=== PATIENT | male | born 1945 | race Caucasian/White ===

== ENCOUNTER 2016-09-11 09:56 | Inpatient (IN) | payer OTHER ==
[2016-09-11] VITALS (7 sets, daily range): BP systolic 160–179; BP diastolic 76–110; PULSE 56–62; TEMP 36.4–37; O2SAT 92–99; Ht 190.5 cm; Wt 92.8 kg
[~2016-09-11] VITALS: Ht 190.5 cm; Wt 92.8 kg
[~2016-09-11 09:56] MED LIST: ADVIN25050 INH; ASPCH81X PO; CLC100 PO; CRG3125 PO; GABA1CAP5 PO; IMDSR/30 PO; LISI-461 PO; MELO7.5T5 PO; NTRGSL/4 UT; PRVC/10 PO; SPRIN INH; TRAM-10 PO; TRAZ50TA35 PO
[2016-09-11] MEDS ORDERED: ASPIRIN 81 MG CHEW PO STA (10:02)
[2016-09-11] MEDS ORDERED: NITROGLYCERIN OINT 2% 1GM PACKET EXT ONE (10:15)
--- NOTE | 2016-09-11 10:19 | EMERGENCY ROOM VISIT NOTE ---
History Report prepared by Christina: Yeison dAam Under the Supervision of: Dr. Alan Matos D.O. First contact with patient: 10:02 Stated Complaint: CHEST PAIN History of Present Illness The patient is a 70 year old male who presents to the Emergency Room via ambulance with complaints of constant central chest pain beginning one hour prior to arrival. He currently rates his discomfort as a 2/10 in severity. As per , the patient woke up with the chest pain and notes the patient was doing some heavy lifting yesterday. As per EMS, the patient's chest pain began 30 minutes prior to calling for EMS in the right upper chest that moved to the substernal area. They note the patient's pain was initially a 7/10 and was lowered to a 4/10 after 3 Nitro and aspirin was provided by EMS. The patient states he took two Nitro at home, as well. The notes the patient has a history of a heart attack, in which, he had bypass surgery performed eight years ago without a heart catheterization. EMS states the patient noted he had abdominal pain with his previous heart attack, but is not experiencing abdominal pain today. The states the patient recently had an Echo performed that was fine. The patient complains of increased ankle pain with today's symptoms. He notes he wears oxygen as needed at home. The patient denies radiation of his chest pain, nausea, and being on blood thinners. 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 Initially: 7/10. Timing: constant Modifying Factors (Relieving): other (Nitro) Associated Symptoms: No nausea Review of Systems See HPI for pertinent positives & negatives. A total of 10 systems reviewed and were otherwise negative. Past Medical & Surgical Medical Problems: (1) Chest pain (2) Heart attack Surgical Problems: (1) H/O heart bypass surgery Family History No pertinent family history Social History Smoking Status: Former Smoker Drug Use: none Marital Status: Housing Status: lives with family Occupation Status: retired Current/Historical Medications Scheduled Aspirin (Aspirin Chewable), 81 MG PO DAILY Cholecalciferol (Vitamin D), 1 TAB PO DAILY Docusate Sodium (Stool Softener), 1 CAP PO DAILY Fluticasone Prop/Salmeterol (Advair Diskus 250-50 Mcg/Dose), 1 PUFF INH BID Gabapentin (Neurontin), 800 MG PO TID Isosorbide Mononitrate (Isosorbide Mononitrate ER), 30 MG PO DAILY Lisinopril (Zestril), 1 TAB PO DAILY Meloxicam (Mobic), 7.5 MG PO BID Metoprolol Succ (Toprol Xl) (Toprol-Xl), 25 MG PO DAILY Nitroglycerin (Nitrostat), 0.4 MG UT PRN Pravastatin Sod (Pravastatin Sodium), 10 MG PO DAILY Tiotropium [place] (Spiriva Handihaler), 1 PUFF INH QAM Trazodone Hcl (Trazodone), 25 MG PO HS Scheduled PRN Tramadol (Ultram), 50 MG PO Q12 PRN for Pain Allergies Coded Allergies: Simvastatin (Verified Allergy, Severe, CHEST PAIN, 09/11/16) Naproxen (Unverified Allergy, Intermediate, RASH, 09/11/16) Sulfa Drugs (Verified Allergy, Intermediate, RASH, 09/11/16) Nifedipine (Unverified Allergy, Unknown, UNKNOWN, 09/11/16) Propoxyphene (Verified Allergy, Unknown, _, 09/11/16) Physical Exam Vital Signs Date Time Temp Pulse Resp B/P Pulse Ox O2 Delivery O2 Flow Rate FiO2 09/11/16 13:59 54 20 177/91 99 09/11/16 13:48 54 18 177/91 99 Room Air 09/11/16 12:42 57 20 157/116 100 Room Air 09/11/16 10:56 57 09/11/16 10:46 56 20 183/89 99 Room Air 09/11/16 10:00 99 Room Air 09/11/16 09:56 36.6 63 20 167/109 98 Room Air 09/11/16 09:56 99 Room Air Physical Exam GENERAL: Patient is awake, alert, and mildly anxious appearing but overall comfortable. EYES: The conjunctivae are clear. The pupils are round and reactive. EARS, NOSE, MOUTH AND THROAT: The nose is without any evidence of any deformity. Mucous membranes are moist. Mild perioral cyanosis noted. NECK: The neck is nontender and supple. RESPIRATORY: Normal respiratory effort is noted there is no evidence of wheezing rhonchi or rales CARDIOVASCULAR: Regular rate and rhythm noted there no murmurs rubs or gallops normal S1 normal S2 GASTROINTESTINAL: The abdomen is soft. Bowel sounds are present in all quadrants. Abdomen is nontender MUSCULOSKELETAL/EXTREMITIES: There is no evidence of gross deformity full range of motion is noted in the hips and shoulders SKIN: Trace pedal edema bilaterally. There is no obvious evidence of any rash. There are no petechiae, pallor or cyanosis noted. NEUROLOGIC: Patient is awake alert and oriented x3. Fine resting tremor was noted in both upper extremities. Medical Decision & Procedures ER Provider Diagnostic Interpretation: X-ray results as stated below per interpretation by me and the radiologist. CHEST ONE VIEW PORTABLE CLINICAL HISTORY: Chest pain. COMPARISON STUDY: Chest radiograph and chest CT November 13, 2015. FINDINGS: There is no pneumothorax or pleural effusion. There is no consolidation to suggest pneumonia. There are are median sternotomy wires. Moderate cardiomegaly is unchanged. Mild pulmonary edema is present. IMPRESSION: Mild pulmonary edema. Electronically signed by: Jez Wilson M.D. 09/11/2016 10:25 AM Laboratory Results 09/11/16 10:40 Red Blood Count 5.52, Mean Corpuscular Volume 83.9, Mean Corpuscular Hemoglobin 29.7, Mean Corpuscular Hemoglobin Concent 35.4, Mean Platelet Volume 9.3, Neutrophils (%) (Auto) 74.4, Lymphocytes (%) (Auto) 17.4, Monocytes (%) (Auto) 6.3, Eosinophils (%) (Auto) 1.4, Basophils (%) (Auto) 0.4, Neutrophils # (Auto) 5.82, Lymphocytes # (Auto) 1.36, Monocytes # (Auto) 0.49, Eosinophils # (Auto) 0.11, Basophils # (Auto) 0.03 09/11/16 10:40 Test 09/11/16 10:40 09/11/16 10:44 White Blood Count 7.82 K/uL (4.8-10.8) Red Blood Count 5.52 M/uL (4.7-6.1) Hemoglobin 16.4 g/dL (14.0-18.0) Hematocrit 46.3 % (42-52) Mean Corpuscular Volume 83.9 fL (80-100) Mean Corpuscular Hemoglobin 29.7 pg (25-34) Mean Corpuscular Hemoglobin Concent 35.4 g/dl (32-36) Platelet Count 176 K/uL (130-400) Mean Platelet Volume 9.3 fL (7.4-10.4) Neutrophils (%) (Auto) 74.4 % Lymphocytes (%) (Auto) 17.4 % Monocytes (%) (Auto) 6.3 % Eosinophils (%) (Auto) 1.4 % Basophils (%) (Auto) 0.4 % Neutrophils # (Auto) 5.82 K/uL (1.4-6.5) Lymphocytes # (Auto) 1.36 K/uL (1.2-3.4) Monocytes # (Auto) 0.49 K/uL (0.11-0.59) Eosinophils # (Auto) 0.11 K/uL (0-0.5) Basophils # (Auto) 0.03 K/uL (0-0.2) RDW Standard Deviation 43.6 fL (36.4-46.3) RDW Coefficient of Variation 14.3 % (11.5-14.5) Immature Granulocyte % (Auto) 0.1 % Immature Granulocyte # (Auto) 0.01 K/uL (0.00-0.02) Prothrombin Time 10.5 SECONDS (9.0-12.0) Prothromb Time International Ratio 1.0 (0.9-1.1) Activated Partial Thromboplast Time 25.9 SECONDS (21.0-31.0) Partial Thromboplastin Ratio 1.0 Anion Gap 4.0 mmol/L (3-11) Est Creatinine Clear Calc Drug Dose 104.2 ml/min Estimated GFR () 105.6 Estimated GFR (Non- 91.1 BUN/Creatinine Ratio 23.3 (10-20) Calcium Level 8.8 mg/dl (8.5-10.1) Magnesium Level 2.0 mg/dl (1.8-2.4) Total Bilirubin 1.2 mg/dl (0.2-1) Direct Bilirubin 0.2 mg/dl (0-0.2) Aspartate Amino Transf (AST/SGOT) 14 U/L (15-37) Alanine Aminotransferase (ALT/SGPT) 19 U/L (12-78) Alkaline Phosphatase 89 U/L (45-117) Total Creatine Kinase 119 U/L (39-308) Creatine Kinase MB 3.6 ng/ml (0.5-3.6) Creatine Kinase MB Ratio 3.0 (0-3.0) Troponin I < 0.015 ng/ml (0-0.045) Total Protein 7.0 gm/dl (6.4-8.2) Albumin 3.8 gm/dl (3.4-5.0) Bedside Troponin I 0.010 ng/ml (0-0.045) Laboratory results per my review. Medications Administered Medications (Trade) Dose Ordered Sig/Reid Route Start Time Stop Time Status Last Admin Dose Admin Nitroglycerin (Nitroglycerin 2% Oint) 1 inch NOW ONCE EXT 09/11/16 10:15 09/11/16 10:16 DC 09/11/16 10:15 1 INCH ECG Indication: chest pain Rate (beats per minute): 64 Rhythm: normal sinus (Bigeminy is noted.) Findings: Q waves (Inferior), other (No ST segment abnormality.) Comparison ECG Date: 11/11/2015 Change: Ectopy is new. ED Course 0955: The patient was evaluated in room B4B. A complete history and physical examination were performed. 1015: Ordered Nitroglycerin 1 inch EXT. 1058: Reevaluated the patient at this time, and he is essentially pain free. 1153: I spoke to CAROL Rutledge (Hospitalist) about the patient's case, and he will follow the patient for further evaluation. Medical Decision Etiologies such as cardiac ischemia, aortic dissection, pulmonary embolism, pneumonia, pneumothorax, musculoskeletal, infections, pericarditis, myocarditis , esophageal rupture, gastrointestinal, as well as others were entertained. Nursing notes reviewed. Additional history is obtained from the prehospital personnel. The patient is a 70-year-old male who presented to the emergency department for an evaluation of chest discomfort. The patient took his own nitroglycerin at home with minimal relief. He was given aspirin and nitroglycerin prior to arrival by the prehospital personnel. Upon arrival to the emergency Department his symptoms were significantly improved. He was further treated with Nitropaste in the emergency department. The patient doesn't a strong medical history of coronary artery disease. I discussed the patient's laboratory and radiographic studies with him. I also discussed the limitations of the emergency department workup for chest pain with him. Because of his past medical history I also discussed his case with the on-call [facility] hospitalist group. They have agreed to evaluate the patient in the emergency department for further management and disposition. Consults Time Called: 1151 Consulting Physician: CAROL Rutledge (Hospitalist) Returned Call: 1153 I spoke to CAROL Rutledge (Hospitalist) about the patient's case, and he will follow the patient for further evaluation. Impression Primary Impression: Substernal chest pain Additional Impression: Abnormal EKG Scribe Attestation The scribe's documentation has been prepared under my direction and personally reviewed by me in its entirety. I confirm that the note above accurately reflects all work, treatment, procedures, and medical decision making performed by me. Departure Information Dispostion Being Evaluated By Hospitalist (CAROL Rutledge (Hospitalist)) Problem Qualifiers
--- NOTE | 2016-09-11 10:26 | DIAGNOSTIC IMAGING REPORT ---
CHEST ONE VIEW PORTABLE CLINICAL HISTORY: Chest pain. COMPARISON STUDY: Chest radiograph and chest CT November 13, 2015. FINDINGS: There is no pneumothorax or pleural effusion. There is no consolidation to suggest pneumonia. There are are median sternotomy wires. Moderate cardiomegaly is unchanged. Mild pulmonary edema is present. IMPRESSION: Mild pulmonary edema. Electronically signed by: Jez Wilson M.D. 09/11/2016 10:25 AM Dictated Date/Time: 09/11/2016 10:24 AM
[2016-09-11 10:50] LABS: BASO % 0.4 %; BASO ABS # 0.03 K/uL (0-0.2); COMPLETE YES; EOS % 1.4 %; HEMATOCRIT 46.3 % (42-52); IG% 0.1 %; LYMPH % 17.4 %; LYMPH ABS # 1.36 K/uL (1.2-3.4); MEAN CELL VOLUME 83.9 fL (80-100); MEAN CORPUSCULAR HEMOGLOBIN 29.7 pg (25-34); MEAN CORPUSCULAR HGB CONC 35.4 g/dl (32-36); MEAN PLATELET VOLUME 9.3 fL (7.4-10.4); MONO % 6.3 %; NEUT % 74.4 %; PLATELET COUNT 176 K/uL (130-400); RED BLOOD COUNT 5.52 M/uL (4.7-6.1); WHITE BLOOD COUNT 7.82 K/uL (4.8-10.8)
[2016-09-11] MEDS ORDERED: LISI-789 PO (10:50)
[2016-09-11] MEDS ORDERED: CHOL100010 PO (10:50)
[2016-09-11] MEDS ORDERED: DOCU100C PO (10:50)
[2016-09-11] MEDS ORDERED: METO25TA3 PO (10:50)
[2016-09-11 11:08] LABS: PROTHROMBIN TIME (PATIENT) 10.5 SECONDS (9.0-12.0)
[2016-09-11 11:17] LABS: ALT/SGPT 19 U/L (12-78); BLOOD UREA NITROGEN 19 mg/dl (7-18); BUN/CREATININE RATIO 23.3 (10-20); CALCIUM 8.8 mg/dl (8.5-10.1); CARBON DIOXIDE 31 mmol/L (21-32); CHLORIDE 101 mmol/L (98-107); GLUCOSE 99 mg/dl (70-99); POTASSIUM 4.3 mmol/L (3.5-5.1); SODIUM 136 mmol/L (136-145)
[2016-09-11 11:22] LABS: ALKALINE PHOSPHATASE 89 U/L (45-117); AST/SGOT 14 U/L (15-37)
[2016-09-11] MEDS ORDERED: ONDANSETRON INJ 2 MG/ML 2 ML VIAL IV PRN (12:45)
[2016-09-11] MEDS ORDERED: POLYETHYLENE (MIRALAX) 17 GM PACK PO PRN (12:45)
[2016-09-11] MEDS ORDERED: NITROGLYCERIN 0.4 MG SL PER TAB CHARGE UT SCH (12:45)
--- NOTE | 2016-09-11 13:12 | History and Physical ---
History & Physical Date & Time of Service: Sep 11, 2016 at 12:50 Chief Complaint: Chest Pain Primary Care Physician: Fely Friedman MD History of Present Illness Source: patient, family This is a 70-year-old male with a past medical history of previous inferior NH, CAD, chronic systolic CHF with an EF = 35-40% in 2016, resting tremor, hypertension, hyperlipidemia and remote 20pack/yr smoking history who presents with the onset of substernal chest pain at approximately 8:30 this morning. His , son, and family friend are present at bedside. At the time the patient developed chest pain he took 2 nitroglycerin tablets and chewed 2 baby aspirin, and after this his pain slightly improved from a 7 to 4. Patient reports the pain comes and goes, it does radiate through to his back, but denies any radiation into the jaw neck or arms. He currently rates the pain a 4 out of 10, and has nitro paste on. He denies any associated shortness of breath, dyspnea on exertion, flutter, palpitation, weakness, lightheadedness, dizziness, confusion. He does wear 2L supplemental oxygen occasionally but the last time was about 2 weeks ago. Patient typically uses an walker to ambulate. He and his are residents of the [facility]. POC troponin is negative in the ER, BC is within normal limits, PRP is essentially unremarkable. EKG was reviewed showing new ST depression in the lateral leads with an old inferior infarct. CXR showing pulmonary hypertension Past Medical/Surgical History Medical Problems: (1) Heart attack Status: Resolved Surgical Problems: (1) H/O heart bypass surgery Status: Resolved Family History No pertinent family history Social History Smoking Status: Former Smoker Smokeless Tobacco Use: No Alcohol Use: none Drug Use: none Marital Status: Housing status: lives with family, lives with significant other Occupational Status: retired Immunizations History of Influenza Vaccine: Yes History of Tetanus Vaccine?: Yes History of Pneumococcal: Yes Pneumococcal Date: Apr 07, 2010 History of Hepatitis B Vaccine: No Multi-Drug Resistant Organisms History of MDRO: No Allergies Coded Allergies: Simvastatin (Verified Allergy, Severe, CHEST PAIN, 09/11/16) Naproxen (Verified Allergy, Intermediate, RASH, 09/11/16) Sulfa Antibiotics (Verified Allergy, Intermediate, Rash, 09/11/16) Nifedipine (Unverified Allergy, Unknown, UNKNOWN, 09/11/16) Propoxyphene (Verified Allergy, Unknown, _, 09/11/16) Home Medications Scheduled Aspirin (Aspirin Chewable), 81 MG PO DAILY Cholecalciferol (Vitamin D), 1 TAB PO DAILY Docusate Sodium (Stool Softener), 1 CAP PO DAILY Fluticasone Prop/Salmeterol (Advair Diskus 250-50 Mcg/Dose), 1 PUFF INH BID Gabapentin (Neurontin), 800 MG PO TID Isosorbide Mononitrate (Isosorbide Mononitrate ER), 30 MG PO DAILY Lisinopril (Zestril), 1 TAB PO DAILY Meloxicam (Mobic), 7.5 MG PO BID Metoprolol Succ (Toprol Xl) (Toprol-Xl), 25 MG PO DAILY Nitroglycerin (Nitrostat), 0.4 MG UT PRN Pravastatin Sod (Pravastatin Sodium), 10 MG PO DAILY Tiotropium [place] (Spiriva Handihaler), 1 PUFF INH QAM Trazodone Hcl (Trazodone), 25 MG PO HS Scheduled PRN Tramadol (Ultram), 50 MG PO Q12 PRN for Pain Review of Systems Constitutional: No fever, chills, sweats, fatigue or weakness Eyes: No diplopia, no changes in vision ENT: No sore throat, tinnitus, or trouble swallowing Respiratory: No shortness of breath, No dyspnea at rest or on exertion, no cough or sputum Cardiovascular: + Substernal chest pain, denies palpitations, or flutter Abdomen: No pain, No constipation, last BM was yesterday, No diarrhea, No nausea, No vomiting Musculoskeletal: No calf pain, No joint pain, No swelling Genitourinary : No dysuria or urinary frequency, No hematuria Neurologic: No numbness/tingling, no difficulty with ambulation, no sensory or motor deficits Psychiatric: No depression or anxiety symptoms Endocrine: No fatigue, No weight changes Integumentary: No itch, + rash with small red circles on his legs and arms Physical Exam Vital Signs Date Time Temp Pulse Resp B/P Pulse Ox O2 Delivery O2 Flow Rate FiO2 09/11/16 12:42 57 20 157/116 100 Room Air 09/11/16 10:56 57 09/11/16 10:46 56 20 183/89 99 Room Air 09/11/16 10:00 99 Room Air 09/11/16 09:56 36.6 63 20 167/109 98 Room Air 09/11/16 09:56 99 Room Air General: awake, alert, no apparent distress, appears older than stated age, disheveled Head: Normocephalic, atraumatic ENT: PERRL, EOMI, + strabismus, no pharyngeal exudate, mucous membranes moist Chest: Clear to auscultation, on room air, no adventitious breath sounds Cardiac: + Chest wall tenderness with palpation over sternum, regular rate and rhythm, +faint systolic murmur, no JVD, normal peripheral pulses Abdominal: NABS x 4 quadrants, soft, nontender to palpation, no rebound, guarding or tenderness Extremities: Normal inspection, no peripheral edema or erythema, calfs nontender to palpation Psych: Normal mood and affect Neuro: AAO x 3, strength intact bilaterally and related 5/5, no motor deficits, speech is clear, no peripheral sensory deficits Diagnostics Laboratory Results Results Past 24 Hours Test 09/11/16 10:40 09/11/16 10:44 Range/Units White Blood Count 7.82 4.8-10.8 K/uL Red Blood Count 5.52 4.7-6.1 M/uL Hemoglobin 16.4 14.0-18.0 g/dL Hematocrit 46.3 42-52 % Mean Corpuscular Volume 83.9 80-100 fL Mean Corpuscular Hemoglobin 29.7 25-34 pg Mean Corpuscular Hemoglobin Concent 35.4 32-36 g/dl Platelet Count 176 130-400 K/uL Mean Platelet Volume 9.3 7.4-10.4 fL Neutrophils (%) (Auto) 74.4 % Lymphocytes (%) (Auto) 17.4 % Monocytes (%) (Auto) 6.3 % Eosinophils (%) (Auto) 1.4 % Basophils (%) (Auto) 0.4 % Neutrophils # (Auto) 5.82 1.4-6.5 K/uL Lymphocytes # (Auto) 1.36 1.2-3.4 K/uL Monocytes # (Auto) 0.49 0.11-0.59 K/uL Eosinophils # (Auto) 0.11 0-0.5 K/uL Basophils # (Auto) 0.03 0-0.2 K/uL RDW Standard Deviation 43.6 36.4-46.3 fL RDW Coefficient of Variation 14.3 11.5-14.5 % Immature Granulocyte % (Auto) 0.1 % Immature Granulocyte # (Auto) 0.01 0.00-0.02 K/uL Prothrombin Time 10.5 9.0-12.0 SECONDS Prothromb Time International Ratio 1.0 0.9-1.1 Activated Partial Thromboplast Time 25.9 21.0-31.0 SECONDS Partial Thromboplastin Ratio 1.0 Sodium Level 136 136-145 mmol/L Potassium Level 4.3 3.5-5.1 mmol/L Chloride Level 101 98-107 mmol/L Carbon Dioxide Level 31 21-32 mmol/L Anion Gap 4.0 3-11 mmol/L Blood Urea Nitrogen 19 7-18 mg/dl Creatinine 0.80 0.60-1.40 mg/dl Est Creatinine Clear Calc Drug Dose 104.2 ml/min Estimated GFR () 105.6 Estimated GFR (Non- 91.1 BUN/Creatinine Ratio 23.3 10-20 Random Glucose 99 70-99 mg/dl Calcium Level 8.8 8.5-10.1 mg/dl Magnesium Level 2.0 1.8-2.4 mg/dl Total Bilirubin 1.2 0.2-1 mg/dl Direct Bilirubin 0.2 0-0.2 mg/dl Aspartate Amino Transf (AST/SGOT) 14 15-37 U/L Alanine Aminotransferase (ALT/SGPT) 19 12-78 U/L Alkaline Phosphatase 89 45-117 U/L Total Creatine Kinase 119 39-308 U/L Creatine Kinase MB 3.6 0.5-3.6 ng/ml Creatine Kinase MB Ratio 3.0 0-3.0 Total Protein 7.0 6.4-8.2 gm/dl Albumin 3.8 3.4-5.0 gm/dl Bedside Troponin I 0.010 0-0.045 ng/ml Diagnostic Radiology CHEST ONE VIEW PORTABLE CLINICAL HISTORY: Chest pain. COMPARISON STUDY: Chest radiograph and chest CT November 13, 2015. FINDINGS: There is no pneumothorax or pleural effusion. There is no consolidation to suggest pneumonia. There are are median sternotomy wires. Moderate cardiomegaly is unchanged. Mild pulmonary edema is present. IMPRESSION: Mild pulmonary edema. Electronically signed by: Jez Wilson M.D. 09/11/2016 10:25 AM Dictated Date/Time: 09/11/2016 10:24 AM The status of this report is Signed. EKG Vent. rate 64 BPM WA interval 158 ms QRS duration 100 ms QT/QTc 482/497 ms P-R-T axes 27 76 38 Sinus rhythm with frequent Premature ventricular complexes in a pattern of bigeminy Possible Inferior infarct (cited on or before 08-JUL-2010) Abnormal ECG When compared with ECG of 11-NOV-2015 13:43, Premature ventricular complexes are now Present ST now depressed in Lateral leads Impression Assessment and Plan This is a 70-year-old male with a past medical history of previous inferior NH, CAD, chronic systolic CHF with an EF = 35-40% in 2016, resting tremor, hypertension, hyperlipidemia and remote 20pack/yr smoking history who presents with the onset of substernal chest pain at approximately 8:30 this morning. Chest pain r/o Chronic Systolic CHF CAD Ischemic cardiomyopathy Pulmonary hypertension - Admit to telemetry - + pain with palpation of the chest wall, VSS, not hypoxic, BP stable and mildly elevated in 150s. - POC troponin is negative in the ER, recheck of trop is neg with CBC is neg, CBC is within normal limits, PRP is essentially unremarkable. - Trend cardiac biomarkers 2 more sets - EKG reviewed showing possible lateral wall involvement, patient has previously had an inferior NH in 2010 where he underwent bypass surgery without cath. - We will check a 2-D echo, last echo was completed in 2016 showing systolic CHF with diminished EF - Consult cardiology - Chest x-ray reviewed showing pulmonary hypertension - EKG when necessary chest pain - Continue Nitropaste, baby aspirin, O2 supplemental therapy - Continue home medications including lisinopril 2.5 mg daily, metoprolol succinate 25 mg daily, pravastatin 10 mg daily - Hold Imdur while on nitropaste - PT OT eval Hypertension - Continue PIANO PROFESSOR meds as above Hyperlipidemia - Continue statin therapy as above Resting tremor Chronic right wrist pain - Continue gabapentin 800 mg 3 times a day - Continue tramadol 50 mg every 12 as needed for pain DVT prophylaxis: teds, scds, heparin Disposition: From [facility], lives with , possible discharge within 1-2 days Agree with PA assessment and plan and have seen and examined pt myself Will cont home meds Chest: no TATI, RRR Accelerated HTN Chest pain likely atypical, worse on palpation Awaiting cards recs Level of Care Telemetry Advanced Directives Existing Advance Directive: No Existing Living Will: No Existing Power of Fruit Dumper: No Existing Health Care Proxy: No Resuscitation Status FULL RESUSCITATION VTE Prophylaxis VTE Risk Assessment Done? Y/N: Yes Risk Level: Low Given or contraindicated: Unfractionated heparin SQ, T.E.D. Stockings, SCD's
[2016-09-11] MEDS: HEPARIN SOD 5000 UNIT/0.5 ML CARP SQ SCH ×2 (14:00→21:59)
[2016-09-11] MEDS: GABAPENTIN 800 MG TAB PO SCH ×2 (14:00→20:15)
[2016-09-11] MEDS ORDERED: INFLUENZA ADMINISTRATION CHARGE ONE (14:45)
[2016-09-11] MEDS ORDERED: PNEUMOCOCCAL ADMINISTRATION CHARGE ONE (14:45)
[2016-09-11] MEDS ORDERED: PNEUMOCOCCAL POLYSACCHARIDES 25 MCG/0.5 ML VIAL/SYR IM. ONE (14:45)
[2016-09-11] MEDS ORDERED: INFLUENZA VIRUS QUAD VACCINE 0.5 ML SYR IM. ONE (14:45)
[2016-09-11] MEDS ORDERED: HydrALAZINE HCL 20 MG/ML VIAL IV. PRN (15:15)
[2016-09-11] MEDS ORDERED: METOPROLOL SUCC 25MG EXT REL TAB PO ONE (17:30)
[2016-09-11] MEDS: NITROGLYCERIN OINT 2% 1GM PACKET EXT SCH ×2 (18:26→22:06)
[2016-09-11] MEDS: TRAMADOL HCL 50 MG TAB PO PRN (18:28)
--- NOTE | 2016-09-11 19:02 | CARDIOLOGY CONSULTATION ---
DATE OF CONSULTATION: 09/11/2016 REFERRING PHYSICIAN: Billy Lugo DO REASON FOR CONSULTATION: Chest pain. HISTORY OF PRESENT ILLNESS: Mr. Domingo is a 70-year-old gentleman with prior cardiovascular history noted below. He presented to the Emergency Department with an episode of substernal chest discomfort this a.m. lasting nearly 60 minutes. He described a sharp and stabbing pain. The pain was described as moderate. It did not radiate. No associated shortness of breath. The discomfort spontaneously resolved without treatment. He came to the Emergency Department for further evaluation. Initial ECG is unremarkable. Cardiac enzymes are negative x2 sets. During his stay in the ER, he developed frequent PVCs with ventricular bigeminy. This was also noted during recent office visit with Adri Beck PA-C on 08/16/2016. At that time, the patient had a repeat resting 2D transthoracic echo performed demonstrating mild improvement in left ventricular systolic function with an ejection fraction now of 40-45%. His most recent dobutamine stress echo was performed in 2015 and was negative for inducible ischemia. Currently, the patient is pain free. He remains in ventricular bigeminy on telemetry. His is present at the bedside. He denies orthopnea, PND or lower extremity edema. He ambulates with the use of a walker. He denies any exertional chest discomfort or change in functional capacity. REVIEW OF SYSTEMS: The pertinent positives as noted above, comprehensive 10-system review is otherwise negative. PAST MEDICAL HISTORY: 1. Congenital hydrocephalus. 2. Chronic coronary artery disease status post drug-eluting stent placement to the left circumflex in 2008. 3. STEMI in 2010 with late stent thrombosis of the left circumflex treated with angioplasty, known occluded right coronary artery at that time with left to right collaterals. 4. Coronary artery bypass grafting in 2010 with MINA to LAD, saphenous vein graft to the first diagonal branch. 5. Diabetes type 2. 6. Colon cancer. 7. Dyslipidemia. 8. Peptic ulcer disease. 9. Hypertriglyceridemia. 10. Hypertension. 11. Meningioma. PAST SURGICAL HISTORY: Coronary artery bypass grafting. ALLERGIES: NAPROXEN, SIMVASTATIN AND SULFA. CURRENT OUTPATIENT MEDICATIONS: 1. Toprol-XL 25 mg daily (recently transitioned from carvedilol to Toprol for treatment of frequent PVCs). 2. Aspirin 81 mg daily. 3. Neurontin 800 mg t.i.d. 4. Imdur 30 mg daily. 5. Zestril 2.5 mg daily. 6. Advair Diskus 250/50 one puff twice daily. 7. Mobic 7.5 mg twice daily. 8. Sublingual nitrate as needed. 9. Pravastatin 10 mg daily. 10. Trazodone 25 mg at bedtime. FAMILY HISTORY: Negative for premature CAD or sudden cardiac . SOCIAL HISTORY: Former tobacco use. He is and lives with his . LABORATORY DATA: White blood cell count 7.82, hemoglobin is 16.4 and platelet count is 176. Sodium 136, potassium 4.3, chloride 101, CO2 is 31, BUN is 19 and creatinine 0.80. Troponin is negative x2 sets. INR is 1.0. Telemetry demonstrates sinus rhythm with ventricular bigeminy. PHYSICAL EXAMINATION: VITAL SIGNS: Temperature is 37 degrees centigrade, pulse 56 beats per minute and regular, respiratory rate 17 breaths per minute, blood pressure 177/81 and SaO2 is 99% on room air. GENERAL: NAD, awake, alert and oriented x3. HEENT: His mucous membranes are moist. NECK: Supple without JVD or HJR. No carotid bruits. HEART: Regular with a normal S1 and S2, no murmur, rub or gallop. LUNGS: Clear without rales, rhonchi or wheeze. ABDOMEN: Soft and nontender. No rebound or guarding. EXTREMITIES: Warm and dry without clubbing, cyanosis or edema. NEUROLOGIC: Demonstrates no focal motor deficits. Gait abnormality noted. FINAL IMPRESSION: 1. A 70-year-old male, admitted with atypical chest discomfort. 2. Chronic coronary artery disease with history of coronary artery bypass grafting in 2010 with left internal mammary artery to left anterior descending artery and saphenous vein graft to diagonal branch vessel. Negative dobutamine stress echo noted in November 2015. 3. Ischemic cardiomyopathy with ejection fraction previously noted of 35%, however, most recent resting 2D transthoracic echo demonstrated improvement in left ventricular systolic function with an ejection fraction of 40-45%. 4. Hypertension -- controlled. 5. Congenital hydrocephalus. 6. Dyslipidemia. PLAN AND RECOMMENDATIONS: Cardiac enzymes will be trended x3 sets. Imdur will be placed on hold as patient is now receiving nitro paste which should aid with blood pressure reduction. I would titrate Toprol-XL to 50 mg daily. He would receive an additional 25 mg of Toprol-XL this evening. He may require titration of lisinopril during hospitalization pending review of blood pressure readings overnight. If cardiac enzymes are negative x3 sets, we will likely proceed with pharmacologic stress testing. I discussed inpatient versus outpatient testing with the patient and his . Currently, they are undecided. We will readdress in the a.m. Thank you for allowing me to take part in the care of your patient.
[2016-09-11] MEDS: FLUTICASONE/SALMETEROL 250/50 (ADVAIR) 14 PUFF/1 INHALER INH SCH (20:15)
[2016-09-11] MEDS: MELOXICAM 7.5 MG TAB PO SCH (20:15)
[2016-09-11] MEDS: TRAZODONE HCL 50 MG TAB PO SCH (22:06)
[2016-09-11] MEDS: ACETAMINOPHEN 325 MG TAB PO PRN (22:07)
[2016-09-12] VITALS (11 sets, daily range): BP systolic 120–154; BP diastolic 68–96; PULSE 47–74; TEMP 36.6–36.9; O2SAT 91–96
[2016-09-12] MEDS: NITROGLYCERIN OINT 2% 1GM PACKET EXT SCH ×4 (04:14→21:54)
[2016-09-12] MEDS: HEPARIN SOD 5000 UNIT/0.5 ML CARP SQ SCH ×3 (05:39→21:55)
[2016-09-12 06:21] LABS: BASO % 0.5 %; BASO ABS # 0.04 K/uL (0-0.2); COMPLETE YES; EOS % 2.3 %; HEMATOCRIT 46.1 % (42-52); IG% 0.3 %; LYMPH % 23.4 %; MEAN CELL VOLUME 82.5 fL (80-100); MEAN CORPUSCULAR HEMOGLOBIN 28.6 pg (25-34); MEAN CORPUSCULAR HGB CONC 34.7 g/dl (32-36); MEAN PLATELET VOLUME 9.5 fL (7.4-10.4); MONO % 9.2 %; NEUT % 64.3 %; PLATELET COUNT 177 K/uL (130-400); RED BLOOD COUNT 5.59 M/uL (4.7-6.1)
[2016-09-12 06:41] LABS: BLOOD UREA NITROGEN 23 mg/dl (7-18); BUN/CREATININE RATIO 27.4 (10-20); CALCIUM 8.6 mg/dl (8.5-10.1); CARBON DIOXIDE 27 mmol/L (21-32); CHLORIDE 102 mmol/L (98-107); CREATININE 0.82 mg/dl (0.60-1.40); GLUCOSE 99 mg/dl (70-99); POTASSIUM 3.9 mmol/L (3.5-5.1); SODIUM 137 mmol/L (136-145)
[2016-09-12] MEDS: TIOTROPIUM BROMIDE 5 PUFF/90 MCG INH INH SCH (07:23)
[2016-09-12] MEDS: FLUTICASONE/SALMETEROL 250/50 (ADVAIR) 14 PUFF/1 INHALER INH SCH ×2 (07:23→21:54)
[2016-09-12] MEDS: TRAMADOL HCL 50 MG TAB PO PRN ×2 (07:24→21:53)
[2016-09-12] MEDS: DOCUSATE SODIUM 100 MG CAP PO SCH (07:25)
[2016-09-12] MEDS: ASPIRIN 81 MG ECTAB PO SCH (07:25)
[2016-09-12] MEDS: GABAPENTIN 800 MG TAB PO SCH ×3 (07:26→21:53)
[2016-09-12] MEDS: PRAVASTATIN SOD 10 MG TAB PO SCH (07:26)
[2016-09-12] MEDS: MELOXICAM 7.5 MG TAB PO SCH ×2 (07:26→21:53)
[2016-09-12] MEDS: METOPROLOL SUCC 50MG EXT REL TAB PO SCH (07:27)
[2016-09-12] MEDS: CHOLECALCIFEROL 1000 INTER.UNIT TAB PO SCH (07:28)
[2016-09-12] MEDS ORDERED: METOPROLOL SUCC 25MG EXT REL TAB PO SCH (09:00)
[2016-09-12] MEDS ORDERED: LISINOPRIL 2.5 MG TAB PO SCH (09:00)
[2016-09-12] MEDS ORDERED: ISOSORBIDE MONONITRATE 30 MG TABCR PO SCH (09:00)
--- NOTE | 2016-09-12 09:15 | Cardiology Follow-Up ---
Subjective General Date of Service: Sep 12, 2016. Pt evaluation today including: conversation w/ patient, conversation w/ family , physical exam, chart review, lab review, review of studies, review of inpatient medication list History of Present Illness The patient is a 70 year old male seen in follow up. No recurrent chest discomfort overnight. Telemetry reveals sinus rhythm with PVC's and periods and ventricular bigeminy. C/o chronic foot discomfort this AM. Denies palpitations. Allergies Coded Allergies: Simvastatin (Verified Allergy, Severe, CHEST PAIN, 09/11/16) Naproxen (Verified Allergy, Intermediate, RASH, 09/11/16) Sulfa Antibiotics (Verified Allergy, Intermediate, Rash, 09/11/16) Nifedipine (Unverified Allergy, Unknown, UNKNOWN, 09/11/16) Propoxyphene (Verified Allergy, Unknown, _, 09/11/16) Social History Smoking Status: Former Smoker Hx Tobacco Use In Past Year?: No Hx Alcohol Use - Type And Amou: No (quit 16 yrs ago) Hx Substance Use - Type And Am: No Problem List Medical Problems: (1) Abnormal EKG Status: Acute (2) Abnormal EKG Status: Acute (3) Substernal chest pain Status: Acute Review of Systems Respiratory: No cough, No dyspnea at rest, No dyspnea on exertion, No hemoptysis, No shortness of breath, No sputum, No wheezing Cardiac: No PND, No chest pain, No claudication, No edema, No orthopnea, No palpitations Physical Exam Vital Signs Last Vital Signs Documentation Date Time Temp Pulse Resp B/P Pulse Ox O2 Delivery O2 Flow Rate FiO2 09/12/16 08:35 36.8 74 18 147/96 96 2.0 09/12/16 04:00 Room Air Physical Exam Constitutional: General Apperance: well-nourished Level of Distress: NAD Head: macrocephaly Neck: supple, trachea midline Lungs: Auscultation: breath sounds normal, no wheezing, no rales/crackles, no rhonchi Cardiovascular: Heart Auscultation: RRR, normal S1, normal S2, no murmurs Peripheral Pulses: Radial Pulse: normal on the left, normal on the right Abdomen: Bowel Sounds: normal Inspection & Palpation: soft, non-distended, no tenderness, guarding & rebound Extremities: no cyanosis, no edema Neurologic: Gait & Station: pertinent finding (+tremor) Cranial Nerves: grossly intact Assessment and Plan Assessment and Plan FINAL IMPRESSION: 1. Atypical chest discomfort. - Troponin negative 2. Chronic coronary artery disease with history of coronary artery bypass grafting in 2010 with left internal mammary artery to left anterior descending artery and saphenous vein graft to diagonal branch vessel. Negative dobutamine stress echo noted in November 2015. 3. Ischemic cardiomyopathy with ejection fraction previously noted of 35%, however, most recent resting 2D transthoracic echo demonstrated improvement in left ventricular systolic function with an ejection fraction of 40-45%. 5. PVC's with periods of ventricular bigeminy 6. Hypertension -- improved control 7. Congenital hydrocephalus. 8. Dyslipidemia. PLAN AND RECOMMENDATIONS: Recommend pharmacologic stress testing. Offered to discharge and schedule test as outpatient, however, patient prefers to remain in hospital due to transportation issues. He will be made NPO after midnight. Lexiscan nuclear stress test in AM. Laboratory Results Last 24 Hours Test 09/11/16 10:40 09/11/16 10:44 09/11/16 15:00 09/11/16 22:00 White Blood Count 7.82 K/uL Red Blood Count 5.52 M/uL Hemoglobin 16.4 g/dL Hematocrit 46.3 % Mean Corpuscular Volume 83.9 fL Mean Corpuscular Hemoglobin 29.7 pg Mean Corpuscular Hemoglobin Concent 35.4 g/dl Platelet Count 176 K/uL Mean Platelet Volume 9.3 fL Neutrophils (%) (Auto) 74.4 % Lymphocytes (%) (Auto) 17.4 % Monocytes (%) (Auto) 6.3 % Eosinophils (%) (Auto) 1.4 % Basophils (%) (Auto) 0.4 % Neutrophils # (Auto) 5.82 K/uL Lymphocytes # (Auto) 1.36 K/uL Monocytes # (Auto) 0.49 K/uL Eosinophils # (Auto) 0.11 K/uL Basophils # (Auto) 0.03 K/uL RDW Standard Deviation 43.6 fL RDW Coefficient of Variation 14.3 % Immature Granulocyte % (Auto) 0.1 % Immature Granulocyte # (Auto) 0.01 K/uL Prothrombin Time 10.5 SECONDS Prothromb Time International Ratio 1.0 Activated Partial Thromboplast Time 25.9 SECONDS Partial Thromboplastin Ratio 1.0 Sodium Level 136 mmol/L Potassium Level 4.3 mmol/L Chloride Level 101 mmol/L Carbon Dioxide Level 31 mmol/L Anion Gap 4.0 mmol/L Blood Urea Nitrogen 19 mg/dl Creatinine 0.80 mg/dl Est Creatinine Clear Calc Drug Dose 104.2 ml/min Estimated GFR () 105.6 Estimated GFR (Non- 91.1 BUN/Creatinine Ratio 23.3 Random Glucose 99 mg/dl Calcium Level 8.8 mg/dl Magnesium Level 2.0 mg/dl Total Bilirubin 1.2 mg/dl Direct Bilirubin 0.2 mg/dl Aspartate Amino Transf (AST/SGOT) 14 U/L Alanine Aminotransferase (ALT/SGPT) 19 U/L Alkaline Phosphatase 89 U/L Total Creatine Kinase 119 U/L Creatine Kinase MB 3.6 ng/ml Creatine Kinase MB Ratio 3.0 Troponin I < 0.015 ng/ml < 0.015 ng/ml Total Protein 7.0 gm/dl Albumin 3.8 gm/dl Bedside Troponin I 0.010 ng/ml Test 09/11/16 22:23 09/12/16 06:00 09/12/16 06:05 Creatine Kinase MB 5.4 ng/ml 4.9 ng/ml Troponin I < 0.015 ng/ml < 0.015 ng/ml Creatine Kinase MB Ratio White Blood Count 7.70 K/uL Red Blood Count 5.59 M/uL Hemoglobin 16.0 g/dL Hematocrit 46.1 % Mean Corpuscular Volume 82.5 fL Mean Corpuscular Hemoglobin 28.6 pg Mean Corpuscular Hemoglobin Concent 34.7 g/dl Platelet Count 177 K/uL Mean Platelet Volume 9.5 fL Neutrophils (%) (Auto) 64.3 % Lymphocytes (%) (Auto) 23.4 % Monocytes (%) (Auto) 9.2 % Eosinophils (%) (Auto) 2.3 % Basophils (%) (Auto) 0.5 % Neutrophils # (Auto) 4.95 K/uL Lymphocytes # (Auto) 1.80 K/uL Monocytes # (Auto) 0.71 K/uL Eosinophils # (Auto) 0.18 K/uL Basophils # (Auto) 0.04 K/uL RDW Standard Deviation 42.3 fL RDW Coefficient of Variation 14.1 % Immature Granulocyte % (Auto) 0.3 % Immature Granulocyte # (Auto) 0.02 K/uL Sodium Level 137 mmol/L Potassium Level 3.9 mmol/L Chloride Level 102 mmol/L Carbon Dioxide Level 27 mmol/L Anion Gap 8.0 mmol/L Blood Urea Nitrogen 23 mg/dl Creatinine 0.82 mg/dl Est Creatinine Clear Calc Drug Dose 101.6 ml/min Estimated GFR () 104.6 Estimated GFR (Non- 90.2 BUN/Creatinine Ratio 27.4 Random Glucose 99 mg/dl Calcium Level 8.6 mg/dl
[2016-09-12] MEDS: LISINOPRIL 20 MG TAB PO SCH (10:40)
--- NOTE | 2016-09-12 11:12 | Progress Note ---
Subjective Date of Service: Sep 12, 2016. Subjective Pt evaluation today including: conversation w/ patient, conversation w/ family , physical exam, chart review, lab review, review of studies, conversation w/ organization development consultant, review of inpatient medication list No further chest pain Mild hand pain No sob Resting in bed comfortably Problem List Medical Problems: (1) Abnormal EKG Status: Acute (2) Abnormal EKG Status: Acute (3) Substernal chest pain Status: Acute Review of Systems Constitutional: No chills, No fever Respiratory: No cough, No dyspnea on exertion, No shortness of breath, No sputum, No wheezing Cardiac: No chest pain, No orthopnea Abdomen: No constipation, No diarrhea, No nausea, No pain, No vomiting Musculoskeletal: + joint pain, No muscle pain Male : No dysuria, No urinary frequency Objective Vital Signs Date Time Temp Pulse Resp B/P Pulse Ox O2 Delivery O2 Flow Rate FiO2 09/12/16 08:35 36.8 74 18 147/96 96 2.0 09/12/16 08:00 94 Room Air 09/12/16 04:00 94 Room Air 09/12/16 04:00 36.7 54 18 154/82 94 Room Air 09/12/16 00:00 95 Room Air 09/12/16 00:00 36.6 56 20 139/79 95 Room Air 09/11/16 22:04 62 166/99 09/11/16 20:00 96 Room Air 09/11/16 19:36 36.7 57 16 167/76 96 Room Air 09/11/16 18:26 160/80 09/11/16 16:00 93 Room Air 09/11/16 15:42 37.0 56 16 177/81 92 Room Air 09/11/16 14:12 36.4 56 17 179/110 99 Room Air 09/11/16 13:59 54 20 177/91 99 09/11/16 13:48 54 18 177/91 99 Room Air 09/11/16 12:42 57 20 157/116 100 Room Air Physical Exam General Appearance: WD/WN, no apparent distress Neck: supple, no adenopathy Respiratory/Chest: lungs clear, normal breath sounds Cardiovascular: no edema, no gallop Abdomen: non tender, soft Neurologic/Psychiatric: alert, oriented x 3 Laboratory Results Last 24 Hours Test 09/11/16 15:00 09/11/16 22:00 4/1/17 22:23 09/12/16 06:00 Troponin I < 0.015 ng/ml < 0.015 ng/ml Creatine Kinase MB Ratio Creatine Kinase MB 5.4 ng/ml Test 09/12/16 06:05 White Blood Count 7.70 K/uL Red Blood Count 5.59 M/uL Hemoglobin 16.0 g/dL Hematocrit 46.1 % Mean Corpuscular Volume 82.5 fL Mean Corpuscular Hemoglobin 28.6 pg Mean Corpuscular Hemoglobin Concent 34.7 g/dl Platelet Count 177 K/uL Mean Platelet Volume 9.5 fL Neutrophils (%) (Auto) 64.3 % Lymphocytes (%) (Auto) 23.4 % Monocytes (%) (Auto) 9.2 % Eosinophils (%) (Auto) 2.3 % Basophils (%) (Auto) 0.5 % Neutrophils # (Auto) 4.95 K/uL Lymphocytes # (Auto) 1.80 K/uL Monocytes # (Auto) 0.71 K/uL Eosinophils # (Auto) 0.18 K/uL Basophils # (Auto) 0.04 K/uL RDW Standard Deviation 42.3 fL RDW Coefficient of Variation 14.1 % Immature Granulocyte % (Auto) 0.3 % Immature Granulocyte # (Auto) 0.02 K/uL Sodium Level 137 mmol/L Potassium Level 3.9 mmol/L Chloride Level 102 mmol/L Carbon Dioxide Level 27 mmol/L Anion Gap 8.0 mmol/L Blood Urea Nitrogen 23 mg/dl Creatinine 0.82 mg/dl Est Creatinine Clear Calc Drug Dose 101.6 ml/min Estimated GFR () 104.6 Estimated GFR (Non- 90.2 BUN/Creatinine Ratio 27.4 Random Glucose 99 mg/dl Calcium Level 8.6 mg/dl Creatine Kinase MB 4.9 ng/ml Troponin I < 0.015 ng/ml Assessment and Plan This is a 70-year-old male with a past medical history of previous inferior AL, CAD, chronic systolic CHF with an EF = 35-40% in 2016, resting tremor, hypertension, hyperlipidemia and remote 20pack/yr smoking history who presents with the onset of substernal chest pain at approximately 8:30 this morning. Chest pain r/o Chronic Systolic CHF CAD Ischemic cardiomyopathy Pulmonary hypertension - Admitted to telemetry - Atypical chest pain - + pain with palpation of the chest wall, VSS, not hypoxic, BP stable and mildly elevated in 150s. - POC troponin is negative in the ER, recheck of trop is neg with CBC is neg, CBC is within normal limits, PRP is essentially unremarkable. - Trend cardiac biomarkers 2 more sets unremarkable - Chronic coronary artery disease with history of coronary artery bypass grafting in 2010 with left internal mammary artery to left anterior descending artery and saphenous vein graft to diagonal branch vessel. Negative dobutamine stress echo noted in November 2015. - Ischemic cardiomyopathy with ejection fraction previously noted of 35%, however, most recent resting 2D transthoracic echo demonstrated improvement in left ventricular systolic function with an ejection fraction of 40-45%. 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
[2016-09-12] MEDS: ACETAMINOPHEN 325 MG TAB PO PRN (15:11)
[2016-09-12] MEDS: TRAZODONE HCL 50 MG TAB PO SCH (21:54)
[2016-09-13 00:10] VITALS: O2SAT 93
[2016-09-13 04:20] VITALS: O2SAT 93
[2016-09-13 04:25] VITALS: BP 135/92; PULSE 66; TEMP 36.7; O2SAT 93
[2016-09-13] MEDS: NITROGLYCERIN OINT 2% 1GM PACKET EXT SCH ×2 (04:28→10:00)
[2016-09-13] MEDS: HEPARIN SOD 5000 UNIT/0.5 ML CARP SQ SCH (06:32)
[2016-09-13 06:40] LABS: BASO % 0.4 %; BASO ABS # 0.03 K/uL (0-0.2); COMPLETE YES; EOS % 2.4 %; HEMATOCRIT 44.5 % (42-52); IG% 0.3 %; LYMPH % 24.5 %; LYMPH ABS # 1.86 K/uL (1.2-3.4); MEAN CORPUSCULAR HEMOGLOBIN 29.3 pg (25-34); MEAN CORPUSCULAR HGB CONC 35.3 g/dl (32-36); MEAN PLATELET VOLUME 9.7 fL (7.4-10.4); MONO % 9.7 %; NEUT % 62.7 %; PLATELET COUNT 183 K/uL (130-400); RED BLOOD COUNT 5.36 M/uL (4.7-6.1)
[2016-09-13 07:26] LABS: BUN/CREATININE RATIO 29.1 (10-20); CALCIUM 8.7 mg/dl (8.5-10.1); CREATININE 0.98 mg/dl (0.60-1.40); POTASSIUM 4.2 mmol/L (3.5-5.1)
[2016-09-13] MEDS: ACETAMINOPHEN 325 MG TAB PO PRN (07:46)
[2016-09-13] MEDS: FLUTICASONE/SALMETEROL 250/50 (ADVAIR) 14 PUFF/1 INHALER INH SCH (07:46)
[2016-09-13] MEDS: LISINOPRIL 20 MG TAB PO SCH (07:47)
[2016-09-13] MEDS: METOPROLOL SUCC 50MG EXT REL TAB PO SCH (07:47)
[2016-09-13] MEDS: ASPIRIN 81 MG ECTAB PO SCH (07:47)
[2016-09-13] MEDS: PRAVASTATIN SOD 10 MG TAB PO SCH (07:47)
[2016-09-13] MEDS: DOCUSATE SODIUM 100 MG CAP PO SCH (07:48)
[2016-09-13] MEDS: GABAPENTIN 800 MG TAB PO SCH (07:48)
[2016-09-13] MEDS: MELOXICAM 7.5 MG TAB PO SCH (07:49)
[2016-09-13] MEDS: TIOTROPIUM BROMIDE 5 PUFF/90 MCG INH INH SCH (07:49)
[2016-09-13] MEDS: CHOLECALCIFEROL 1000 INTER.UNIT TAB PO SCH (07:50)
[2016-09-13 08:02] VITALS: BP 149/96; PULSE 95; TEMP 36.7; O2SAT 96
[2016-09-13] MEDS ORDERED: REGADENOSON 0.4 MG/5 ML SYR ONE (10:52)
[2016-09-13 12:15] VITALS: BP 144/78; PULSE 58; TEMP 36.9; O2SAT 97
[2016-09-13] MEDS ORDERED: LSN20 PO (12:40)
[2016-09-13] MEDS ORDERED: TPRSR50 PO (12:40)
--- NOTE | 2016-09-13 12:42 | Discharge Instructions ---
Discharge Instructions Date of Service Sep 13, 2016. Admission Reason for Admission: Substernal Chest Pain Discharge Discharge Diagnosis / Problem: Chest pain Discharge Goals Goal(s): Decrease discomfort, Improve function, Increase independence, Improve disease control, Learn about illness, Diagnostic testing, Therapeutic intervention, Prevent Disease Progression Activity Recommendations Activity Limitations: resume your previous activity Exercise/Sports Limitations: none Shower/Bathe: no limitations . Instructions / Follow-Up Instructions / Follow-Up Patient to be discharged home Please note changes in blood pressure medications Increase to metoprolol to 50 mg once daily and increase in lisinopril to 20 mg once daily Prescriptions sent to pharmacy If worsening chest pain, please report to ER Follow up with Dr Friedman in 1-2 weeks Current Hospital Diet Patient's current hospital diet: AHA Diet (Heart Healthy) Discharge Diet Recommended Diet: AHA Diet (Heart Healthy) Pending Studies Studies pending at discharge: no Medical Emergencies . Who to Call and When: Medical Emergencies: If at any time you feel your situation is an emergency, please call 911 immediately. . Non-Emergent Contact Non-Emergency issues call your: Primary Care Provider Call Non-Emergent contact if: your pain is worsening . . "Provider Documentation" section prepared by Billy Lugo. VTE Core Measure Inpt VTE Proph given/why not?: Unfractionated heparin DAYAMI, T.ENataliia Westings, SCD 's
--- NOTE | 2016-09-13 12:49 | Discharge Summary ---
Discharge Summary Date of Service Sep 13, 2016. Discharge Summary Admission Date: Sep 11, 2016 at 12:48 Discharge Date: Sep 13, 2016 Discharge Disposition: Home Principal Diagnosis: Chest pain Immunizations: Have You Had Influenza Vaccine: Yes History of Tetanus Vaccine?: Yes History of Pneumococcal: Yes Pneumococcal Date: Apr 07, 2010 History of Hepatitis B Vaccine: No Medication Reconciliation New Medications: Lisinopril (Lisinopril) 20 Mg Tab 20 MG PO DAILY for 30 Days, #30 TAB Metoprolol Succinate (Metoprolol Succinate ER) 50 Mg Tabcr 50 MG PO DAILY for 30 Days, #30 TABS Continued Medications: Aspirin (Aspirin Chewable) 81 Mg Chew 81 MG PO DAILY, TAB Cholecalciferol (Vitamin D) 1,000 Unit Tab 1 TAB PO DAILY Docusate Sodium (Stool Softener) 100 Mg Cap 1 CAP PO DAILY Fluticasone Prop/Salmeterol (Advair Diskus 250-50 Mcg/Dose) 14 Puff/1 Inhaler Aerp 1 PUFF INH BID, #1 INHALER Gabapentin (Neurontin) 400 Mg Cap 800 MG PO TID, CAP Isosorbide Mononitrate (Isosorbide Mononitrate ER) 30 Mg Tabcr 30 MG PO DAILY Meloxicam (Mobic) 7.5 Mg Tab 7.5 MG PO BID, TAB Nitroglycerin (Nitrostat) 0.4 Mg Tab 0.4 MG UT PRN, BTL Pravastatin Sod (Pravastatin Sodium) 10 Mg Tab 10 MG PO DAILY Tiotropium [place] (Spiriva Handihaler) 5 Puff/90 Mcg Aerp 1 PUFF INH QAM, #1 INHALER Tramadol (Ultram) 50 Mg Tab 50 MG PO Q12 PRN for Pain, TAB Trazodone Hcl (Trazodone) 50 Mg Tab 25 MG PO HS, TAB Discontinued Medications: Lisinopril (Zestril) 2.5 Mg Tab 1 TAB PO DAILY Metoprolol Succ (Toprol Xl) (Toprol-Xl) 25 Mg Tabcr 25 MG PO DAILY, #30 TAB Discharge Exam Review of Systems: Constitutional: No chills, No fever Respiratory: No cough, No dyspnea on exertion, No shortness of breath, No sputum, No wheezing Cardiovascular: No chest pain, No orthopnea Abdomen: No diarrhea, No nausea, No pain, No vomiting Musculoskeletal: No joint pain, No muscle pain Genitourinary - Male: No dysuria, No hematuria, No urinary frequency Neurologic: No paralysis, No weakness Physical Exam: General Appearance: WD/WN, no apparent distress Neck: supple, no adenopathy Respiratory/Chest: lungs clear, normal breath sounds Cardiovascular: no edema, no gallop Abdomen / GI: non tender, soft Neurologic/Psychiatric: alert, normal mood/affect Hospital Course This is a 70-year-old male with a past medical history of previous inferior NM, CAD, chronic systolic CHF with an EF = 35-40% in 2016, resting tremor, hypertension, hyperlipidemia and remote 20pack/yr smoking history who presents with the onset of substernal chest pain at approximately 8:30 this morning. Chest pain r/o Chronic Systolic CHF CAD Ischemic cardiomyopathy Pulmonary hypertension - Admitted to telemetry - Chest pain r/o ACS - + pain with palpation of the chest wall, VSS, not hypoxic, BP stable and mildly elevated in 150s. - POC troponin is negative in the ER, recheck of trop is neg with CBC is neg, CBC is within normal limits, PRP is essentially unremarkable. - Trend cardiac biomarkers 2 more sets unremarkable - Chronic coronary artery disease with history of coronary artery bypass grafting in 2010 with left internal mammary artery to left anterior descending artery and saphenous vein graft to diagonal branch vessel. Negative dobutamine stress echo noted in November 2015. - Ischemic cardiomyopathy with ejection fraction previously noted of 35%, however, most recent resting 2D transthoracic echo demonstrated improvement in left ventricular systolic function with an ejection fraction of 40-45%. - PVC's with periods of ventricular bigeminy -Appreciate cardiology recs - Continue Nitropaste, baby aspirin, O2 supplemental therapy - Continue home medications including lisinopril 20 mg daily, metoprolol succinate 25 mg daily, pravastatin 10 mg daily - Stress ECHO 09/13 -Lexiscan nuclear stress demonstrates large inferior, posterior, and lateral infarct with mild anteroapical and apical lateral galina- infarct ischemia. 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 Discharge Instructions Please refer to the electronic Patient Visit Report (Discharge Instructions) for additional information. Additional Copies To Fely Friedman MD
--- NOTE | 2016-09-13 12:56 | Clinical Documentation Query ---
KARON Phillip : CLINICAL DOCUMENTATION QUERY Patient is a 70 year old male admitted for evaluation and treatment of non-radiating, substernal chest pain, incompletely relieved with rest and nitrates in the setting of heavy lifting on the day prior. Serial cardiac troponin levels within normal limits. Progress note includes " + pain with palpation of the chest wall". Pharmacologic stress test negative. Please clarify as suggested below as clinically appropriate. Thank you. In your clinical opinion is this patient being managed for: ( ) Musculoskeletal chest pain ( X ) Other explanation of clinical findings infract on stress scho ( ) Unable to determine (Please Define) ( ) Need to Discuss ( ) Not Agree The medical record reflects the following clinical findings, treatment, and risk factors. Clinical Indicators: As above Treatment: As above Risk Factors: Heavy lifting on the day prior. Please clarify and document your clinical opinion in the progress notes and discharge summary. Terms such as "probable", "suspected", "likely", "questionable", "possible", or "still to be ruled out" are acceptable. IF IN AGREEMENT, YOU MUST DOCUMENT ABOVE DIAGNOSTIC STATEMENT IN DAILY PROGRESS NOTES AND DISCHARGE SUMMARY. This document is not part of the patient's record. Thank You, Germain Tesfaye, RN [phone]
[2016-09-13 13:00] VITALS: BP 144/78; PULSE 58; TEMP 36.9; O2SAT 97
[2016-09-13] MEDS ORDERED: AMINOPHYLLINE 25 MG/ML 20ML VIAL IV ONE (13:14)
--- NOTE | 2016-09-13 14:03 | Progress Note ---
Progress Note Date of Service Sep 13, 2016. Progress Note Lexiscan nuclear stress demonstrates large inferior, posterior, and lateral infarct with mild anteroapical and apical lateral galina-infarct ischemia. Patient discharged prior to discussing result. No recurrent chest discomfort since toprol XL and lisinopril titrated this admission. Already taking long acting nitrates. PVC's less frequent on telemetry. Patient has appointment with [facility] cardiology tomorrow 09/14/2016 in [facility]. I spoke with my office staff and PA regarding stress results. Continue anti-anginal treatment at this time, however, if patient experiences recurrent and/or progressive angina - Recommend cardiac catheterization.
--- NOTE | 2016-09-13 15:53 | MYOCARDIAL PERFUSION SCAN ---
LEXISCAN NUCLEAR STRESS TEST REPORT INTERPRETATION SUMMARY: The stress test was performed according to the Lexiscan protocol for 2 minutes 14 seconds. The patient achieved a work level of 1.00 mets. Resting heart rate was 56 beats per minute, which tiera to a maximum heart rate of 70 beats per minute. This diary represents 46% of the maximum age predicted heart rate. Resting blood pressure was 147/68 which tiera to a maximum blood pressure of 147/68. Test was stopped due to end of protocol. RESTING ECG: Sinus bradycardia, diffuse nonspecific T-wave abnormality. STRESS ECG: Diffuse nonspecific T-wave abnormality. No significant ST depression, periods of ventricular bigeminy recorded. SYMPTOMS REPORTED: Chest discomfort. 15 mg of intravenous aminophylline administered. All symptoms resolved prior to leaving the stress lab. TECHNIQUE: For the stress portion of the study, 33 mCi of Technetium 99 m Cardiolite IV was injected at 11:20 a.m. on 09/13/2016. Thirty minutes following the injection, imaging of the heart was performed in multiple projections. For the rest portion of the study, 10.8 mCi of Technetium 99 m Cardiolite was injected IV at 09:45 a.m. One hour following the injection, imaging of the heart was performed in the same projections. INTERPRETATION SUMMARY: RESTING IMAGES: There is a large defect of moderate to severe intensity involving the inferior, posterior, and lateral lyn. There is also a small focal defect involving the apical inferior septum of mild intensity. STRESS IMAGEs: There is a large defect of moderate to severe intensity involving the inferior, posterior, and lateral lyn. There is a small defect of mild to moderate intensity involving the mid to apical anterior wall and apical lateral wall. The apical anterior and lateral defect is not present on resting images and is consistent with periinfarct ischemia. GATED SPECT: The inferior and posterior lyn are akinetic. There is hypokinesis of the lateral wall. The calculated ejection fraction is 35%. The TID index was not calculated. RIGHT VENTRICLE: Not well visualized. CONCLUSION: Lexiscan nuclear stress test, positive for inferoposterior, and lateral infarct with apical anterior and apical lateral periinfarct ischemia. Gated SPECT imaging consistent with ischemic cardiomyopathy and ejection fraction of 35%.
== END 2016-09-13 13:15 | disposition home health service (06) | DRG 281 ==
LOC: ENRESERVDT → ENRESERVTM → EDBD 09:56 → C.EDB 09:58 → C.2E 12:48
PROVIDERS: ADMIT Hospitalist; ATTEND Hospitalist
DX: I21.11 ST elevation (STEMI) myocardial infarction involving right coronary artery (principal); I50.22 Chronic systolic (congestive) heart failure; I21.09 ST elevation (STEMI) myocardial infarction involving other coronary artery of anterior wall; I21.29 ST elevation (STEMI) myocardial infarction involving other sites; I27.2 Other secondary pulmonary hypertension; I25.10 Atherosclerotic heart disease of native coronary artery without angina pectoris; I25.5 Ischemic cardiomyopathy; I49.3 Ventricular premature depolarization; R00.8 Other abnormalities of heart beat; R94.31 Abnormal electrocardiogram [ECG] [EKG]; E78.5 Hyperlipidemia, unspecified; R25.1 Tremor, unspecified; I11.0 Hypertensive heart disease with heart failure; E11.9 Type 2 diabetes mellitus without complications; R07.89 Other chest pain; Z95.1 Presence of aortocoronary bypass graft; Z85.038 Personal history of other malignant neoplasm of large intestine; Z87.11 Personal history of peptic ulcer disease; Z95.5 Presence of coronary angioplasty implant and graft; I25.2 Old myocardial infarction; Q03.9 Congenital hydrocephalus, unspecified; Z79.82 Long term (current) use of aspirin; Z79.51 Long term (current) use of inhaled steroids; Z87.891 Personal history of nicotine dependence; Z79.1 Long term (current) use of non-steroidal anti-inflammatories (NSAID); Z79.899 Other long term (current) drug therapy; Z79.891 Long term (current) use of opiate analgesic; Z86.011 Personal history of benign neoplasm of the brain

== ENCOUNTER 2016-09-26 11:52 | Observation (INO) | payer OTHER ==
[~2016-09-26] VITALS: Ht 190.5 cm; Wt 92.5 kg
[~2016-09-26 11:52] MED LIST changes: +CHOL100010 PO; -CLC100 PO; -CRG3125 PO; +DOCU100C PO; -LISI-461 PO; +LSN20 PO; +TPRSR50 PO
[2016-09-26 12:00] VITALS: Ht 190.5 cm; Wt 92.5 kg
[2016-09-26] MEDS ORDERED: SODIUM CHLORIDE 0.9% 1000ML 1,000 ML IV STA (12:02)
[2016-09-26 12:09] LABS: BASO % 0.4 %; BASO ABS # 0.03 K/uL (0-0.2); COMPLETE YES; EOS % 1.6 %; HEMATOCRIT 41.5 % (42-52); IG% 0.1 %; LYMPH % 20.1 %; LYMPH ABS # 1.41 K/uL (1.2-3.4); MEAN CELL VOLUME 84.5 fL (80-100); MEAN CORPUSCULAR HEMOGLOBIN 29.5 pg (25-34); MEAN CORPUSCULAR HGB CONC 34.9 g/dl (32-36); MEAN PLATELET VOLUME 9.3 fL (7.4-10.4); MONO % 5.1 %; NEUT % 72.7 %; PLATELET COUNT 202 K/uL (130-400); RED BLOOD COUNT 4.91 M/uL (4.7-6.1)
[2016-09-26] MEDS ORDERED: NITROGLYCERIN OINT 2% 1GM PACKET ONE (12:12)
[2016-09-26] MEDS ORDERED: NITROGLYCERIN OINT 2% 1GM PACKET EXT ONE (12:15)
--- NOTE | 2016-09-26 12:20 | DIAGNOSTIC IMAGING REPORT ---
SINGLE VIEW CHEST CLINICAL HISTORY: Atypical chest pain. FINDINGS: An AP, portable, upright chest radiograph is compared to study dated 09/11/2016 and correlated with chest CT dated 11/13/2015. The examination is degraded by portable technique and patient rotation. The patient is status post midline sternotomy. The heart is enlarged and there is atherosclerotic calcification of the thoracic aorta. The pulmonary vasculature is noncongested. Emphysema and chronic interstitial thickening are similar to previous. There is mild bibasilar atelectasis. No airspace consolidation or large pleural effusion is identified. No pneumothorax is seen. The skeletal structures are osteopenic. The bony thorax is grossly intact. IMPRESSION: Cardiomegaly and emphysema with no acute cardiopulmonary abnormality. Electronically signed by: Nba Singh M.D. 09/26/2016 12:18 PM Dictated Date/Time: 09/26/2016 12:16 PM
[2016-09-26 12:27] LABS: BUN/CREATININE RATIO 23.4 (10-20); CREATININE 0.84 mg/dl (0.60-1.40); POTASSIUM 4.4 mmol/L (3.5-5.1)
[2016-09-26 12:32] LABS: CKMB/CK RATIO 2.8 (0-3.0)
[2016-09-26] MEDS ORDERED: MoRPHine SULFATE 4 MG/ML 1 ML CARP\\VIAL IV STA (13:24)
[2016-09-26] MEDS ORDERED: ONDANSETRON INJ 2 MG/ML 2 ML VIAL IV STA (13:24)
[2016-09-26] MEDS ORDERED: IV FLUIDS COMPLETED PRN (14:30)
[2016-09-26 14:35] VITALS: O2SAT 95
[2016-09-26] MEDS ORDERED: ACETAMINOPHEN 325 MG TAB PO PRN (15:00)
[2016-09-26] MEDS ORDERED: ONDANSETRON INJ 2 MG/ML 2 ML VIAL IV PRN (15:00)
[2016-09-26] MEDS ORDERED: NITROGLYCERIN 0.4 MG SL PER TAB CHARGE UT SCH (15:15)
[2016-09-26 15:40] VITALS: BP 161/77; PULSE 53; TEMP 36.8; O2SAT 97
--- NOTE | 2016-09-26 16:09 | History and Physical ---
History & Physical Date & Time of Service: Sep 26, 2016 at 15:14 Chief Complaint: Chest Pain Primary Care Physician: Fely Friedman MD History of Present Illness Source: patient, spouse ( at bedside), clinic records, hospital records This is a 70 year old male with PMH of CAD s/p stenting and CABG, ischemic cardiomyopathy, prior EF 35% which improved to 40-44% on 08/2016 echo, HTN, HL, DM 2 diet controlled, PUD, COPD, and other problems listed below who presents to the ED with chest pain. Patient was recently admitted by [facility] for chest pain had negative serial troponins, was seen by [facility] cardiology. Noted to have frequent PVCs with periods of ventricular bigeminy. Stress echo 09/13/16 which showed large inferior , posterior, and lateral infarct with mild anteroapical and apical lateral galina- infarct ischemia. At that time cardiology recommended cardiac catheterization if patient experiences recurrent and/or progressive angina. Pt seen in f/u by cardiology Adri Beck PA-C on 09/14/16. Patient states today he developed chest pain which awoke him from sleep around 8 :30 am. He describes pain as "hurting" in central chest without radiation. No associated dizziness, diaphoresis, SOB. The pain lasted 1 hour. He took 2 nitro at home and was given 1 nitro en route along with aspirin. He was treated with nitro paste and morphine in ER. He is currently CP free. States nitro helped. Pt states pain is similar to recent admission. Not related to exertion or deep inspiration. He reports cough productive of green sputum x 2 weeks. No increase in chronic rhinorrhea. No fever, chills, sore throat, ear ache, sinus pain, SOB , MCKOY, orthopnea, palpitations, acid reflux, N/V/D, urinary changes, increased edema, rash, diffuse myalgias. No recent heavy lifting. Has been anxious due to medical problems. Has PRN oxygen at home but not using it recently. No sick contact or recent abx. Past Medical/Surgical History Medical Problems: (1) CAD (coronary artery disease) Permanent Comment: 2008- BERNICE left circumflex artery ; 2010- STEMI late in stent thrombosis of the left circumflex artery treated with angioplasty. He had an occluded right coronary artery at that time with left-to- right collaterals. 2010- CABG shah to the LAD and a saphenous vein graft to the 1st diagonal branch Status: Chronic (2) Chronic pain Status: Chronic (3) Colorectal cancer Status: Chronic (4) Congenital hydrocephalus Status: Chronic (5) COPD (chronic obstructive pulmonary disease) Status: Chronic (6) DM type 2 (diabetes mellitus, type 2) Status: Chronic (7) Dyslipidemia Status: Chronic (8) Essential tremor Status: Chronic (9) Heart attack Status: Resolved (10) Hypertension Status: Chronic (11) Ischemic cardiomyopathy Status: Chronic (12) Meningioma Status: Chronic (13) PUD (peptic ulcer disease) Status: Chronic (14) S/p rectosigmoid resection Status: Chronic Surgical Problems: (1) H/O eye surgery Status: Chronic (2) H/O heart bypass surgery Status: Resolved (3) H/O hernia repair Status: Chronic (4) S/P CABG (coronary artery bypass graft) Status: Chronic (5) S/P coronary artery stent placement Status: Chronic Family History Diabetes mellitus MOTHER BROTHER FH: colon cancer BROTHER No family history of CAD Social History Smoking Status: Former Smoker (quit in 1990, smoked 26 years) Alcohol Use: none Drug Use: none Marital Status: Housing status: lives with significant other (with in [facility]) Occupational Status: retired Immunizations History of Influenza Vaccine: Yes History of Tetanus Vaccine?: Yes History of Pneumococcal: Yes Pneumococcal Date: Apr 07, 2010 History of Hepatitis B Vaccine: No Multi-Drug Resistant Organisms History of MDRO: No Allergies Coded Allergies: Simvastatin (Verified Allergy, Severe, CHEST PAIN, 09/26/16) Naproxen (Verified Allergy, Intermediate, RASH, 09/26/16) Sulfa Antibiotics (Verified Allergy, Intermediate, Rash, 09/26/16) Nifedipine (Unverified Allergy, Unknown, UNKNOWN, 09/26/16) Propoxyphene (Verified Allergy, Unknown, _, 09/26/16) Home Medications Scheduled Aspirin (Aspirin Chewable), 81 MG PO DAILY Cholecalciferol (Vitamin D), 1 TAB PO DAILY Docusate Sodium (Stool Softener), 1 CAP PO DAILY Fluticasone Prop/Salmeterol (Advair Diskus 250-50 Mcg/Dose), 1 PUFF INH BID Gabapentin (Neurontin), 800 MG PO TID Isosorbide Mononitrate (Isosorbide Mononitrate ER), 30 MG PO DAILY Lisinopril (Lisinopril), 20 MG PO DAILY Meloxicam (Mobic), 7.5 MG PO BID Metoprolol Succinate (Metoprolol Succinate ER), 50 MG PO DAILY Nitroglycerin (Nitrostat), 0.4 MG UT PRN Pravastatin Sod (Pravastatin Sodium), 10 MG PO DAILY Tiotropium Canova (Spiriva Handihaler), 1 PUFF INH QAM Trazodone Hcl (Trazodone), 25 MG PO HS Scheduled PRN Tramadol (Ultram), 50 MG PO Q12 PRN for Pain Review of Systems Constitutional: + fatigue (occasional), No chills, No fever, No sweats Eyes: + problem reported (chronic lazy eye on the left, no change), No worsening of vision ENT: + nasal symptoms (chronic rhinorrhea- no change), No sore throat Respiratory: + cough, + sputum, No dyspnea on exertion, No shortness of breath Cardiovascular: + chest pain, No edema, No palpitations Abdomen: No GI bleeding, No diarrhea, No nausea, No pain, No vomiting Musculoskeletal: + problem reported (chronic right hand pain) Genitourinary - Male: No dysuria, No urinary frequency, No urinary urgency Neurologic: + problem reported (chornic right hand tremor. no dizziness or syncope. ) Psychiatric: + anxiety (recent anxiety due to illness) Hematologic / Lymphatic: + problem reported (bruising on abdomen due to SQ injections last admission. denies epistaxis/ gum bleeding) Integumentary: No new/changing skin lesions, No rash Physical Exam Vital Signs Date Time Temp Pulse Resp B/P Pulse Ox O2 Delivery O2 Flow Rate FiO2 09/26/16 14:54 49 95 09/26/16 13:45 48 18 154/78 95 Room Air 09/26/16 12:29 47 09/26/16 12:25 45 18 122/70 94 Room Air 09/26/16 12:04 95 Room Air 09/26/16 12:00 37.2 49 18 135/80 95 Room Air General Appearance: WD/WN, no apparent distress, + pertinent finding (pleasant alert 70 year old male, at bedside) Head: normocephalic, atraumatic Eyes: PERRL, + pertinent finding (left esotropia) ENT: normal ENT inspection, hearing grossly normal, pharynx normal, + pertinent finding (bilateral canals with cerumen) Neck: supple, no JVD, no carotid bruits, trachea midline Respiratory/Chest: chest non-tender, lungs clear, normal breath sounds, no respiratory distress, no accessory muscle use, + pertinent finding (no wheezing) Cardiovascular: no murmur, + bradycardia (regular, rate 50s) Abdomen/GI: normal bowel sounds, non tender, soft Extremities/Musculoskelatal: no calf tenderness, no pedal edema Neurologic/Psych: alert, normal mood/affect, oriented x 3, + pertinent finding (right hand tremor) Skin: normal color, warm/dry, no rash (no rash on the chest) Diagnostics Laboratory Results Results Past 24 Hours Test 09/26/16 11:28 Range/Units White Blood Count 7.00 4.8-10.8 K/uL Red Blood Count 4.91 4.7-6.1 M/uL Hemoglobin 14.5 14.0-18.0 g/dL Hematocrit 41.5 42-52 % Mean Corpuscular Volume 84.5 80-100 fL Mean Corpuscular Hemoglobin 29.5 25-34 pg Mean Corpuscular Hemoglobin Concent 34.9 32-36 g/dl Platelet Count 202 130-400 K/uL Mean Platelet Volume 9.3 7.4-10.4 fL Neutrophils (%) (Auto) 72.7 % Lymphocytes (%) (Auto) 20.1 % Monocytes (%) (Auto) 5.1 % Eosinophils (%) (Auto) 1.6 % Basophils (%) (Auto) 0.4 % Neutrophils # (Auto) 5.08 1.4-6.5 K/uL Lymphocytes # (Auto) 1.41 1.2-3.4 K/uL Monocytes # (Auto) 0.36 0.11-0.59 K/uL Eosinophils # (Auto) 0.11 0-0.5 K/uL Basophils # (Auto) 0.03 0-0.2 K/uL RDW Standard Deviation 44.3 36.4-46.3 fL RDW Coefficient of Variation 14.2 11.5-14.5 % Immature Granulocyte % (Auto) 0.1 % Immature Granulocyte # (Auto) 0.01 0.00-0.02 K/uL Sodium Level 146 136-145 mmol/L Potassium Level 4.4 3.5-5.1 mmol/L Chloride Level 108 98-107 mmol/L Carbon Dioxide Level 32 21-32 mmol/L Anion Gap 6.0 3-11 mmol/L Blood Urea Nitrogen 20 7-18 mg/dl Creatinine 0.84 0.60-1.40 mg/dl Est Creatinine Clear Calc Drug Dose 99.2 ml/min Estimated GFR () 103.5 Estimated GFR (Non- 89.3 BUN/Creatinine Ratio 23.4 10-20 Random Glucose 114 70-99 mg/dl Calcium Level 8.0 8.5-10.1 mg/dl Total Bilirubin 0.5 0.2-1 mg/dl Direct Bilirubin 0.1 0-0.2 mg/dl Aspartate Amino Transf (AST/SGOT) 15 15-37 U/L Alanine Aminotransferase (ALT/SGPT) 23 12-78 U/L Alkaline Phosphatase 76 45-117 U/L Total Creatine Kinase 109 39-308 U/L Creatine Kinase MB 3.0 0.5-3.6 ng/ml Creatine Kinase MB Ratio 2.8 0-3.0 Total Protein 6.0 6.4-8.2 gm/dl Albumin 3.1 3.4-5.0 gm/dl Lipase 146 73-393 U/L Diagnostic Radiology SINGLE VIEW CHEST CLINICAL HISTORY: Atypical chest pain. FINDINGS: An AP, portable, upright chest radiograph is compared to study dated 09/11/2016 and correlated with chest CT dated 11/13/2015. The examination is degraded by portable technique and patient rotation. The patient is status post midline sternotomy. The heart is enlarged and there is atherosclerotic calcification of the thoracic aorta. The pulmonary vasculature is noncongested. Emphysema and chronic interstitial thickening are similar to previous. There is mild bibasilar atelectasis. No airspace consolidation or large pleural effusion is identified. No pneumothorax is seen. The skeletal structures are osteopenic. The bony thorax is grossly intact. IMPRESSION: Cardiomegaly and emphysema with no acute cardiopulmonary abnormality. EKG sinus bradycardia, rate 47 bpm, possible old inferior infarct, T wave abnormality in II, III, aVF and V4-V6, no ST abnormality. When compared to prior EKG September 13 2016, had similar T wave abnormalities except V4 is new Impression Assessment and Plan ATYPICAL CHEST PAIN Rule out ACS; patient with known CAD s/p stenting and CABG Stress echo 09/13/16- large inferior, posterior, and lateral infarct with mild anteroapical and apical lateral galina-infarct ischemia Improved with nitro; now chest pain free Initial POC troponin negative EKG- nonspecific T wave abnormalities, no ST change Trend serial cardiac enzymes Received aspirin en route Continue nitro paste; hold Imdur while on topical nitrate Continue aspirin, statin, beta loraine, VALENTIN-I Consult cardiology SINUS BRADYCARDIA Also present on prior admission May be due to beta loraine Continue metoprolol succinate 50 mg daily with holding parameters for HR <50 CHRONIC SYSTOLIC CHF ISCHEMIC CARDIOMYOPATHY Prior EF 35%, improved to 4-44% on 09/03/16 echo Appears euvolemic Continue current cardiac medications PRODUCTIVE COUGH Possible acute bronchitis ? viral Afebrile; no leukocytosis CXR- no infiltrate Check influenza PCR COPD Not in acute exacerbation Continue home inhalers HYPERTENSION BP is stable Continue lisinopril, metoprolol succinate CHRONIC RIGHT HAND PAIN Continue gabapentin and PRN tramadol HISTORY OF DM TYPE 2 Diet controlled per patient Check A1c Monitor BSG AC HS Insulin sliding scale coverage DVT PROPHYLAXIS Heparin SQ CODE STATUS full code per my discussion with the patient Patient seen in collaboration with Dr. Pollard. Please see his addendum. VTE Prophylaxis VTE Risk Assessment Done? Y/N: Yes Risk Level: Moderate Given or contraindicated: Unfractionated heparin SQ Note ATTENDING ADDENDUM Record reviewed. Patient interviewed and examined. Care coordinated with Alise Brooks PA-C. Please refer to her documentation for patient's history. Briefly, 70 YO male with history of ischemic heart disease, s/p PCI and CABG, systolic CHF, and other problems as noted. Awakened from sleep around 08:00 this morning with substernal chest pressure. Took 2 SL nitroglycerin tabs at home; also received additional SL NTG and aspirin en route. Received IV morphine and NTP upon arrival to ED. Pain-free at time of my assessment. EXAM: General- no distress VS- as noted Neck- no JVD Lungs- clear to A&P Heart- RRR, no murmur or gallop appreciated Abdomen- + BS, soft, nontender Extremities- no pretibial edema or calf tenderness Neuro- alert DATA: Troponin I < 0.015. Other lab studies as noted. CXR per Radiology- cardiomegaly and emphysema. EKG performed at 11:56 reviewed and demonstrated SB at 47 / minute, possible age -indeterminant inferior infarct, biphasic T-waves I, inverted T-waves III, III, aVF, biphasic T-waves V3-6. EKG compared to tracing performed 09/13/16- no significant change. ASSESSMENT AND PLAN: Known CAD, s/p PCI and CABG. Status post TN(s) with residual LVEF 35-40%. Chest pain @ rest this morning. Troponin in ED negative. EKG similar to recent baseline. Check serial cardiac markers and EKG's. Continue aspirin, nitrates, lisinopril, statin. Continue metoprolol succinate at current dose unless otherwise directed by Cardiology (bradycardic, but asymptomatic). Consult Cardiology. Please refer to JOSE RAFAEL Brooks's documentation for discussion of other issues. Vikas Pollard MD .
[2016-09-26] MEDS ORDERED: GLUCOSE 40% GEL 15 GM TUBE PO PRN (16:15)
[2016-09-26] MEDS ORDERED: GLUCOSE 10 TABS/TUBE PO PRN (16:15)
[2016-09-26] MEDS ORDERED: DEXTROSE 50% 50 ML SYR IV PRN (16:15)
[2016-09-26] MEDS ORDERED: GLUCAGON FOR INJ 1 MG VIAL SQ PRN (16:15)
[2016-09-26] MEDS: INSULIN ASPART 100 UNITS/ML 3 ML PEN SC SCH ×2 (17:13→21:00)
--- NOTE | 2016-09-26 17:22 | EMERGENCY ROOM VISIT NOTE ---
History Report prepared by Christina: Lance Dutton Under the Supervision of: Dr. Vikas Dewitt M.D. First contact with patient: 11:56 Chief Complaint: CARDIAC ASSESSMENT Stated Complaint: CHEST PAIN History of Present Illness The patient is a 70 year old male who presents to the Emergency Room with complaints of improving central chest pain that started around 0700 this morning. The pain was 8/10 at its worst but is currently rated 3/10. The patient had two doses of Nitroglycerin at home and one dose en route along with Aspirin, all of which did help the pain. The patient has a cardiac history and notes that the pain was similar. He is s/p CABG in 2013. He follows up with [facility] Cardiology. The pain does not radiate and is not worsened with breathing or exertion. Patient denies LOC, headache, fevers, chills, diaphoresis , visual changes, neck pain, tearing pain radiating to the back, personal history or family history of aneurysm or pulmonary embolism, uncontrolled hypertension, breathing difficulties, leg swelling, coagulation abnormalities, prolonged travel, recent surgery or immobilization, nausea, vomiting, abdominal pain, melena, hematochezia, urinary symptoms, numbness, weakness, lymphadenopathy, rash, or other complaints. Source of History: patient Onset: 0700 this morning Position: chest Symptom Intensity: 8/10 Timing: other (improving) Modifying Factors (Relieving): other (NTG) Review of Systems See HPI for pertinent positives and negatives. A total of ten systems were reviewed and were otherwise negative. Past Medical & Surgical Medical Problems: (1) CAD (coronary artery disease) (2) Chest pain (3) Chronic pain (4) Colorectal cancer (5) Congenital hydrocephalus (6) COPD (chronic obstructive pulmonary disease) (7) DM type 2 (diabetes mellitus, type 2) (8) Dyslipidemia (9) Essential tremor (10) Heart attack (11) Hypertension (12) Ischemic cardiomyopathy (13) Meningioma (14) PUD (peptic ulcer disease) (15) S/p rectosigmoid resection Surgical Problems: (1) H/O eye surgery (2) H/O heart bypass surgery (3) H/O hernia repair (4) S/P CABG (coronary artery bypass graft) (5) S/P coronary artery stent placement Family History No pertinent family history Social History Smoking Status: Former Smoker Drug Use: none Marital Status: Housing Status: lives with family Occupation Status: retired Current/Historical Medications Scheduled Aspirin (Aspirin Chewable), 81 MG PO DAILY Cholecalciferol (Vitamin D), 1 TAB PO DAILY Docusate Sodium (Stool Softener), 1 CAP PO DAILY Fluticasone Prop/Salmeterol (Advair Diskus 250-50 Mcg/Dose), 1 PUFF INH BID Gabapentin (Neurontin), 800 MG PO TID Isosorbide Mononitrate (Isosorbide Mononitrate ER), 30 MG PO DAILY Lisinopril (Lisinopril), 20 MG PO DAILY Meloxicam (Mobic), 7.5 MG PO BID Metoprolol Succinate (Metoprolol Succinate ER), 50 MG PO DAILY Nitroglycerin (Nitrostat), 0.4 MG UT PRN Pravastatin Sod (Pravastatin Sodium), 10 MG PO DAILY Tiotropium Moodus (Spiriva Handihaler), 1 PUFF INH QAM Trazodone Hcl (Trazodone), 25 MG PO HS Scheduled PRN Tramadol (Ultram), 50 MG PO Q12 PRN for Pain Allergies Coded Allergies: Simvastatin (Verified Allergy, Severe, CHEST PAIN, 09/26/16) Naproxen (Verified Allergy, Intermediate, RASH, 09/26/16) Sulfa Antibiotics (Verified Allergy, Intermediate, Rash, 09/26/16) Nifedipine (Unverified Allergy, Unknown, UNKNOWN, 09/26/16) Propoxyphene (Verified Allergy, Unknown, _, 09/26/16) Physical Exam Vital Signs Date Time Temp Pulse Resp B/P Pulse Ox O2 Delivery O2 Flow Rate FiO2 09/26/16 13:45 48 18 154/78 95 Room Air 09/26/16 12:29 47 09/26/16 12:25 45 18 122/70 94 Room Air 09/26/16 12:04 95 Room Air 09/26/16 12:00 37.2 49 18 135/80 95 Room Air Physical Exam GENERAL: Awake, alert, well-appearing, in no distress HENT: Normocephalic, atraumatic. Oropharynx unremarkable. EYES: Normal conjunctiva. Sclera non-icteric. NECK: Supple. No nuchal rigidity. FROM. No JVD. RESPIRATORY: Clear to auscultation. CARDIAC: Bradycardic, normal rhythm. Extremities warm and well perfused. Pulses equal. CHEST: Sternal tenderness on exam, which does not reproduce his chest pain. ABDOMEN: Soft, non-distended. No tenderness to palpation. No rebound or guarding. No masses. RECTAL: Deferred. MUSCULOSKELETAL: Chest examination reveals no tenderness. The back is symmetrical on inspection without obvious abnormality. There is no CVA tenderness to palpation. No joint edema. LOWER EXTREMITIES: Calves are equal size bilaterally and non-tender. No edema. No discoloration. NEURO: Normal sensorium. No sensory or motor deficits noted. Resting tremor noted in upper extremities. SKIN: No rash or jaundice noted. Medical Decision & Procedures ER Provider Diagnostic Interpretation: X-ray: Per my interpretation, radiologist review. SINGLE VIEW CHEST CLINICAL HISTORY: Atypical chest pain. FINDINGS: An AP, portable, upright chest radiograph is compared to study dated 09/11/2016 and correlated with chest CT dated 11/13/2015. The examination is degraded by portable technique and patient rotation. The patient is status post midline sternotomy. The heart is enlarged and there is atherosclerotic calcification of the thoracic aorta. The pulmonary vasculature is noncongested. Emphysema and chronic interstitial thickening are similar to previous. There is mild bibasilar atelectasis. No airspace consolidation or large pleural effusion is identified. No pneumothorax is seen. The skeletal structures are osteopenic. The bony thorax is grossly intact. IMPRESSION: Cardiomegaly and emphysema with no acute cardiopulmonary abnormality. Electronically signed by: Nba Singh M.D. 09/26/2016 12:18 PM Dictated Date/Time: 09/26/2016 12:16 PM Laboratory Results 09/26/16 11:28 Red Blood Count 4.91, Mean Corpuscular Volume 84.5, Mean Corpuscular Hemoglobin 29.5, Mean Corpuscular Hemoglobin Concent 34.9, Mean Platelet Volume 9.3, Neutrophils (%) (Auto) 72.7, Lymphocytes (%) (Auto) 20.1, Monocytes (%) (Auto) 5.1, Eosinophils (%) (Auto) 1.6, Basophils (%) (Auto) 0.4, Neutrophils # (Auto) 5.08, Lymphocytes # (Auto) 1.41, Monocytes # (Auto) 0.36, Eosinophils # (Auto) 0.11, Basophils # (Auto) 0.03 09/26/16 11:28 Test 09/26/16 11:28 White Blood Count 7.00 K/uL (4.8-10.8) Red Blood Count 4.91 M/uL (4.7-6.1) Hemoglobin 14.5 g/dL (14.0-18.0) Hematocrit 41.5 % (42-52) Mean Corpuscular Volume 84.5 fL (80-100) Mean Corpuscular Hemoglobin 29.5 pg (25-34) Mean Corpuscular Hemoglobin Concent 34.9 g/dl (32-36) Platelet Count 202 K/uL (130-400) Mean Platelet Volume 9.3 fL (7.4-10.4) Neutrophils (%) (Auto) 72.7 % Lymphocytes (%) (Auto) 20.1 % Monocytes (%) (Auto) 5.1 % Eosinophils (%) (Auto) 1.6 % Basophils (%) (Auto) 0.4 % Neutrophils # (Auto) 5.08 K/uL (1.4-6.5) Lymphocytes # (Auto) 1.41 K/uL (1.2-3.4) Monocytes # (Auto) 0.36 K/uL (0.11-0.59) Eosinophils # (Auto) 0.11 K/uL (0-0.5) Basophils # (Auto) 0.03 K/uL (0-0.2) RDW Standard Deviation 44.3 fL (36.4-46.3) RDW Coefficient of Variation 14.2 % (11.5-14.5) Immature Granulocyte % (Auto) 0.1 % Immature Granulocyte # (Auto) 0.01 K/uL (0.00-0.02) Anion Gap 6.0 mmol/L (3-11) Est Creatinine Clear Calc Drug Dose 99.2 ml/min Estimated GFR () 103.5 Estimated GFR (Non- 89.3 BUN/Creatinine Ratio 23.4 (10-20) Calcium Level 8.0 mg/dl (8.5-10.1) Total Bilirubin 0.5 mg/dl (0.2-1) Direct Bilirubin 0.1 mg/dl (0-0.2) Aspartate Amino Transf (AST/SGOT) 15 U/L (15-37) Alanine Aminotransferase (ALT/SGPT) 23 U/L (12-78) Alkaline Phosphatase 76 U/L (45-117) Total Protein 6.0 gm/dl (6.4-8.2) Albumin 3.1 gm/dl (3.4-5.0) Lipase 146 U/L (73-393) Laboratory results reviewed by me Medications Administered Medications (Trade) Dose Ordered Sig/Reid Route Start Time Stop Time Status Last Admin Dose Admin Nitroglycerin 0.5 inch 0.5 inch NOW ONCE EXT 09/26/16 12:15 09/26/16 12:16 DC 09/26/16 12:13 0.5 INCH Sodium Chloride (Nss 1000ml) 1,000 ml @ 125 mls/hr Q8H STAT IV 09/26/16 12:02 09/26/16 15:51 DC 09/26/16 12:02 125 MLS/HR Morphine Sulfate (MoRPHine SULFATE INJ) 4 mg NOW STAT IV 09/26/16 13:24 09/26/16 13:25 DC 09/26/16 13:36 4 MG Ondansetron HCl (Zofran Inj) 4 mg NOW STAT IV 09/26/16 13:24 09/26/16 13:25 DC 09/26/16 13:36 4 MG ECG Indication: chest pain Rate (beats per minute): 47 Rhythm: sinus bradycardia Findings: Q waves (Inferior), T-wave inversion (inferolateral) Comparison ECG Date: 13 September 2016. Change: no significant change Change: When compared to EKG dated 17 August 2016, bigeminy has resolved, T wave changes a more prominent in leads V4-V6. ED Course 1159: The patient was evaluated in room A1. A complete history and physical exam was performed. 1202: NSS 1000 ml @ 125 mls/hr. 1215: Nitroglycerin 0.5 inch EXT. 1320: Updated the patient. 1321: Discussed the case with Dr. Pollard, [facility] Hospitalist. The patient will be evaluated,. 1324: Zofran 4 mg IV, Morphine Sulfate 4 mg IV. Medical Decision Triage Nursing notes reviewed. The patient's presentation and history were concerning for chest pain. Etiologies such as cardiac ischemia, aortic dissection, pulmonary embolism, pneumonia, pneumothorax, musculoskeletal, infections, gastrointestinal, as well as others were entertained. The patient was evaluated. He had chest symptoms that were quite severe but much improved after nitroglycerin. He had minimal residual pain. He was given additional nitroglycerin. Saline hydration was done.. His ECG was unchanged from prior. His CBC, chemistry panel, troponin, LFTs and lipase were unremarkable. The patient had a unremarkable chest x-ray. He did have some residual pain he received morphine and Zofran. The patient was informed of the findings. He will need further evaluation and management in the hospital. Consultation was made with internal medicine. The patient was evaluated in the Emergency Room for further treatment. The chart was completed utilizing [employer] Speech voice recognition software. Grammatical errors, random word insertions, pronoun errors, and incomplete sentences are an occasional consequence of this system due to software limitations, ambient noise, and hardware issues. Any formal questions or concerns about the content, text, or information contained within the body of this dictation should be directly addressed to the physician for clarification. Consults Time Called: 1310 Consulting Physician: Niels Valdez. Returned Call: 1321 1321: Discussed the case with Niels Valdez. The patient will be evaluated,. Impression Primary Impression: Substernal chest pain Scribe Attestation The scribe's documentation has been prepared under my direction and personally reviewed by me in its entirety. I confirm that the note above accurately reflects all work, treatment, procedures, and medical decision making performed by me. Departure Information Dispostion Being Evaluated By Hospitalist Referrals Fely Friedman MD (PCP) Patient Instructions My [facility]
[2016-09-26 17:40] LABS: CKMB/CK RATIO 2.9 (0-3.0)
[2016-09-26] MEDS: NITROGLYCERIN OINT 2% 1GM PACKET EXT SCH ×2 (18:25→23:41)
[2016-09-26 20:16] VITALS: BP 158/82; PULSE 81; TEMP 36.7; O2SAT 93
[2016-09-26 21:06] LABS: INFLUENZA A PCR Neg for Influ A (NEG); INFLUENZA B PCR Neg for Influ B (NEG)
[2016-09-26] MEDS: FLUTICASONE/SALMETEROL 250/50 (ADVAIR) 14 PUFF/1 INHALER INH SCH (22:04)
[2016-09-26] MEDS: GABAPENTIN 800 MG TAB PO SCH (22:05)
[2016-09-26] MEDS: TRAMADOL HCL 50 MG TAB PO PRN (22:05)
[2016-09-26] MEDS: TRAZODONE HCL 50 MG TAB PO SCH (22:05)
[2016-09-26] MEDS: HEPARIN SOD 5000 UNIT/0.5 ML CARP SQ SCH (22:07)
[2016-09-26 23:48] LABS: CKMB/CK RATIO 2.8 (0-3.0)
[2016-09-26 23:49] VITALS: BP 142/68; PULSE 56; TEMP 36.6; O2SAT 92
[2016-09-27 03:37] VITALS: BP 163/86; PULSE 48; TEMP 36.9; O2SAT 93
[2016-09-27] MEDS: NITROGLYCERIN OINT 2% 1GM PACKET EXT SCH ×4 (06:17→23:42)
[2016-09-27] MEDS: HEPARIN SOD 5000 UNIT/0.5 ML CARP SQ SCH ×3 (06:18→21:25)
[2016-09-27 07:49] VITALS: BP 146/83; PULSE 92; TEMP 36.9; O2SAT 91
[2016-09-27] MEDS: PRAVASTATIN SOD 10 MG TAB PO SCH (08:00)
[2016-09-27] MEDS: GABAPENTIN 800 MG TAB PO SCH ×3 (08:01→21:23)
[2016-09-27] MEDS: LISINOPRIL 20 MG TAB PO SCH (08:01)
[2016-09-27] MEDS: METOPROLOL SUCC 50MG EXT REL TAB PO SCH (08:01)
[2016-09-27] MEDS: CHOLECALCIFEROL 1000 INTER.UNIT TAB PO SCH (08:01)
[2016-09-27] MEDS: ASPIRIN 81 MG CHEW PO SCH (08:03)
[2016-09-27] MEDS: DOCUSATE SODIUM 100 MG CAP PO SCH (08:03)
[2016-09-27] MEDS: TIOTROPIUM BROMIDE 5 PUFF/90 MCG INH INH SCH (08:03)
[2016-09-27] MEDS: FLUTICASONE/SALMETEROL 250/50 (ADVAIR) 14 PUFF/1 INHALER INH SCH ×2 (08:04→21:23)
[2016-09-27] MEDS: INSULIN ASPART 100 UNITS/ML 3 ML PEN SC SCH ×4 (08:16→20:53)
[2016-09-27] MEDS ORDERED: DC ALL PREVIOUSLY ORDERED DIABETES MEDS ONE (10:00)
[2016-09-27] MEDS ORDERED: DC ALL ANTICOAGULANTS ONE (10:00)
[2016-09-27 10:13] LABS: ESTIMATED AVERAGE GLUCOSE 123 mg/dl; HA1C FLAG Normal (Normal)
[2016-09-27 11:13] LABS: PROTHROMBIN TIME (PATIENT) 10.4 SECONDS (9.0-12.0)
[2016-09-27 11:57] VITALS: BP 156/73; PULSE 54; TEMP 36.8; O2SAT 91
--- NOTE | 2016-09-27 12:04 | CARDIOLOGY CONSULTATION ---
DATE OF CONSULTATION: 09/27/2016 [facility] REASON FOR CONSULTATION: Chest pain. HISTORY OF PRESENT ILLNESS: Christos Domingo is a 70-year-old male patient with a history of congenital hydrocephalus, meningioma and tremors, who is followed by neurology. He also has an extensive cardiac history dating back to 2008 when he received a drug-eluting stent in the left circumflex artery. He represented in 2010 with a STEMI with late in-stent thrombosis of the left circumflex artery that was treated with angioplasty. He has a chronically occluded right coronary artery with left to right collaterals. In 2010, he also underwent coronary artery bypass surgery receiving a MINA to the LAD and a saphenous vein graft to the first diagonal branch. His most recent echocardiogram through our office reveals an extensive septal, inferior and posterior wall akinesis from a previous infarct with the estimated left ventricular ejection fraction being 40%-44%. He was admitted to the hospital in February with chest pain and had a negative dobutamine stress echocardiogram. More recently, he had a pharmacologic nuclear stress test that suggests mild ischemia of the anterior myocardium and a previous infarct of the inferior, posterior, and septal myocardium. At that time, it was decided that he would be treated medically for his angina and it was recommended that he take sublingual nitroglycerin for chest pain. In general, his angina has been infrequent and has always been relieved with 1 sublingual nitroglycerin. Yesterday, he developed chest pain and after 2 sublingual nitroglycerins and no relief, he called the paramedics and was transferred to the hospital. His cardiac markers have been negative. His EKG revealed an old inferior wall myocardial infarction and new T-wave inversions in the lateral precordial leads suggesting ischemia. The patient has been pain free since admission. He denies shortness of breath. He has had no dizziness or lightheadedness. On a most recent Holter monitor, he is noted to have very frequent PVCs. Thus far, he has not had significant ventricular arrhythmia since admission. ALLERGIES: TO NAPROXEN, NIFEDIPINE, PROPOXYPHENE, SIMVASTATIN AND SULFA ANTIBIOTICS. PAST MEDICAL HISTORY: As outlined above, the patient has a history of congenital hydrocephalus and has an anterior cerebral meningioma, which is being watched by neurology. He also has a resting tremor, which is also followed by neurology. He has an extensive cardiac history as outlined above with previous coronary artery bypass surgery, coronary stents, and a mild ischemic cardiomyopathy with a previous inferior wall myocardial infarction. He had a recent nuclear stress test that also suggests some distal anterior wall ischemia. The patient also is a type 2 diabetic with dyslipidemia. He also is status post rectosigmoid resection for cancer. SOCIAL HISTORY: He lives with his . He stopped smoking in 1990. FAMILY MEDICAL HISTORY: Significant for diabetes with his mother and brother having diabetes and his brother also had colon cancer. REVIEW OF SYSTEMS: A 10-point review of systems is negative except for the history of chief complaint. PHYSICAL EXAMINATION: GENERAL: He is alert and oriented, in no acute distress. VITAL SIGNS: Blood pressure is 150/80. Pulse is regular at 55 beats per minute. He is afebrile. HEENT: The patient has hydrocephalus and enlarged cranium. Pupils are equal and reactive to light. Mucous membranes are moist. NECK: The neck veins are flat. Carotids have good upstrokes bilaterally without bruits. Thyroid is nonpalpable. RESPIRATORY: Breath sounds equal bilaterally and clear to auscultation. CARDIOVASCULAR: Heart has a regular rhythm. Normal S1 and S2. No cardiac rubs or murmurs. GASTROINTESTINAL: Abdomen is soft and nontender without organomegaly. EXTREMITIES: Free of edema, digit clubbing, or cyanosis. NEUROLOGIC: The patient has a resting essential tremor. SKIN: Warm to touch. LYMPH NODES: Negative to palpation. LABORATORY DATA: Troponin I's are negative. There was one that went to 0.16, but I believe that should be negative as well. EKG shows a sinus rhythm with an old inferior wall myocardial infarction and new T-wave inversions in the lateral precordial leads. IMPRESSION: 1. Angina. 2. Extensive cardiac history with previous stent and then in-stent thrombosis of the left circumflex, previous inferior posterior wall myocardial infarction, coronary artery bypass with left internal mammary artery to the left anterior descending. 3. Diabetes mellitus. 4. Dyslipidemia. 5. Congenital hydrocephalus. 6. Essential tremor. 7. Meningioma. RECOMMENDATIONS: I think at this point given the patient's extensive history and recent abnormal nuclear stress test with ischemia in the anterior myocardium, it is best that we proceed with a cardiac catheterization to evaluate his coronary anatomy. I explained the risk, benefit and intent of the procedure to the patient. He is willing to proceed. I will have further recommendations following the above.
[2016-09-27 15:16] VITALS: BP 162/84; PULSE 46; TEMP 36.7; O2SAT 93
--- NOTE | 2016-09-27 15:50 | Progress Note ---
Internal Med Progress Note Date of Service: Sep 27, 2016. Provider Documentation: SUBJECTIVE: sitting on the bed comfortably currently no chest pain or sob or dizziness or nausea afebrile OBJECTIVE: Vital Signs-as noted below Exam: General-alert and awake and oriented. Shaky ENT-normal hearing Neck-no neck masses Lungs-cta b/l no wheezing or crackles Heart-s1 and s2 heard irregular rate and rhythm no murmurs Abdomen-soft bowel sounds present non tender no distension Extremities- no erythema no edema Neuro-alert and awake moves extremities Lab data as noted below. ASSESSMENT & PLAN: 70M presents with chest pain hx of cad. Recent abnormal stress test. Plan for cardiac cath in am CHEST PAIN Admitted for Rule out ACS; patient with known CAD s/p stenting and CABG Stress echo 09/13/16- large inferior, posterior, and lateral infarct with mild anteroapical and apical lateral galina-infarct ischemia Improved with nitro; EKG- nonspecific T wave abnormalities, no ST change Continue nitro paste; hold Imdur while on topical nitrate Continue aspirin, statin, beta loraine, VALENTIN-I currently asymptomatic Consult cardiology and plan for cardiac cath in am as recent stress test was abnormal and given extensive cardiac history Monitor in tele SINUS BRADYCARDIA Also present on prior admission continuing metoprolol succinate 50 mg daily with holding parameters for HR <50 CHRONIC SYSTOLIC CHF ISCHEMIC CARDIOMYOPATHY Prior EF 35%, improved to 4-44% on 09/03/16 echo stable on lisinopril, toprol xl and nitrates Will continue current cardiac medications PRODUCTIVE COUGH Possible acute bronchitis ? viral CXR- no infiltrate influenza PCR negative no complaints will monitor COPD Not in acute exacerbation on home inhalers HYPERTENSION BP is stable on, nitrates, lisinopril, metoprolol succinate will monitor CHRONIC RIGHT HAND PAIN Continue gabapentin and PRN tramadol HISTORY OF DM TYPE 2 Diet controlled per patient hba1c 5.9 On Insulin sliding scale coverage DVT PROPHYLAXIS Heparin SQ DISPOSITION monitor in tele await cardiac cath pt/ot prior to discharge Vital Signs: Date Time Temp Pulse Resp B/P Pulse Ox O2 Delivery O2 Flow Rate FiO2 09/27/16 16:00 Room Air 09/27/16 15:16 36.7 46 18 162/84 93 Nasal Cannula 2.0 09/27/16 12:00 Room Air 09/27/16 11:57 36.8 54 18 156/73 91 2.0 09/27/16 08:00 Room Air 09/27/16 07:49 36.9 92 18 146/83 91 Room Air 09/27/16 04:08 Room Air 09/27/16 03:37 36.9 48 18 163/86 93 Room Air 09/27/16 00:08 Room Air 09/26/16 23:49 36.6 56 22 142/68 92 Room Air 09/26/16 20:16 36.7 81 18 158/82 93 Room Air 09/26/16 20:00 Room Air Lab Results: Results Past 24 Hours Test 09/26/16 20:06 09/26/16 23:15 09/27/16 06:15 09/27/16 06:25 Range/Units Bedside Glucose 86 105 70-99 mg/dl Total Creatine Kinase 100 39-308 U/L Creatine Kinase MB 2.8 0.5-3.6 ng/ml Creatine Kinase MB Ratio 2.8 0-3.0 Troponin I 0.016 0-0.045 ng/ml Estimated Average Glucose 123 mg/dl Hemoglobin A1c 5.9 4.5-5.6 % Test 09/27/16 10:39 09/27/16 11:16 09/27/16 16:50 Range/Units Prothrombin Time 10.4 9.0-12.0 SECONDS Prothromb Time International Ratio 1.0 0.9-1.1 Activated Partial Thromboplast Time 25.2 21.0-31.0 SECONDS Partial Thromboplastin Ratio 1.0 Bedside Glucose 99 150 70-99 mg/dl
[2016-09-27 20:05] VITALS: BP 129/74; PULSE 46; TEMP 36.7; O2SAT 97
[2016-09-27] MEDS: TRAZODONE HCL 50 MG TAB PO SCH (21:23)
[2016-09-27] MEDS: SODIUM CHLORIDE 0.9% 1000ML 1,000 ML IV SCH (23:43)
[2016-09-28] VITALS (17 sets, daily range): BP systolic 120–170; BP diastolic 68–93; PULSE 47–103; TEMP 36.5–36.9; O2SAT 92–100
[2016-09-28] MEDS: NITROGLYCERIN OINT 2% 1GM PACKET EXT SCH ×4 (06:21→23:36)
[2016-09-28] MEDS: INSULIN ASPART 100 UNITS/ML 3 ML PEN SC SCH ×4 (07:37→21:00)
[2016-09-28] MEDS: FLUTICASONE/SALMETEROL 250/50 (ADVAIR) 14 PUFF/1 INHALER INH SCH ×2 (08:00→21:03)
[2016-09-28] MEDS: METOPROLOL SUCC 50MG EXT REL TAB PO SCH (08:01)
[2016-09-28] MEDS: LISINOPRIL 20 MG TAB PO SCH (08:01)
[2016-09-28] MEDS: ASPIRIN 81 MG CHEW PO SCH (08:01)
[2016-09-28] MEDS: TIOTROPIUM BROMIDE 5 PUFF/90 MCG INH INH SCH (08:01)
[2016-09-28] MEDS: GABAPENTIN 800 MG TAB PO SCH ×3 (09:00→21:03)
[2016-09-28] MEDS ORDERED: MIDAZOLAM HCL 1 MG/ML 2ML VIAL ONE (10:52)
[2016-09-28] MEDS ORDERED: FENTANYL CITRATE INJ 50 MCG/1 ML 2 ML VIAL ONE (10:52)
[2016-09-28] MEDS ORDERED: SODIUM CHLORIDE 0.9% 1000ML 250 ML IV PRN (11:22)
[2016-09-28] MEDS ORDERED: ATROPINE SULFATE 0.1 MG/ML 5ML SYR IV PRN (11:30)
[2016-09-28] MEDS ORDERED: ONDANSETRON INJ 2 MG/ML 2 ML VIAL IV PRN (11:30)
--- NOTE | 2016-09-28 11:34 | Cardiac Catheterization ---
Procedure Note Procedure Date Sep 28, 2016. Pre-Procedure Diagnosis Angina, Positive Stress Test AUC Score 7 Post-Procedure Diagnosis Severe CAD, Decreased LV Systolic Function, Normal Intracardiac Pressures Procedure(s) Performed Coronary Angiography, Left Heart Cath, LV Angiography, Bypass Graft Angiography , Femoral Artery Angiography Microsoft Bi Developer Dr. Partida Patient Experience Coordinator(s) None Estimated Blood Loss None Medication(s) Lidocaine 1% Summary of Findings MINA to LAD patent, Occluded SVG to RCA, Occlude Prox RAC, Previous stent in CIRC occluded. Report dictated Hemodynamics Rest Ao: 159/77 Final Ao: 161/73 LV: 152/9 Recommendations Medical therapy and/or Counseling Specimens None Radiation Exposure (mGy) 1732 Contrast (mls) 146 Fluids (cc crystalloids) 48 Procedural Complication(s) None Disposition PCU ACC Data Cardiac Status Clinical evaluation leading to the procedure CAD Presntation: Unstable angina, Positive Stress Test Anginal Classification: CCS II Heart Failure: No Cardiogenic Shock w/in 24Hrs: No Cardiac Arrest w/in 24Hrs: No Imaging studies past 6 months: Yes Stress Testing w/SPECT MPI: Yes - Positive Coronary Anatomy Dominant: Right Left Main (% Stenosis): Mid (50) LAD (% Stenosis): Mid (70) OM1 (% Stenosis): Mid (stent occluded) RCA (% Stenosis): Proximal (100) Grafts - LAD (%): Normal Grafts - RCA (%): Ostial (100) Left Ventricular Angiography EF (%): 35-40 Wall Motion: Inferior (Hypokinetic), Anterior (Hypokinetic) Diagnostic Physician's Name: Darion Partida, Closure Device Percutaneous Entry Location: Femoral Closure Device: Mynx Recommendations: Medical therapy and/or Counseling
[2016-09-28] MEDS: PRAVASTATIN SOD 10 MG TAB PO SCH (11:43)
[2016-09-28] MEDS: CHOLECALCIFEROL 1000 INTER.UNIT TAB PO SCH (11:44)
[2016-09-28] MEDS: DOCUSATE SODIUM 100 MG CAP PO SCH (11:44)
[2016-09-28] MEDS: SODIUM CHLORIDE 0.9% 1000ML 1,000 ML IV SCH ×3 (12:01→23:36)
--- NOTE | 2016-09-28 12:03 | CARDIAC CATH REPORT ---
PROCEDURES: 1. Left heart catheterization. 2. Coronary angiography. 3. Left ventriculography. HISTORY: This is a 70-year-old male patient who has had previous coronary artery bypass surgery and coronary stents. He has been having exertional angina and actually recently had an abnormal nuclear stress test. The patient was admitted with chest pain. Decision was decided to proceed with a cardiac catheterization. PROCEDURE SUMMARY: The patient was brought to the cardiac catheterization lab. After informed consent was obtained, the patient was prepped and draped in the usual manner for a right transfemoral approach. Preformed 5-[place]or[place] diagnostic catheters were utilized for the coronary angiograms. A 5-[place] pigtail catheter was utilized for the left ventriculogram. Following the procedure, the patient was returned to his room in stable condition after the arterial site was closed with a Mynx device. CORONARY ANGIOGRAPHY: Selective injections of the left coronary artery revealed the left main trunk to have a 50% mid stenosis. The LAD is patent with moderate diffuse disease proximally and evidence of competitive flow with a MINA graft. The left circumflex artery consists of the AV groove and a first large marginal which has a stent in its mid segment that is 100% occluded. There are rich collaterals left to right to the distal right coronary artery. Selective injections of the right coronary artery reveal it to be occluded proximally. There is a marker for saphenous vein graft, I believe to the right coronary artery; however, the vein graft is 100% occluded. Selective injections of the MINA to the LAD revealed the patent supplying both antegrade and retrograde flow to the LAD. LEFT VENTRICULOGRAM: The left ventricle has akinesis of the inferior basilar and hypokinesis of the inferior myocardium as well as mild hypokinesis of the distal anterior and apical myocardium. The estimated left ventricular ejection fraction is around 35%. SUMMARY: The patient has moderate to severe coronary artery disease. His right coronary artery is 100% occluded with left to right collaterals and the vein graft of right coronary artery is closed. There is a previous stent in the marginal branch and left circumflex artery that is 100%. The MINA to the LAD is patent supplying competitive flow from the [place] artery. RECOMMENDATIONS: The recommendation is for continued medical management of the patient's coronary artery disease.
[2016-09-28] MEDS: TRAMADOL HCL 50 MG TAB PO PRN ×2 (12:12→23:36)
--- NOTE | 2016-09-28 12:42 | Progress Note ---
Internal Med Progress Note Date of Service: Sep 28, 2016. Provider Documentation: SUBJECTIVE: Patient is status post cardiac catheterization. Denies any chest pain, palpitations, diaphoresis, nausea, vomiting Chronic tremors right > left hand On oxygen OBJECTIVE: Vital Signs-as noted below Exam: General-Alert and awake and oriented. Tremors right > left + Lungs-cta b/l no wheezing or crackles Heart-s1 and s2 heard irregular rate and rhythm no murmurs Abdomen-soft bowel sounds present non tender no distension Extremities- no erythema no edema Lab data as noted below. ASSESSMENT & PLAN: ASSESSMENT & PLAN: 70M presents with chest pain hx of cad, complex cardiac history. Recent abnormal stress test. ANGINA: Extensive cardiac history with previous stent and then in-stent thrombosis of the left circumflex, previous inferior posterior wall myocardial infarction, coronary artery bypass with left internal mammary artery to the left anterior descending. Stress echo 09/13/16- large inferior, posterior, and lateral infarct with mild anteroapical and apical lateral galina-infarct ischemia Has always had on and off chest pain, relieved by 1 nitro. -S/P Cardiac catheterization today - Moderate to severe CAD - Dominant: Right Left Main (% Stenosis): Mid (50) LAD (% Stenosis): Mid (70) OM1 (% Stenosis): Mid (stent occluded) RCA (% Stenosis): Proximal (100) Grafts - LAD (%): Normal Grafts - RCA (%): Ostial (100) -Continue aspirin, statin, beta loraine, VALENTIN-I, Nitro -Cardiology recommends medical management SINUS BRADYCARDIA Also present on prior admission -Continuing metoprolol succinate 50 mg daily with holding parameters for HR <50 CHRONIC SYSTOLIC CHF ISCHEMIC CARDIOMYOPATHY Prior EF 35%,now 35-40% per cath -stable on lisinopril, toprol xl and nitrates PRODUCTIVE COUGH Possible acute bronchitis ? viral CXR- no infiltrate influenza PCR negative no complaints COPD Not in acute exacerbation -on home inhalers prn HYPERTENSION BP is stable on, nitrates, lisinopril, metoprolol succinate -Monitor CHRONIC RIGHT HAND PAIN/TREMORS -Continue gabapentin and PRN tramadol HISTORY OF DM TYPE 2 Diet controlled per patient hba1c 5.9 -On Insulin sliding scale coverage HX OF CONGENITAL HYDROCEPHALUS/CHRONIC TREMORS/MENINGIOMA -Follows up with neurology outpatient DVT PROPHYLAXIS Heparin SQ DISPOSITION Continue with tele monitoring Possible discharge in AM Vital Signs: Date Time Temp Pulse Resp B/P Pulse Ox O2 Delivery O2 Flow Rate FiO2 09/28/16 12:15 59 20 165/91 98 Nasal Cannula 2.0 09/28/16 12:00 56 20 153/85 96 Nasal Cannula 2.0 09/28/16 12:00 Room Air 09/28/16 11:45 98 18 165/81 96 Nasal Cannula 2.0 09/28/16 11:30 36.5 98 20 170/88 92 Nasal Cannula 2.0 09/28/16 11:25 60 18 150/90 95 Room Air 09/28/16 11:15 58 18 148/92 95 Room Air 09/28/16 08:12 36.9 73 22 144/72 97 Nasal Cannula 2.0 09/28/16 08:03 36.9 73 22 144/72 97 Nasal Cannula 2.0 09/28/16 08:00 Room Air 09/28/16 04:00 Nasal Cannula 09/28/16 03:52 36.6 52 18 152/77 95 Nasal Cannula 2.0 09/28/16 00:01 Nasal Cannula 09/28/16 00:00 36.5 47 18 164/80 96 Nasal Cannula 2.0 09/27/16 20:05 36.7 46 16 129/74 97 Nasal Cannula 2.0 09/27/16 20:00 Nasal Cannula 09/27/16 16:00 Room Air 09/27/16 15:16 36.7 46 18 162/84 93 Nasal Cannula 2.0 Lab Results: Results Past 24 Hours Test 09/27/16 16:50 09/27/16 20:39 09/28/16 06:33 09/28/16 11:45 Range/Units Bedside Glucose 150 79 94 81 70-99 mg/dl
[2016-09-28] MEDS: TRAZODONE HCL 50 MG TAB PO SCH (21:03)
[2016-09-28] MEDS: ACETAMINOPHEN 325 MG TAB PO PRN (21:04)
[2016-09-29] MEDS: ACETAMINOPHEN 325 MG TAB PO PRN (02:14)
[2016-09-29 03:39] VITALS: BP 132/71; PULSE 77; TEMP 36.5; O2SAT 96
[2016-09-29 06:14] LABS: BUN/CREATININE RATIO 22.6 (10-20); CALCIUM 8.3 mg/dl (8.5-10.1); CREATININE 0.88 mg/dl (0.60-1.40); POTASSIUM 4.7 mmol/L (3.5-5.1)
[2016-09-29] MEDS: NITROGLYCERIN OINT 2% 1GM PACKET EXT SCH ×2 (06:15→11:39)
[2016-09-29 07:50] VITALS: BP 126/70; PULSE 53; TEMP 36.4; O2SAT 91
[2016-09-29] MEDS: PRAVASTATIN SOD 10 MG TAB PO SCH (08:40)
[2016-09-29] MEDS: METOPROLOL SUCC 50MG EXT REL TAB PO SCH (08:40)
[2016-09-29] MEDS: TIOTROPIUM BROMIDE 5 PUFF/90 MCG INH INH SCH (08:40)
[2016-09-29] MEDS: DOCUSATE SODIUM 100 MG CAP PO SCH (08:40)
[2016-09-29] MEDS: LISINOPRIL 20 MG TAB PO SCH (08:40)
[2016-09-29] MEDS: GABAPENTIN 800 MG TAB PO SCH (08:40)
[2016-09-29] MEDS: CHOLECALCIFEROL 1000 INTER.UNIT TAB PO SCH (08:40)
[2016-09-29] MEDS: ASPIRIN 81 MG CHEW PO SCH (08:40)
[2016-09-29] MEDS: FLUTICASONE/SALMETEROL 250/50 (ADVAIR) 14 PUFF/1 INHALER INH SCH (08:41)
[2016-09-29] MEDS: INSULIN ASPART 100 UNITS/ML 3 ML PEN SC SCH (08:42)
--- NOTE | 2016-09-29 09:45 | Progress Note ---
Internal Med Progress Note Date of Service: Sep 29, 2016. Provider Documentation: SUBJECTIVE: Patient is status post cardiac catheterization. Denies any chest pain, palpitations, diaphoresis, nausea, vomiting Chronic tremors right > left hand. On oxygen prn as at home OBJECTIVE: Vital Signs-as noted below Exam: General-Alert and awake and oriented. Tremors right > left + Lungs-cta b/l no wheezing or crackles Heart-s1 and s2 heard irregular rate and rhythm no murmurs Abdomen-soft bowel sounds present non tender no distension Extremities- no erythema no edema Lab data as noted below. ASSESSMENT & PLAN: ASSESSMENT & PLAN: 70M presents with chest pain hx of CAD, complex cardiac history. Recent abnormal stress test. ANGINA : Extensive cardiac history with previous stent and then in-stent thrombosis of the left circumflex, previous inferior posterior wall myocardial infarction, coronary artery bypass with left internal mammary artery to the left anterior descending. Stress echo 09/13/16- large inferior, posterior, and lateral infarct with mild anteroapical and apical lateral galina-infarct ischemia Has always had on and off chest pain, relieved by 1 nitro. -S/P Cardiac catheterization today - Moderate to severe CAD - Dominant: Right Left Main (% Stenosis): Mid (50) LAD (% Stenosis): Mid (70) OM1 (% Stenosis): Mid (stent occluded) RCA (% Stenosis): Proximal (100) Grafts - LAD (%): Normal Grafts - RCA (%): Ostial (100) -Continue aspirin, statin, beta loraine, VALENTIN-I, Nitro -Cardiology recommends medical management SINUS BRADYCARDIA- Resolved Also present on prior admission -Continuing metoprolol succinate 50 mg daily with holding parameters for HR <50 CHRONIC SYSTOLIC CHF ISCHEMIC CARDIOMYOPATHY Prior EF 35%,now 35-40% per cath -stable on lisinopril, toprol xl and nitrates PRODUCTIVE COUGH Possible acute bronchitis ? viral CXR- no infiltrate influenza PCR negative no complaints COPD Not in acute exacerbation -on home inhalers prn HYPERTENSION BP is stable on, nitrates, lisinopril, metoprolol succinate -Monitor CHRONIC RIGHT HAND PAIN/TREMORS -Continue gabapentin and PRN tramadol HISTORY OF DM TYPE 2 Diet controlled per patient hba1c 5.9 -On Insulin sliding scale coverage HX OF CONGENITAL HYDROCEPHALUS/CHRONIC TREMORS/MENINGIOMA -Follows up with neurology outpatient DVT PROPHYLAXIS Heparin SQ DISPOSITION Discussed with cardiology. Okay to discharge patient home today Vital Signs: Date Time Temp Pulse Resp B/P Pulse Ox O2 Delivery O2 Flow Rate FiO2 09/29/16 08:00 Room Air 09/29/16 07:50 36.4 53 20 126/70 91 3.0 09/29/16 04:00 Nasal Cannula 2.0 09/29/16 03:39 36.5 77 16 132/71 96 Nasal Cannula 2.0 09/29/16 00:05 Nasal Cannula 2.0 09/28/16 23:31 36.5 60 18 120/68 95 Nasal Cannula 2.0 09/28/16 20:10 96 Nasal Cannula 2.0 09/28/16 19:50 36.8 103 22 141/72 95 Nasal Cannula 2.0 09/28/16 17:15 36.6 63 19 144/72 100 Nasal Cannula 2.0 09/28/16 16:15 36.6 60 19 150/78 98 Nasal Cannula 2.0 09/28/16 16:00 Room Air 09/28/16 15:15 36.5 52 19 148/85 100 Nasal Cannula 2.0 09/28/16 14:07 48 16 157/76 100 Nasal Cannula 2.0 09/28/16 13:15 49 18 158/83 100 Nasal Cannula 2.0 09/28/16 12:45 57 16 163/93 96 Nasal Cannula 2.0 09/28/16 12:15 59 20 165/91 98 Nasal Cannula 2.0 09/28/16 12:00 56 20 153/85 96 Nasal Cannula 2.0 09/28/16 12:00 Room Air 09/28/16 11:45 98 18 165/81 96 Nasal Cannula 2.0 09/28/16 11:30 36.5 98 20 170/88 92 Nasal Cannula 2.0 09/28/16 11:25 60 18 150/90 95 Room Air 09/28/16 11:15 58 18 148/92 95 Room Air Lab Results: Results Past 24 Hours Test 09/28/16 11:45 09/28/16 16:14 09/28/16 20:10 09/29/16 05:24 Range/Units Bedside Glucose 81 80 98 70-99 mg/dl Sodium Level 140 136-145 mmol/L Potassium Level 4.7 3.5-5.1 mmol/L Chloride Level 103 98-107 mmol/L Carbon Dioxide Level 33 21-32 mmol/L Anion Gap 4.0 3-11 mmol/L Blood Urea Nitrogen 20 7-18 mg/dl Creatinine 0.88 0.60-1.40 mg/dl Est Creatinine Clear Calc Drug Dose 94.7 ml/min Estimated GFR () 101.6 Estimated GFR (Non- 87.6 BUN/Creatinine Ratio 22.6 10-20 Random Glucose 89 70-99 mg/dl Calcium Level 8.3 8.5-10.1 mg/dl Test 09/29/16 06:36 Range/Units Bedside Glucose 85 70-99 mg/dl
--- NOTE | 2016-09-29 09:53 | Discharge Instructions ---
Discharge Instructions Date of Service Sep 29, 2016. Admission Reason for Admission: Chest Pain Discharge Discharge Diagnosis / Problem: 1. Angina Discharge Goals Goal(s): Diagnostic testing, Therapeutic intervention Activity Recommendations Activity Limitations: resume your previous activity . Instructions / Follow-Up Instructions / Follow-Up No changes in medications FOLLOW UP 1. Follow up with your PCP Dr Friedman in 7 days. Please call him for appt date/time 2. Follow up with cardiology as scheduled. Will give a call for appt date/time Current Hospital Diet Patient's current hospital diet: AHA Diet (Heart Healthy) Discharge Diet Recommended Diet: AHA Diet (Heart Healthy), Low Sodium Diet (2gm Na), Diabetes Type 2 Diet Pending Studies Studies pending at discharge: no Laboratory Results Hemoglobin A1c Test 09/27/16 06:25 Range/Units Estimated Average Glucose 123 mg/dl Hemoglobin A1c 5.9 H 4.5-5.6 % Medical Emergencies . Who to Call and When: Medical Emergencies: If at any time you feel your situation is an emergency, please call 911 immediately. . Non-Emergent Contact Non-Emergency issues call your: Primary Care Provider . . "Provider Documentation" section prepared by Willa Car. . VTE Core Measure Inpt VTE Proph given/why not?: Unfractionated heparin SQ
--- NOTE | 2016-09-29 09:56 | Discharge Summary ---
Discharge Summary Date of Service Sep 29, 2016. Discharge Summary Admission Date: Sep 26, 2016 at 14:15 Discharge Date: Sep 29, 2016 Discharge Disposition: Home Principal Diagnosis: 1. Angina 2. S/P Cardiac cath- Moderate to severe CAD Secondary Diagnoses/Problems: 1. DM-2 2. Hx of congenital hydrocephalus 3. HTN 4. COPD 5. Hx of meningioma 6. Hx of chronic tremors Procedures: Cardiac cath on 09/28/[address] Partida-Moderate to severe CAD - Dominant: Right Left Main (% Stenosis): Mid (50) LAD (% Stenosis): Mid (70) OM1 (% Stenosis): Mid (stent occluded) RCA (% Stenosis): Proximal (100) Grafts - LAD (%): Normal Grafts - RCA (%): Ostial (100) -Tele monitoring -Serial EKG -Serial Troponin -CXR Consultations: Cardiology, Dr Partida Pending Studies/Follow-Up: Instructions / Follow-Up Instructions / Follow-Up No changes in medications FOLLOW UP 1. Follow up with your PCP Dr Friedman in 7 days. Please call him for appt date/time 2. Follow up with cardiology as scheduled. Will give a call for appt date/time Medication Reconciliation Continued Medications: Aspirin (Aspirin Chewable) 81 Mg Chew 81 MG PO DAILY, TAB Cholecalciferol (Vitamin D) 1,000 Unit Tab 1 TAB PO DAILY Docusate Sodium (Stool Softener) 100 Mg Cap 1 CAP PO DAILY Fluticasone Prop/Salmeterol (Advair Diskus 250-50 Mcg/Dose) 14 Puff/1 Inhaler Aerp 1 PUFF INH BID, #1 INHALER Gabapentin (Neurontin) 400 Mg Cap 800 MG PO TID, CAP Isosorbide Mononitrate (Isosorbide Mononitrate ER) 30 Mg Tabcr 30 MG PO DAILY Lisinopril (Lisinopril) 20 Mg Tab 20 MG PO DAILY for 30 Days, #30 TAB Meloxicam (Mobic) 7.5 Mg Tab 7.5 MG PO BID, TAB Metoprolol Succinate (Metoprolol Succinate ER) 50 Mg Tabcr 50 MG PO DAILY for 30 Days, #30 TABS Nitroglycerin (Nitrostat) 0.4 Mg Tab 0.4 MG UT PRN, BTL Pravastatin Sod (Pravastatin Sodium) 10 Mg Tab 10 MG PO DAILY Tiotropium [place] (Spiriva Handihaler) 5 Puff/90 Mcg Aerp 1 PUFF INH QAM, #1 INHALER Tramadol (Ultram) 50 Mg Tab 50 MG PO Q12 PRN for Pain, TAB Trazodone Hcl (Trazodone) 50 Mg Tab 25 MG PO HS, TAB Admission Information HPI (per Admitting provider): This is a 70 year old male with PMH of CAD s/p stenting and CABG, ischemic cardiomyopathy, prior EF 35% which improved to 40-44% on 08/2016 echo, HTN, HL, DM 2 diet controlled, PUD, COPD, and other problems listed below who presents to the ED with chest pain. Patient was recently admitted by [facility] for chest pain had negative serial troponins, was seen by [facility] cardiology. Noted to have frequent PVCs with periods of ventricular bigeminy. Stress echo 09/13/16 which showed large inferior , posterior, and lateral infarct with mild anteroapical and apical lateral galina- infarct ischemia. At that time cardiology recommended cardiac catheterization if patient experiences recurrent and/or progressive angina. Pt seen in f/u by cardiology Adri Beck PA-C on 09/14/16. Patient states today he developed chest pain which awoke him from sleep around 8 :30 am. He describes pain as "hurting" in central chest without radiation. No associated dizziness, diaphoresis, SOB. The pain lasted 1 hour. He took 2 nitro at home and was given 1 nitro en route along with aspirin. He was treated with nitro paste and morphine in ER. He is currently CP free. States nitro helped. Pt states pain is similar to recent admission. Not related to exertion or deep inspiration. He reports cough productive of green sputum x 2 weeks. No increase in chronic rhinorrhea. No fever, chills, sore throat, ear ache, sinus pain, SOB , MCKOY, orthopnea, palpitations, acid reflux, N/V/D, urinary changes, increased edema, rash, diffuse myalgias. No recent heavy lifting. Has been anxious due to medical problems. Has PRN oxygen at home but not using it recently. No sick contact or recent abx. Physical Exam (per Admitting): General Appearance: WD/WN, no apparent distress, + pertinent finding ( pleasant alert 70 year old male, at bedside) Head: normocephalic, atraumatic Eyes: PERRL, + pertinent finding (left esotropia) ENT: normal ENT inspection, hearing grossly normal, pharynx normal, + pertinent finding (bilateral canals with cerumen) Neck: supple, no JVD, no carotid bruits, trachea midline Respiratory/Chest: chest non-tender, lungs clear, normal breath sounds, no respiratory distress, no accessory muscle use, + pertinent finding (no wheezing) Cardiovascular: no murmur, + bradycardia (regular, rate 50s) Abdomen/GI: normal bowel sounds, non tender, soft Extremities/Musculoskelatal: no calf tenderness, no pedal edema Neurologic/Psych: alert, normal mood/affect, oriented x 3, + pertinent finding (right hand tremor) Skin: normal color, warm/dry, no rash (no rash on the chest) Hospital Course ASSESSMENT & PLAN: 70M presents with chest pain hx of CAD, complex cardiac history. Recent abnormal stress test. ANGINA : Extensive cardiac history with previous stent and then in-stent thrombosis of the left circumflex, previous inferior posterior wall myocardial infarction, coronary artery bypass with left internal mammary artery to the left anterior descending. Stress echo 09/13/16- large inferior, posterior, and lateral infarct with mild anteroapical and apical lateral galina-infarct ischemia Has always had on and off chest pain, relieved by 1 nitro. -S/P Cardiac catheterization today - Moderate to severe CAD - Dominant: Right Left Main (% Stenosis): Mid (50) LAD (% Stenosis): Mid (70) OM1 (% Stenosis): Mid (stent occluded) RCA (% Stenosis): Proximal (100) Grafts - LAD (%): Normal Grafts - RCA (%): Ostial (100) -Continue aspirin, statin, beta loraine, VALENTIN-I, Nitro -Cardiology recommends medical management EPISODE OF SINUS BRADYCARDIA- Resolved Present on prior admission -Continuing metoprolol succinate 50 mg daily , tolerating it well CHRONIC SYSTOLIC CHF ISCHEMIC CARDIOMYOPATHY Prior EF 35%,now 35-40% per cath -stable on lisinopril, toprol xl and nitrates PRODUCTIVE COUGH- Improved Possible acute bronchitis ? viral CXR- no infiltrate Influenza PCR negative no complaints COPD Not in acute exacerbation -on home inhalers prn HYPERTENSION BP is stable on, nitrates, lisinopril, metoprolol succinate -Monitor CHRONIC RIGHT HAND PAIN/TREMORS -Continue gabapentin and PRN tramadol HISTORY OF DM TYPE 2 Diet controlled per patient hba1c 5.9 -On Insulin sliding scale coverage HX OF CONGENITAL HYDROCEPHALUS/CHRONIC TREMORS/MENINGIOMA -Follows up with neurology outpatient DVT PROPHYLAXIS Heparin SQ DISPOSITION Discussed with cardiology. Okay to discharge patient home today Total time spent on discharge = 35 minutes This includes examination of the patient, discharge planning, medication reconciliation, and communication with other providers. Discharge Instructions Discharge Discharge Diagnosis / Problem: 1. Angina Discharge Goals Goal(s): Diagnostic testing, Therapeutic intervention Activity Recommendations Activity Limitations: resume your previous activity . Instructions / Follow-Up Instructions / Follow-Up No changes in medications FOLLOW UP 1. Follow up with your PCP Dr Friedman in 7 days. Please call him for appt date/time 2. Follow up with cardiology as scheduled. Will give a call for appt date/time Current Hospital Diet Patient's current hospital diet: AHA Diet (Heart Healthy) Discharge Diet Recommended Diet: AHA Diet (Heart Healthy), Low Sodium Diet (2gm Na) Pending Studies Studies pending at discharge: no Laboratory Results Hemoglobin A1c Test 09/27/16 06:25 Range/Units Estimated Average Glucose 123 mg/dl Hemoglobin A1c 5.9 H 4.5-5.6 % Medical Emergencies . Who to Call and When: Medical Emergencies: If at any time you feel your situation is an emergency, please call 911 immediately. . Non-Emergent Contact Non-Emergency issues call your: Primary Care Provider . . "Provider Documentation" section prepared by Willa Car. . VTE Core Measure Inpt VTE Proph given/why not?: Unfractionated heparin SQ
--- NOTE | 2016-09-29 09:56 | PROGRESS NOTE ---
DATE: 09/29/2016 FOLLOWUP VISIT SUBJECTIVE: The patient is a 70-year-old male with a history of congenital hydrocephalus and ischemic heart disease. He underwent a cardiac catheterization yesterday that revealed the MINA to the LAD to be patent and the saphenous vein graft to the right coronary artery to be occluded. His [place] coronary arteries reveal an occluded right coronary artery proximally with rich collaterals from the left system and a stent in the left circumflex marginal that is occluded. Medical management is indicated in this patient. He had an uneventful night. He would like to be discharged and I think that would be appropriate. OBJECTIVE: VITAL SIGNS: Blood pressure is 120/70, pulse is regular at 60 beats per minute, he is afebrile. HEENT: Normocephalic. Pupils are equal and reactive to light. Extraocular muscles are intact bilaterally. NECK: The neck veins are flat. Carotids have good upstrokes bilaterally without bruits. Thyroid is nonpalpable. RESPIRATORY: Breath sounds equal bilaterally and clear to auscultation. CARDIOVASCULAR: Heart has a regular rhythm. Normal S1, S2. No S3 or S4. No cardiac rubs or murmurs. GASTROINTESTINAL: Abdomen is soft, nontender, without organomegaly. EXTREMITIES: Free of edema, digit clubbing, or cyanosis. NEUROLOGIC: Grossly intact. SKIN: Warm to touch. LYMPH NODES: Negative to palpation. IMPRESSION: 1. Chronic ischemic heart disease. 2. Chronic stable angina. 3. Ischemic cardiomyopathy. RECOMMENDATIONS: I believe the patient may be discharged to outpatient followup. I will make arrangements for him to be seen at our [facility]. I spoke to he and his and I encouraged Mr. Domingo to utilize sublingual nitroglycerin on an as-needed basis for chest pain.
[2016-09-29 09:58] VITALS: O2SAT 95
[2016-09-29 10:59] VITALS: BP 126/70; PULSE 53; TEMP 36.4; O2SAT 95
[2016-09-29 11:16] VITALS: BP 160/77; PULSE 52; TEMP 36.7; O2SAT 94
== END 2016-09-29 12:44 | disposition home health service (06) ==
LOC: ENRESERVTM → ENRESERVDT → EDBD 11:52 → C.ED 11:53 → C.2T 14:15
PROVIDERS: ADMIT Hospitalist; ATTEND Internal Medicine
DX: I25.708 Atherosclerosis of coronary artery bypass graft(s), unspecified, with other forms of angina pectoris (principal); R00.1 Bradycardia, unspecified; I50.22 Chronic systolic (congestive) heart failure; I25.5 Ischemic cardiomyopathy; R05 Cough; J44.9 Chronic obstructive pulmonary disease, unspecified; I11.0 Hypertensive heart disease with heart failure; E11.9 Type 2 diabetes mellitus without complications; G89.29 Other chronic pain; M79.641 Pain in right hand; I25.2 Old myocardial infarction; Z87.891 Personal history of nicotine dependence; Z79.899 Other long term (current) drug therapy; E78.5 Hyperlipidemia, unspecified; Q03.9 Congenital hydrocephalus, unspecified; G25.0 Essential tremor; D32.9 Benign neoplasm of meninges, unspecified; K27.9 Peptic ulcer, site unspecified, unspecified as acute or chronic, without hemorrhage or perforation; Z95.5 Presence of coronary angioplasty implant and graft; Z95.1 Presence of aortocoronary bypass graft

== ENCOUNTER 2017-02-08 14:19 | Inpatient (IN) | payer OTHER ==
[~2017-02-08] VITALS: Ht 190.5 cm; Wt 89.3 kg
[2017-02-08] MEDS ORDERED: SODIUM CHLORIDE 0.9% 1000ML 1,000 ML IV STA (14:51)
[2017-02-08] MEDS ORDERED: NITROGLYCERIN 0.4 MG SL PER TAB CHARGE SL PRN ×2 (15:00→17:45)
[2017-02-08 15:03] LABS: BASO % 0.6 %; BASO ABS # 0.04 K/uL (0-0.2); COMPLETE YES; EOS % 1.3 %; HEMATOCRIT 46.6 % (42-52); IG% 0.1 %; LYMPH % 19.9 %; LYMPH ABS # 1.39 K/uL (1.2-3.4); MEAN CELL VOLUME 84.3 fL (80-100); MEAN CORPUSCULAR HEMOGLOBIN 27.5 pg (25-34); MEAN CORPUSCULAR HGB CONC 32.6 g/dl (32-36); MEAN PLATELET VOLUME 9.5 fL (7.4-10.4); MONO % 5.4 %; NEUT % 72.7 %; PLATELET COUNT 195 K/uL (130-400); RED BLOOD COUNT 5.53 M/uL (4.7-6.1); WHITE BLOOD COUNT 6.98 K/uL (4.8-10.8)
--- NOTE | 2017-02-08 15:09 | DIAGNOSTIC IMAGING REPORT ---
CHEST ONE VIEW PORTABLE CLINICAL HISTORY: 71 years-old Male presenting with Chest Pain. TECHNIQUE: Portable upright AP view of the chest was obtained. COMPARISON: 09/26/2016. FINDINGS: Median sternotomy wires remain in place. Enlargement of the cardiac silhouette unchanged. Apparent double density along the right heart may suggest left atrial enlargement. Mild prominence of pulmonary vasculature. Lungs and pleural spaces clear. Mild scoliotic curvature of the spine. Upper abdomen normal. IMPRESSION: 1. Cardiomegaly. No other evidence of acute cardiopulmonary disease. Electronically signed by: Naren Olvera M.D. 02/08/2017 3:07 PM Dictated Date/Time: 02/08/2017 3:06 PM
[2017-02-08 15:22] LABS: BLOOD UREA NITROGEN 20 mg/dl (7-18); CALCIUM 8.8 mg/dl (8.5-10.1); CARBON DIOXIDE 29 mmol/L (21-32); CHLORIDE 106 mmol/L (98-107); CREATININE 0.92 mg/dl (0.60-1.40); GLUCOSE 89 mg/dl (70-99); POTASSIUM 4.4 mmol/L (3.5-5.1); SODIUM 140 mmol/L (136-145)
[2017-02-08 15:26] LABS: CKMB/CK RATIO 2.7 (0-3.0)
[2017-02-08 15:36] LABS: PROTHROMBIN TIME (PATIENT) 10.4 SECONDS (9.0-12.0)
[2017-02-08] MEDS ORDERED: OPTIRAY 320 IV PRN (16:15)
[2017-02-08] MEDS ORDERED: ACETAMINOPHEN 500 MG TAB PO ONE (16:36)
--- NOTE | 2017-02-08 17:10 | DIAGNOSTIC IMAGING REPORT ---
CT ANGIOGRAM OF THE CHEST CLINICAL HISTORY: Atypical chest pain. Elevated d-dimer. COMPARISON STUDY: November 13, 2015 TECHNIQUE: Following the IV administration of 94 mL of Optiray-320, CT angiogram of the thorax was performed from the thoracic inlet to the lung bases utilizing the pulmonary embolus protocol. Images are reviewed in the axial, sagittal, and coronal planes. IV contrast was administered without complication. MIP imaging was performed. A dose lowering technique was utilized adhering to the principles of ALARA. CT DOSE: 347.22 mGy.cm FINDINGS: Mediastinal lymph nodes are at the upper limits of normal in size. There was no evidence of thoracic aortic dilatation. There is suboptimal opacification of lower lobe pulmonary artery branches. There are no filling defects to indicate acute pulmonary embolism. No pleural effusions are visualized. There are bibasal atelectatic changes present. There is no lobar consolidation. There are few stable tiny pulmonary nodules. The heart is enlarged. There is left atrial dilatation. IMPRESSION: 1. No evidence of acute pulmonary embolism 2. Dependent atelectatic change 3. Cardiac enlargement Electronically signed by: Jesus Mock M.D. 02/08/2017 5:08 PM Dictated Date/Time: 02/08/2017 5:03 PM
--- NOTE | 2017-02-08 17:43 | EMERGENCY ROOM VISIT NOTE ---
History Report prepared by Christina: Jennifer Richardson Under the Supervision of: Dr. Dakota Benz D.O. First contact with patient: 14:41 Chief Complaint: CHEST PAIN Stated Complaint: CHEST PAIN History of Present Illness The patient is a 71 year old male who presents to the Emergency Room with complaints of persistent chest pain starting 1 hour ago. The patient had an appointment with his PCP today. He walked into the office and sat down when the pain started. He describes the pain as a sharp pain in the middle of his chest. At onset, his pain was an 8/10 in severity. He currently rates his pain as a 2/ 10 in severity. He had some SOB with the chest pain. He denies any arm or jaw pain. The chest pain lasted for around 1 hour. He was given nitro which helped relieve his pain. He was also given aspirin. He usually does not have chest pain with exertion. He has had a IA in the past. The pain was not like his previous IA. He also had a CABG 5 years ago. The IA was before the CABG. He states that his heart rate is usually not this low. His breathing is currently improved. He denies any leg swelling. He states that one leg is always bigger than the other. He is not on any blood thinners. He denies any history of blood clots or issues with his aorta. He took his metoprolol this morning. He denies any recent changes in dosing. He is normally on 2 L of oxygen. Source of History: patient Onset: 1 hour ago Position: chest Symptom Intensity: 2/10 Quality: sharp Timing: other (persistent) Modifying Factors (Relieving): other (nitro) Associated Symptoms: + SOB Note: Pt reports low heart rate. Pt denies arm pain, jaw pain, leg swelling. Review of Systems See HPI for pertinent positives & negatives. A total of 10 systems reviewed and were otherwise negative. Past Medical & Surgical Medical Problems: (1) CAD (coronary artery disease) (2) Chest pain (3) Chronic pain (4) Colorectal cancer (5) Congenital hydrocephalus (6) COPD (chronic obstructive pulmonary disease) (7) DM type 2 (diabetes mellitus, type 2) (8) Dyslipidemia (9) Essential tremor (10) Heart attack (11) Hypertension (12) Ischemic cardiomyopathy (13) Meningioma (14) PUD (peptic ulcer disease) (15) S/p rectosigmoid resection Surgical Problems: (1) H/O eye surgery (2) H/O heart bypass surgery (3) H/O hernia repair (4) S/P CABG (coronary artery bypass graft) (5) S/P coronary artery stent placement Family History Diabetes mellitus MOTHER BROTHER FH: colon cancer BROTHER Social History Smoking Status: Never Smoker Drug Use: none Marital Status: Housing Status: lives with family Occupation Status: retired Current/Historical Medications Scheduled Aspirin (Aspirin Chewable), 81 MG PO DAILY Cholecalciferol (Vitamin D), 1 TAB PO DAILY Docusate Sodium (Stool Softener), 1 CAP PO DAILY Fluticasone Prop/Salmeterol (Advair Diskus 250-50 Mcg/Dose), 1 PUFF INH BID Gabapentin (Neurontin), 800 MG PO TID Isosorbide Mononitrate (Isosorbide Mononitrate ER), 30 MG PO DAILY Lisinopril (Lisinopril), 20 MG PO DAILY Meloxicam (Mobic), 7.5 MG PO BID Metoprolol Succinate (Metoprolol Succinate ER), 50 MG PO DAILY Nitroglycerin (Nitrostat), 0.4 MG UT PRN Pravastatin Sod (Pravastatin Sodium), 10 MG PO DAILY Tiotropium [place]coe (Spiriva Handihaler), 1 PUFF INH QAM Trazodone Hcl (Trazodone), 25 MG PO HS Scheduled PRN Tramadol (Ultram), 50 MG PO Q12 PRN for Pain Allergies Coded Allergies: Simvastatin (Verified Allergy, Severe, CHEST PAIN, 02/08/17) Naproxen (Verified Allergy, Intermediate, RASH, 02/08/17) Sulfa Antibiotics (Verified Allergy, Intermediate, Rash, 02/08/17) Nifedipine (Unverified Allergy, Unknown, UNKNOWN, 02/08/17) Propoxyphene (Verified Allergy, Unknown, _, 02/08/17) Physical Exam Vital Signs Date Time Temp Pulse Resp B/P (MAP) Pulse Ox O2 Delivery O2 Flow Rate FiO2 02/08/17 17:05 61 22 142/80 100 Nasal Cannula 2.0 02/08/17 15:49 44 14 02/08/17 15:19 51 21 02/08/17 15:10 Nasal Cannula 2.0 02/08/17 14:49 46 15 02/08/17 14:41 36.6 46 18 154/82 99 Nasal Cannula 2.0 02/08/17 14:32 44 02/08/17 14:28 154/82 Physical Exam GENERAL: sitting up in bed, chronically ill appearing, disheveled EYE EXAM: normal conjunctiva OROPHARYNX: no exudate, no erythema, lips, buccal mucosa, and tongue normal and mucous membranes are moist NECK: supple, no nuchal rigidity, no adenopathy, non-tender CHEST: No reproducible anterior chest wall pain. LUNGS: Clear to auscultation. Normal chest wall mechanics HEART: bradycardic, no murmurs, S1 normal and S2 normal ABDOMEN: abdomen soft, non-tender, normo-active bowel sounds, no masses, no rebound or guarding. BACK: Back is symmetrical on inspection and there is no deformity, no midline tenderness, no CVA tenderness. SKIN: no rashes and no bruising UPPER EXTREMITIES: upper extremities are grossly normal. LOWER EXTREMITIES: Right calf larger than left. NEURO EXAM: Normal sensorium, cranial nerves II-XII grossly intact, normal speech, no gross weakness of arms, no gross weakness of legs. Resting tremor to the upper extremities. Medical Decision & Procedures ER Provider Diagnostic Interpretation: Radiology results as stated below per my review and the radiologist's interpretation: CHEST ONE VIEW PORTABLE CLINICAL HISTORY: 71 years-old Male presenting with Chest Pain. TECHNIQUE: Portable upright AP view of the chest was obtained. COMPARISON: 09/26/2016. FINDINGS: Median sternotomy wires remain in place. Enlargement of the cardiac silhouette unchanged. Apparent double density along the right heart may suggest left atrial enlargement. Mild prominence of pulmonary vasculature. Lungs and pleural spaces clear. Mild scoliotic curvature of the spine. Upper abdomen normal. IMPRESSION: 1. Cardiomegaly. No other evidence of acute cardiopulmonary disease. Electronically signed by: Naren Olvera M.D. 02/08/2017 3:07 PM Dictated Date/Time: 02/08/2017 3:[address] ANGIOGRAM OF THE CHEST CLINICAL HISTORY: Atypical chest pain. Elevated d-dimer. COMPARISON STUDY: November 13, 2015 TECHNIQUE: Following the IV administration of 94 mL of Optiray-320, CT angiogram of the thorax was performed from the thoracic inlet to the lung bases utilizing the pulmonary embolus protocol. Images are reviewed in the axial, sagittal, and coronal planes. IV contrast was administered without complication. MIP imaging was performed. A dose lowering technique was utilized adhering to the principles of ALARA. CT DOSE: 347.22 mGy.cm FINDINGS: Mediastinal lymph nodes are at the upper limits of normal in size. There was no evidence of thoracic aortic dilatation. There is suboptimal opacification of lower lobe pulmonary artery branches. There are no filling defects to indicate acute pulmonary embolism. No pleural effusions are visualized. There are bibasal atelectatic changes present. There is no lobar consolidation. There are few stable tiny pulmonary nodules. The heart is enlarged. There is left atrial dilatation. IMPRESSION: 1. No evidence of acute pulmonary embolism 2. Dependent atelectatic change 3. Cardiac enlargement Electronically signed by: Jesus Mock M.D. 02/08/2017 5:08 PM Dictated Date/Time: 02/08/2017 5:03 PM Laboratory Results 02/08/17 14:38 Red Blood Count 5.53, Mean Corpuscular Volume 84.3, Mean Corpuscular Hemoglobin 27.5, Mean Corpuscular Hemoglobin Concent 32.6, Mean Platelet Volume 9.5, Neutrophils (%) (Auto) 72.7, Lymphocytes (%) (Auto) 19.9, Monocytes (%) (Auto) 5.4, Eosinophils (%) (Auto) 1.3, Basophils (%) (Auto) 0.6, Neutrophils # (Auto) 5.07, Lymphocytes # (Auto) 1.39, Monocytes # (Auto) 0.38, Eosinophils # (Auto) 0.09, Basophils # (Auto) 0.04 02/08/17 14:38 Test 02/08/17 14:38 02/08/17 14:44 02/08/17 15:07 White Blood Count 6.98 K/uL (4.8-10.8) Red Blood Count 5.53 M/uL (4.7-6.1) Hemoglobin 15.2 g/dL (14.0-18.0) Hematocrit 46.6 % (42-52) Mean Corpuscular Volume 84.3 fL (80-100) Mean Corpuscular Hemoglobin 27.5 pg (25-34) Mean Corpuscular Hemoglobin Concent 32.6 g/dl (32-36) Platelet Count 195 K/uL (130-400) Mean Platelet Volume 9.5 fL (7.4-10.4) Neutrophils (%) (Auto) 72.7 % Lymphocytes (%) (Auto) 19.9 % Monocytes (%) (Auto) 5.4 % Eosinophils (%) (Auto) 1.3 % Basophils (%) (Auto) 0.6 % Neutrophils # (Auto) 5.07 K/uL (1.4-6.5) Lymphocytes # (Auto) 1.39 K/uL (1.2-3.4) Monocytes # (Auto) 0.38 K/uL (0.11-0.59) Eosinophils # (Auto) 0.09 K/uL (0-0.5) Basophils # (Auto) 0.04 K/uL (0-0.2) RDW Standard Deviation 44.6 fL (36.4-46.3) RDW Coefficient of Variation 14.5 % (11.5-14.5) Immature Granulocyte % (Auto) 0.1 % Immature Granulocyte # (Auto) 0.01 K/uL (0.00-0.02) Anion Gap 5.0 mmol/L (3-11) Est Creatinine Clear Calc Drug Dose 89.3 ml/min Estimated GFR () 97.3 Estimated GFR (Non- 84.0 BUN/Creatinine Ratio 22.0 (10-20) Calcium Level 8.8 mg/dl (8.5-10.1) Bedside Troponin I < 0.030 ng/ml (0-0.045) Prothrombin Time 10.4 SECONDS (9.0-12.0) Prothromb Time International Ratio 1.0 (0.9-1.1) D-Dimer 1440 ug/L FEU (0-500) Laboratory results per my review. Medications Administered Medications (Trade) Dose Ordered Sig/Reid Route Start Time Stop Time Status Last Admin Dose Admin Sodium Chloride 1,000 ml @ 999 mls/hr Q1H1M STAT IV 02/08/17 14:51 02/08/17 15:51 DC 02/08/17 14:51 999 MLS/HR Acetaminophen (Tylenol Tab) 1,000 mg STK-MED ONCE PO 02/08/17 16:36 02/08/17 16:37 DC 02/08/17 16:36 1,000 MG ECG Indication: chest pain Rate (beats per minute): 44 Rhythm: sinus bradycardia Findings: Q waves (Inferior), ST depression (Lateral), other (T wave flattening ) Comparison ECG Date: 28-Sep-2016 Change: no significant change (except rate) ED Course ED COURSE: Vital signs were reviewed and showed bradycardia. The patients medical record was reviewed The above diagnostic studies were performed and reviewed. ED treatments and interventions as stated above. 1446: The patient was evaluated in room C7. A complete history and physical examination was performed. 1451: NSS 1000 ml @ 999 mls/hr IV. 1500: Nitroglycerin 0.4 mg SL. 1530: Upon reevaluation, the patient is now pain free. I discussed my findings with the patient and he understands and agrees with the treatment plan. Based on the patients age, coexisting illnesses, exam and lab findings the decision to treat as an inpatient was made. The patient remained stable while under my care. The patient will be evaluated for further management. 1555: I reviewed the patient's case with Niels Mckeon. She will evaluate the patient for further management. 1636: Acetaminophen 1000 mg PO. Medical Decision Differential diagnoses includes but is not limited to acute coronary syndrome, myocardial infarction, pericarditis, pulmonary embolus, aortic dissection, pneumonia, pneumothorax, musculoskeletal, shingles, esophageal. Patient is a 71-year-old male with a past mental history of CABG and IA 1 that presents the ER referred in the doctor's office for precordial chest pain associate with shortness of breath. This improved significantly with nitroglycerin. He was given aspirin prior to arrival. Chest pain was 2 out of 10 upon arrival. With additional nitroglycerin pain was completely resolved. EKG was unchanged from previous. Troponin was negative. Chest x-ray was unremarkable. Patient was updated at bedside and admitted to internal medicine for chest pain rule out which I favors likely secondary to his bradycardia. I did not treat this emergently as he was asymptomatic last dose of nitroglycerin and stable. Medication Reconcilliation Current Medication List: was personally reviewed by me Blood Pressure Screening Patient's blood pressure: Elevated blood pressure Blood pressure disposition: Elevated BP felt to be situational Consults Time Called: 1542 Consulting Physician: Niels Mckeon [facility] Returned Call: [phone] I reviewed the patient's case with her. She will evaluate the patient for further management. Impression Primary Impression: Symptomatic bradycardia Additional Impression: Precordial chest pain Scribe Attestation The scribe's documentation has been prepared under my direction and personally reviewed by me in its entirety. I confirm that the note above accurately reflects all work, treatment, procedures, and medical decision making performed by me. Departure Information Dispostion Being Evaluated By Hospitalist Referrals Fely Friedman MD (PCP) Patient Instructions [facility] Problem Qualifiers
[2017-02-08] MEDS ORDERED: DEXTROSE 50% 50 ML SYR IV PRN (17:45)
[2017-02-08] MEDS ORDERED: MoRPHine SULFATE 2 MG/ML CARP IV PRN (17:45)
[2017-02-08] MEDS ORDERED: GLUCAGON FOR INJ 1 MG VIAL SQ PRN (17:45)
[2017-02-08] MEDS ORDERED: POLYETHYLENE (MIRALAX) 17 GM PACK PO PRN (17:45)
[2017-02-08] MEDS ORDERED: ACETAMINOPHEN 325 MG TAB PO PRN (17:45)
[2017-02-08] MEDS ORDERED: GLUCOSE 10 TABS/TUBE PO PRN (17:45)
[2017-02-08] MEDS ORDERED: ONDANSETRON INJ 2 MG/ML 2 ML VIAL IV PRN (17:45)
[2017-02-08] MEDS ORDERED: GLUCOSE 40% GEL 15 GM TUBE PO PRN (17:45)
[2017-02-08] MEDS ORDERED: NITROGLYCERIN 0.4 MG SL PER TAB CHARGE UT SCH (18:15)
--- NOTE | 2017-02-08 18:47 | History and Physical ---
History & Physical Date & Time of Service: Feb 08, 2017 at 18:15 Chief Complaint: Chest Pain Primary Care Physician: Aly Monzon D.O. History of Present Illness Source: patient, spouse, clinic records, hospital records 71 yoM with severe CAD presents as a transfer from his PCP office, where he was being evaluated for an annual physical, for acute chest pain. The pain began in the office when he walked in and sat down. The pain was sharp and centered in the middle of his chest without radiation to the arm or jaw. Severity was described as 8/10 and the pain lasted for 1 hour until he received a nitro which instantly took the pain away. Although he has nitro PRN to take at home, he doesn't carry it with him. He was given aspirin. He did report some SOB with the pain but no other associated symptoms of sweating, palpitations or lightheadedness and this was not his index angina. He has severe CAD with a BERNICE placed in the left circumflex artery in 2008. In early 2010 he presented with a STEMI and had late in-stent thrombosis of the LCx treated with angioplasty. He had an occluded RCA at that time with [id number] collaterals. He went on to have a CABG in 2010 receiving a MINA to the LAD and a SVG to the first diagonal branch. Recently he was admitted with recurrent angina and subsequently underwent cardiac catheterization on with Dr. Partida demonstrating 100% [place] RCA occlusion with left to right collaterals, SVG to RCA was occluded, 100% occlusion of the prior stent in the marginal branch. Medical management was recommended for severe CAD. He subsequently had an outpatient follow-up with Cardiology in November 2016 reporting chronic but stable angina, no progressive shortness of breath and no heart palpitations or dizziness, which is also the case today (these symptoms are not present). Continued medical management without changes and PRN SL nitro was recommended. ROS today reveals no headache, visual changes, sore throat, palpitations, SOB, chest pain (this has completely resolved), n/v/d, constipation, blood per rectum , joint or muscle pain. The patient ambulates with a walker at baseline and describes no weakness. He also denies any UTI symptoms or difficulties with urination. Past Medical/Surgical History Medical Problems: (1) CAD (coronary artery disease) Permanent Comment: 2008- BERNICE left circumflex artery ; 2011- STEMI late in stent thrombosis of the left circumflex artery treated with angioplasty. He had an occluded right coronary artery at that time with left-to- right collaterals. 2011- CABG mina to the LAD and a saphenous vein graft to the 1st diagonal branch Status: Chronic (2) Chronic pain Status: Chronic (3) Colorectal cancer Status: Chronic (4) Congenital hydrocephalus Status: Chronic (5) COPD (chronic obstructive pulmonary disease) Status: Chronic (6) DM type 2 (diabetes mellitus, type 2)-diet controlled, resolved after weight loss, not on antiglycemics. Status: Chronic (7) Dyslipidemia Status: Chronic (8) Essential tremor Status: Chronic (9) Heart attack Status: Resolved (10) Hypertension Status: Chronic (11) Ischemic cardiomyopathy Status: Chronic (12) Meningioma Status: Chronic (13) PUD (peptic ulcer disease) Status: Chronic (14) S/p rectosigmoid resection Status: Chronic Surgical Problems: (1) H/O eye surgery Status: Chronic (2) H/O heart bypass surgery Status: Resolved (3) H/O hernia repair Status: Chronic (4) S/P CABG (coronary artery bypass graft) Status: Chronic (5) S/P coronary artery stent placement Status: Chronic Family History Diabetes mellitus MOTHER BROTHER FH: colon cancer BROTHER Social History Smoking Status: Never Smoker Smokeless Tobacco Use: No Alcohol Use: none Drug Use: none Marital Status: Housing status: lives with significant other Occupational Status: retired Immunizations History of Influenza Vaccine: Yes Influenza Vaccine Date: May 07, 2014 History of Tetanus Vaccine?: No History of Pneumococcal: Yes Pneumococcal Date: Jul 17, 2010 History of Hepatitis B Vaccine: No Multi-Drug Resistant Organisms History of MDRO: No Allergies Coded Allergies: Simvastatin (Verified Allergy, Severe, CHEST PAIN, 02/08/17) Naproxen (Verified Allergy, Intermediate, RASH, 02/08/17) Sulfa Antibiotics (Verified Allergy, Intermediate, Rash, 02/08/17) Nifedipine (Unverified Allergy, Unknown, UNKNOWN, 02/08/17) Propoxyphene (Verified Allergy, Unknown, _, 02/08/17) Home Medications Scheduled Aspirin (Aspirin Chewable), 81 MG PO DAILY Cholecalciferol (Vitamin D), 1 TAB PO DAILY Docusate Sodium (Stool Softener), 1 CAP PO DAILY Fluticasone Prop/Salmeterol (Advair Diskus 250-50 Mcg/Dose), 1 PUFF INH BID Gabapentin (Neurontin), 800 MG PO TID Isosorbide Mononitrate (Isosorbide Mononitrate ER), 30 MG PO DAILY Lisinopril (Lisinopril), 20 MG PO DAILY Meloxicam (Mobic), 7.5 MG PO BID Metoprolol Succinate (Metoprolol Succinate ER), 50 MG PO DAILY Nitroglycerin (Nitrostat), 0.4 MG UT PRN Pravastatin Sod (Pravastatin Sodium), 10 MG PO DAILY Tiotropium [place] (Spiriva Handihaler), 1 PUFF INH QAM Trazodone Hcl (Trazodone), 25 MG PO HS Scheduled PRN Tramadol (Ultram), 50 MG PO Q12 PRN for Pain Review of Systems At least ten systems were reviewed and negative except as indicated in HPI. Physical Exam Vital Signs Date Time Temp Pulse Resp B/P (MAP) Pulse Ox O2 Delivery O2 Flow Rate FiO2 02/08/17 15:49 44 14 02/08/17 15:19 51 21 02/08/17 15:10 Nasal Cannula 2.0 02/08/17 14:49 46 15 02/08/17 14:41 36.6 46 18 154/82 99 Nasal Cannula 2.0 02/08/17 14:32 44 02/08/17 14:28 154/82 General Appearance: WD/WN, no apparent distress Head: atraumatic, + abnormal shape (slightly englarged) Eyes: normal inspection, EOMI, sclerae normal ENT: normal ENT inspection, hearing grossly normal, pharynx normal Neck: supple, no adenopathy, trachea midline Respiratory/Chest: chest non-tender, lungs clear, normal breath sounds, no respiratory distress, no accessory muscle use Cardiovascular: regular rate, rhythm, no edema, no gallop, no JVD, no murmur, normal peripheral pulses Abdomen/GI: normal bowel sounds, non tender, soft, no organomegaly, no pulsatile mass Back: normal inspection Extremities/Musculoskelatal: normal inspection, no pedal edema, normal range of motion Neurologic/Psych: pc tech II-XII nml as tested, no motor/sensory deficits, alert, normal mood/affect, oriented x 3 Skin: normal color, warm/dry Diagnostics Laboratory Results 02/08/17 14:38 Red Blood Count 5.53, Mean Corpuscular Volume 84.3, Mean Corpuscular Hemoglobin 27.5, Mean Corpuscular Hemoglobin Concent 32.6, Mean Platelet Volume 9.5, Neutrophils (%) (Auto) 72.7, Lymphocytes (%) (Auto) 19.9, Monocytes (%) (Auto) 5.4, Eosinophils (%) (Auto) 1.3, Basophils (%) (Auto) 0.6, Neutrophils # (Auto) 5.07, Lymphocytes # (Auto) 1.39, Monocytes # (Auto) 0.38, Eosinophils # (Auto) 0.09, Basophils # (Auto) 0.04 02/08/17 14:38 Test 02/08/17 14:38 02/08/17 14:44 02/08/17 15:07 White Blood Count 6.98 K/uL (4.8-10.8) Red Blood Count 5.53 M/uL (4.7-6.1) Hemoglobin 15.2 g/dL (14.0-18.0) Hematocrit 46.6 % (42-52) Mean Corpuscular Volume 84.3 fL (80-100) Mean Corpuscular Hemoglobin 27.5 pg (25-34) Mean Corpuscular Hemoglobin Concent 32.6 g/dl (32-36) Platelet Count 195 K/uL (130-400) Mean Platelet Volume 9.5 fL (7.4-10.4) Neutrophils (%) (Auto) 72.7 % Lymphocytes (%) (Auto) 19.9 % Monocytes (%) (Auto) 5.4 % Eosinophils (%) (Auto) 1.3 % Basophils (%) (Auto) 0.6 % Neutrophils # (Auto) 5.07 K/uL (1.4-6.5) Lymphocytes # (Auto) 1.39 K/uL (1.2-3.4) Monocytes # (Auto) 0.38 K/uL (0.11-0.59) Eosinophils # (Auto) 0.09 K/uL (0-0.5) Basophils # (Auto) 0.04 K/uL (0-0.2) RDW Standard Deviation 44.6 fL (36.4-46.3) RDW Coefficient of Variation 14.5 % (11.5-14.5) Immature Granulocyte % (Auto) 0.1 % Immature Granulocyte # (Auto) 0.01 K/uL (0.00-0.02) Anion Gap 5.0 mmol/L (3-11) Est Creatinine Clear Calc Drug Dose 89.3 ml/min Estimated GFR () 97.3 Estimated GFR (Non- 84.0 BUN/Creatinine Ratio 22.0 (10-20) Calcium Level 8.8 mg/dl (8.5-10.1) Total Creatine Kinase 121 U/L (39-308) Creatine Kinase MB 3.3 ng/ml (0.5-3.6) Creatine Kinase MB Ratio 2.7 (0-3.0) Troponin I < 0.015 ng/ml (0-0.045) Bedside Troponin I < 0.030 ng/ml (0-0.045) Prothrombin Time 10.4 SECONDS (9.0-12.0) Prothromb Time International Ratio 1.0 (0.9-1.1) D-Dimer 1440 ug/L FEU (0-500) Results Past 24 Hours Test 02/08/17 14:38 02/08/17 14:44 02/08/17 15:07 Range/Units White Blood Count 6.98 4.8-10.8 K/uL Red Blood Count 5.53 4.7-6.1 M/uL Hemoglobin 15.2 14.0-18.0 g/dL Hematocrit 46.6 42-52 % Mean Corpuscular Volume 84.3 80-100 fL Mean Corpuscular Hemoglobin 27.5 25-34 pg Mean Corpuscular Hemoglobin Concent 32.6 32-36 g/dl Platelet Count 195 130-400 K/uL Mean Platelet Volume 9.5 7.4-10.4 fL Neutrophils (%) (Auto) 72.7 % Lymphocytes (%) (Auto) 19.9 % Monocytes (%) (Auto) 5.4 % Eosinophils (%) (Auto) 1.3 % Basophils (%) (Auto) 0.6 % Neutrophils # (Auto) 5.07 1.4-6.5 K/uL Lymphocytes # (Auto) 1.39 1.2-3.4 K/uL Monocytes # (Auto) 0.38 0.11-0.59 K/uL Eosinophils # (Auto) 0.09 0-0.5 K/uL Basophils # (Auto) 0.04 0-0.2 K/uL RDW Standard Deviation 44.6 36.4-46.3 fL RDW Coefficient of Variation 14.5 11.5-14.5 % Immature Granulocyte % (Auto) 0.1 % Immature Granulocyte # (Auto) 0.01 0.00-0.02 K/uL Sodium Level 140 136-145 mmol/L Potassium Level 4.4 3.5-5.1 mmol/L Chloride Level 106 98-107 mmol/L Carbon Dioxide Level 29 21-32 mmol/L Anion Gap 5.0 3-11 mmol/L Blood Urea Nitrogen 20 7-18 mg/dl Creatinine 0.92 0.60-1.40 mg/dl Est Creatinine Clear Calc Drug Dose 89.3 ml/min Estimated GFR () 97.3 Estimated GFR (Non- 84.0 BUN/Creatinine Ratio 22.0 10-20 Random Glucose 89 70-99 mg/dl Calcium Level 8.8 8.5-10.1 mg/dl Total Creatine Kinase 121 39-308 U/L Creatine Kinase MB 3.3 0.5-3.6 ng/ml Creatine Kinase MB Ratio 2.7 0-3.0 Troponin I < 0.015 0-0.045 ng/ml Bedside Troponin I < 0.030 0-0.045 ng/ml Prothrombin Time 10.4 9.0-12.0 SECONDS Prothromb Time International Ratio 1.0 0.9-1.1 D-Dimer 1440 0-500 ug/L FEU Diagnostic Radiology CHEST ONE VIEW PORTABLE CLINICAL HISTORY: 71 years-old Male presenting with Chest Pain. TECHNIQUE: Portable upright AP view of the chest was obtained. COMPARISON: 09/26/2016. FINDINGS: Median sternotomy wires remain in place. Enlargement of the cardiac silhouette unchanged. Apparent double density along the right heart may suggest left atrial enlargement. Mild prominence of pulmonary vasculature. Lungs and pleural spaces clear. Mild scoliotic curvature of the spine. Upper abdomen normal. IMPRESSION: 1. Cardiomegaly. No other evidence of acute cardiopulmonary disease. CTA -reading pending EKG SB44, no ST changes. Impression Assessment and Plan 71 yo M with known severe CAD with chronic stable angina presents to the ER after chest pain episode 1. Angina-little concern for active ACS as pain well-controlled with one dose of nitro, hemodynamically stable with no dynamic EKG changes, and history consistent with chronic stable angina in a gentleman expected to have pain. Because of his severe coronary disease, however, will rule out ACS and consult Cardiology for recommendations. Cont with home medications including pravastatin, ASA 81 (received 325 [employer]), Imdur 30, Lisinopril 20mg, Toprol XL 50mg, PRN nitro. Morphine also ordered if needed for additional pain overnight. Appreciate Cardiology recommendations. Monitor on telemetry w repeat EKG in am. 2. COPD-chronic, stable, on home oxygen with no increases. Cont home inhalers. 3. Obstructive hydrocephalus-congenital, normal mentation, no acute issues. 4. OA-uses Mobic at home which is on hold in setting of possible ACS. Cont gabapentin and Tramadol PRN 5. Insomnia-trazodone qHS 6. DMII-diet controlled, fingersticks ordered but no insulin coverage at this time. A1C pending. Not on home antiglycemics. 7. h/o colon cancer s/p partial colectomy, no h/o XRT or chemo DVT proph-Lovenox FULL CODE Dispo-cont to telemetry Angie Lovett DO [facility] Level of Care Telemetry Resuscitation Status FULL RESUSCITATION VTE Prophylaxis VTE Risk Assessment Done? Y/N: Yes Risk Level: Moderate Given or contraindicated: Enoxaparin (Lovenox)SQ
[2017-02-08 20:41] VITALS: BP 134/67; PULSE 98; TEMP 36.8; O2SAT 100; Ht 190.5 cm; Wt 89.3 kg
[2017-02-08 20:45] VITALS: BP 134/67; PULSE 98; TEMP 36.8; O2SAT 97
[2017-02-08] MEDS ORDERED: TRAZODONE HCL 50 MG TAB PO SCH (21:00)
[2017-02-08 21:49] LABS: CKMB/CK RATIO 2.6 (0-3.0)
[2017-02-08] MEDS: FLUTICASONE/SALMETEROL 250/50 (ADVAIR) 14 PUFF/1 INHALER INH SCH (22:57)
[2017-02-08] MEDS: GABAPENTIN 800 MG TAB PO SCH (22:58)
[2017-02-08] MEDS: TRAMADOL HCL 50 MG TAB PO PRN (23:04)
[2017-02-08 23:39] VITALS: BP 101/61; PULSE 65; TEMP 36.8; O2SAT 99
[2017-02-09] VITALS (11 sets, daily range): BP systolic 137–183; BP diastolic 56–91; PULSE 47–55; TEMP 36.5–36.8; O2SAT 92–100
[2017-02-09 02:53] LABS: CKMB/CK RATIO 2.3 (0-3.0)
[2017-02-09 06:34] LABS: HEMATOCRIT 44.1 % (42-52); MEAN CELL VOLUME 83.7 fL (80-100); MEAN CORPUSCULAR HEMOGLOBIN 28.7 pg (25-34); MEAN CORPUSCULAR HGB CONC 34.2 g/dl (32-36); MEAN PLATELET VOLUME 9.6 fL (7.4-10.4); PLATELET COUNT 158 K/uL (130-400); RED BLOOD COUNT 5.27 M/uL (4.7-6.1)
[2017-02-09 07:08] LABS: BUN/CREATININE RATIO 22.2 (10-20); CALCIUM 8.8 mg/dl (8.5-10.1); CREATININE 0.8 mg/dl (0.60-1.40); POTASSIUM 4.6 mmol/L (3.5-5.1)
[2017-02-09 08:04] LABS: ESTIMATED AVERAGE GLUCOSE 126 mg/dl; HA1C FLAG Normal (Normal)
[2017-02-09] MEDS: TRAMADOL HCL 50 MG TAB PO PRN (08:11)
[2017-02-09] MEDS: FLUTICASONE/SALMETEROL 250/50 (ADVAIR) 14 PUFF/1 INHALER INH SCH (08:11)
[2017-02-09] MEDS: GABAPENTIN 800 MG TAB PO SCH ×2 (08:13→13:37)
[2017-02-09] MEDS ORDERED: METOPROLOL SUCC 50MG EXT REL TAB PO SCH (09:00)
[2017-02-09] MEDS ORDERED: LISINOPRIL 20 MG TAB PO SCH (09:00)
[2017-02-09] MEDS ORDERED: ASPIRIN 81 MG CHEW PO SCH (09:00)
[2017-02-09] MEDS ORDERED: ISOSORBIDE MONONITRATE 30 MG TABCR PO SCH (09:00)
[2017-02-09] MEDS ORDERED: PRAVASTATIN SOD 10 MG TAB PO SCH (09:00)
[2017-02-09] MEDS ORDERED: TIOTROPIUM BROMIDE 5 PUFF/90 MCG INH INH SCH (09:00)
[2017-02-09] MEDS ORDERED: CHOLECALCIFEROL 1000 INTER.UNIT TAB PO SCH (09:00)
[2017-02-09] MEDS ORDERED: DOCUSATE SODIUM 100 MG CAP PO SCH (09:00)
[2017-02-09] MEDS ORDERED: METOPROLOL SUCC 25MG EXT REL TAB PO ONE (10:30)
[2017-02-09] MEDS ORDERED: ISOSORBIDE MONONITRATE 30 MG TABCR PO ONE (10:30)
--- NOTE | 2017-02-09 10:35 | Cardiology Consultation ---
Cardiology Consultation Date of Service Feb 09, 2017. (Adri Beck, [place]) Cardiology Consultation Attending Rotary Filter Operator: Dr. Hughes Requesting Provider: Dr. Lovett Reason for Cardiology Consult: Chest pain; History of CAD HPI: Patient is a 71-year-old male who was has a complex past medical history significant for ischemic cardiomyopathy with LVEF 35-40$ per last echo in 08/2016 , coronary disease status post drug eluting stent to the left circumflex in 2008. In 2010 he presented with a STEMI and had late in stent thrombosis of the left circumflex artery treated with angioplasty. He had an occluded right coronary artery at that time with [id number] collaterals. He went on to have coronary artery bypass surgery in 2010 receiving a mina to the LAD and a saphenous vein graft to the 1st diagonal branch. Most recently, due to recurrent chest pain. He underwent nuclear stress testing at [facility] which demonstrated large inferior/posterior/lateral infarct with mild anteroapical and apical lateral infarct ischemia. He subsequently underwent cardiac catheterization on 09/28/[address] Partida demonstrating 100% mi'kmaq RCA occlusion with left to right collaterals, vein graft to RCA was occluded, 100% occlusion of the prior stent in the marginal branch. Med management recommended for moderate to severe underlying CAD. Yesterday patient states he was in usual state of health, at PCP office for routine visit when he developed sudden onset substernal sharp/stabbing chest pain. Symptoms lasted approx 30 minutes. Resolved with 1 SL nitro in ambulance in route to ER. No recurrent symptoms. No associated SOB, diaphoresis. No radiation. He declines frequent or recurrent chest pain. No need for frequent SL nitro use. No orthopnea, PND or edema. He reports eating "a big lunch" prior to PCP office visit and attributes symptoms to possible indigestion. Upon arrival to ER, he was found to be bradycardic, without acute EKG changes. Cardiac enzymes unremarkable x3. He remains bradycardic on telemetry, with occasional PVC's. No significant pauses. he denies associated dizziness, syncope or near syncope. Primary concern this AM is significant b/l hand and foot pain, this is chronic issue and secondary to neuropathy. \\ NO recurrent chest pain or SOB since admission. BP trending higher. Toprol has been on hold. Other history includes chronic neuropathy, congenial hydrocephalus, prior colon CA, DM type II, COPD with prior tobacco abuse. Review of Systems: See HPI for pertinent positives. All other 10 point review of systems is negative. Patient Active Problem List 1. CAD as above 2. Ischemic cardiomyopathy 3. DM type II 4. hypertension 5. Dyslipidemia 6. COPD 7. Prior Colon CA 8. PUD Surgical History: Procedure Laterality Date Age Comment OR Chart REPAIR RECURRENT INGUINAL HERNIA 1992 46 - 47y ENDO,VIDEO ASSIST HARVEST JUNIOR 07/27/2010 64y ENDOSCOPY VIDEO ASSISTED HARVEST VEIN performed by BERTHA SORENSON at OR [facility] CORONARY ANGIOGRAPHY W/LEFT HEART CATH 07/17/2010 64y CORONARY ANGIOGRAPHY W/ LEFT HEART CATH performed by HAIR JARAMILLO at [facility] CATHETERIZE LEFT HEART THRU SKIN 12/23/08 63y LEFT HEART CATH, PERCUTANEOUS performed by HAIR JARAMILLO at [facility] CABG, ARTERY-VEIN, SINGLE 07/27/2010 64y CORONARY ARTERY BYPASS GRAFT ARTERIAL AND VENOUS 1 GRAFT performed by BERTHA SORENSON at [facility] CABG, ARTERIAL, SINGLE 07/27/2010 64y CORONARY ARTERY BYPASS GRAFT USING ARTERY 1 GRAFT performed by BERTHA SORENSON at OR [facility] OTHER 2001 55 - 56y angioplasty/cardiac stent@ [facility] OTHER 11/22/06 60y rectosigmoid resection(Dr. Nair) Social history: . Lives with . Prior tobacco abuse, quitting in 2000 , smoking 2 PPD for 20 years. No alcohol use. Family History: Non contributory. Review of patient's allergies indicates: Naproxen Rash. Simvastatin Muscle pain Patient notes chest pain as well. Was treated in ED for this. Sulfa Antibiotics Rash. Current Outpatient Prescriptions Reported Home Medications Medications Dose Route/Sig Max Daily Dose Days Date Category Metoprolol Succinate ER (Metoprolol Succinate) 50 Mg Tabcr 50 Mg PO DAILY 30 09/13/16 Rx Lisinopril 20 Mg Tab 20 Mg PO DAILY 30 09/13/16 Rx Stool Softener (Docusate Sodium) 100 Mg Cap 1 Cap PO DAILY 09/11/16 Reported Vitamin D (Cholecalciferol) 1,000 Unit Tab 1 Tab PO DAILY 09/11/16 Reported Spiriva Handihaler (Tiotropium [place]) 5 Puff/90 Mcg Aerp 1 Puff INH QAM 11/15/15 Rx Advair Diskus 250-50 Mcg/Dose (Fluticasone Prop/Salmeterol) 14 Puff/1 Inhaler Aerp 1 Puff INH BID 11/15/15 Rx Isosorbide Mononitrate ER (Isosorbide Mononitrate) 30 Mg Tabcr 30 Mg PO DAILY 11/11/15 Reported Aspirin Chewable (Aspirin) 81 Mg Chew 81 Mg PO DAILY 11/11/15 Reported Trazodone (Trazodone HCl) 50 Mg Tab 25 Mg PO HS 11/11/15 Reported Neurontin (Gabapentin) 400 Mg Cap 800 Mg PO TID 11/11/15 Reported Pravastatin Sodium (Pravastatin Sod) 10 Mg Tab 10 Mg PO DAILY 11/11/15 Reported Mobic (Meloxicam) 7.5 Mg Tab 7.5 Mg PO BID 11/11/15 Reported Nitrostat (Nitroglycerin) 0.4 Mg Tab 0.4 Mg UT PRN 11/11/15 Reported Ultram (Tramadol HCl) 50 Mg Tab 50 Mg PO Q12 PRN 11/11/15 Reported Physical Exam: Last 8 Hrs Date Time Temp Pulse Resp B/P (MAP) Pulse Ox O2 Delivery O2 Flow Rate FiO2 02/09/17 07:33 36.7 47 20 163/91 (115) 96 Room Air 02/09/17 05:35 36.7 50 18 161/76 (104) 92 Room Air 02/09/17 04:05 100 Nasal Cannula 2.0 General: no acute distress Head:Large head with hydrocephalus. Eyes: conjunctiva are pink and non-injected, sclera clear Neck: supple, no adenopathy, no bruits, normal jugular venous pulse, no hepatojugular reflux Chest: normal shape and normal respiratory effort Lungs: clear to auscultation and percussion Cardiac Exam: regular rate & rhythm, no murmurs gallops or rubs - normal S1, normal S2 Pulses: 2(+) throughout Abdomen: abdomen soft, non-tender, no abnormal masses and no hepatosplenomegaly Musculoskeletal: no gait disturbance, no joint inflammation, no deforming arthritis Extremities: no edema and no cyanosis Neuro: grossly normal exam DATA: EKG on admission 02/08: Marked sinus bradycardia at 44 bpm, old inferior infarct, dating back to 2010, unchanged. Non specific ST/T wave abnormality, unchanged from prior. EKG repeat, dated 02/09/17: Marked sinus bradycardia at 44 bpm, non specific ST/T wave abnormality, unchanged. Old inferior infarct. Chest Xray: No active disease Chest CT, per report: IMPRESSION: 1. No evidence of acute pulmonary embolism 2. Dependent atelectatic change 3. Cardiac enlargement Telemetry Reviewed: Labs reviewed: Last 24 Hours Test 02/08/17 14:38 02/08/17 14:44 02/08/17 15:07 02/08/17 20:57 White Blood Count 6.98 K/uL Red Blood Count 5.53 M/uL Hemoglobin 15.2 g/dL Hematocrit 46.6 % Mean Corpuscular Volume 84.3 fL Mean Corpuscular Hemoglobin 27.5 pg Mean Corpuscular Hemoglobin Concent 32.6 g/dl Platelet Count 195 K/uL Mean Platelet Volume 9.5 fL Neutrophils (%) (Auto) 72.7 % Lymphocytes (%) (Auto) 19.9 % Monocytes (%) (Auto) 5.4 % Eosinophils (%) (Auto) 1.3 % Basophils (%) (Auto) 0.6 % Neutrophils # (Auto) 5.07 K/uL Lymphocytes # (Auto) 1.39 K/uL Monocytes # (Auto) 0.38 K/uL Eosinophils # (Auto) 0.09 K/uL Basophils # (Auto) 0.04 K/uL RDW Standard Deviation 44.6 fL RDW Coefficient of Variation 14.5 % Immature Granulocyte % (Auto) 0.1 % Immature Granulocyte # (Auto) 0.01 K/uL Sodium Level 140 mmol/L Potassium Level 4.4 mmol/L Chloride Level 106 mmol/L Carbon Dioxide Level 29 mmol/L Anion Gap 5.0 mmol/L Blood Urea Nitrogen 20 mg/dl Creatinine 0.92 mg/dl Est Creatinine Clear Calc Drug Dose 89.3 ml/min Estimated GFR () 97.3 Estimated GFR (Non- 84.0 BUN/Creatinine Ratio 22.0 Random Glucose 89 mg/dl Calcium Level 8.8 mg/dl Total Creatine Kinase 121 U/L 103 U/L Creatine Kinase MB 3.3 ng/ml 2.7 ng/ml Creatine Kinase MB Ratio 2.7 2.6 Troponin I < 0.015 ng/ml < 0.015 ng/ml Bedside Troponin I < 0.030 ng/ml Prothrombin Time 10.4 SECONDS Prothromb Time International Ratio 1.0 D-Dimer 1440 ug/L FEU Hepatitis C Antibody Screen NEG Test 02/08/17 21:01 02/09/17 02:18 02/09/17 06:05 02/09/17 07:59 Bedside Glucose 128 mg/dl 109 mg/dl Total Creatine Kinase 99 U/L Creatine Kinase MB 2.3 ng/ml Creatine Kinase MB Ratio 2.3 Troponin I < 0.015 ng/ml White Blood Count 5.70 K/uL Red Blood Count 5.27 M/uL Hemoglobin 15.1 g/dL Hematocrit 44.1 % Mean Corpuscular Volume 83.7 fL Mean Corpuscular Hemoglobin 28.7 pg Mean Corpuscular Hemoglobin Concent 34.2 g/dl RDW Standard Deviation 44.7 fL RDW Coefficient of Variation 14.6 % Platelet Count 158 K/uL Mean Platelet Volume 9.6 fL Sodium Level 139 mmol/L Potassium Level 4.6 mmol/L Chloride Level 106 mmol/L Carbon Dioxide Level 30 mmol/L Anion Gap 3.0 mmol/L Blood Urea Nitrogen 18 mg/dl Creatinine 0.80 mg/dl Est Creatinine Clear Calc Drug Dose 102.7 ml/min Estimated GFR () 104.9 Estimated GFR (Non- 90.5 BUN/Creatinine Ratio 22.2 Random Glucose 88 mg/dl Estimated Average Glucose 126 mg/dl Hemoglobin A1c 6.0 % Calcium Level 8.8 mg/dl Prior Data: Nuclear Stress Test at [facility] on 09/13/16: Lexiscan nuclear stress demonstrates large inferior, posterior, and lateral infarct with mild anteroapical and apical lateral galina-infarct ischemia. 2D echocardiogram reviewed, dated 09/03/[address] Hughes: Interpretation Summary The examination is adequate to evaluate the referral indication. There was sinus bradycardia during the examination. The left ventricular cavity size is mildly enlarged. There is a large sized septal, inferior, and posterior wall motion abnormality with hypokinesis to akinesis of the segments. There is a small sized inferior scar. The wall thickness is mildly increased in segments with normal wall motion. The qualitative LV ejection fraction is 4044% (mildly reduced). Mild aortic valve sclerosis is present. Mild aortic valve regurgitation is present. Mild mitral regurgitation is present. Holter monitor reviewed, dated 08/26/[address] Hughes: CONCLUSIONS: 1. Duration - 23 hours, 51 minutes 2. Quality - Good 3. Dominant rhythm - sinus bradycardia average rate 55 beats per minute 4. PACs - occasional, 81 isolated ectopic beats with 3 couplets 2 triplets and 2 short runs of atrial tachycardia 6 and 4 beats in duration rates 101, 114 beats per minute 5. PVCs - very frequent, 13,118 with intermittent bigeminy, 201 couplets and 18 3 beat salvos of complex ventricular ectopy / fusion beats 6. Symptoms - none reported Dobutamine stress echo reviewed, dated 11/13/[address] Hughes: Left Ventricle The left ventricle is mildly dilated. There is normal left ventricular wall thickness. Ejection Fraction = 35-40%. Left ventricular systolic function is moderately reduced. Thin and bright LV wall segment suggests a myocardial infarction. There is inferior wall akinesis. There is posterior wall akinesis. With stress the inferior posterior infarct is fixed, all other wall segments improve. Impression: 1. Chest pain, somewhat atypical, but improved with SL nitro. No recurrence. No ischemic EKG changes. Negative cardiac enzymes 2. History of Coronary artery disease s/p CABG (MINA to LAD, SVG to 1st diagonal ) in 2010. Left circumflex stent in 2008 with late in stent stenosis. Severe mi'kmaq vessel disease per cath in 09/2016 with 100% RCA occlusion with left to right collaterals, 100% occlusion of SVG to diagonal, 100% prior occlusion of prior stent). Med management recommended 3. Sinus bradycardia - asymptomatic, HR's in the 40-50's. 4. Ischemic cardiomyopathy, variable LVEF 35-40% per echo/cath in 08/2016. Appears well compensated. 5. Frequent PVC's - asymptomatic. 6. Congenital hydrocephalus 7. Hypertension - Elevated 6. Dyslipidemia on low dose statin PLAN: Reduce Toprol from 50 mg in AM to 25 mg in AM and 12.5 mg in PM to aid with bradycardia. Increase isosorbide from 30 to 60 mg daily to aid with angina and HTN. No indication for repeat stress testing or other cardiac testing given recent cath demonstrating severe coronary disease, not amenable to revascularization Continued med management recommended. (Kiran, Adri K., PA-C) Patient seen and examined, patient with chronic cad angina pectoris noted transient episode of chest pain, ? angina, without injury by ekg or enzyme. Plan as outlined above, medical adjustments made. Favio Hughes MD (Favio Hughes M.D.)
--- NOTE | 2017-02-09 14:57 | Progress Note ---
Medicine Progress Note Date & Time of Visit: Feb 09, 2017 at 14:30. Subjective Pt was seen and examined Sitting at the edge of the bed with no distress with at bed side Pt said that he feels fine He does not have any chest pain, palpitation, dizziness and SOB Objective Last 8 Hrs Date Time Temp Pulse Resp B/P (MAP) Pulse Ox O2 Delivery O2 Flow Rate FiO2 02/09/17 12:00 96 Room Air 02/09/17 11:40 36.5 52 18 147/77 (100) 96 Room Air 02/09/17 10:58 36.8 55 18 178/56 (96) 93 Room Air 02/09/17 10:12 36.5 48 20 183/79 (113) 93 Room Air 02/09/17 08:00 96 Room Air 02/09/17 07:33 36.7 47 20 163/91 (115) 96 Room Air Physical Exam: General- No acute distress Head- atraumatic Eyes- PERRL, EOMI ENT- oropharynx clear Neck- supple, no JVD Lungs- clear to auscultation Heart- regular rhythm; no murmur Abdomen- normal bowel sounds, soft Extremities- no calf tenderness Neuro- alert, oriented x 3; PERRL, EOMI; no facial palsy, +tremors Skin- warm & dry Laboratory Results: Last 24 Hours Test 02/08/17 14:38 02/08/17 14:44 02/08/17 15:07 02/08/17 20:57 White Blood Count 6.98 K/uL Red Blood Count 5.53 M/uL Hemoglobin 15.2 g/dL Hematocrit 46.6 % Mean Corpuscular Volume 84.3 fL Mean Corpuscular Hemoglobin 27.5 pg Mean Corpuscular Hemoglobin Concent 32.6 g/dl Platelet Count 195 K/uL Mean Platelet Volume 9.5 fL Neutrophils (%) (Auto) 72.7 % Lymphocytes (%) (Auto) 19.9 % Monocytes (%) (Auto) 5.4 % Eosinophils (%) (Auto) 1.3 % Basophils (%) (Auto) 0.6 % Neutrophils # (Auto) 5.07 K/uL Lymphocytes # (Auto) 1.39 K/uL Monocytes # (Auto) 0.38 K/uL Eosinophils # (Auto) 0.09 K/uL Basophils # (Auto) 0.04 K/uL RDW Standard Deviation 44.6 fL RDW Coefficient of Variation 14.5 % Immature Granulocyte % (Auto) 0.1 % Immature Granulocyte # (Auto) 0.01 K/uL Sodium Level 140 mmol/L Potassium Level 4.4 mmol/L Chloride Level 106 mmol/L Carbon Dioxide Level 29 mmol/L Anion Gap 5.0 mmol/L Blood Urea Nitrogen 20 mg/dl Creatinine 0.92 mg/dl Est Creatinine Clear Calc Drug Dose 89.3 ml/min Estimated GFR () 97.3 Estimated GFR (Non- 84.0 BUN/Creatinine Ratio 22.0 Random Glucose 89 mg/dl Calcium Level 8.8 mg/dl Total Creatine Kinase 121 U/L 103 U/L Creatine Kinase MB 3.3 ng/ml 2.7 ng/ml Creatine Kinase MB Ratio 2.7 2.6 Troponin I < 0.015 ng/ml < 0.015 ng/ml Bedside Troponin I < 0.030 ng/ml Prothrombin Time 10.4 SECONDS Prothromb Time International Ratio 1.0 D-Dimer 1440 ug/L FEU Hepatitis C Antibody Screen NEG Test 02/08/17 21:01 02/09/17 02:18 02/09/17 06:05 02/09/17 07:59 Bedside Glucose 128 mg/dl 109 mg/dl Total Creatine Kinase 99 U/L Creatine Kinase MB 2.3 ng/ml Creatine Kinase MB Ratio 2.3 Troponin I < 0.015 ng/ml White Blood Count 5.70 K/uL Red Blood Count 5.27 M/uL Hemoglobin 15.1 g/dL Hematocrit 44.1 % Mean Corpuscular Volume 83.7 fL Mean Corpuscular Hemoglobin 28.7 pg Mean Corpuscular Hemoglobin Concent 34.2 g/dl RDW Standard Deviation 44.7 fL RDW Coefficient of Variation 14.6 % Platelet Count 158 K/uL Mean Platelet Volume 9.6 fL Sodium Level 139 mmol/L Potassium Level 4.6 mmol/L Chloride Level 106 mmol/L Carbon Dioxide Level 30 mmol/L Anion Gap 3.0 mmol/L Blood Urea Nitrogen 18 mg/dl Creatinine 0.80 mg/dl Est Creatinine Clear Calc Drug Dose 102.7 ml/min Estimated GFR () 104.9 Estimated GFR (Non- 90.5 BUN/Creatinine Ratio 22.2 Random Glucose 88 mg/dl Estimated Average Glucose 126 mg/dl Hemoglobin A1c 6.0 % Calcium Level 8.8 mg/dl Test 02/09/17 11:55 Bedside Glucose 101 mg/dl Assessment & Plan Chest pain Mostly atypical Need to R/O ACS all 3 sets of troponin negative EKG showed no ischemic changes No arrhythmia seen on telemetry On aspirin 81 mg, pravastatin, Lisinopril, prn nitro and BB cardiology on board recommended: Reduce Toprol from 50 mg in AM to 25 mg in AM and 12.5 mg in PM to aid with bradycardia. Increase isosorbide from 30 to 60 mg daily No further cardiac testing due to recent cath demonstrating severe coronary disease, not amenable to revascularization Continue medical management Follow up with cardiology Nuclear Stress Test at [facility] on 09/13/16: Lexiscan nuclear stress demonstrates large inferior, posterior, and lateral infarct with mild anteroapical and apical lateral galina-infarct ischemia. 2D echocardiogram reviewed, dated 09/03/[address] Hughes: Interpretation Summary The examination is adequate to evaluate the referral indication. There was sinus bradycardia during the examination. The left ventricular cavity size is mildly enlarged. There is a large sized septal, inferior, and posterior wall motion abnormality with hypokinesis to akinesis of the segments. There is a small sized inferior scar. The wall thickness is mildly increased in segments with normal wall motion. The qualitative LV ejection fraction is 4044% (mildly reduced). Mild aortic valve sclerosis is present. Mild aortic valve regurgitation is present. Mild mitral regurgitation is present. Holter monitor reviewed, dated 08/26/[address] Hughes: CONCLUSIONS: 1. Duration - 23 hours, 51 minutes 2. Quality - Good 3. Dominant rhythm - sinus bradycardia average rate 55 beats per minute 4. PACs - occasional, 81 isolated ectopic beats with 3 couplets 2 triplets and 2 short runs of atrial tachycardia 6 and 4 beats in duration rates 101, 114 beats per minute 5. PVCs - very frequent, 13,118 with intermittent bigeminy, 201 couplets and 18 3 beat salvos of complex ventricular ectopy / fusion beats 6. Symptoms - none reported Dobutamine stress echo reviewed, dated 11/13/[address] Hughes: Left Ventricle The left ventricle is mildly dilated. There is normal left ventricular wall thickness. Ejection Fraction = 35-40%. Left ventricular systolic function is moderately reduced. Thin and bright LV wall segment suggests a myocardial infarction. There is inferior wall akinesis. There is posterior wall akinesis. With stress the inferior posterior infarct is fixed, all other wall segments improve. Bradycardia asymptomatic Toprol decreased from 50 mg in AM to 25 mg in AM and 12.5 mg in PM to aid with bradycardia COPD Continue home inhaler Continue on home oxygen stable Obstructive hydrocephalus congenital, normal mentation stable OA Resume home Mobic Cont gabapentin and Tramadol PRN Insomnia Continue trazodone qHS DMII Recent hba1c 6 diet controlled h/o colon cancer s/p partial colectomy no h/o XRT or chemo stable Code status Full code No indication for repeat stress testing or other cardiac testing given recent cath demonstrating severe coronary disease, not amenable to revascularization Continued med management recommended. Consultants: Cardiology Current Inpatient Medications: Current Inpatient Medications Medications (Trade) Dose Ordered Sig/Reid Route Start Time Stop Time Status Last Admin Dose Admin Ioversol (Optiray 320) 111 ml UD PRN IV 02/08/17 16:15 02/12/17 16:14 Acetaminophen (Tylenol Tab) 650 mg Q4H PRN PO 02/08/17 17:45 03/10/17 17:44 Ondansetron HCl (Zofran Inj) 4 mg Q6H PRN IV 02/08/17 17:45 03/10/17 17:44 Nitroglycerin (Nitrostat Tab) 0.4 mg UD PRN SL 02/08/17 17:45 03/10/17 17:44 Morphine Sulfate (MoRPHine SULFATE INJ) 2 mg Q30M PRN IV 02/08/17 17:45 02/22/17 17:44 02/09/17 09:23 2 MG Polyethylene (Miralax Powder Packet) 17 gm DAILY PRN PO 02/08/17 17:45 03/10/17 17:44 Glucose (Glucose 40% Gel) 15-30 GRAMS 15 GRAMS... UD PRN PO 02/08/17 17:45 03/10/17 17:44 Glucose (Glucose Chew Tab) 4-8 Tablets 4 Tabl... UD PRN PO 02/08/17 17:45 03/10/17 17:44 Dextrose (Dextrose 50% 50ML Syringe) 25-50ML OF 50% DW IV FOR... UD PRN IV 02/08/17 17:45 03/10/17 17:44 Glucagon (Glucagon Inj) 1 mg UD PRN SQ 02/08/17 17:45 03/10/17 17:44 Aspirin (Aspirin Chew) 81 mg DAILY PO 02/09/17 09:00 03/11/17 08:59 02/09/17 08:13 81 MG Cholecalciferol (Vitamin D Tab) 1,000 inter.unit DAILY PO 02/09/17 09:00 03/11/17 08:59 02/09/17 08:13 1,000 INTER.UNIT Docusate Sodium (coLACE CAP) 100 mg DAILY PO 02/09/17 09:00 03/11/17 08:59 02/09/17 08:13 100 MG Salmeterol Xinafoate/ Fluticasone (Advair Diskus 250/50 Inh) 1 puff BID INH 02/08/17 21:00 03/10/17 20:59 02/09/17 08:11 1 PUFF Gabapentin (Neurontin Tab) 800 mg TID PO 02/08/17 21:00 03/10/17 20:59 02/09/17 13:37 800 MG Lisinopril (Zestril Tab) 20 mg DAILY PO 02/09/17 09:00 03/11/17 08:59 02/09/17 08:13 20 MG Pravastatin Sodium (Pravachol Tab) 10 mg DAILY PO 02/09/17 09:00 03/11/17 08:59 02/09/17 08:13 10 MG Tiotropium [place] (Spiriva Handihaler Inhaler) 1 puff QAM INH 02/09/17 09:00 03/11/17 08:59 02/09/17 08:12 1 PUFF Tramadol HCl (Ultram Tab) 50 mg Q12 PRN PO 02/08/17 18:15 03/10/17 18:14 02/09/17 08:11 50 MG Trazodone HCl (Desyrel Tab) 25 mg HS PO 02/08/17 21:00 03/10/17 20:59 02/08/17 22:59 25 MG Isosorbide Mononitrate (Imdur Ext Rel Tab) 60 mg DAILY PO 02/10/17 09:00 03/11/17 08:59 Metoprolol Succinate (Toprol Xl Tab) 25 mg QAM PO 02/10/17 09:00 03/11/17 08:59 Metoprolol Succinate (Toprol Xl Tab) 12.5 mg QPM PO 02/09/17 21:00 03/11/17 20:59
[2017-02-09] MEDS ORDERED: TPRSR25 PO ×2 (15:06)
[2017-02-09] MEDS ORDERED: IMDSR60 PO (15:06)
--- NOTE | 2017-02-09 15:15 | Discharge Instructions ---
Discharge Instructions Date of Service Feb 09, 2017. Admission Reason for Admission: Chest Pain Discharge Discharge Diagnosis / Problem: Chest pain Discharge Goals Goal(s): Decrease discomfort, Improve function, Improve disease control Activity Recommendations Activity Limitations: resume your previous activity (as tolerated) . Instructions / Follow-Up Instructions / Follow-Up Please call your primary care physician to schedule a follow up appointment within 1 week Medication changes: Toprol decreased from 50 mg in the morning to 25 mg in AM and adding Toprol 12.5 mg in the evening Increased isosorbide from 30 to 60 mg daily Current Hospital Diet Patient's current hospital diet: AHA Diet (Heart Healthy), Diabetes Type 2 Diet Discharge Diet Recommended Diet: AHA Diet (Heart Healthy), Diabetes Type 2 Diet Pending Studies Studies pending at discharge: no Laboratory Results Hemoglobin A1c Test 02/09/17 06:05 Range/Units Estimated Average Glucose 126 mg/dl Hemoglobin A1c 6.0 H 4.5-5.6 % Medical Emergencies . Who to Call and When: Medical Emergencies: If at any time you feel your situation is an emergency, please call 911 immediately. . Non-Emergent Contact Non-Emergency issues call your: Primary Care Provider Call Non-Emergent contact if: you have any medication questions . . "Provider Documentation" section prepared by Parker Flowers. . VTE Core Measure Inpt VTE Proph given/why not?: Enoxaparin (Lovenox)SQ
[2017-02-09] MEDS ORDERED: METOPROLOL SUCC 25MG EXT REL TAB PO SCH (21:00)
--- NOTE | 2017-02-10 08:07 | Discharge Summary ---
Discharge Summary Date of Service Feb 10, 2017. Discharge Summary Admission Date: Feb 08, 2017 at 17:36 Discharge Date: Feb 09, 2017 Discharge Disposition: Home with services Principal Diagnosis: Chest Pain Secondary Diagnoses/Problems: COPD Obstructive hydrocephalus OA h/o colon cancer s/p partial colectomy DM type 2 Insomnia Procedures: CT ANGIOGRAM OF THE CHEST CLINICAL HISTORY: Atypical chest pain. Elevated d-dimer. COMPARISON STUDY: November 13, 2015 TECHNIQUE: Following the IV administration of 94 mL of Optiray-320, CT angiogram of the thorax was performed from the thoracic inlet to the lung bases utilizing the pulmonary embolus protocol. Images are reviewed in the axial, sagittal, and coronal planes. IV contrast was administered without complication. MIP imaging was performed. A dose lowering technique was utilized adhering to the principles of ALARA. CT DOSE: 347.22 mGy.cm FINDINGS: Mediastinal lymph nodes are at the upper limits of normal in size. There was no evidence of thoracic aortic dilatation. There is suboptimal opacification of lower lobe pulmonary artery branches. There are no filling defects to indicate acute pulmonary embolism. No pleural effusions are visualized. There are bibasal atelectatic changes present. There is no lobar consolidation. There are few stable tiny pulmonary nodules. The heart is enlarged. There is left atrial dilatation. IMPRESSION: 1. No evidence of acute pulmonary embolism 2. Dependent atelectatic change 3. Cardiac enlargement Electronically signed by: Jesus Mock M.D. 02/08/2017 5:08 PM Dictated Date/Time: 02/08/2017 5:03 PM CHEST ONE VIEW PORTABLE CLINICAL HISTORY: 71 years-old Male presenting with Chest Pain. TECHNIQUE: Portable upright AP view of the chest was obtained. COMPARISON: 09/26/2016. FINDINGS: Median sternotomy wires remain in place. Enlargement of the cardiac silhouette unchanged. Apparent double density along the right heart may suggest left atrial enlargement. Mild prominence of pulmonary vasculature. Lungs and pleural spaces clear. Mild scoliotic curvature of the spine. Upper abdomen normal. IMPRESSION: 1. Cardiomegaly. No other evidence of acute cardiopulmonary disease. Electronically signed by: Naren Olvera M.D. 02/08/2017 3:07 PM Dictated Date/Time: 02/08/2017 3:06 PM Consultations: Cardiology Medication Reconciliation New Medications: Isosorbide Mononitrate (Isosorbide Mononitrate ER) 60 Mg Tab 60 MG PO DAILY for 30 Days, #30 TAB Metoprolol Succinate (Metoprolol Succinate ER) 25 Mg Tabcr 25 MG PO QAM for 30 Days Metoprolol Succinate (Metoprolol Succinate ER) 25 Mg Tabcr 12.5 MG PO QPM for 30 Days Continued Medications: Aspirin (Aspirin Chewable) 81 Mg Chew 81 MG PO DAILY, TAB Cholecalciferol (Vitamin D) 1,000 Unit Tab 1 TAB PO DAILY Docusate Sodium (Stool Softener) 100 Mg Cap 1 CAP PO DAILY Fluticasone Prop/Salmeterol (Advair Diskus 250-50 Mcg/Dose) 14 Puff/1 Inhaler Aerp 1 PUFF INH BID, #1 INHALER Gabapentin (Neurontin) 400 Mg Cap 800 MG PO TID, CAP Lisinopril (Lisinopril) 20 Mg Tab 20 MG PO DAILY for 30 Days, #30 TAB Meloxicam (Mobic) 7.5 Mg Tab 7.5 MG PO BID, TAB Nitroglycerin (Nitrostat) 0.4 Mg Tab 0.4 MG UT PRN, BTL Pravastatin Sod (Pravastatin Sodium) 10 Mg Tab 10 MG PO DAILY Tiotropium [place] (Spiriva Handihaler) 5 Puff/90 Mcg Aerp 1 PUFF INH QAM, #1 INHALER Tramadol (Ultram) 50 Mg Tab 50 MG PO Q12 PRN for Pain, TAB Trazodone Hcl (Trazodone) 50 Mg Tab 25 MG PO HS, TAB Discontinued Medications: Isosorbide Mononitrate (Isosorbide Mononitrate ER) 30 Mg Tabcr 30 MG PO DAILY Metoprolol Succinate (Metoprolol Succinate ER) 50 Mg Tabcr 50 MG PO DAILY for 30 Days, #30 TABS Admission Information HPI (per Admitting provider): 71 yoM with severe CAD presents as a transfer from his PCP office, where he was being evaluated for an annual physical, for acute chest pain. The pain began in the office when he walked in and sat down. The pain was sharp and centered in the middle of his chest without radiation to the arm or jaw. Severity was described as 8/10 and the pain lasted for 1 hour until he received a nitro which instantly took the pain away. Although he has nitro PRN to take at home, he doesn't carry it with him. He was given aspirin. He did report some SOB with the pain but no other associated symptoms of sweating, palpitations or lightheadedness and this was not his index angina. He has severe CAD with a BERNICE placed in the left circumflex artery in 2008. In early 2010 he presented with a STEMI and had late in-stent thrombosis of the LCx treated with angioplasty. He had an occluded RCA at that time with [id number] collaterals. He went on to have a CABG in 2010 receiving a MINA to the LAD and a SVG to the first diagonal branch. Recently he was admitted with recurrent angina and subsequently underwent cardiac catheterization on with Dr. Partida demonstrating 100% [place] RCA occlusion with left to right collaterals, SVG to RCA was occluded, 100% occlusion of the prior stent in the marginal branch. Medical management was recommended for severe CAD. He subsequently had an outpatient follow-up with Cardiology in November 2016 reporting chronic but stable angina, no progressive shortness of breath and no heart palpitations or dizziness, which is also the case today (these symptoms are not present). Continued medical management without changes and PRN SL nitro was recommended. ROS today reveals no headache, visual changes, sore throat, palpitations, SOB, chest pain (this has completely resolved), n/v/d, constipation, blood per rectum , joint or muscle pain. The patient ambulates with a walker at baseline and describes no weakness. He also denies any UTI symptoms or difficulties with urination. Physical Exam (per Admitting): General Appearance: WD/WN, no apparent distress Head: atraumatic, + abnormal shape (slightly englarged) Eyes: normal inspection, EOMI, sclerae normal ENT: normal ENT inspection, hearing grossly normal, pharynx normal Neck: supple, no adenopathy, trachea midline Respiratory/Chest: chest non-tender, lungs clear, normal breath sounds, no respiratory distress, no accessory muscle use Cardiovascular: regular rate, rhythm, no edema, no gallop, no JVD, no murmur , normal peripheral pulses Abdomen/GI: normal bowel sounds, non tender, soft, no organomegaly, no pulsatile mass Back: normal inspection Extremities/Musculoskelatal: normal inspection, no pedal edema, normal range of motion Neurologic/Psych: bowl sander II-XII nml as tested, no motor/sensory deficits, alert , normal mood/affect, oriented x 3 Skin: normal color, warm/dry Hospital Course Chest pain Mostly atypical Need to R/O ACS all 3 sets of troponin negative EKG showed no ischemic changes No arrhythmia seen on telemetry On aspirin 81 mg, pravastatin, Lisinopril, prn nitro and BB cardiology on board recommended: Reduce Toprol from 50 mg in AM to 25 mg in AM and 12.5 mg in PM to aid with bradycardia. Increase isosorbide from 30 to 60 mg daily No further cardiac testing due to recent cath demonstrating severe coronary disease, not amenable to revascularization Continue medical management Follow up with cardiology Nuclear Stress Test at [facility] on 09/13/16: Lexiscan nuclear stress demonstrates large inferior, posterior, and lateral infarct with mild anteroapical and apical lateral galina-infarct ischemia. 2D echocardiogram reviewed, dated 09/03/[address] Hughes: Interpretation Summary The examination is adequate to evaluate the referral indication. There was sinus bradycardia during the examination. The left ventricular cavity size is mildly enlarged. There is a large sized septal, inferior, and posterior wall motion abnormality with hypokinesis to akinesis of the segments. There is a small sized inferior scar. The wall thickness is mildly increased in segments with normal wall motion. The qualitative LV ejection fraction is 4044% (mildly reduced). Mild aortic valve sclerosis is present. Mild aortic valve regurgitation is present. Mild mitral regurgitation is present. Holter monitor reviewed, dated 08/26/[address] Hughes: CONCLUSIONS: 1. Duration - 23 hours, 51 minutes 2. Quality - Good 3. Dominant rhythm - sinus bradycardia average rate 55 beats per minute 4. PACs - occasional, 81 isolated ectopic beats with 3 couplets 2 triplets and 2 short runs of atrial tachycardia 6 and 4 beats in duration rates 101, 114 beats per minute 5. PVCs - very frequent, 13,118 with intermittent bigeminy, 201 couplets and 18 3 beat salvos of complex ventricular ectopy / fusion beats 6. Symptoms - none reported Dobutamine stress echo reviewed, dated 11/13/[address] Hughes: Left Ventricle The left ventricle is mildly dilated. There is normal left ventricular wall thickness. Ejection Fraction = 35-40%. Left ventricular systolic function is moderately reduced. Thin and bright LV wall segment suggests a myocardial infarction. There is inferior wall akinesis. There is posterior wall akinesis. With stress the inferior posterior infarct is fixed, all other wall segments improve. Bradycardia asymptomatic Toprol decreased from 50 mg in AM to 25 mg in AM and 12.5 mg in PM to aid with bradycardia COPD Continue home inhaler Continue on home oxygen stable Obstructive hydrocephalus congenital, normal mentation stable OA Resume home Mobic Cont gabapentin and Tramadol PRN Insomnia Continue trazodone qHS DMII Recent hba1c 6 diet controlled h/o colon cancer s/p partial colectomy no h/o XRT or chemo stable Code status Full code No indication for repeat stress testing or other cardiac testing given recent cath demonstrating severe coronary disease, not amenable to revascularization Continued med management recommended. Total time spent on discharge = 35 minutes This includes examination of the patient, discharge planning, medication reconciliation, and communication with other providers. Discharge Instructions Discharge Instructions Date of Service Feb 09, 2017. Admission Reason for Admission: Chest Pain Discharge Discharge Diagnosis / Problem: Chest pain Discharge Goals Goal(s): Decrease discomfort, Improve function, Improve disease control Activity Recommendations Activity Limitations: resume your previous activity (as tolerated) . Instructions / Follow-Up Instructions / Follow-Up Please call your primary care physician to schedule a follow up appointment within 1 week Medication changes: Toprol decreased from 50 mg in the morning to 25 mg in AM and adding Toprol 12.5 mg in the evening Increased isosorbide from 30 to 60 mg daily Current Hospital Diet Patient's current hospital diet: AHA Diet (Heart Healthy), Diabetes Type 2 Diet Discharge Diet Recommended Diet: AHA Diet (Heart Healthy), Diabetes Type 2 Diet Pending Studies Studies pending at discharge: no Laboratory Results Hemoglobin A1c Test 02/09/17 06:05 Range/Units Estimated Average Glucose 126 mg/dl Hemoglobin A1c 6.0 H 4.5-5.6 % Medical Emergencies . Who to Call and When: Medical Emergencies: If at any time you feel your situation is an emergency, please call 911 immediately. . Non-Emergent Contact Non-Emergency issues call your: Primary Care Provider Call Non-Emergent contact if: you have any medication questions . . "Provider Documentation" section prepared by Parker Flowers. . VTE Core Measure Inpt VTE Proph given/why not?: Enoxaparin (Lovenox)SQ Additional Copies To Aly Monzon D.O.
[2017-02-10] MEDS ORDERED: ISOSORBIDE MONONITRATE 60 MG TABCR PO SCH (09:00)
[2017-02-10] MEDS ORDERED: METOPROLOL SUCC 25MG EXT REL TAB PO SCH (09:00)
== END 2017-02-09 17:30 | disposition home health service (06) | DRG 303 ==
LOC: EDBD 14:19 → C.EDC 14:20 → C.MED 17:36 → ENRESERV 18:31
PROVIDERS: ADMIT Hospitalist; ATTEND Hospitalist
DX: I25.119 Atherosclerotic heart disease of native coronary artery with unspecified angina pectoris (principal); G91.1 Obstructive hydrocephalus; R00.1 Bradycardia, unspecified; M19.90 Unspecified osteoarthritis, unspecified site; E11.9 Type 2 diabetes mellitus without complications; G47.00 Insomnia, unspecified; J44.9 Chronic obstructive pulmonary disease, unspecified; I10 Essential (primary) hypertension; E78.5 Hyperlipidemia, unspecified; Z95.5 Presence of coronary angioplasty implant and graft; Z95.1 Presence of aortocoronary bypass graft; G89.29 Other chronic pain; I25.2 Old myocardial infarction; I25.5 Ischemic cardiomyopathy; G25.0 Essential tremor; K27.9 Peptic ulcer, site unspecified, unspecified as acute or chronic, without hemorrhage or perforation; Z79.82 Long term (current) use of aspirin; Z79.51 Long term (current) use of inhaled steroids; Z79.1 Long term (current) use of non-steroidal anti-inflammatories (NSAID); Z79.899 Other long term (current) drug therapy; Z79.891 Long term (current) use of opiate analgesic

== ENCOUNTER 2018-01-10 19:26 | Emergency (ER) | payer OTHER ==
[~2018-01-10] VITALS: Ht 190.5 cm; Wt 89.6 kg
[~2018-01-10 19:26] MED LIST changes: +GABA-1220 PO; -GABA1CAP5 PO; -IMDSR/30 PO; +IMDSR60 PO; +LISI-726 PO; -LSN20 PO; +PRIM50TA29 PO; +TPRSR25 PO; -TPRSR50 PO
[2018-01-10 19:33] VITALS: TEMP 36.7; Ht 190.5 cm; Wt 89.6 kg
[2018-01-10] MEDS ORDERED: ACETAMINOPHEN 500 MG TAB PO STA (19:42)
--- NOTE | 2018-01-10 20:02 | EMERGENCY ROOM VISIT NOTE ---
History Report prepared by Christina: Titi Whitley Under the Supervision of: Dr. Vikas Dewitt M.D. First contact with patient: 19:28 Stated Complaint: FALL/TOE AND HAND PAIN History of Present Illness The patient is a 72 year old male who presents to the Emergency Room with complaints of constant right hand and left foot pain that began an hour ago. He rates his pain as an 8/10 in severity. He describes the pain as a sharp sensation. The patient states that he has a history of falls because his "legs give out". He states that an hour ago he was walking when he lost his balance and fell. The patient states that he fell backwards and hit his left foot against the bed leg. He states that he did not hit his head or lose consciousness. His states that after the incident he was able to get up and walk to the living room. The patient states that since the incident he has been experiencing pain in his left foot around his toes and his right hand around his thumb. The denies LOC, arm pain, leg pain, headache, fevers, chills , diaphoresis, visual changes, neck pain, chest pain, breathing difficulties, nausea, vomiting, abdominal pain, back pain, melena, hematochezia, urinary symptoms, numbness, weakness, lymphadenopathy, rash, or other complaints. He states that he does have a tremor at baseline. Source of History: patient Onset: an hour ago Position: hand (right), foot (left) Symptom Intensity: 8/10 Quality: sharp Timing: constant Review of Systems See HPI for pertinent positives and negatives. A total of ten systems were reviewed and were otherwise negative. Past Medical & Surgical Medical Problems: (1) CAD (coronary artery disease) (2) Chest pain (3) Chronic pain (4) Colorectal cancer (5) Congenital hydrocephalus (6) COPD (chronic obstructive pulmonary disease) (7) DM type 2 (diabetes mellitus, type 2) (8) Dyslipidemia (9) Essential tremor (10) Heart attack (11) Hypertension (12) Ischemic cardiomyopathy (13) Meningioma (14) PUD (peptic ulcer disease) (15) S/p rectosigmoid resection Surgical Problems: (1) H/O eye surgery (2) H/O heart bypass surgery (3) H/O hernia repair (4) S/P CABG (coronary artery bypass graft) (5) S/P coronary artery stent placement Family History Diabetes mellitus MOTHER BROTHER FH: colon cancer BROTHER Social History Smoking Status: Former Smoker Drug Use: none Marital Status: Housing Status: lives with family Occupation Status: retired Current/Historical Medications Scheduled Aspirin (Aspirin Chewable), 81 MG PO DAILY Cholecalciferol (Vitamin D), 1,000 UNITS PO DAILY Docusate Sodium (Stool Softener), 100 MG PO DAILY Fluticasone Prop/Salmeterol (Advair Diskus 250-50 Mcg/Dose), 1 PUFF INH BID Gabapentin (Neurontin), 800 MG PO TID Isosorbide Mononitrate (Isosorbide Mononitrate ER), 60 MG PO DAILY Lisinopril (Lisinopril), 20 MG PO DAILY Meloxicam (Mobic), 7.5 MG PO BID Metoprolol Succinate (Metoprolol Succinate ER), 25 MG PO QAM Metoprolol Succinate (Metoprolol Succinate ER), 12.5 MG PO QPM Nitroglycerin (Nitrostat), 0.4 MG UT PRN Pravastatin Sod (Pravastatin Sodium), 10 MG PO DAILY Primidone (Mysoline), 50 MG PO BID Tiotropium [place] (Spiriva Handihaler), 1 PUFF INH QAM Trazodone Hcl (Trazodone), 25 MG PO HS Scheduled PRN Tramadol (Ultram), 50 MG PO Q12 PRN for Pain Allergies Coded Allergies: Simvastatin (Verified Allergy, Severe, CHEST PAIN, 01/10/18) Naproxen (Verified Allergy, Intermediate, RASH, 01/10/18) Sulfa Antibiotics (Verified Allergy, Intermediate, Rash, 01/10/18) Nifedipine (Unverified Allergy, Unknown, UNKNOWN, 01/10/18) Propoxyphene (Verified Allergy, Unknown, _, 01/10/18) Physical Exam Vital Signs Date Time Temp Pulse Resp B/P (MAP) Pulse Ox O2 Delivery O2 Flow Rate FiO2 01/10/18 22:00 54 18 138/84 98 01/10/18 21:26 60 23 01/10/18 20:56 57 20 01/10/18 20:29 177/170 01/10/18 20:26 57 18 01/10/18 20:06 56 01/10/18 19:33 36.7 56 12 145/102 95 Room Air 01/10/18 19:29 145/102 Physical Exam GENERAL: Awake, alert, well-appearing, in no distress HENT: Normocephalic, atraumatic. Oropharynx unremarkable. EYES: Normal conjunctiva. Sclera non-icteric. NECK: Supple. No nuchal rigidity. FROM. No masses. RESPIRATORY: Clear to auscultation. No wheezes. No rales. Normal respiratory effort. CARDIAC: Normal rate. Normal rhythm. No murmurs. No rubs. Extremities warm and well perfused. Pulses equal. No JVD. GI: Soft, non-distended. No tenderness to palpation. No rebound or guarding. No masses. RECTAL: Deferred. MUSCULOSKELETAL: Atraumatic. Chest examination reveals no tenderness. The back is symmetrical on inspection without obvious abnormality. There is no CVA tenderness to palpation. No joint edema. Mild tenderness to right hand thenar eminence without any obvious deformity or swelling. Mild tenderness over the 3rd , 4th, and 5th toes without any obvious deformity. LOWER EXTREMITIES: Calves are equal size bilaterally and non-tender. No edema. No discoloration. NEURO: Normal sensorium. No sensory or motor deficits noted. Baseline tremor. SKIN: No rash or jaundice noted. Medical Decision & Procedures ER Provider Diagnostic Interpretation: X-ray: Per my interpretation, radiologist review. R HAND MIN 3 VIEWS ROUTINE HISTORY: 72 years-old Male fall, pain around 1 MC acute right hand pain status post fall. Pain is most pronounced around the first metacarpal COMPARISON: None available TECHNIQUE: 3 views of the right hand FINDINGS: The bones appear mildly demineralized. Mild to moderate radiocarpal with moderate first carpometacarpal osteoarthritis. Mild general changes are seen throughout the metacarpophalangeal and interphalangeal joints. Oblique positioning on the lateral view limits the study. No acute fracture or dislocation identified. IMPRESSION: 1. No acute fracture or dislocation. 2. Degenerative changes as above. The above report was generated using voice recognition software. It may contain grammatical, syntax or spelling errors. Electronically signed by: Julio Kyle M.D. 01/10/2018 8:21 PM Dictated Date/Time: 01/10/2018 8:19 PM L FOOT MIN 3 VIEWS ROUTINE HISTORY: 72 years-old Male left foot pain, fall, pain around 3-5 mtp joints acute left foot pain without reported trauma COMPARISON: Left toe radiographs 11/25/2017 TECHNIQUE: 3 views of the left foot FINDINGS: Hallux valgus deformity with mild first MTP joint osteoarthritis. Mild soft tissue swelling about the first MTP joint also noted. Bipartite medial hallux sesamoid. Mild degenerative changes about the interphalangeal joints. The bones appear mildly demineralized. Healed remote appearing fracture deformities of the distal fibula and medial malleolus. Degenerative changes about the midfoot with small Achilles and large plantar enthesophytes of the calcaneus. IMPRESSION: 1. Degenerative changes as above without acute fracture or dislocation. 2. Hallux valgus deformity with mild first MTP joint osteoarthritis and mild soft tissue swelling. 3. Healed remote appearing fracture deformities of the medial malleolus and distal fibula. The above report was generated using voice recognition software. It may contain grammatical, syntax or spelling errors. Electronically signed by: Julio Kyle M.D. 01/10/2018 8:19 PM Dictated Date/Time: 01/10/2018 8:17 PM Medications Administered Medications (Trade) Dose Ordered Sig/Reid Route Start Time Stop Time Status Last Admin Dose Admin Acetaminophen (Tylenol Tab) 1,000 mg NOW STAT PO 01/10/18 19:42 01/10/18 19:43 DC 01/10/18 19:46 1,000 MG ED Course 1931: The patient was evaluated in room B06. A complete history and physical exam was performed. 1941: Ordered Tylenol Tab 1000 mg PO. 2113: I reevaluated the patient. Discussed results and discharge instructions: She verbalized understanding and agreement. The patient is ready for discharge. Medical Decision Prior records reviewed and summarized above. Triage Nursing notes reviewed and agree them. Additional history obtained from the patient's . The patient's history was concerning for traumatic injury. Differential diagnosis: Etiologies such as fracture, dislocation, neurovascular compromise, compartment syndrome, soft tissue injury, as well as others were entertained. Physical examination: Consistent with an isolated right hand and left forefoot injury. ER treatment provided: Oral Tylenol On reassessment the patient felt better. Diagnostics interpreted by me: Imaging studies: Xrays as above. The patient is doing quite well. He is bandar that he did not sustain any significant injury from his fall. He has a contusion of the left foot and the right hand. He did not strike his head. His neck, back, chest, and abdominal examinations are benign. No hip tenderness. He has frequent falls and this is nothing new for him. I discussed cervical management and close outpatient follow-up with his primary physician. The patient and felt comfortable. I gave my usual and customary discussion regarding this issue. By the evaluation outlined above other emergent etiologies such as those listed in the differential, as well as others, were deemed relatively unlikely. The patient was educated about the findings as listed above. All questions were answered and the patient was pleased with the treatment. Return instructions were outlined and the patient was discharged in stable condition. The patient was referred to his PCP for follow-up for a recheck of the current condition. Medication Reconcilliation Current Medication List: was personally reviewed by me Blood Pressure Screening Patient's blood pressure: Elevated blood pressure Blood pressure disposition: Elevated BP felt to be situational Impression Primary Impression: Fall Additional Impression: Contusion of multiple sites Scribe Attestation The scribe's documentation has been prepared under my direction and personally reviewed by me in its entirety. I confirm that the note above accurately reflects all work, treatment, procedures, and medical decision making performed by me. Departure Information Dispostion Home / Self-Care Referrals Aly Monzon D.O. (PCP) Additional Instructions Acetaminophen(Tylenol) may be used for fever or pain. Use 1000mg every six hours as needed. Avoid using more than 4000mg in a 24 hour period. Ice compresses for 20 minutes at a time four times daily for 2-3 days. Rest and elevate your injuries Return to the ER immediately for any numbness, tingling, severe pain, extreme swelling in the extremity or as needed. Follow-up with your primary care physician in 2 to 3 days for a recheck of your current condition. Problem Qualifiers
--- NOTE | 2018-01-10 20:21 | DIAGNOSTIC IMAGING REPORT ---
L FOOT MIN 3 VIEWS ROUTINE HISTORY: 72 years-old Male left foot pain, fall, pain around 3-5 mtp joints acute left foot pain without reported trauma COMPARISON: Left toe radiographs 11/25/2017 TECHNIQUE: 3 views of the left foot FINDINGS: Hallux valgus deformity with mild first MTP joint osteoarthritis. Mild soft tissue swelling about the first MTP joint also noted. Bipartite medial hallux sesamoid. Mild degenerative changes about the interphalangeal joints. The bones appear mildly demineralized. Healed remote appearing fracture deformities of the distal fibula and medial malleolus. Degenerative changes about the midfoot with small Achilles and large plantar enthesophytes of the calcaneus. IMPRESSION: 1. Degenerative changes as above without acute fracture or dislocation. 2. Hallux valgus deformity with mild first MTP joint osteoarthritis and mild soft tissue swelling. 3. Healed remote appearing fracture deformities of the medial malleolus and distal fibula. The above report was generated using voice recognition software. It may contain grammatical, syntax or spelling errors. Electronically signed by: Julio Kyle M.D. 01/10/2018 8:19 PM Dictated Date/Time: 01/10/2018 8:17 PM
--- NOTE | 2018-01-10 20:23 | DIAGNOSTIC IMAGING REPORT ---
R HAND MIN 3 VIEWS ROUTINE HISTORY: 72 years-old Male fall, pain around 1 MC acute right hand pain status post fall. Pain is most pronounced around the first metacarpal COMPARISON: None available TECHNIQUE: 3 views of the right hand FINDINGS: The bones appear mildly demineralized. Mild to moderate radiocarpal with moderate first carpometacarpal osteoarthritis. Mild general changes are seen throughout the metacarpophalangeal and interphalangeal joints. Oblique positioning on the lateral view limits the study. No acute fracture or dislocation identified. IMPRESSION: 1. No acute fracture or dislocation. 2. Degenerative changes as above. The above report was generated using voice recognition software. It may contain grammatical, syntax or spelling errors. Electronically signed by: Julio Kyle M.D. 01/10/2018 8:21 PM Dictated Date/Time: 01/10/2018 8:19 PM
[2018-01-10 22:00] VITALS: BP 138/84; PULSE 54; O2SAT 98
== END 2018-01-10 22:15 | disposition home or self-care (01) ==
LOC: EDBD 19:26 → C.EDB 19:27
DX: S60.221A Contusion of right hand, initial encounter (principal); S90.32XA Contusion of left foot, initial encounter; R29.6 Repeated falls; E11.9 Type 2 diabetes mellitus without complications; E78.5 Hyperlipidemia, unspecified; I10 Essential (primary) hypertension; J44.9 Chronic obstructive pulmonary disease, unspecified; Z79.82 Long term (current) use of aspirin; Z79.899 Other long term (current) drug therapy; Z88.1 Allergy status to other antibiotic agents; Z88.2 Allergy status to sulfonamides; Z88.6 Allergy status to analgesic agent; Z88.8 Allergy status to other drugs, medicaments and biological substances; Z85.048 Personal history of other malignant neoplasm of rectum, rectosigmoid junction, and anus; Z87.891 Personal history of nicotine dependence; Z98.61 Coronary angioplasty status; Z95.1 Presence of aortocoronary bypass graft; W19.XXXA Unspecified fall, initial encounter

== ENCOUNTER 2018-01-26 06:29 | Emergency (ER) | payer OTHER ==
[~2018-01-26] VITALS: Ht 177.8 cm; Wt 94.7 kg
[2018-01-26 06:37] VITALS: TEMP 36.8; Ht 177.8 cm; Wt 94.7 kg
[2018-01-26] MEDS ORDERED: ACETAMINOPHEN 500 MG TAB PO STA (06:48)
[2018-01-26] MEDS ORDERED: OXYCODONE HCL IR 5 MG TAB (IMMEDIATE RELEASE) PO STA (06:48)
--- NOTE | 2018-01-26 06:53 | EMERGENCY ROOM VISIT NOTE ---
History Report prepared by Bertoibcristhian: Lissette Ibarra Under the Supervision of: Dr. Fuad Aburto M.D. First contact with patient: 06:38 Chief Complaint: PAIN (GENERALIZED) Stated Complaint: PAIN IN FINGERS AND TOES History of Present Illness The patient is a 72 year old male who presents to the Emergency Room with complaints of persistent pain in his 3rd, 4th, and 5th digits on his left lower extremity that started a couple months ago. The patient rates his pain a 10/10 in severity. He states he hit them on a bed leg and has been seen in the ED for similar symptoms. His x-rays were negative. He has not seen Orthopedics and has not been using a walking boot. He states he has not taken anything for the pain. The patient denies any other complaints. Source of History: patient Onset: a couple months ago Position: toe(s) (left) Symptom Intensity: 10/10 Timing: other (persistent) Note: Patient denies any other complaints. Review of Systems See HPI for pertinent positives & negatives. A total of 10 systems reviewed and were otherwise negative. Past Medical & Surgical Medical Problems: (1) CAD (coronary artery disease) (2) Chest pain (3) Chronic pain (4) Colorectal cancer (5) Congenital hydrocephalus (6) COPD (chronic obstructive pulmonary disease) (7) DM type 2 (diabetes mellitus, type 2) (8) Dyslipidemia (9) Essential tremor (10) Heart attack (11) Hypertension (12) Ischemic cardiomyopathy (13) Meningioma (14) PUD (peptic ulcer disease) (15) S/p rectosigmoid resection Surgical Problems: (1) H/O eye surgery (2) H/O heart bypass surgery (3) H/O hernia repair (4) S/P CABG (coronary artery bypass graft) (5) S/P coronary artery stent placement Family History Diabetes mellitus MOTHER BROTHER FH: colon cancer BROTHER Social History Smoking Status: Former Smoker Drug Use: none Marital Status: Housing Status: lives with family Occupation Status: retired Current/Historical Medications Scheduled Aspirin (Aspirin Chewable), 81 MG PO DAILY Cholecalciferol (Vitamin D), 1,000 UNITS PO DAILY Docusate Sodium (Stool Softener), 100 MG PO DAILY Fluticasone Prop/Salmeterol (Advair Diskus 250-50 Mcg/Dose), 1 PUFF INH BID Gabapentin (Neurontin), 800 MG PO TID Isosorbide Mononitrate (Isosorbide Mononitrate ER), 60 MG PO DAILY Lisinopril (Lisinopril), 20 MG PO DAILY Meloxicam (Mobic), 7.5 MG PO BID Metoprolol Succinate (Metoprolol Succinate ER), 25 MG PO QAM Metoprolol Succinate (Metoprolol Succinate ER), 12.5 MG PO QPM Nitroglycerin (Nitrostat), 0.4 MG UT PRN Pravastatin Sod (Pravastatin Sodium), 10 MG PO DAILY Primidone (Mysoline), 50 MG PO BID Tiotropium [place] (Spiriva Handihaler), 1 PUFF INH QAM Trazodone Hcl (Trazodone), 25 MG PO HS Scheduled PRN Tramadol (Ultram), 50 MG PO Q12 PRN for Pain Tramadol (Ultram), 1 TAB PO TID PRN for Pain Allergies Coded Allergies: Simvastatin (Verified Allergy, Severe, CHEST PAIN, 01/26/18) Naproxen (Verified Allergy, Intermediate, RASH, 01/26/18) Sulfa Antibiotics (Verified Allergy, Intermediate, Rash, 01/26/18) Nifedipine (Unverified Allergy, Unknown, UNKNOWN, 01/26/18) Propoxyphene (Verified Allergy, Unknown, _, 01/26/18) Physical Exam Vital Signs Date Time Temp Pulse Resp B/P (MAP) Pulse Ox O2 Delivery O2 Flow Rate FiO2 01/26/18 08:06 58 19 148/82 96 Room Air 01/26/18 06:37 36.8 56 14 134/80 95 Room Air Physical Exam GENERAL: Awake, alert, well-appearing, in no acute distress HENT: Normocephalic, atraumatic. Oropharynx unremarkable. EYES: Normal conjunctiva. Sclera non-icteric. NECK: Supple. No nuchal rigidity. FROM. No JVD. RESPIRATORY: Clear to auscultation. CARDIAC: Regular rate, normal rhythm. Extremities warm and well perfused. Pulses equal. ABDOMEN: Soft, non-distended. No tenderness to palpation. No rebound or guarding. No masses. RECTAL: Deferred. MUSCULOSKELETAL: Chest examination reveals no tenderness. The back is symmetrical on inspection without obvious abnormality. There is no CVA tenderness to palpation. No joint edema. LOWER EXTREMITIES: Calves are equal size bilaterally and non-tender. No edema. No discoloration. Patient is complaining of 3rd, 4th, and 5th toe pain at MCP joint. It is well vascularized, no evidence of cellulitis. NEURO: Normal sensorium. No sensory or motor deficits noted. SKIN: No rash or jaundice noted. Medical Decision & Procedures ER Provider Diagnostic Interpretation: Radiology results as stated below per my review and radiologist interpretation: L FOOT MIN 3 VIEWS ROUTINE CLINICAL HISTORY: Pt c/o left foot pain COMPARISON: None. DISCUSSION: Generalized degenerative change. Old fracture medial malleolus of the ankle. Moderate generalized degenerative change of the intertarsal as well as tarsometatarsal joints. No evidence for acute fracture. Prominent heel spur. There is no evidence for soft tissue swelling. IMPRESSION: Degenerative change. Heel spur. The above report was generated using voice recognition software. It may contain grammatical, syntax or spelling errors. Electronically signed by: Brian Mccray M.D. 01/26/2018 7:05 AM Dictated Date/Time: 01/26/2018 7:04 AM Medications Administered Medications (Trade) Dose Ordered Sig/Reid Route Start Time Stop Time Status Last Admin Dose Admin Acetaminophen (Tylenol Tab) 1,000 mg NOW STAT PO 01/26/18 06:48 01/26/18 06:50 DC 01/26/18 07:04 1,000 MG Oxycodone HCl (Roxicodone Immediate Rel Tab) 10 mg NOW STAT PO 01/26/18 06:48 01/26/18 06:50 DC 01/26/18 07:04 10 MG ED Course 0643: Past medical records reviewed. The patient was evaluated in room B2. A complete history and physical examination was performed. 0725: Upon reexamination the patient is resting comfortably. I discussed results and treatment plan with the patient. He verbalizes agreement and understanding. The patient is ready for discharge. Medical Decision Differential diagnosis: Etiologies such as fracture, dislocation, neurovascular compromise, compartment syndrome, soft tissue injury, as well as others were entertained. This is a 72-year-old male who presents emergency department complaining of toe pain. Patient was given Tylenol in the emergency department along with oxycodone. Repeat examination revealed improvement the patient's symptoms. X- rays do not reveal any fracture. Patient was placed in a walking boot only uses walker at home. Strongly encouraged the patient follow-up with orthopedics. Patient and are in agreement with treatment plan. Medication Reconcilliation Current Medication List: was personally reviewed by me Blood Pressure Screening Patient's blood pressure: Elevated blood pressure Blood pressure disposition: Elevated BP felt to be situational Impression Primary Impression: Toe pain Scribe Attestation The scribe's documentation has been prepared under my direction and personally reviewed by me in its entirety. I confirm that the note above accurately reflects all work, treatment, procedures, and medical decision making performed by me. Departure Information Dispostion Home / Self-Care Prescriptions Tramadol (Ultram) 50 Mg Tab 1 TAB PO TID Y for Pain for 30 Days, #14 TAB Prov: Fuad Aburto MD 01/26/18 Referrals Aly Monzon D.O. (PCP) Patient Instructions My [facility] Additional Instructions You received narcotic or benzodiazepene medication while in the emergency room today. This is an addictive medication that may cause drowziness as well as constipation. Do not drive, operate heavy machinery, or drink alcohol under the influence of this medication. Take 1000 mg Tylenol every 6 hours Take Ultram for breakthrough pain Radiographs and CTs will be reread by a radiologist in the morning. Culture results are usually available in approx 48 hours You have been examined and treated today on an emergency basis only. This is not a substitute for, or an effort to provide, complete comprehensive medical care. It is impossible to recognize and treat all injuries or illnesses in a single emergency department visit. It is therefore important that you follow up closely with Dr Monzon. Call as soon as possible for an appointment. Thank you for your time and consideration. I look forward to speaking with you again soon. Please don't hesitate to call us if you have any questions. Will not Problem Qualifiers Primary Impression: Toe pain Laterality: left Qualified Codes: M79.675 - Pain in left toe(s)
--- NOTE | 2018-01-26 07:06 | DIAGNOSTIC IMAGING REPORT ---
L FOOT MIN 3 VIEWS ROUTINE CLINICAL HISTORY: Pt c/o left foot pain COMPARISON: None. DISCUSSION: Generalized degenerative change. Old fracture medial malleolus of the ankle. Moderate generalized degenerative change of the intertarsal as well as tarsometatarsal joints. No evidence for acute fracture. Prominent heel spur. There is no evidence for soft tissue swelling. IMPRESSION: Degenerative change. Heel spur. The above report was generated using voice recognition software. It may contain grammatical, syntax or spelling errors. Electronically signed by: Brian Mccray M.D. 01/26/2018 7:05 AM Dictated Date/Time: 01/26/2018 7:04 AM
[2018-01-26] MEDS ORDERED: TRAM-10 PO (07:18)
[2018-01-26 08:06] VITALS: BP 148/82; PULSE 58; O2SAT 96
== END 2018-01-26 08:14 | disposition home or self-care (01) ==
LOC: EDBD 06:29 → C.EDB 06:30
DX: M79.675 Pain in left toe(s) (principal); J44.9 Chronic obstructive pulmonary disease, unspecified; G89.29 Other chronic pain; I10 Essential (primary) hypertension; E78.5 Hyperlipidemia, unspecified; Z79.82 Long term (current) use of aspirin; Z86.39 Personal history of other endocrine, nutritional and metabolic disease; Z87.891 Personal history of nicotine dependence; Z88.2 Allergy status to sulfonamides; Z88.6 Allergy status to analgesic agent; Z88.8 Allergy status to other drugs, medicaments and biological substances

== ENCOUNTER 2018-07-18 10:09 | Observation (INO) ==
[2018-07-18] MEDS ORDERED: SODIUM CHLORIDE 0.9% 500 ML IV SCH (10:30)
--- NOTE | 2018-07-18 10:50 | XRay Report ---
XR chest 1V portable CLINICAL HISTORY: Abdominal pain. COMPARISON STUDY: Chest radiograph and chest CT April 18, 2018. FINDINGS: Median sternotomy wires are noted. Cardiomegaly is unchanged. There is no pneumothorax or p leural effusion. There is lower lung interstitial thickening. IMPRESSION: Lower lung interstitial thickening which may reflect mild pulmonary edema. Electronically signed by: Jez Wilson M.D. 07/18/2018 10:49 AM
[2018-07-18 10:53] LABS: Basophils # (auto) 0.05 K/uL (0-0.2); Basophils % (auto) 0.7 %; Eosinophils % (auto) 1.4 %; Hematocrit (blood only) 46.3 % (42-52); Immature Granulocytes # (auto) 0.01 K/uL (0.00-0.02); Immature Granulocytes % (auto) 0.1 %; Lymphocytes # (auto) 1.59 K/uL (1.2-3.4); Lymphocytes % (auto) 22.8 %; Mean Corpuscular Hgb Conc 34.6 g/dL (32-36); Mean Corpuscular Volume 86.9 fL (80-100); Mean Platelet Volume 9.5 fL (7.4-10.4); Monocytes # (auto) 0.58 K/uL (0.11-0.59); Monocytes % (auto) 8.3 %; Neutrophils # (auto) 4.64 K/uL (1.4-6.5); Neutrophils % (auto) 66.7 %; Platelet Count 196 K/uL (130-400); RDW Coefficient of Variation 13.8 % (11.5-14.5); Red Blood Count 5.33 M/uL (4.7-6.1); White Blood Count 6.97 K/uL (4.8-10.8)
[2018-07-18 11:09] LABS: Chloride 102 mmol/L (98-107); Potassium 4.7 mmol/L (3.5-5.1); Sodium 136 mmol/L (136-145)
[2018-07-18 11:13] LABS: Alanine Aminotransferase 20 U/L (12-78); Albumin Level 3.5 gm/dl (3.4-5.0); Aspartate Aminotransferase 19 U/L (15-37); BUN Creatinine Ratio 17.6 (10-20); Blood Urea Nitrogen 16 mg/dl (7-18); Calcium 8.6 mg/dl (8.5-10.1); Carbon Dioxide 29 mmol/L (21-32); Creatinine Clr Calc Pharmacy 87.1 ml/min; Est GFR (African American) 95.4; Est GFR (Non-African American) 82.3; Glucose 95 mg/dl (70-99)
[2018-07-18 11:17] LABS: Alkaline Phosphatase 92 U/L (45-117); Bilirubin,Total 0.4 mg/dl (0.2-1); Globulin 3.4 gm/dl (2.5-4.0); Magnesium 2.1 mg/dl (1.8-2.4); Phosphorus 2.7 mg/dl (2.5-4.9); Total Protein 6.9 gm/dl (6.4-8.2)
[2018-07-18] MEDS ORDERED: IOVERSOL 100ml IV PRN (11:24)
[2018-07-18 11:43] LABS: Troponin I < 0.015 ng/ml (0-0.045)
--- NOTE | 2018-07-18 11:51 | CT Scan Report ---
CT SCAN OF THE ABDOMEN AND PELVIS WITH IV CONTRAST CLINICAL HISTORY: Generalized abdominal pain. Melanotic stool. COMPARISON STUDY: Abdominal CT dated 01/07/2018. TECHNIQUE: Following the IV administration of 93 cc of Optiray 320, CT scan of the abdomen and pelvi s is performed from the lung bases to the proximal femora. Images are reviewed in the axial, sagittal , and coronal planes. IV contrast was administered without complication. A dose lowering technique wa s utilized adhering to the principles of ALARA. The examination is degraded by motion artifact. CT DOSE: 449.58 mGy.cm FINDINGS: Lung bases: The patient is status post midline sternotomy. The heart is enlarged and without pericard ial effusion. The coronary arteries are densely calcified. There is a trace right pleural effusion. T he lung bases are otherwise clear noting dependent atelectasis. Liver: The contrast-enhanced liver is normal in size, contour, and attenuation. There is no intrahepa tic biliary ductal dilatation. The hepatic veins and portal veins are patent. Gallbladder: Unremarkable. Spleen: Normal in size and attenuation. Pancreas: Unremarkable. Adrenal glands: Unremarkable. Kidneys: The contrast enhanced kidneys are normal in size and without hydronephrosis. The kidneys enh ance symmetrically. 1.4 cm cyst is noted in the upper pole of the left kidney. Abdominal vasculature: There is advanced atherosclerotic calcification of the abdominal aorta. An inf rarenal abdominal aneurysm measures 3.8 x 4.0 cm as seen on image #257. Mural thrombus is noted withi n the aneurysm sac. Bowel: There are postoperative changes from rectosigmoid resection with colocolonic anastomosis. No b owel obstruction is seen. There is significant rectosigmoid fecal retention. Moderate constipation is seen throughout the remainder of the colon. The appendix is not identified. Peritoneum: There is no intraperitoneal free air or abdominal ascites. Lymphadenopathy: None. Pelvic viscera: The prostate gland is enlarged and heterogeneous, measuring 5.4 cm in transverse diam eter. The bladder wall is mildly thickened and trabeculated indicating chronic outlet obstruction. Skeletal structures: The skeletal structures are osteopenic. There is mild lumbosacral spondylosis. D egenerative changes noted in the sacroiliac joints. No lytic or blastic lesions are seen. IMPRESSION: 1. There are no acute infectious or inflammatory findings in the abdomen or pelvis. 2. There are postoperative changes from rectosigmoid colon resection with colocolonic anastomosis. No bowel obstruction is seen. 3. There is rectosigmoid fecal retention and moderate constipation. 4. There is a 3.8 x 4.0 cm infrarenal abdominal aortic aneurysm. 5. Cardiomegaly and trace right pleural effusion. 6. Additional findings as above. Electronically signed by: Nba Singh M.D. 07/18/2018 11:50 AM
[2018-07-18 13:00] LABS: Appearance Urine Clear (Clear); Bilirubin Urine Negative (Negative); Color Urine Yellow; Glucose Urine UA Negative (Negative); Ketones Urine Negative (Negative); Leukocyte Esterase Urine Negative (Negative); Nitrite Urine Negative (Negative); Protein Urine Negative (Negative); Specific Gravity Urine 1.032 (1.000-1.030); Urobilinogen Urine Negative (Negative)
--- NOTE | 2018-07-18 14:02 | History & Physical Report ---
Addendum entered and electronically signed by Ana Rosa Lobato PA-C 14:58: Addendum (Blank) Addendum July 18, 2018 14:58 Dx: Constipation -per CT mod recto sigmoid constipation -on colace daily, will increase to BID and add senna Original Note: Date of Service July 18, 2018 Assessment & Plan (1) GI bleed: This is a 72 year old male with significant PMH of CAD s/p BERNICE to Lcx 12/19 with stent thrombosis and eventual CABG x 2 2010, 100% reocclusion of [place] and bypass graft now management medically, S-CHF EF 45%, HTN, HLD, T2DM, PUD, hx of congenital hydrocephalus, meningioma, hx of colon ca s/p rectosigmoid resection and other dx as noted below who presents to [facility] ED secondary to melena x 1 week. In ED FOBT positive, H&H stable at 16 and 46.3, BUN/creatinine stable at 16 and 0.93, troponin within normal limits. EKG revealed sinus bradycardia and old inferior infarct. Patient was hypertensive per prior readings; however upon my recheck he was 115/85 in RUE. He is complaining of R great toe pain, requesting analgesia. He does have some mild epigastric tenderness Patient is being admitted given melena x 1 week, FOBT +, hx of PUD and strong cardiac history, like UGIB -admit to med/surg telemetry -type and screen, no need for transfusion at this time as h/h stable -consult GI -trend H/H q6 -PPI BID -clear liquid diet tonight, NPO after midnight -trend cbc, bmp -hold ASA (2) CAD (coronary artery disease): -continue metoprolol, lisinopril -hold ASA in setting of GIB -no active CP or SOB (3) Systolic CHF, chronic: -euvolemic on exam -continue BB and VALENTIN -monitor volume status (4) Hypertension: -continue lisinopril, metoprolol, imdur -blood pressure elevated; however, upon my recheck BP 115/85, will monitor -patient states he did not take his a.m. meds today, if continues to elevate would give 20mg of lisinopril (5) Dyslipidemia: -continue statin (6) DM type 2 (diabetes mellitus, type 2): -unknown A1C, patient not currently on any oral hypoglycemics, currently diet controlled secondary to weight loss -check A1C -monitor BGM AC/HS with novolog coverage per protocol (7) AAA (abdominal aortic aneurysm): -no hx of prior AAA, but patient does have history of unruptured cerebral aneursym [facility] -will need close outpatient follow up/establishment with vascular -3.8 x 4.0 cm infrarenal mural thrombus noted in aneursymal sac (8) Essential tremor: -continue primidone (9) DVT prophylaxis: -SCDS/TEDs secondary to +FOBT, melena reported -encourage ambulation Disposition: to be determined Follow up: PCP Dr. Monzon, [facility] Patient was seen in collaboration with Dr. Araujo, please see addendum Starting 07/19/18 patient will be followed by Dr. Romero History of Present Illness Chief Complaint: Melena x 1 week. Primary Care Provider: Aly Monzon This is a 72 year old male with significant PMH of CAD s/p BERNICE to Lcx 12/19 with stent thrombosis and eventual CABG x 2 2010, 100% reocclusion of [place] and bypass graft now management medically, S-CHF EF 45%, HTN, HLD, T2DM, PUD, hx of congenital hydrocephalus, meningioma, hx of colon ca s/p rectosigmoid resection and other dx as noted below who presents to [facility] ED secondary to melena x 1 week. Pt reported to PCP Dr. Monzon today who recommended he seek ED eval given symptoms. Reports black tarry stools, last BM today. States he had a colonoscopy 1 year ago performed at [facility]; however upon further questioning this is unknown as [facility] last colonoscopy on record was in 2009 and patient states "yeah that might be right." Also notes mild BRBPR but no pain with BM. Denies recent illness, f/c/s, dizziness, lightheaded, chest pain, sob, swain, n/v/d. Minimal epigastric abdominal discomfort. Appetite has been normal. Has had a 80# weight loss intentionally given heart history per patient 260lb-->180lb. He denies any significant ETOH/NSAID use. Reports hx of PUD disease in past. Reports fall in past couple weeks where he slid of chair. NKI and he walks with walker at baseline. Allergies Allergy/AdvReac Type Severity Reaction Status Date / Time simvastatin Allergy Severe CHEST PAIN Verified 07/18/18 10:52 naproxen Allergy Intermediate RASH Verified 07/18/18 10:52 Sulfa (Sulfonamide Allergy Intermediate Rash Verified 07/18/18 10:52 Antibiotics) nifedipine Allergy Unknown UNKNOWN Verified 07/18/18 10:52 propoxyphene Allergy Unknown _ Verified 07/18/18 10:52 Home Medications Home Medications Medication Instructions Recorded Confirmed Type albuterol sulfate [Ventolin HFA] 2 puff INHALATION QID PRN 03/09/18 07/18/18 History aspirin [Aspirin Childrens] 81 mg PO DAILY 03/09/18 07/18/18 History cholecalciferol (vitamin D3) 1,000 unit PO DAILY 03/09/18 07/18/18 History [Vitamin D3] docusate sodium 100 mg PO DAILY 03/09/18 07/18/18 History fluticasone-salmeterol [Advair 1 inh INHALATION BID 03/09/18 07/18/18 History Diskus] gabapentin 800 mg PO TID 03/09/18 07/18/18 History isosorbide mononitrate 30 mg PO DAILY 03/09/18 07/18/18 History lisinopril 20 mg PO DAILY 03/09/18 07/18/18 History metoprolol succinate 25 mg PO QAM 03/09/18 07/18/18 History pravastatin 10 mg PO DAILY 03/09/18 07/18/18 History primidone 125 mg PO HS 03/09/18 07/18/18 History tiotropium bromide 1 cap INHALATION DAILY 07/18/18 07/18/18 History tramadol 50 mg PO BID PRN 07/18/18 07/18/18 History Past Med/Surg History Medical History Systolic CHF, chronic EF 45% last echo 2017 Hypertension (Chronic) Dyslipidemia (Chronic) CAD (coronary artery disease) (Chronic) "2008- BERNICE left circumflex artery ; 2010- STEMI late in stent thrombosis of the left circumflex artery treated with angioplasty. He had an occluded right coronary artery at that time with [id number] collaterals. 2010- CABG shah to the LAD and a saphenous vein graft to the 1st diagonal branch" 2017 cardiac cath re-thrombosis to [place] and bypass, now recommending medical management Follows Dr. Helga Bowser Cardiology Essential tremor (Chronic) Chest pain Meningioma (Chronic) PUD (peptic ulcer disease) (Chronic) Chronic pain (Chronic) DM type 2 (diabetes mellitus, type 2) (Chronic) Ischemic cardiomyopathy (Chronic) Colorectal cancer (Chronic) Congenital hydrocephalus (Chronic) COPD (chronic obstructive pulmonary disease) (Chronic) Surgical History S/P CABG (coronary artery bypass graft) (Chronic) S/P coronary artery stent placement (Chronic) H/O hernia repair (Chronic) H/O eye surgery (Chronic) History of colon resection recto sigmoid resection Dr. Nair 2006 Family History Brother Colon cancer T2DM (type 2 diabetes mellitus) Mother T2DM (type 2 diabetes mellitus) Father No problems noted. Other No pertinent family history Social History marital status: Current Living Situation: Spouse Current Living Situation Comment: Walks with walker Other Information That Helps Us Care for You: No Feels Safe at Home: Yes Safety Concerns: Feels Safe At This Time Smoking Status: Former smoker Cigarettes per Day: 2 ppd x 40 years Smoking End Date: 06/13/2000 Hx Alcohol Use: Yes Alcohol Intake Frequency: holidays/special occasions only Hx Substance Use: No Beliefs That Will Affect Care: None Preferred Language: Spanish Communication Ability: Effective Review of Systems All systems reviewed & are unremarkable except as noted in HPI & below Physical Exam 2 Vital Signs (Past 24 Hours): Last Vital Signs Temp 36.7 C 07/18/18 10:23 Pulse 52 L 07/18/18 13:30 Resp 16 07/18/18 13:30 BP 154/121 H 07/18/18 13:30 Pulse Ox 96 07/18/18 11:17 Physical Exam: Gen: WD/WN, Tall, M appears older than stated age, NAD, sitting up in bed, pleasant, conversing easily and answering questions appropriately, excessive facial hair Head: Normocephalic, Atraumatic Eyes: Sclera normal, no conjunctival injection, PERRLA, EOMI ENT: Gross hearing intact, normal pharynx, mucous membranes dry, +dentures Neck: supple, no adenopathy, No JVD, no bruit, Resp: Clear to auscultation b/l, no wheeze, rales, rhonchi. Normal insp/exp effort, no accessory muscle use CV: Regular rate, regular rhythm, no murmur, rub, gallop, or ectopy Abd: +BS x 4, soft, + epigastric tenderness, nondistended, no rebound, guarding , rigidity Musculoskeletal: moves extremities active rom x 4, strength intact, good day care home provider strength Extremities: No edema bilaterally Skin: warm, moist, no rash, negative turgor, cap refill < 2sec Neuro: Alert and oriented x 3, +slight headbobbing tremor, +b/l upper ext pill rolling tremor noted,speech normal, mood/affect intact, cran nerve 2-12 intact grossly : deferred Results & Data Laboratory Results Short CBC 07/18/18 Range/Units 10:43 WBC 6.97 (4.8-10.8) K/uL Hgb 16.0 (14.0-18.0) g/dL Hct 46.3 (42-52) % Plt Count 196 (130-400) K/uL BMP 07/18/18 10:43 Sodium 136 Potassium 4.7 Chloride 102 Carbon Dioxide 29 BUN 16 Creatinine 0.93 Glucose 95 Calcium 8.6 Cardiac Enzymes 07/18/18 Range/Units 10:43 Troponin I < 0.015 (0-0.045) ng/ml Liver Function 07/18/18 Range/Units 10:43 Total Bilirubin 0.4 (0.2-1) mg/dl AST 19 (15-37) U/L ALT 20 (12-78) U/L Alkaline Phosphatase 92 (45-117) U/L Albumin 3.5 (3.4-5.0) gm/dl Urine 07/18/18 Range/Units 12:40 Urine Color Yellow Urine Appearance Clear (Clear) Urine pH 6.0 (4.5-7.5) Ur Specific [place] 1.032 H (1.000-1.030) Urine Protein Negative (Negative) Urine Glucose (UA) Negative (Negative) Diagnostic Findings CXR: IMPRESSION: Lower lung interstitial thickening which may reflect mild pulmonary edema. Abd/Pelvis CT: IMPRESSION: 1. There are no acute infectious or inflammatory findings in the abdomen or pelvis. 2. There are postoperative changes from rectosigmoid colon resection with colocolonic anastomosis. No bowel obstruction is seen. 3. There is rectosigmoid fecal retention and moderate constipation. 4. There is a 3.8 x 4.0 cm infrarenal abdominal aortic aneurysm. 5. Cardiomegaly and trace right pleural effusion. ECG Rate (beats per minute): 54 Rhythm: sinus bradycardia Additional Comments: inferior infarct noted Code Status & VTE Plan Code Status Full Code VTE Prophylaxis Plan VTE Prophylaxis will be ordered: No Supervising Physician Co-Signing Physician Notes Patient is a 72 yr male with H/O PUD, CAD S/P CABG on aspirin and other problems presents with history of melena since 1 week duration. Also noted some bright red blood per patient. He is not on anticoagulants and denies NSAIDs use. He states having mild epigastric abd pain. CT abd showed rectosigmoid fecal retention and moderate constipation; AAA 3.8 x4.0 cm and postoperative changes from rectosigmoid colon resection with colocolonic anastomosis. No bowel obstruction. Hb is stable at baseline. His BP is elevated on presentation which later improved without intervention. On Exam patient is chronic ill appearing, +resting tremor, Lungs CTA, S1, S2, +bradycardia, Mild epigastric tenderness, No pedal edema. Patient will be admitted for Melena work up. Hold Asprin. GI consulted for EGD/colonoscopy. Start on Protonix 40mg IV BID. Bowel regimen for constipation. Monitor H&H. Transfuse PRBCs as needed. Sinus bradycardia-- monitor while on Metoprolol. Needs FU for AAA as outpatient. I personally reviewed the record. Patient is interviewed and examined at bedside. Patient's care is coordinated with Ana Rosa Lobato PA-C. Please refer to the documentation above for details of patient's presentation and for discussion of other issues. _ (1) GI bleed GI bleed type/associated pathology: unspecified gastrointestinal hemorrhage type Gastritis type: Qualified Code(s): K92.2 - Gastrointestinal hemorrhage, unspecified (2) DM type 2 (diabetes mellitus, type 2) Diabetes mellitus complication status: without complication Diabetes mellitus manager intermediate insulin use: without jail use Qualified Code(s): E11.9 - Type 2 diabetes mellitus without complications (3) CAD (coronary artery disease) Associated angina: without angina Coronary Disease-Associated Artery/Lesion type: bypass graft [place] vs. transplanted heart: [place] heart Qualified Code( s): I25.810 - Atherosclerosis of coronary artery bypass graft(s) without angina pectoris (4) Hypertension Hypertension type: essential hypertension Qualified Code(s): I10 - Essential (primary) hypertension
[2018-07-18] MEDS ORDERED: TRAMADOL HCL 50 MG TABLET PO PRN (14:59)
--- NOTE | 2018-07-18 15:30 | Emergency Department Note ---
Entered by Geovany Montanez acting as a scribe for History of Present Illness General Chief complaint: GI Assessment Time Seen by Provider: 07/18/18 10:11 Source: patient Limitations: no limitations History of Present Illness Provider complaint: Black stools Onset (ago): week(s) (1) Location: buttocks Pain Consistency: + constant Quality: + other (black stools) Associated symptoms: + other ( diarrhea-black); no chest pain, no nausea/ vomiting and no shortness of breath Treatments prior to arrival: other (stool softener) The patient is a 72 year old male who presents to the Emergency Room with complaints of constant "black stools" for about the past week. The patient has a significant medical history including colon cancer with partial colectomy. He also has a history of COPD, hydrocephalus, CAD, and CHF. The patient notes that he is still taking his stool softener and takes a daily Aspirin, but is not on any other anticoagulation therapy. He has had diarrhea-like bowel movements recently, which are black as well. Every bowel movement has been black. He denies any other chest pain, shortness of breath, nausea, vomiting, fever, or chills. Home Medications Home Medications Medication Instructions Recorded Confirmed Type albuterol sulfate [Ventolin HFA] 2 puff INHALATION QID PRN 03/09/18 07/18/18 History aspirin [Aspirin Childrens] 81 mg PO DAILY 03/09/18 07/18/18 History cholecalciferol (vitamin D3) 1,000 unit PO DAILY 03/09/18 07/18/18 History [Vitamin D3] docusate sodium 100 mg PO DAILY 03/09/18 07/18/18 History fluticasone-salmeterol [Advair 1 inh INHALATION BID 03/09/18 07/18/18 History Diskus] gabapentin 800 mg PO TID 03/09/18 07/18/18 History isosorbide mononitrate 30 mg PO DAILY 03/09/18 07/18/18 History lisinopril 20 mg PO DAILY 03/09/18 07/18/18 History metoprolol succinate 25 mg PO QAM 03/09/18 07/18/18 History pravastatin 10 mg PO DAILY 03/09/18 07/18/18 History primidone 125 mg PO HS 03/09/18 07/18/18 History tiotropium bromide 1 cap INHALATION DAILY 07/18/18 07/18/18 History tramadol 50 mg PO BID PRN 07/18/18 07/18/18 History Allergies Allergy/AdvReac Type Severity Reaction Status Date / Time simvastatin Allergy Severe CHEST PAIN Verified 07/18/18 10:52 naproxen Allergy Intermediate RASH Verified 07/18/18 10:52 Sulfa (Sulfonamide Allergy Intermediate Rash Verified 07/18/18 10:52 Antibiotics) nifedipine Allergy Unknown UNKNOWN Verified 07/18/18 10:52 propoxyphene Allergy Unknown _ Verified 07/18/18 10:52 Past Med/Surg History Medical History Systolic CHF, chronic EF 45% last echo 2017 Hypertension (Chronic) Dyslipidemia (Chronic) CAD (coronary artery disease) (Chronic) "2008- BERNICE left circumflex artery ; 2010- STEMI late in stent thrombosis of the left circumflex artery treated with angioplasty. He had an occluded right coronary artery at that time with [id number] collaterals. 2010- CABG shah to the LAD and a saphenous vein graft to the 1st diagonal branch" 2017 cardiac cath re-thrombosis to [place] and bypass, now recommending medical management Follows Dr. Helga Bowser Cardiology Essential tremor (Chronic) Chest pain Meningioma (Chronic) PUD (peptic ulcer disease) (Chronic) Chronic pain (Chronic) DM type 2 (diabetes mellitus, type 2) (Chronic) Ischemic cardiomyopathy (Chronic) Colorectal cancer (Chronic) Congenital hydrocephalus (Chronic) COPD (chronic obstructive pulmonary disease) (Chronic) Surgical History S/P CABG (coronary artery bypass graft) (Chronic) S/P coronary artery stent placement (Chronic) H/O hernia repair (Chronic) H/O eye surgery (Chronic) History of colon resection recto sigmoid resection Dr. Nair 2006 Family History Brother Colon cancer T2DM (type 2 diabetes mellitus) Mother T2DM (type 2 diabetes mellitus) Father No problems noted. Other No pertinent family history Social History marital status: Current Living Situation: Spouse Current Living Situation Comment: Walks with walker Other Information That Helps Us Care for You: No Feels Safe at Home: Yes Safety Concerns: Feels Safe At This Time Smoking Status: Former smoker Cigarettes per Day: 2 ppd x 40 years Smoking End Date: 06/13/2000 Hx Alcohol Use: Yes Alcohol Intake Frequency: holidays/special occasions only Hx Substance Use: No Beliefs That Will Affect Care: None Preferred Language: Haitian Communication Ability: Effective Review of Systems See HPI for pertinent positives & negatives. and A total of 10 systems reviewed and were otherwise negative Physical Exam Vital Signs Vital Signs - 24 hr 07/18/18 10:16 07/18/18 10:23 07/18/18 10:50 Temperature 36.7 C Temperature Source Oral Sepsis Recent Fever Within 48 Hours No Sepsis Action Taken by Nursing No Action Required Pulse Rate 55 L 55 L Pulse Rate [Finger] 61 Respiratory Rate 15 15 Blood Pressure 259/218 H 259/212 H Blood Pressure [Right Arm] 142/74 H Blood Pressure Mean 231 227 Blood Pressure Mean [Right Arm] 96 Blood Pressure Position Sitting Pulse Oximetry 90 96 Oxygen Delivery Method Room Air 07/18/18 11:17 07/18/18 12:00 07/18/18 12:30 Temperature Temperature Source Sepsis Recent Fever Within 48 Hours Sepsis Action Taken by Nursing Pulse Rate 57 L 51 L Pulse Rate [Finger] Respiratory Rate 15 14 Blood Pressure 147/69 H Blood Pressure [Right Arm] Blood Pressure Mean 95 Blood Pressure Mean [Right Arm] Blood Pressure Position Pulse Oximetry 96 Oxygen Delivery Method Room Air 07/18/18 12:31 07/18/18 13:00 07/18/18 13:30 Temperature Temperature Source Sepsis Recent Fever Within 48 Hours Sepsis Action Taken by Nursing Pulse Rate 52 L 51 L 52 L Pulse Rate [Finger] Respiratory Rate 16 16 16 Blood Pressure 143/74 H 146/120 H 154/121 H Blood Pressure [Right Arm] Blood Pressure Mean 97 128 132 Blood Pressure Mean [Right Arm] Blood Pressure Position Pulse Oximetry Oxygen Delivery Method Room Air 07/18/18 14:44 07/18/18 15:31 07/18/18 18:29 Temperature 36.7 C Temperature Source Oral Sepsis Recent Fever Within 48 Hours Sepsis Action Taken by Nursing Pulse Rate 51 L Pulse Rate [Finger] 49 L 87 Respiratory Rate 18 18 18 Blood Pressure 126/79 Blood Pressure [Right Arm] 115/85 108/68 Blood Pressure Mean Blood Pressure Mean [Right Arm] 95 81 Blood Pressure Position Pulse Oximetry 97 98 95 Oxygen Delivery Method Room Air Room Air 07/18/18 19:25 Temperature Temperature Source Sepsis Recent Fever Within 48 Hours Sepsis Action Taken by Nursing Pulse Rate 52 L Pulse Rate [Finger] Respiratory Rate Blood Pressure Blood Pressure [Right Arm] Blood Pressure Mean Blood Pressure Mean [Right Arm] Blood Pressure Position Pulse Oximetry Oxygen Delivery Method GENERAL: Awake, alert, in no distress HENT: Normocephalic, atraumatic. Oropharynx with dry mucous membranes and otherwise unremarkable. EYES: Normal conjunctiva. Sclera non-icteric. NECK: Supple. No nuchal rigidity. FROM. No JVD. RESPIRATORY: Clear to auscultation. CARDIAC: Regular rate, normal rhythm. Extremities warm and well perfused. Pulses equal. ABDOMEN: Soft, non-distended. No tenderness to palpation. No rebound or guarding. No masses. RECTAL: Brown stool present, scantly guaiac positive. MUSCULOSKELETAL: Chest examination reveals no tenderness. The back is symmetrical on inspection without obvious abnormality. There is no CVA tenderness to palpation. No joint edema. LOWER EXTREMITIES: Calves are equal size bilaterally and non-tender. No edema. No discoloration. NEURO: Normal sensorium. No focal motor deficits. Slight tremor to the right upper extremity, at baseline per patient. SKIN: No rash or jaundice noted. Course 1019: Past medical records reviewed. The patient was evaluated in room C8, and a complete history and physical examination were performed. 1309: I reviewed the patient's case with Ana Rosa [facility] Hospitalist [place]. She will evaluate the patient for further management. Administered Medications Acetaminophen (Tylenol) 650 mg PO Q4H PRN PRN Reason: Pain or Fever Stop: 08/17/18 15:44 Last Admin: 07/18/18 20:50 Dose: 650 mg Docusate Sodium (Colace) 100 mg PO BID [facility] Stop: 08/17/18 20:59 Last Admin: 07/18/18 20:52 Dose: 100 mg Gabapentin (Neurontin) 800 mg PO TID [facility] Stop: 08/17/18 16:29 Last Admin: 07/18/18 21:53 Dose: 800 mg Admin: 07/18/18 16:43 Dose: 800 mg Pantoprazole Sodium 40 mg/ (Syringe) 10 mls @ 5 mls/min IV BID NISHA Stop: 08/17/18 20:59 Last Admin: 07/18/18 20:52 Dose: 5 mls/min Sodium Chloride (Nss 1000ml) 1,000 mls @ 60 mls/hr IV .[id number] NISHA Stop: 07/19/18 09:09 Last Admin: 07/18/18 16:44 Dose: 60 mls/hr Insulin Aspart (Novolog Flexpen) 0 units SC ACHS NISHA Stop: 08/17/18 16:29 Last Admin: 07/18/18 20:52 Dose: Not Given Admin: 07/18/18 17:32 Dose: Not Given Isosorbide Mononitrate (Imdur Extended Rel) 30 mg PO DAILY [facility] Stop: 08/17/18 16:29 Last Admin: 07/18/18 16:43 Dose: 30 mg Lisinopril (Zestril) 20 mg PO DAILY [facility] Stop: 08/17/18 16:29 Last Admin: 07/18/18 16:45 Dose: 20 mg Primidone (Primidone) 125 mg PO HS [facility] Stop: 08/17/18 20:59 Last Admin: 07/18/18 20:51 Dose: 125 mg Fluticasone/Salmeterol (Advair Diskus 250/50) 1 puffs INH BID [facility] Stop: 08/17/18 20:59 Last Admin: 07/18/18 20:50 Dose: 1 puffs Sennosides (Senokot) 8.6 mg PO BID [facility] Stop: 08/17/18 20:59 Last Admin: 07/18/18 20:52 Dose: 8.6 mg Tramadol HCl (Ultram) 50 mg PO Q6H PRN PRN Reason: Pain Stop: 08/17/18 14:58 Last Admin: 07/18/18 16:41 Dose: 50 mg Discontinued Medications Sodium Chloride (Nss) 500 mls @ 999 mls/hr IV .Q31M NISHA Stop: 07/18/18 11:00 Last Infusion: 07/18/18 11:33 Dose: 0 mls/hr Admin: 07/18/18 10:57 Dose: 999 mls/hr Ioversol (Optiray 320 100ml) 93 ml IV ONCE PRN PRN Reason: Interaction Checking Stop: 07/22/18 11:23 Last Admin: 07/18/18 11:25 Dose: 93 ml Medical Decision Making Differential Diagnosis Differential diagnosis: Etiologies such as esophagitis, variceal bleed, Boer[place]aves, Eudora-Beal tear, gastritis, peptic ulcer disease, AVM, inflammatory bowel disease, ischemia, diverticulosis, colitis, malignancy, coagulopathy, thrombocytopenia, fissure, hemorrhoid, epistaxis , as well as others were entertained. Medical Records Attestation: I reviewed the patient's medical records. Home Medications Current Medication List: was personally reviewed by me Laboratory Data Attestation: I reviewed the patient's lab results. Result diagrams: 07/18/18 22:18 07/18/18 10:43 Lab Results 07/18/18 07/18/18 07/18/18 Range/Units 10:43 10:43 10:43 WBC 6.97 (4.8-10.8) K/uL RBC 5.33 (4.7-6.1) M/uL Hgb 16.0 (14.0-18.0) g/dL Hct 46.3 (42-52) % MCV 86.9 (80-100) fL MCH 30.0 (25-34) pg MCHC 34.6 (32-36) g/dL RDW Std Deviation 44.0 (36.4-46.3) fL RDW Coeff of Mine 13.8 (11.5-14.5) % Plt Count 196 (130-400) K/uL MPV 9.5 (7.4-10.4) fL Immature Gran % (Auto) 0.1 % Neut % (Auto) 66.7 % Lymph % (Auto) 22.8 % [place] % (Auto) 8.3 % Eos % (Auto) 1.4 % Baso % (Auto) 0.7 % Immature Gran # (Auto) 0.01 (0.00-0.02) K/uL Neut # (Auto) 4.64 (1.4-6.5) K/uL Lymph # (Auto) 1.59 (1.2-3.4) K/uL [place] # (Auto) 0.58 (0.11-0.59) K/uL Eos # (Auto) 0.10 (0-0.5) K/uL Baso # (Auto) 0.05 (0-0.2) K/uL PT 10.0 (9.0-12.0) Seconds INR 1.0 (0.9-1.1) Sodium 136 (136-145) mmol/L Potassium 4.7 (3.5-5.1) mmol/L Chloride 102 (98-107) mmol/L Carbon Dioxide 29 (21-32) mmol/L Anion Gap 5.0 (3-11) BUN 16 (7-18) mg/dl Creatinine 0.93 (0.6-1.4) mg/dl Est Cr Clr Drug Dosing 87.1 ml/min Est GFR ( Amer) 95.4 Est GFR (Non-Af Amer) 82.3 BUN/Creatinine Ratio 17.6 (10-20) Glucose 95 (70-99) mg/dl POC Glucose (70-99) Calcium 8.6 (8.5-10.1) mg/dl Phosphorus 2.7 (2.5-4.9) mg/dl Magnesium 2.1 (1.8-2.4) mg/dl Total Bilirubin 0.4 (0.2-1) mg/dl AST 19 (15-37) U/L ALT 20 (12-78) U/L Alkaline Phosphatase 92 (45-117) U/L Troponin I < 0.015 (0-0.045) ng/ml Total Protein 6.9 (6.4-8.2) gm/dl Albumin 3.5 (3.4-5.0) gm/dl Globulin 3.4 (2.5-4.0) gm/dl Albumin/Globulin Ratio 1.0 (0.9-2) Lipase 95 (73-393) U/L Urine Color Urine Appearance (Clear) Urine pH (4.5-7.5) Ur Specific [place] (1.000-1.030) Urine Protein (Negative) Urine Glucose (UA) (Negative) Urine Ketones (Negative) Urine Blood (Negative) Urine Nitrite (Negative) Urine Bilirubin (Negative) Urine Urobilinogen (Negative) Ur Leukocyte Esterase (Negative) Blood Type Antibody Screen 07/18/18 07/18/18 07/18/18 Range/Units 10:43 12:40 15:58 WBC (4.8-10.8) K/uL RBC (4.7-6.1) M/uL Hgb 15.9 (14.0-18.0) g/dL Hct 46.5 (42-52) % MCV (80-100) fL MCH (25-34) pg MCHC (32-36) g/dL RDW Std Deviation (36.4-46.3) fL RDW Coeff of Mine (11.5-14.5) % Plt Count (130-400) K/uL MPV (7.4-10.4) fL Immature Gran % (Auto) % Neut % (Auto) % Lymph % (Auto) % [place] % (Auto) % Eos % (Auto) % Baso % (Auto) % Immature Gran # (Auto) (0.00-0.02) K/uL Neut # (Auto) (1.4-6.5) K/uL Lymph # (Auto) (1.2-3.4) K/uL [place] # (Auto) (0.11-0.59) K/uL Eos # (Auto) (0-0.5) K/uL Baso # (Auto) (0-0.2) K/uL PT (9.0-12.0) Seconds INR (0.9-1.1) Sodium (136-145) mmol/L Potassium (3.5-5.1) mmol/L Chloride (98-107) mmol/L Carbon Dioxide (21-32) mmol/L Anion Gap (3-11) BUN (7-18) mg/dl Creatinine (0.6-1.4) mg/dl Est Cr Clr Drug Dosing ml/min Est GFR ( Amer) Est GFR (Non-Af Amer) BUN/Creatinine Ratio (10-20) Glucose (70-99) mg/dl POC Glucose (70-99) Calcium (8.5-10.1) mg/dl Phosphorus (2.5-4.9) mg/dl Magnesium (1.8-2.4) mg/dl Total Bilirubin (0.2-1) mg/dl AST (15-37) U/L ALT (12-78) U/L Alkaline Phosphatase (45-117) U/L Troponin I (0-0.045) ng/ml Total Protein (6.4-8.2) gm/dl Albumin (3.4-5.0) gm/dl Globulin (2.5-4.0) gm/dl Albumin/Globulin Ratio (0.9-2) Lipase (73-393) U/L Urine Color Yellow Urine Appearance Clear (Clear) Urine pH 6.0 (4.5-7.5) Ur Specific [place] 1.032 H (1.000-1.030) Urine Protein Negative (Negative) Urine Glucose (UA) Negative (Negative) Urine Ketones Negative (Negative) Urine Blood Negative (Negative) Urine Nitrite Negative (Negative) Urine Bilirubin Negative (Negative) Urine Urobilinogen Negative (Negative) Ur Leukocyte Esterase Negative (Negative) Blood Type B Positive Antibody Screen NEGATIVE 07/18/18 07/18/18 07/18/18 Range/Units 16:31 20:34 22:18 WBC (4.8-10.8) K/uL RBC (4.7-6.1) M/uL Hgb 15.1 (14.0-18.0) g/dL Hct 44.0 (42-52) % MCV (80-100) fL MCH (25-34) pg MCHC (32-36) g/dL RDW Std Deviation (36.4-46.3) fL RDW Coeff of Mine (11.5-14.5) % Plt Count (130-400) K/uL MPV (7.4-10.4) fL Immature Gran % (Auto) % Neut % (Auto) % Lymph % (Auto) % [place] % (Auto) % Eos % (Auto) % Baso % (Auto) % Immature Gran # (Auto) (0.00-0.02) K/uL Neut # (Auto) (1.4-6.5) K/uL Lymph # (Auto) (1.2-3.4) K/uL [place] # (Auto) (0.11-0.59) K/uL Eos # (Auto) (0-0.5) K/uL Baso # (Auto) (0-0.2) K/uL PT (9.0-12.0) Seconds INR (0.9-1.1) Sodium (136-145) mmol/L Potassium (3.5-5.1) mmol/L Chloride (98-107) mmol/L Carbon Dioxide (21-32) mmol/L Anion Gap (3-11) BUN (7-18) mg/dl Creatinine (0.6-1.4) mg/dl Est Cr Clr Drug Dosing ml/min Est GFR ( Amer) Est GFR (Non-Af Amer) BUN/Creatinine Ratio (10-20) Glucose (70-99) mg/dl POC Glucose 97 86 (70-99) Calcium (8.5-10.1) mg/dl Phosphorus (2.5-4.9) mg/dl Magnesium (1.8-2.4) mg/dl Total Bilirubin (0.2-1) mg/dl AST (15-37) U/L ALT (12-78) U/L Alkaline Phosphatase (45-117) U/L Troponin I (0-0.045) ng/ml Total Protein (6.4-8.2) gm/dl Albumin (3.4-5.0) gm/dl Globulin (2.5-4.0) gm/dl Albumin/Globulin Ratio (0.9-2) Lipase (73-393) U/L Urine Color Urine Appearance (Clear) Urine pH (4.5-7.5) Ur Specific [place] (1.000-1.030) Urine Protein (Negative) Urine Glucose (UA) (Negative) Urine Ketones (Negative) Urine Blood (Negative) Urine Nitrite (Negative) Urine Bilirubin (Negative) Urine Urobilinogen (Negative) Ur Leukocyte Esterase (Negative) Blood Type Antibody Screen Imaging Data Attestation: I personally reviewed and interpreted this imaging study as follows : Radiologist's Impression: XR chest 1V portable CLINICAL HISTORY: Abdominal pain. COMPARISON STUDY: Chest radiograph and chest CT April 18, 2018. FINDINGS: Median sternotomy wires are noted. Cardiomegaly is unchanged. There is no pneumothorax or pleural effusion. There is lower lung interstitial thickening. IMPRESSION: Lower lung interstitial thickening which may reflect mild pulmonary edema. Electronically signed by: Jez Wilson M.D. 07/18/2018 10:[address] SCAN OF THE ABDOMEN AND PELVIS WITH IV CONTRAST CLINICAL HISTORY: Generalized abdominal pain. Melanotic stool. COMPARISON STUDY: Abdominal CT dated 01/07/2018. TECHNIQUE: Following the IV administration of 93 cc of Optiray 320, CT scan of the abdomen and pelvis is performed from the lung bases to the proximal femora. Images are reviewed in the axial, sagittal, and coronal planes. IV contrast was administered without complication. A dose lowering technique was utilized adhering to the principles of ALARA. The examination is degraded by motion artifact. CT DOSE: 449.58 mGy.cm FINDINGS: Lung bases: The patient is status post midline sternotomy. The heart is enlarged and without pericardial effusion. The coronary arteries are densely calcified. There is a trace right pleural effusion. The lung bases are otherwise clear noting dependent atelectasis. Liver: The contrast-enhanced liver is normal in size, contour, and attenuation. There is no intrahepatic biliary ductal dilatation. The hepatic veins and portal veins are patent. Gallbladder: Unremarkable. Spleen: Normal in size and attenuation. Pancreas: Unremarkable. Adrenal glands: Unremarkable. Kidneys: The contrast enhanced kidneys are normal in size and without hydronephrosis. The kidneys enhance symmetrically. 1.4 cm cyst is noted in the upper pole of the left kidney. Abdominal vasculature: There is advanced atherosclerotic calcification of the abdominal aorta. An infrarenal abdominal aneurysm measures 3.8 x 4.0 cm as seen on image #257. Mural thrombus is noted within the aneurysm sac. Bowel: There are postoperative changes from rectosigmoid resection with colocolonic anastomosis. No bowel obstruction is seen. There is significant rectosigmoid fecal retention. Moderate constipation is seen throughout the remainder of the colon. The appendix is not identified. Peritoneum: There is no intraperitoneal free air or abdominal ascites. Lymphadenopathy: None. Pelvic viscera: The prostate gland is enlarged and heterogeneous, measuring 5.4 cm in transverse diameter. The bladder wall is mildly thickened and trabeculated indicating chronic outlet obstruction. Skeletal structures: The skeletal structures are osteopenic. There is mild lumbosacral spondylosis. Degenerative changes noted in the sacroiliac joints. No lytic or blastic lesions are seen. IMPRESSION: 1. There are no acute infectious or inflammatory findings in the abdomen or pelvis. 2. There are postoperative changes from rectosigmoid colon resection with colocolonic anastomosis. No bowel obstruction is seen. 3. There is rectosigmoid fecal retention and moderate constipation. 4. There is a 3.8 x 4.0 cm infrarenal abdominal aortic aneurysm. 5. Cardiomegaly and trace right pleural effusion. 6. Additional findings as above. Electronically signed by: Nba Singh M.D. 07/18/2018 11:50 AM ECG Data Attestation: I personally reviewed and interpreted this ECG as follows: Indication: other (GI Bleed) Rate (beats per minute): 54 Rhythm: sinus bradycardia Findings: + other (normal axis); no ST depression, no ST elevation and no acute ischemic change Blood Pressure Blood Pressure Findings: Elevated blood pressure Blood Pressure Disposition: further management by hospitalist NAHUN Duval The patient is a 72-year-old gentleman with a complicated past medical history of CAD status post CABG, CHF, PUD, DM 2 who presents emergency department with 1 week of black stools per hpi. Denies any chest pain, shortness of breath, abdominal pain, nausea, vomiting. On arrival patient is in no acute distress, afebrile, hypertensive 140/60s and otherwise stable vital signs. EKG demonstrates sinus bradycardia at 54 without evidence of acute ischemia. Chest x-ray with nonspecific interstitial thickening. CT abdomen pelvis negative for acute process. There is a 3.8 x 4 cm infrarenal AAA. WBC, H/H, platelets within normal limits. Chemistry without acidosis. BUN within normal limits. Electrolytes unremarkable. Troponin negative. UA negative. The patient's workup is overall reassuring however given the patient's complex comorbidities in the setting of his report of persistent melena reasonable to admit the patient for further monitoring. Case was discussed with Niels Ferguson PA-C, who will evaluate the patient for admission. Impression & Plan GI bleed Discharge Plan Visit Data *Final* Discharge Date/Time: 07/18/18 15:31 Chief Complaint: GI Assessment ED Provider: Piero Leonardo Discharge Problem: GI bleed Patient Disposition: Admitted As Inpatient Discharge Instructions Interventions: ED Discharge Assessment Last Done: 07/18/18 15:31 The scribe's documentation has been prepared under my direction and personally reviewed by me in its entirety. I confirm that the note above accurately reflects all work, treatment, procedures, and medical decision making performed by me.
[2018-07-18] MEDS ORDERED: DEXTROSE 50% 50 ML SYRINGE IV PRN (15:45)
[2018-07-18] MEDS ORDERED: MAGNESIUM HYDROXIDE SUSP 30 ML UDC PO PRN (15:45)
[2018-07-18] MEDS ORDERED: ALBUTEROL HFA 8 GM INHALER INH PRN (15:45)
[2018-07-18] MEDS ORDERED: ONDANSETRON INJ 2 MG/ML 2 ML VIAL IV PRN (15:45)
[2018-07-18] MEDS ORDERED: GLUCOSE 10 TABS/TUBE PO PRN (15:45)
[2018-07-18] MEDS ORDERED: GLUCOSE 40% GEL 15 GM TUBE PO PRN (15:45)
[2018-07-18] MEDS ORDERED: ALUMINUM/MAGNESIUM SUSP 30 ML UDC PO PRN (15:45)
[2018-07-18] MEDS ORDERED: CARBOHYDRATES FOR HYPOGLYCEMIA PO PRN (15:45)
[2018-07-18] MEDS ORDERED: GLUCAGON FOR INJ 1 MG VIAL SQ PRN (15:45)
[2018-07-18] MEDS ORDERED: NITROGLYCERIN SL 0.4 MG/TAB TAB SL PRN (15:45)
[2018-07-18] MEDS ORDERED: ACETAMINOPHEN 325 MG TAB PO PRN (15:45)
[2018-07-18 16:14] LABS: Hematocrit (blood only) 46.5 % (42-52); Hemoglobin 15.9 g/dL (14.0-18.0)
[2018-07-18] MEDS ORDERED: POLYETHYLENE (MIRALAX) 17 GM PACK PO PRN (16:24)
[2018-07-18] MEDS ORDERED: SENNA 8.6 MG TAB PO SCH (16:30)
[2018-07-18] MEDS ORDERED: SODIUM CHLORIDE 0.9% 1000ML 1,000 ML IV SCH (16:30)
[2018-07-18] MEDS: GABAPENTIN 400 MG CAP PO SCH ×2 (16:43→21:53)
[2018-07-18] MEDS: ISOSORBIDE MONO EXTENDED REL 30 MG TABCR PO SCH (16:43)
[2018-07-18] MEDS: LISINOPRIL 20 MG TAB PO SCH (16:45)
[2018-07-18] MEDS: INSULIN ASPART 100 UNITS/ML 3 ML PEN SC SCH ×2 (17:32→20:52)
[2018-07-18] MEDS: FLUTICASONE/SALMETEROL 250/50 (ADVAIR) 14 PUFF/1 INHALER INH SCH (20:50)
[2018-07-18] MEDS: SENNA 8.6 MG TAB PO SCH (20:52)
[2018-07-18] MEDS: PANTOprazole 40 MG in SYRINGE 0 ML IV SCH (20:52)
[2018-07-18] MEDS: DOCUSATE SODIUM 100 MG CAP PO SCH (20:52)
[2018-07-18] MEDS ORDERED: PRIMIDONE 50 MG TAB PO SCH (21:00)
[2018-07-18 22:28] LABS: Hemoglobin 15.1 g/dL (14.0-18.0)
[2018-07-19 04:02] LABS: Hematocrit (blood only) 43.7 % (42-52); Hemoglobin 14.7 g/dL (14.0-18.0); Mean Corpuscular Hgb Conc 33.6 g/dL (32-36); Mean Platelet Volume 9.3 fL (7.4-10.4); Platelet Count 169 K/uL (130-400); RDW Coefficient of Variation 13.9 % (11.5-14.5); RDW Standard Deviation 43.3 fL (36.4-46.3); Red Blood Count 5.08 M/uL (4.7-6.1); White Blood Count 6.31 K/uL (4.8-10.8)
[2018-07-19 04:26] LABS: BUN Creatinine Ratio 19.3 (10-20); Calcium 7.9 mg/dl (8.5-10.1); Creatinine Clr Calc Pharmacy 119.1 ml/min; Est GFR (African American) 111.4; Est GFR (Non-African American) 96.1; Potassium 4.3 mmol/L (3.5-5.1)
[2018-07-19 06:24] LABS: Estimated Average Glucose 126 mg/dl
[2018-07-19] MEDS: INSULIN ASPART 100 UNITS/ML 3 ML PEN SC SCH ×2 (08:58→13:38)
[2018-07-19] MEDS ORDERED: TIOTROPIUM BROMIDE 5 PUFF/90 MCG INH INH SCH (09:00)
[2018-07-19] MEDS ORDERED: PRAVASTATIN SOD 10 MG TAB PO SCH (09:00)
[2018-07-19] MEDS ORDERED: CHOLECALCIFEROL 1,000 UNITS TAB PO SCH (09:00)
[2018-07-19] MEDS ORDERED: METOPROLOL SUCC 25MG EXT REL TAB PO SCH (09:00)
[2018-07-19 09:47] LABS: Hematocrit (blood only) 46.3 % (42-52); Hemoglobin 15.7 g/dL (14.0-18.0)
--- NOTE | 2018-07-19 10:34 | Gastrointestinal Consultation ---
Date of Consultation July 19, 2018 Assessment & Plan (1) GI bleed: 72 year old male who presents with melena prior to arrival - on ASA, plavix and uses additional NSAIDS PRN MSK pain. H&H and vitals stable sine admission. DDX discused UGI vs LGIB - NPO - IV PPI - EGD this AM - Would hold ASA - Pt reports taking plavix - I do not se this in current medical record - Trend H&H - Monitor all output - Transfuse HGB < 7 - Pending results will discuss if colonoscopy is warranted Thank you for allowing us to participate in the care of this patient. Please call with any acute changes, questions or concerns. Please see addendum below with additional recommendation from my supervising physician. Present on Admission?: Yes Supervising Physician Co-Signing Physician Notes I saw and evaluated the patient. We are consulted with a question of melena. Of note his blood count seems to be within normal limits and is remained stable overnight without any significant drops. The patient denies having difficulty with swallowing pain with swallowing or passage of bright red blood from the rectum. He did have a CT scan which shows evidence of chronic constipation. Physical examination No obvious distress, patient with a tremor in the right hand Abdomen soft nontender Impression: Patient presents with a question of melena. Given the history we can certainly perform upper endoscopy as an inpatient. It is reassuring that the patient has had no drop in his hemoglobin or hematocrit overnight. If the upper endoscopy is negative we would then recommend a colonoscopy which can be done as an outpatient given his lack of anemia and nonspecific findings on CT scan History of Present Illness Reason for Consultation: melena Requesting Physician: Heather Attending Physician: Parish Romero DO History of Present Illness 72 year odl male with history of CAD s/p BERNICE in 2008 on ASA, plavix (per patient I do not see this in chart), hx CABG x 2, CHF, HTN , T2DM, congential hydrocephalus, colon CA s/p rectosigmoid resection who presents to the ED for evaluation fo melena - GI was asked to evaluate. Pt was seen and evaluated, chart reviewed. Notes he was in his typical state of health. Noted about 1 week start started having dark, tarry stools once daily. No BRB. Denies feeling lightheaded/dizzy. Does not take PO iron. No pepto. No UGI symptoms. No epigastric pain, nausea, vomiting. No GERD. He believes he had PUD in the past on prior EGD. He is unsure when/where last EGD/Colon were NSAIDs: ASA daily, Aleve PRN AC: Plavix per patient but I do not see this in chart EGD: unknown Colon: unknown Allergies Allergy/AdvReac Type Severity Reaction Status Date / Time simvastatin Allergy Severe CHEST PAIN Verified 07/18/18 10:52 naproxen Allergy Intermediate RASH Verified 07/18/18 10:52 Sulfa (Sulfonamide Allergy Intermediate Rash Verified 07/18/18 10:52 Antibiotics) nifedipine Allergy Unknown UNKNOWN Verified 07/18/18 10:52 propoxyphene Allergy Unknown _ Verified 07/18/18 10:52 Home Medications Home Medications Medication Instructions Recorded Confirmed Type albuterol sulfate [Ventolin HFA] 2 puff INHALATION QID PRN 03/09/18 07/18/18 History aspirin [Aspirin Childrens] 81 mg PO DAILY 03/09/18 07/18/18 History cholecalciferol (vitamin D3) 1,000 unit PO DAILY 03/09/18 07/18/18 History [Vitamin D3] docusate sodium 100 mg PO DAILY 03/09/18 07/18/18 History fluticasone-salmeterol [Advair 1 inh INHALATION BID 03/09/18 07/18/18 History Diskus] gabapentin 800 mg PO TID 03/09/18 07/18/18 History isosorbide mononitrate 30 mg PO DAILY 03/09/18 07/18/18 History lisinopril 20 mg PO DAILY 03/09/18 07/18/18 History metoprolol succinate 25 mg PO QAM 03/09/18 07/18/18 History pravastatin 10 mg PO DAILY 03/09/18 07/18/18 History primidone 125 mg PO HS 03/09/18 07/18/18 History tiotropium bromide 1 cap INHALATION DAILY 07/18/18 07/18/18 History tramadol 50 mg PO BID PRN 07/18/18 07/18/18 History Patient History Medical History Systolic CHF, chronic EF 45% last echo 2017 Hypertension (Chronic) Dyslipidemia (Chronic) CAD (coronary artery disease) (Chronic) "2008- BERNICE left circumflex artery ; 2010- STEMI late in stent thrombosis of the left circumflex artery treated with angioplasty. He had an occluded right coronary artery at that time with [id number] collaterals. 2011- CABG shah to the LAD and a saphenous vein graft to the 1st diagonal branch" 2017 cardiac cath re-thrombosis to [place] and bypass, now recommending medical management Follows Dr. Helga Bowser Cardiology Essential tremor (Chronic) Chest pain Meningioma (Chronic) PUD (peptic ulcer disease) (Chronic) Chronic pain (Chronic) DM type 2 (diabetes mellitus, type 2) (Chronic) Ischemic cardiomyopathy (Chronic) Colorectal cancer (Chronic) Congenital hydrocephalus (Chronic) COPD (chronic obstructive pulmonary disease) (Chronic) Surgical History S/P CABG (coronary artery bypass graft) (Chronic) S/P coronary artery stent placement (Chronic) H/O hernia repair (Chronic) H/O eye surgery (Chronic) History of colon resection recto sigmoid resection Dr. Nair 2006 Family History Brother Colon cancer T2DM (type 2 diabetes mellitus) Mother T2DM (type 2 diabetes mellitus) Father No problems noted. Other No pertinent family history Social History marital status: Current Living Situation: Spouse Current Living Situation Comment: Walks with walker Other Information That Helps Us Care for You: No Feels Safe at Home: Yes Safety Concerns: Feels Safe At This Time Smoking Status: Former smoker Cigarettes per Day: 2 ppd x 40 years Smoking End Date: 06/13/2000 Hx Alcohol Use: Yes Alcohol Intake Frequency: holidays/special occasions only Hx Substance Use: No Beliefs That Will Affect Care: None Preferred Language: Frisian Communication Ability: Effective Review of Systems Constitutional: no fever, no chills, no body aches, no fatigue and no weakness Respiratory: no cough, no chest congestion and no dyspnea Cardiovascular: no chest pain, no radiating jaw, neck or arm pain, no dyspnea on exertion and no palpitations Gastrointestinal: + melena; no abdominal pain, no early satiety, no nausea, no vomiting, no coffee ground emesis, no hematemesis, no pain with swallowing, no fecal incontinence and no blood in stools Physical Exam 2 Vital Signs (Past 24 Hours): Last Vital Signs Temp 36.3 C L 07/19/18 07:49 Pulse 49 L 07/19/18 07:49 Resp 18 07/19/18 07:49 BP 185/74 H 07/19/18 07:49 Pulse Ox 97 07/19/18 07:49 Constitutional: well nourished, cooperative and comfortable; no acute distress Respiratory: normal respiratory effort, lungs clear to auscultation Cardiovascular: RRR, no murmur, no edema Gastrointestinal (Abdomen): normal bowel sounds, soft, nontender, no hepatosplenomegaly Results & Data Laboratory Results 07/19/18 07/19/18 07/19/18 Range/Units 09:29 08:08 03:48 WBC (4.8-10.8) K/uL RBC (4.7-6.1) M/uL Hgb 15.7 (14.0-18.0) g/dL Hct 46.3 (42-52) % MCV (80-100) fL MCH (25-34) pg MCHC (32-36) g/dL RDW Std Deviation (36.4-46.3) fL RDW Coeff of Mine (11.5-14.5) % Plt Count (130-400) K/uL MPV (7.4-10.4) fL Immature Gran % (Auto) % Neut % (Auto) % Lymph % (Auto) % Gove % (Auto) % Eos % (Auto) % Baso % (Auto) % Immature Gran # (Auto) (0.00-0.02) K/uL Neut # (Auto) (1.4-6.5) K/uL Lymph # (Auto) (1.2-3.4) K/uL Gove # (Auto) (0.11-0.59) K/uL Eos # (Auto) (0-0.5) K/uL Baso # (Auto) (0-0.2) K/uL PT (9.0-12.0) Seconds INR (0.9-1.1) Sodium (136-145) mmol/L Potassium (3.5-5.1) mmol/L Chloride (98-107) mmol/L Carbon Dioxide (21-32) mmol/L Anion Gap (3-11) BUN (7-18) mg/dl Creatinine (0.6-1.4) mg/dl Est Cr Clr Drug Dosing ml/min Est GFR ( Amer) Est GFR (Non-Af Amer) BUN/Creatinine Ratio (10-20) Glucose (70-99) mg/dl POC Glucose 83 (70-99) Estimat Average Glucose 126 mg/dl Hemoglobin A1c 6.0 H (4.5-5.6) % Calcium (8.5-10.1) mg/dl Phosphorus (2.5-4.9) mg/dl Magnesium (1.8-2.4) mg/dl Total Bilirubin (0.2-1) mg/dl AST (15-37) U/L ALT (12-78) U/L Alkaline Phosphatase (45-117) U/L Troponin I (0-0.045) ng/ml Total Protein (6.4-8.2) gm/dl Albumin (3.4-5.0) gm/dl Globulin (2.5-4.0) gm/dl Albumin/Globulin Ratio (0.9-2) Lipase (73-393) U/L Urine Color Urine Appearance (Clear) Urine pH (4.5-7.5) Ur Specific [place] (1.000-1.030) Urine Protein (Negative) Urine Glucose (UA) (Negative) Urine Ketones (Negative) Urine Blood (Negative) Urine Nitrite (Negative) Urine Bilirubin (Negative) Urine Urobilinogen (Negative) Ur Leukocyte Esterase (Negative) Blood Type Antibody Screen 07/19/18 07/19/18 07/18/18 Range/Units 03:48 03:48 22:18 WBC 6.31 (4.8-10.8) K/uL RBC 5.08 (4.7-6.1) M/uL Hgb 14.7 15.1 (14.0-18.0) g/dL Hct 43.7 44.0 (42-52) % MCV 86.0 (80-100) fL MCH 28.9 (25-34) pg MCHC 33.6 (32-36) g/dL RDW Std Deviation 43.3 (36.4-46.3) fL RDW Coeff of Mine 13.9 (11.5-14.5) % Plt Count 169 (130-400) K/uL MPV 9.3 (7.4-10.4) fL Immature Gran % (Auto) % Neut % (Auto) % Lymph % (Auto) % Gove % (Auto) % Eos % (Auto) % Baso % (Auto) % Immature Gran # (Auto) (0.00-0.02) K/uL Neut # (Auto) (1.4-6.5) K/uL Lymph # (Auto) (1.2-3.4) K/uL Gove # (Auto) (0.11-0.59) K/uL Eos # (Auto) (0-0.5) K/uL Baso # (Auto) (0-0.2) K/uL PT (9.0-12.0) Seconds INR (0.9-1.1) Sodium 138 (136-145) mmol/L Potassium 4.3 (3.5-5.1) mmol/L Chloride 106 (98-107) mmol/L Carbon Dioxide 28 (21-32) mmol/L Anion Gap 4.0 (3-11) BUN 13 (7-18) mg/dl Creatinine 0.68 (0.6-1.4) mg/dl Est Cr Clr Drug Dosing 119.1 ml/min Est GFR ( Amer) 111.4 Est GFR (Non-Af Amer) 96.1 BUN/Creatinine Ratio 19.3 (10-20) Glucose 92 (70-99) mg/dl POC Glucose (70-99) Estimat Average Glucose mg/dl Hemoglobin A1c (4.5-5.6) % Calcium 7.9 L (8.5-10.1) mg/dl Phosphorus (2.5-4.9) mg/dl Magnesium (1.8-2.4) mg/dl Total Bilirubin (0.2-1) mg/dl AST (15-37) U/L ALT (12-78) U/L Alkaline Phosphatase (45-117) U/L Troponin I (0-0.045) ng/ml Total Protein (6.4-8.2) gm/dl Albumin (3.4-5.0) gm/dl Globulin (2.5-4.0) gm/dl Albumin/Globulin Ratio (0.9-2) Lipase (73-393) U/L Urine Color Urine Appearance (Clear) Urine pH (4.5-7.5) Ur Specific [place] (1.000-1.030) Urine Protein (Negative) Urine Glucose (UA) (Negative) Urine Ketones (Negative) Urine Blood (Negative) Urine Nitrite (Negative) Urine Bilirubin (Negative) Urine Urobilinogen (Negative) Ur Leukocyte Esterase (Negative) Blood Type Antibody Screen 07/18/18 07/18/18 07/18/18 Range/Units 20:34 16:31 15:58 WBC (4.8-10.8) K/uL RBC (4.7-6.1) M/uL Hgb 15.9 (14.0-18.0) g/dL Hct 46.5 (42-52) % MCV (80-100) fL MCH (25-34) pg MCHC (32-36) g/dL RDW Std Deviation (36.4-46.3) fL RDW Coeff of Mine (11.5-14.5) % Plt Count (130-400) K/uL MPV (7.4-10.4) fL Immature Gran % (Auto) % Neut % (Auto) % Lymph % (Auto) % Gove % (Auto) % Eos % (Auto) % Baso % (Auto) % Immature Gran # (Auto) (0.00-0.02) K/uL Neut # (Auto) (1.4-6.5) K/uL Lymph # (Auto) (1.2-3.4) K/uL Gove # (Auto) (0.11-0.59) K/uL Eos # (Auto) (0-0.5) K/uL Baso # (Auto) (0-0.2) K/uL PT (9.0-12.0) Seconds INR (0.9-1.1) Sodium (136-145) mmol/L Potassium (3.5-5.1) mmol/L Chloride (98-107) mmol/L Carbon Dioxide (21-32) mmol/L Anion Gap (3-11) BUN (7-18) mg/dl Creatinine (0.6-1.4) mg/dl Est Cr Clr Drug Dosing ml/min Est GFR ( Amer) Est GFR (Non-Af Amer) BUN/Creatinine Ratio (10-20) Glucose (70-99) mg/dl POC Glucose 86 97 (70-99) Estimat Average Glucose mg/dl Hemoglobin A1c (4.5-5.6) % Calcium (8.5-10.1) mg/dl Phosphorus (2.5-4.9) mg/dl Magnesium (1.8-2.4) mg/dl Total Bilirubin (0.2-1) mg/dl AST (15-37) U/L ALT (12-78) U/L Alkaline Phosphatase (45-117) U/L Troponin I (0-0.045) ng/ml Total Protein (6.4-8.2) gm/dl Albumin (3.4-5.0) gm/dl Globulin (2.5-4.0) gm/dl Albumin/Globulin Ratio (0.9-2) Lipase (73-393) U/L Urine Color Urine Appearance (Clear) Urine pH (4.5-7.5) Ur Specific [place] (1.000-1.030) Urine Protein (Negative) Urine Glucose (UA) (Negative) Urine Ketones (Negative) Urine Blood (Negative) Urine Nitrite (Negative) Urine Bilirubin (Negative) Urine Urobilinogen (Negative) Ur Leukocyte Esterase (Negative) Blood Type Antibody Screen 07/18/18 07/18/18 07/18/18 Range/Units 12:40 10:43 10:43 WBC (4.8-10.8) K/uL RBC (4.7-6.1) M/uL Hgb (14.0-18.0) g/dL Hct (42-52) % MCV (80-100) fL MCH (25-34) pg MCHC (32-36) g/dL RDW Std Deviation (36.4-46.3) fL RDW Coeff of Mine (11.5-14.5) % Plt Count (130-400) K/uL MPV (7.4-10.4) fL Immature Gran % (Auto) % Neut % (Auto) % Lymph % (Auto) % Gove % (Auto) % Eos % (Auto) % Baso % (Auto) % Immature Gran # (Auto) (0.00-0.02) K/uL Neut # (Auto) (1.4-6.5) K/uL Lymph # (Auto) (1.2-3.4) K/uL Gove # (Auto) (0.11-0.59) K/uL Eos # (Auto) (0-0.5) K/uL Baso # (Auto) (0-0.2) K/uL PT (9.0-12.0) Seconds INR (0.9-1.1) Sodium 136 (136-145) mmol/L Potassium 4.7 (3.5-5.1) mmol/L Chloride 102 (98-107) mmol/L Carbon Dioxide 29 (21-32) mmol/L Anion Gap 5.0 (3-11) BUN 16 (7-18) mg/dl Creatinine 0.93 (0.6-1.4) mg/dl Est Cr Clr Drug Dosing 87.1 ml/min Est GFR ( Amer) 95.4 Est GFR (Non-Af Amer) 82.3 BUN/Creatinine Ratio 17.6 (10-20) Glucose 95 (70-99) mg/dl POC Glucose (70-99) Estimat Average Glucose mg/dl Hemoglobin A1c (4.5-5.6) % Calcium 8.6 (8.5-10.1) mg/dl Phosphorus 2.7 (2.5-4.9) mg/dl Magnesium 2.1 (1.8-2.4) mg/dl Total Bilirubin 0.4 (0.2-1) mg/dl AST 19 (15-37) U/L ALT 20 (12-78) U/L Alkaline Phosphatase 92 (45-117) U/L Troponin I < 0.015 (0-0.045) ng/ml Total Protein 6.9 (6.4-8.2) gm/dl Albumin 3.5 (3.4-5.0) gm/dl Globulin 3.4 (2.5-4.0) gm/dl Albumin/Globulin Ratio 1.0 (0.9-2) Lipase 95 (73-393) U/L Urine Color Yellow Urine Appearance Clear (Clear) Urine pH 6.0 (4.5-7.5) Ur Specific [place] 1.032 H (1.000-1.030) Urine Protein Negative (Negative) Urine Glucose (UA) Negative (Negative) Urine Ketones Negative (Negative) Urine Blood Negative (Negative) Urine Nitrite Negative (Negative) Urine Bilirubin Negative (Negative) Urine Urobilinogen Negative (Negative) Ur Leukocyte Esterase Negative (Negative) Blood Type B Positive Antibody Screen NEGATIVE 07/18/18 07/18/18 Range/Units 10:43 10:43 WBC 6.97 (4.8-10.8) K/uL RBC 5.33 (4.7-6.1) M/uL Hgb 16.0 (14.0-18.0) g/dL Hct 46.3 (42-52) % MCV 86.9 (80-100) fL MCH 30.0 (25-34) pg MCHC 34.6 (32-36) g/dL RDW Std Deviation 44.0 (36.4-46.3) fL RDW Coeff of Mine 13.8 (11.5-14.5) % Plt Count 196 (130-400) K/uL MPV 9.5 (7.4-10.4) fL Immature Gran % (Auto) 0.1 % Neut % (Auto) 66.7 % Lymph % (Auto) 22.8 % Gove % (Auto) 8.3 % Eos % (Auto) 1.4 % Baso % (Auto) 0.7 % Immature Gran # (Auto) 0.01 (0.00-0.02) K/uL Neut # (Auto) 4.64 (1.4-6.5) K/uL Lymph # (Auto) 1.59 (1.2-3.4) K/uL Gove # (Auto) 0.58 (0.11-0.59) K/uL Eos # (Auto) 0.10 (0-0.5) K/uL Baso # (Auto) 0.05 (0-0.2) K/uL PT 10.0 (9.0-12.0) Seconds INR 1.0 (0.9-1.1) Sodium (136-145) mmol/L Potassium (3.5-5.1) mmol/L Chloride (98-107) mmol/L Carbon Dioxide (21-32) mmol/L Anion Gap (3-11) BUN (7-18) mg/dl Creatinine (0.6-1.4) mg/dl Est Cr Clr Drug Dosing ml/min Est GFR ( Amer) Est GFR (Non-Af Amer) BUN/Creatinine Ratio (10-20) Glucose (70-99) mg/dl POC Glucose (70-99) Estimat Average Glucose mg/dl Hemoglobin A1c (4.5-5.6) % Calcium (8.5-10.1) mg/dl Phosphorus (2.5-4.9) mg/dl Magnesium (1.8-2.4) mg/dl Total Bilirubin (0.2-1) mg/dl AST (15-37) U/L ALT (12-78) U/L Alkaline Phosphatase (45-117) U/L Troponin I (0-0.045) ng/ml Total Protein (6.4-8.2) gm/dl Albumin (3.4-5.0) gm/dl Globulin (2.5-4.0) gm/dl Albumin/Globulin Ratio (0.9-2) Lipase (73-393) U/L Urine Color Urine Appearance (Clear) Urine pH (4.5-7.5) Ur Specific [place] (1.000-1.030) Urine Protein (Negative) Urine Glucose (UA) (Negative) Urine Ketones (Negative) Urine Blood (Negative) Urine Nitrite (Negative) Urine Bilirubin (Negative) Urine Urobilinogen (Negative) Ur Leukocyte Esterase (Negative) Blood Type Antibody Screen _ (1) GI bleed GI bleed type/associated pathology: unspecified gastrointestinal hemorrhage type Gastritis type: Qualified Code(s): K92.2 - Gastrointestinal hemorrhage, unspecified
[2018-07-19] MEDS: FLUTICASONE/SALMETEROL 250/50 (ADVAIR) 14 PUFF/1 INHALER INH SCH (10:45)
[2018-07-19] MEDS: PANTOprazole 40 MG in SYRINGE 0 ML IV SCH (10:46)
[2018-07-19] MEDS ORDERED: PROPOFOL IV EMULSION 10 MG/ML 20 ML VIAL IV ONE (10:56)
[2018-07-19] MEDS ORDERED: LIDOCAINE HCL 2% 2 ML VIAL/AMP(20MG/ML) INFIL ONE (10:56)
--- NOTE | 2018-07-19 11:02 | Anesthesiology Consultation ---
Date of Service July 19, 2018 Assessment & Plan (1) Encounter for pre-operative examination: Chart Review Chart Review: Acceptable Risk for Surgery and Patient NOT seen in Pre Admission Testing Consults Requested none ASA ASA4 Proposed Anesthesia Anesthesia Type: MAC Risk / Benefits Reviewed With: PT / POA / Parent / Guardian, Accepts Plan and Informed Consent Obtained NPO Date Last Intake of Fluids: 07/18/18 Time Last Intake of Fluids: 22:00 Date Last Intake of Solids: 07/18/18 Time Last Intake of Solids: 17:00 History Surgery Operation Date: 07/19/18 10:00 Proposed Procedures p Esophagogastroduodenoscopy Dr Alec Michael Height/Weight Height: 6 ft 3 in Weight: 89.8 kg Allergies Allergy/AdvReac Type Severity Reaction Status Date / Time simvastatin Allergy Severe CHEST PAIN Verified 07/18/18 10:52 naproxen Allergy Intermediate RASH Verified 07/18/18 10:52 Sulfa (Sulfonamide Allergy Intermediate Rash Verified 07/18/18 10:52 Antibiotics) nifedipine Allergy Unknown UNKNOWN Verified 07/18/18 10:52 propoxyphene Allergy Unknown _ Verified 07/18/18 10:52 Medications Home Medications Medication Instructions Recorded Confirmed Last Taken albuterol sulfate [Ventolin HFA] 2 puff INHALATION QID PRN 03/09/18 07/18/18 Unknown aspirin [Aspirin Childrens] 81 mg PO DAILY 03/09/18 07/18/18 03/09/18 cholecalciferol (vitamin D3) 1,000 unit PO DAILY 03/09/18 07/18/18 03/09/18 [Vitamin D3] docusate sodium 100 mg PO DAILY 03/09/18 07/18/18 03/09/18 fluticasone-salmeterol [Advair 1 inh INHALATION BID 03/09/18 07/18/18 03/09/18 09:00 Diskus] gabapentin 800 mg PO TID 03/09/18 07/18/18 03/09/18 09:00 isosorbide mononitrate 30 mg PO DAILY 03/09/18 07/18/18 03/09/18 lisinopril 20 mg PO DAILY 03/09/18 07/18/18 03/09/18 metoprolol succinate 25 mg PO QAM 03/09/18 07/18/18 03/09/18 pravastatin 10 mg PO DAILY 03/09/18 07/18/18 03/09/18 primidone 125 mg PO HS 03/09/18 07/18/18 03/09/18 09:00 tiotropium bromide 1 cap INHALATION DAILY 07/18/18 07/18/18 Unknown tramadol 50 mg PO BID PRN 07/18/18 07/18/18 Unknown Active Medications Generic Name Dose Route Start Last Admin Trade Name Freq PRN Reason Stop Dose Admin Acetaminophen 650 mg 07/18/18 15:45 07/18/18 20:50 Tylenol PO 08/17/18 15:44 650 mg Q4H PRN Administration Pain or Fever Docusate Sodium 100 mg 07/18/18 21:00 07/18/18 20:52 Colace PO 08/17/18 20:59 100 mg BID NISHA Administration Gabapentin 800 mg 07/18/18 16:30 07/18/18 21:53 Neurontin PO 08/17/18 16:29 800 mg TID NISHA Administration Pantoprazole Sodium 40 mg/ 10 mls @ 5 mls/min 07/18/18 21:00 07/19/18 10:46 Syringe IV 08/17/18 20:59 5 mls/min BID NISHA Administration Insulin Aspart 0 units 07/18/18 16:30 07/19/18 08:58 Novolog Flexpen SC 08/17/18 16:29 Not Given ACHS NISHA Isosorbide Mononitrate 30 mg 07/18/18 16:30 07/18/18 16:43 Imdur Extended Rel PO 08/17/18 16:29 30 mg DAILY NISHA Administration Lisinopril 20 mg 07/18/18 16:30 07/18/18 16:45 Zestril PO 08/17/18 16:29 20 mg DAILY NISHA Administration Primidone 125 mg 07/18/18 21:00 07/18/18 20:51 Primidone PO 08/17/18 20:59 125 mg HS NISHA Administration Fluticasone/Salmeterol 1 puffs 07/18/18 21:00 07/19/18 10:45 Advair Diskus 250/50 INH 08/17/18 20:59 Not Given BID NISHA Sennosides 8.6 mg 07/18/18 21:00 07/18/18 20:52 Senokot PO 08/17/18 20:59 8.6 mg BID NISHA Administration Tiotropium [place] 1 puffs 07/19/18 09:00 07/19/18 10:45 Spiriva INH 08/18/18 08:59 Not Given DAILY NISHA Tramadol HCl 50 mg 07/18/18 14:59 07/18/18 16:41 Ultram PO 08/17/18 14:58 50 mg Q6H PRN Administration Pain Past Medical History Medical History Systolic CHF, chronic EF 45% last echo 2017 Hypertension (Chronic) Dyslipidemia (Chronic) CAD (coronary artery disease) (Chronic) "2008- BERNICE left circumflex artery ; 2010- STEMI late in stent thrombosis of the left circumflex artery treated with angioplasty. He had an occluded right coronary artery at that time with [id number] collaterals. 2010- CABG shah to the LAD and a saphenous vein graft to the 1st diagonal branch" 2017 cardiac cath re-thrombosis to [place] and bypass, now recommending medical management Follows Dr. Helga Bowser Cardiology Essential tremor (Chronic) Chest pain Meningioma (Chronic) PUD (peptic ulcer disease) (Chronic) Chronic pain (Chronic) DM type 2 (diabetes mellitus, type 2) (Chronic) Ischemic cardiomyopathy (Chronic) Colorectal cancer (Chronic) Congenital hydrocephalus (Chronic) COPD (chronic obstructive pulmonary disease) (Chronic) Past Family History Family History Brother Colon cancer T2DM (type 2 diabetes mellitus) Mother T2DM (type 2 diabetes mellitus) Father No problems noted. Other No pertinent family history Past Surgical History Surgical History S/P CABG (coronary artery bypass graft) (Chronic) S/P coronary artery stent placement (Chronic) H/O hernia repair (Chronic) H/O eye surgery (Chronic) History of colon resection recto sigmoid resection Dr. Nair 2007 Social History Smoking Status: Former smoker Smoking cigarettes per day: 2 ppd x 40 years Smoking End Date: 06/13/2000 Hx Alcohol Use: Yes alcohol intake frequency: holidays/special occasions only Hx Substance Use: No Physical Exam Vital Signs Last Vital Signs Temp 36.3 C L 07/19/18 07:49 Pulse 49 L 07/19/18 07:49 Resp 18 07/19/18 07:49 BP 185/74 H 07/19/18 07:49 Pulse Ox 93 07/19/18 10:51 Testing Electrocardiogram Date: 07/19/18 Findings: + SB @ (53 BPM) PVCs. Possible inferior infarct before 06/2010. Laboratory Results 07/19/18 09:29 07/19/18 03:48 Blood Type B Positive 07/18/18 10:43 Antibody Screen NEGATIVE 07/18/18 10:43 PT 10.0 Seconds (9.0-12.0) 07/18/18 10:43 INR 1.0 (0.9-1.1) 07/18/18 10:43 Hemoglobin A1c 6.0 % (4.5-5.6) H 07/19/18 03:48 Urine Color Yellow 07/18/18 12:40 Urine Appearance Clear (Clear) 07/18/18 12:40 Urine pH 6.0 (4.5-7.5) 07/18/18 12:40 Ur Specific [place] 1.032 (1.000-1.030) H 07/18/18 12:40 Urine Protein Negative (Negative) 07/18/18 12:40 Urine Glucose (UA) Negative (Negative) 07/18/18 12:40 Urine Ketones Negative (Negative) 07/18/18 12:40 Urine Nitrite Negative (Negative) 07/18/18 12:40 Ur Leukocyte Esterase Negative (Negative) 07/18/18 12:40 07/19/18 08:08 POC Glucose 83
--- NOTE | 2018-07-19 11:23 | Hospitalist Progress Note ---
Date of Service July 19, 2018 Assessment & Plan (1) GI bleed: This is a 72 year old male with significant PMH of CAD s/p BERNICE to Lcx 12/19 with stent thrombosis and eventual CABG x 2 2010, 100% reocclusion of [place] and bypass graft now management medically, S-CHF EF 45%, HTN, HLD, T2DM, PUD, hx of congenital hydrocephalus, meningioma, hx of colon ca s/p rectosigmoid resection and other dx as noted below who presents to [facility] ED secondary to melena x 1 week. In ED FOBT positive, H&H stable at 16 and 46.3, BUN/creatinine stable at 16 and 0.93, troponin within normal limits. EKG revealed sinus bradycardia and old inferior infarct. Patient was hypertensive per prior readings; however upon my recheck he was 115/85 in RUE. He is complaining of R great toe pain, requesting analgesia. He does have some mild epigastric tenderness Patient is being admitted given melena x 1 week, FOBT +, hx of PUD and strong cardiac history, like UGIB -med/surg telemetry -type and screen, no need for transfusion at this time as h/h stable -consult GI -trend H/H q6 -PPI BID -clear liquid diet tonight, NPO for EGD today -trend cbc, bmp -hold ASA (2) CAD (coronary artery disease): -continue metoprolol, lisinopril -hold ASA in setting of GIB -no active CP or SOB (3) Systolic CHF, chronic: -continue BB and VALENTIN -monitor volume status (4) Hypertension: -continue lisinopril, metoprolol, imdur, Add hydralazine (5) Dyslipidemia: -continue statin (6) DM type 2 (diabetes mellitus, type 2): -monitor BGM AC/HS with novolog coverage per protocol -AIC 6.0 (7) AAA (abdominal aortic aneurysm): -no hx of prior AAA, but patient does have history of unruptured cerebral aneursym [facility] -will need close outpatient follow up/establishment with vascular -3.8 x 4.0 cm infrarenal mural thrombus noted in aneursymal sac (8) Essential tremor: -continue primidone (9) DVT prophylaxis: -SCDS/TEDs secondary to +FOBT, melena reported -encourage ambulation Disposition: to be determined Follow up: PCP Dr. Monzon, [facility] Subjective ROS-No Headache, No Visual Changes, No Fever, No Chills, No Neck Pain or Stiffness, No Chest Pain, No Palpitations, No SOB, No MCKOY, No Cough, No Sputum, No Wheezing, No Abdominal Pain, No Diarrhea, No Hematemesis, No Hemoptysis, No Unexpected Weight Loss, No Flank pain, + Melena, + Hematochezia, No Frequency, No Urgency, No Burning, No Hematuria, No Rashes, No Diaphoresis. Appetite is Normal Physical Exam Gen-AAO x 3, NAD, Afebrile, +Tremor Head-NCAT, EOMI, PERRLA, Anicteric Sclera, No Posterior Pharyngeal Erythema Neck-Supple, No JVD, No Thyromegaly, No Masses, No LAD, No Bruits Lungs-Clear to Auscultation Bilaterally, No Rales, No Rhonchi, No Wheezing, No Crepitus Chest-No S4, +S1, +S2, No S3, No Murmurs, No Rubs, No Gallops, No Ectopy Abdomen-Soft, Bowel Sounds Present, Non Tender, Non Distended, No Hepatomegaly, No Splenomegaly, No Palpable Masses, No Rebound, No Rigidity, No Guarding Musculoskeletal-Full Range of Motion Bilaterally, No CVAT Extremities-No Cyanosis, No Clubbing, No Edema Nuero-Cranial Nerves II-XII grossly intact, Motor WNL, DTRs WNL, Strength WNL, Non Focal, Tremor Psych-Normal Mood Physical Exam 2 Vital Signs (Past 24 Hours): Last Vital Signs Temp 36.3 C L 07/19/18 07:49 Pulse 49 L 07/19/18 07:49 Resp 18 07/19/18 07:49 BP 185/74 H 07/19/18 07:49 Pulse Ox 93 07/19/18 10:51 Results & Data Laboratory Results Reviewed _ (1) GI bleed GI bleed type/associated pathology: unspecified gastrointestinal hemorrhage type Gastritis type: Qualified Code(s): K92.2 - Gastrointestinal hemorrhage, unspecified (2) CAD (coronary artery disease) Coronary Disease-Associated Artery/Lesion type: bypass graft [place] vs. transplanted heart: [place] heart Associated angina: without angina Qualified Code(s): I25.810 - Atherosclerosis of coronary artery bypass graft(s) without angina pectoris (3) Hypertension Hypertension type: essential hypertension Qualified Code(s): I10 - Essential (primary) hypertension (4) DM type 2 (diabetes mellitus, type 2) Diabetes mellitus skilled nursing insulin use: without oysterman use Diabetes mellitus complication status: without complication Diabetes mellitus complication detail: Diabetic retinopathy severity: Proliferative retinopathy type: Diabetes mellitus macular edema: Laterality: Chronic kidney disease stage: Qualified Code(s): E11.9 - Type 2 diabetes mellitus without complications
[2018-07-19] MEDS ORDERED: ePHEDrine sulfate 50 MG/ML AMP IV PRN (11:31)
[2018-07-19] MEDS ORDERED: ATROPINE SULFATE 0.1 MG/ML 10ML SYR IV PRN (11:31)
--- NOTE | 2018-07-19 11:56 | GI REPORT ---
Patient Name: Christos Domingo Procedure Date: 07/19/2018 11:32 AM Date of : 1945 Admit Type: Inpatient Age: 72 Gender: Male Attending MD: Rachel Michael DO Procedure: Upper GI endoscopy Providers: Rachel Michael DO Referring MD: Parish Romero Do Indications: Melena Medicines: Monitored Anesthesia Care Complications: No immediate complications. Estimated blood loss: Minimal. Estimated Blood Loss: Estimated blood loss was minimal. Procedure: Pre-Anesthesia Assessment: - Prior to the procedure, a History and Physical was performed, and patient medications, allergies and sensitivities were reviewed. The patient's tolerance of previous anesthesia was reviewed. - Patient identification and proposed procedure were verified prior to the procedure by the physician, the nurse and the roof technician. The procedure was verified in the procedure room. - Pre-procedure physical examination revealed no contraindications to sedation. - ASA Grade Assessment: IV - A patient with severe systemic disease that is a constant threat to life. - After reviewing the risks and benefits, the patient was deemed in satisfactory condition to undergo the procedure. - The anesthesia plan was to use monitored anesthesia care (MAC). - Immediately prior to administration of medications, the patient was re-assessed for adequacy to receive sedatives. - The heart rate, respiratory rate, oxygen saturations, blood pressure, adequacy of pulmonary ventilation, and response to care were monitored throughout the procedure. - The physical status of the patient was re-assessed after the procedure. After obtaining informed consent, the endoscope was passed under direct vision. Throughout the procedure, the patient's blood pressure, pulse, and oxygen saturations were monitored continuously. The Endoscope was introduced through the mouth, and advanced to the fourth part of duodenum. The upper GI endoscopy was accomplished without difficulty. The patient tolerated the procedure well. Findings: The examined esophagus was normal. The Z-line was regular and was found 38 cm from the incisors. The cardia, gastric fundus and gastric body were normal. Several non-obstructing non-bleeding, healing gastric ulcers of mild severity with no stigmata of bleeding were found in the gastric antrum. Biopsies were taken with a cold forceps for histology. Estimated blood loss was minimal. The examined duodenum was normal. Impression: - Normal esophagus. - Z-line regular, 38 cm from the incisors. - Normal cardia, gastric fundus and gastric body. - Healing ulcers of the gastric antrum, likely related to NSAID use. - Normal examined duodenum. Recommendation: - [facility]. - Advance diet as tolerated today. - Use Prilosec (omeprazole) 20 mg PO daily indefinitely. - Await pathology results. - Perform a colonoscopy at appointment to be scheduled (may be done as an OP). - Consdier a vascular surgery evaluation given the infrarenal anneurysm seen on CT. Rachel Michael D.O. Rachel Michael, 07/19/2018 11:55:54 AM This report has been signed electronically. Note Initiated On: 07/19/2018 11:32 AM Number of Addenda: 0 I attest to the content of the Intraoperative Record and orders documented therein, exceptions below {[id number]}
[2018-07-19] MEDS: DOCUSATE SODIUM 100 MG CAP PO SCH (13:37)
[2018-07-19] MEDS: GABAPENTIN 400 MG CAP PO SCH ×2 (13:37→13:42)
[2018-07-19] MEDS: ISOSORBIDE MONO EXTENDED REL 30 MG TABCR PO SCH (13:38)
[2018-07-19] MEDS: LISINOPRIL 20 MG TAB PO SCH (13:40)
[2018-07-19] MEDS: SENNA 8.6 MG TAB PO SCH (13:40)
[2018-07-19] MEDS ORDERED: HydrALAZINE TAB 50 MG TAB PO SCH (14:00)
--- NOTE | 2018-07-19 14:46 | Anesthesiology Progress Note ---
Date of Service July 19, 2018 Anesthesia Post Procedure Vital Signs Vital Signs: Temp Pulse Pulse Resp BP BP BP 07/19/18 13:32 56 L 153/91 H 07/19/18 12:56 36.3 C L 53 L 18 173/75 H 07/19/18 12:25 46 L 18 139/72 07/19/18 12:12 49 L 18 118/67 07/19/18 11:58 36.8 C 48 L 18 137/60 07/19/18 10:51 07/19/18 07:49 36.3 C L 49 L 18 185/74 H 07/19/18 03:58 36.6 C 63 16 134/73 07/18/18 23:39 36.6 C 46 L 16 118/66 07/18/18 19:25 52 L 07/18/18 18:29 36.7 C 87 18 108/68 07/18/18 15:31 51 L 18 126/79 Pulse Ox 07/19/18 13:32 07/19/18 12:56 93 07/19/18 12:25 98 07/19/18 12:12 94 07/19/18 11:58 97 07/19/18 10:51 93 07/19/18 07:49 97 07/19/18 03:58 93 07/18/18 23:39 93 07/18/18 19:25 07/18/18 18:29 95 07/18/18 15:31 98 Pain Intensity Lower Back: Pain Intensity: 5 Abdomen: Pain Intensity: 6 Notes Mental Status: alert / awake / arousable Patient Amnestic to Procedure: Yes Nausea / Vomiting: adequately controlled Pain: adequately controlled Airway Patency, RR, SpO2: stable & adequate BP & HR: stable & adequate Hydration State: stable & adequate Anesthetic Complications: no major complications apparent and Pt Satisfied with anesthetic care
--- NOTE | 2018-07-19 15:23 | Discharge Summary ---
Date of Service July 19, 2018 Admission HPI Per Admitting Provider This is a 72 year old male with significant PMH of CAD s/p BERNICE to Lcx 12/19 with stent thrombosis and eventual CABG x 2 2010, 100% reocclusion of [place] and bypass graft now management medically, S-CHF EF 45%, HTN, HLD, T2DM, PUD, hx of congenital hydrocephalus, meningioma, hx of colon ca s/p rectosigmoid resection and other dx as noted below who presents to [facility] ED secondary to melena x 1 week. Pt reported to PCP Dr. Monzon today who recommended he seek ED eval given symptoms. Reports black tarry stools, last BM today. States he had a colonoscopy 1 year ago performed at [facility]; however upon further questioning this is unknown as PH last colonoscopy on record was in 2009 and patient states "yeah that might be right." Also notes mild BRBPR but no pain with BM. Denies recent illness, f/c/s, dizziness, lightheaded, chest pain, sob, swain, n/v/d. Minimal epigastric abdominal discomfort. Appetite has been normal. Has had a 80# weight loss intentionally given heart history per patient 260lb-->180lb. He denies any significant ETOH/NSAID use. Reports hx of PUD disease in past. Reports fall in past couple weeks where he slid of chair. NKI and he walks with walker at baseline. Admission Exam Per Admitting Provider Temp 36.7 C 07/18/18 10:23 Pulse 52 L 07/18/18 13:30 Resp 16 07/18/18 13:30 BP 154/121 H 07/18/18 13:30 Pulse Ox 96 07/18/18 11:17 Physical Exam: Gen: WD/WN, Tall, M appears older than stated age, NAD, sitting up in bed, pleasant, conversing easily and answering questions appropriately, excessive facial hair Head: Normocephalic, Atraumatic Eyes: Sclera normal, no conjunctival injection, PERRLA, EOMI ENT: Gross hearing intact, normal pharynx, mucous membranes dry, +dentures Neck: supple, no adenopathy, No JVD, no bruit, Resp: Clear to auscultation b/l, no wheeze, rales, rhonchi. Normal insp/exp effort, no accessory muscle use CV: Regular rate, regular rhythm, no murmur, rub, gallop, or ectopy Abd: +BS x 4, soft, + epigastric tenderness, nondistended, no rebound, guarding , rigidity Musculoskeletal: moves extremities active rom x 4, strength intact, good professor of history strength Extremities: No edema bilaterally Skin: warm, moist, no rash, negative turgor, cap refill < 2sec Neuro: Alert and oriented x 3, +slight headbobbing tremor, +b/l upper ext pill rolling tremor noted,speech normal, mood/affect intact, cran nerve 2-12 intact grossly : deferred Principal Diagnosis Melena HTN DLD Chronic CHF DMII Chronic Pain PUD CAD ICardiomyopathy Discharge Exam ROS-No Headache, No Visual Changes, No Fever, No Chills, No Neck Pain or Stiffness, No Chest Pain, No Palpitations, No SOB, No SWAIN, No Cough, No Sputum, No Wheezing, No Abdominal Pain, No Diarrhea, No Hematemesis, No Hemoptysis, No Unexpected Weight Loss, No Flank pain, + Melena, No Hematochezia, No Frequency, No Urgency, No Burning, No Hematuria, No Rashes, No Diaphoresis. Appetite is Normal Physical Exam Gen-AAO x 3, NAD, Afebrile Head-NCAT, EOMI, PERRLA, Anicteric Sclera, No Posterior Pharyngeal Erythema Neck-Supple, No JVD, No Thyromegaly, No Masses, No LAD, No Bruits Lungs-Clear to Auscultation Bilaterally, No Rales, No Rhonchi, No Wheezing, No Crepitus Chest-No S4, +S1, +S2, No S3, No Murmurs, No Rubs, No Gallops, No Ectopy Abdomen-Soft, Bowel Sounds Present, Non Tender, Non Distended, No Hepatomegaly, No Splenomegaly, No Palpable Masses, No Rebound, No Rigidity, No Guarding Musculoskeletal-Full Range of Motion Bilaterally, No CVAT Extremities-No Cyanosis, No Clubbing, No Edema Nuero-Cranial Nerves II-XII grossly intact, Motor WNL, DTRs WNL, Strength WNL, No Focal Psych-Normal Mood Discharge Data Allergies Allergy/AdvReac Type Severity Reaction Status Date / Time simvastatin Allergy Severe CHEST PAIN Verified 07/18/18 10:52 naproxen Allergy Intermediate RASH Verified 07/18/18 10:52 Sulfa (Sulfonamide Allergy Intermediate Rash Verified 07/18/18 10:52 Antibiotics) nifedipine Allergy Unknown UNKNOWN Verified 07/18/18 10:52 propoxyphene Allergy Unknown _ Verified 07/18/18 10:52 Consultations 07/18/18 13:05 ED Decision to Admit Stat 07/18/18 13:56 Consult Gastroenterology Routine 07/18/18 15:45 Consult Case Management - Discharge Planning Routine Current Diagnoses Type 2 diabetes mellitus without complications (07/18/18) Hyperlipidemia, unspecified (07/18/18) Essential tremor (07/18/18) Essential (primary) hypertension (07/18/18) Atherosclerosis of coronary artery bypass graft(s) without angina pectoris (10/29) Chronic systolic (congestive) heart failure (07/18/18) Abdominal aortic aneurysm, without rupture (07/18/18) Gastrointestinal hemorrhage, unspecified (07/18/18) Encounter for other preprocedural examination (07/18/18) Allergies simvastatin Allergy (Severe, Verified 07/18/18 10:52) CHEST PAIN naproxen Allergy (Intermediate, Verified 07/18/18 10:52) RASH Sulfa (Sulfonamide Antibiotics) Allergy (Intermediate, Verified 07/18/18 10:52) Rash nifedipine Allergy (Unknown, Verified 07/18/18 10:52) UNKNOWN propoxyphene Allergy (Unknown, Verified 07/18/18 10:52) _ Height/Weight/Isolation Height 6 ft 3 in Weight 89.8 kg Chemistry 07/18/18 07/19/18 10:43 03:48 Sodium 136 138 Potassium 4.7 4.3 Chloride 102 106 Carbon Dioxide 29 28 Anion Gap 5.0 4.0 BUN 16 13 Creatinine 0.93 0.68 Glucose 95 92 Urinalysis 07/18/18 12:40 Urine Color Yellow Urine Appearance Clear Urine pH 6.0 Ur Specific Paradox 1.032 H Urine Protein Negative Urine Glucose (UA) Negative Urine Ketones Negative Urine Blood Negative Urine Nitrite Negative Urine Bilirubin Negative Procedures Performed Operation Date: 07/19/18 10:00 Actual Procedures p EGD Biopsy Cytology - Rachel Michael Ordered Studies 07/18/18 10:27 CT abd pelvis IV con only Stat Hospital Course (1) GI bleed: This is a 72 year old male with significant PMH of CAD s/p BERNICE to Lcx 12/19 with stent thrombosis and eventual CABG x 2 2010, 100% reocclusion of [place] and bypass graft now management medically, S-CHF EF 45%, HTN, HLD, T2DM, PUD, hx of congenital hydrocephalus, meningioma, hx of colon ca s/p rectosigmoid resection and other dx as noted below who presents to [facility] ED secondary to melena x 1 week. In ED FOBT positive, H&H stable at 16 and 46.3, BUN/creatinine stable at 16 and 0.93, troponin within normal limits. EKG revealed sinus bradycardia and old inferior infarct. Patient was hypertensive per prior readings; however upon my recheck he was 115/85 in RUE. He is complaining of R great toe pain, requesting analgesia. He does have some mild epigastric tenderness Patient is being admitted given melena x 1 week, FOBT +, hx of PUD and strong cardiac history, like UGIB -DC home today and follow-up with GI as an outpatient for EGD results and possible colonoscopy given hemoglobin is stable -hold ASA (2) CAD (coronary artery disease): -continue metoprolol, lisinopril -hold ASA in setting of GIB-restart in 7 days -no active CP or SOB (3) Systolic CHF, chronic: -continue BB and VALENTIN -monitor volume status (4) Hypertension: -continue lisinopril, metoprolol, imdur (5) Dyslipidemia: -continue statin (6) DM type 2 (diabetes mellitus, type 2): l -AIC 6.0 (7) AAA (abdominal aortic aneurysm): -no hx of prior AAA, but patient does have history of unruptured cerebral aneursym followed by Neurology [facility] -will need close outpatient follow up/establishment with vascular -3.8 x 4.0 cm infrarenal mural thrombus noted in aneursymal sac (8) Essential tremor: -continue primidone (9) DVT prophylaxis: -SCDS/TEDs secondary to +FOBT, melena reported Disposition: DC home today and follow-up with GI for outpatient colonoscopy and EGD results Follow up: PCP Dr. Monzon, [facility] [address] Total Time Total Time Spent Total Time Spent (In Minutes): 45 minutes Total Time Includes: Examination of the Patient, Discharge Planning, Medication Reconciliation and Communication With Other Providers Discharge Plan Discharge Items Patient Disposition: Home - Self-Care Reason For Visit: UPPER GIB Discharge Diagnosis: Melena HTN DLD Chronic CHF DMII Chronic Pain PUD CAD ICardiomyopathy Discharge Goals: Screening Activity: Resume your previous activity Lifting: Gradually increase as tolerated Bathing: No limitations Sexual Activity: When tolerated Exercise/Sports: Gradually increase as tolerated Driving/Machine Use: No limitations Weightbearing: Left weightbearing and Right weightbearing Non-emergency contact: Primary Care Provider and Cable Tool Driller Call non-emergency contact if: you have any medication questions and your symptoms worsen Follow-up/Referrals: Rachel Michael [Physician] - (Call for EGD (Upper Scope) results and further instructions from GI for colonoscopy if needed) Diet: Carb Consistent or DM2 and Heart Healthy Addtl Provider Instructions: Monitor hemoglobin hematocrit as an outpatient, outpatient colonoscopy with GI, EGD results with GI hemoglobin was stable so he sent him home. He can do an outpatient colonoscopy, his aspirin has been held for 1 week Prescriptions: New pantoprazole 40 mg Tablet,Delayed Release (Dr/Ec) 40 mg PO QAM Qty: 30 RF: 0 Continue primidone 50 mg Tablet 125 mg PO HS RF: 0 fluticasone-salmeterol [Advair Diskus] 250-50 mcg/dose Blister With Device 1 inh INHALATION BID RF: 0 lisinopril 20 mg Tablet 20 mg PO DAILY RF: 0 isosorbide mononitrate 30 mg Tablet Extended Release 24 Hr 30 mg PO DAILY RF: 0 gabapentin 400 mg Capsule 800 mg PO TID RF: 0 pravastatin 10 mg Tablet 10 mg PO DAILY RF: 0 docusate sodium 100 mg Capsule 100 mg PO DAILY RF: 0 aspirin [Aspirin Childrens] 81 mg Tablet,Chewable 81 mg PO DAILY RF: 0 metoprolol succinate 25 mg Tablet Extended Release 24 Hr 25 mg PO QAM RF: 0 albuterol sulfate [Ventolin HFA] 90 mcg/actuation Hfa Aerosol Inhaler 2 puff INHALATION QID PRN (Reason: Shortness Of Breath) RF: 0 cholecalciferol (vitamin D3) [Vitamin D3] 1,000 unit Capsule 1,000 unit PO DAILY RF: 0 tramadol 50 mg Tablet 50 mg PO BID PRN (Reason: Pain) RF: 0 tiotropium bromide 18 mcg Capsule, W/Inhalation Device 1 cap INHALATION DAILY RF: 0 Stand-Alone Forms: [facility] Discharge Orders: Discharge Order (Routine); Ordered 07/19/18 Ordered By: Parish Romero Admission Data Admit Date/Time: 07/18/18 13:56 Attending Provider: Parish Romero Admit Provider: Celestino Araujo Primary Care Provider: Aly Monzon Other Providers: Malissa Michael Manabendra Service: Telemetry Other Interventions: Discharge Summary Assessment (RN) Last Done: 07/19/18 12:33
[2018-07-20] MEDS ORDERED: PANTOprazole 40 MG TAB PO SCH (09:00)
== END 2018-07-19 17:15 | disposition home or self-care (01) ==
LOC: 2N 10:09 → ED 10:09 → 2N 15:31

== ENCOUNTER 2019-06-23 06:57 | Inpatient (IN) ==
[2019-06-23] MEDS ORDERED: SODIUM CHLORIDE 0.9% 1000ML 1,000 ML IV SCH (07:15)
--- NOTE | 2019-06-23 07:16 | Emergency Department Note ---
Entered by Brian Car acting as a scribe for History of Present Illness General Chief complaint: Fall Stated complaint: FALL/ILL Time Seen by Provider: 06/23/19 06:59 Source: patient and EMS Limitations: no limitations History of Present Illness Onset (ago): hour(s) ([employer]) Location: knee (both knees) Severity: similar to prior episodes Pain Consistency: + constant Quality: + constant Associated symptoms: + denies other symptoms (abdominal pain, bloody stools); no fever/chills (fevers) and no syncope The patient is a 75 year old male who presents to the Emergency Room for an ev aluation after a fall occurring [employer]. The patient states he tried to get up from the commode and then fell. He states he hit both his knees on the floor, and is having constant knee pain. The patient denies hitting his head and passing out. He states he has not eaten for the past two days and notes he has been feeling weak. He states he gets intermittent chest pain since his angioplasty, but he notes the chest pain is unchanged. The patient denies having fevers, bloody stools, and abdominal pain. EMS notes the patient falls frequently and his is inpatient upstairs. Home Medications Home Medications Medication Instructions Recorded Confirmed Type albuterol sulfate [Ventolin HFA] 2 puff INHALATION Q6 PRN 03/09/18 06/23/19 History aspirin [Aspirin Childrens] 81 mg PO QAM 03/09/18 06/23/19 History cholecalciferol (vitamin D3) 1,000 unit PO QAM 03/09/18 06/23/19 History [Vitamin D3] docusate sodium 100 mg PO QAM 03/09/18 06/23/19 History fluticasone propion-salmeterol 1 inh INHALATION BID 03/09/18 06/23/19 History [Advair Diskus] gabapentin 800 mg PO TID 03/09/18 06/23/19 History isosorbide mononitrate 30 mg PO QAM 03/09/18 06/23/19 History lisinopril 20 mg PO QAM 03/09/18 06/23/19 History metoprolol succinate 25 mg PO QAM 03/09/18 06/23/19 History pravastatin 10 mg PO DAILY 03/09/18 06/23/19 History tiotropium bromide 1 cap INHALATION DAILY 02/05/19 01/11/20 History omeprazole 20 mg PO DAILY 07/30/18 06/23/19 History primidone [Mysoline] 100 mg PO BID 07/30/18 06/23/19 History meloxicam 7.5 mg PO BID PRN 09/05/18 06/23/19 History B Complex Plus Vitamin C 1 cap PO DAILY 11/29/18 06/23/19 History nitroglycerin [Nitrostat] 0.4 mg SUBLINGUAL DIRECTED PRN 02/17/19 06/23/19 History diclofenac sodium 2 g TOPICAL QID PRN 06/23/19 06/23/19 History Allergies Allergy/AdvReac Type Severity Reaction Status Date / Time simvastatin Allergy Severe CHEST PAIN Verified 06/23/19 08:24 naproxen Allergy Intermediate RASH Verified 06/23/19 08:24 Sulfa (Sulfonamide Allergy Intermediate Rash Verified 06/23/19 08:24 Antibiotics) nifedipine Allergy Unknown UNKNOWN Verified 06/23/19 08:24 propoxyphene Allergy Unknown Unknown Verified 06/23/19 08:24 Past Med/Surg History Medical History Anxiety Borderline diabetes CAD (coronary artery disease) (Chronic) "2008- [facility] left circumflex artery ; 2010- STEMI late in stent thrombosis of the left circumflex artery treated with angioplasty. He had an occluded right coronary artery at that time with [id number] collaterals. 2010- CABG shah to the LAD and a saphenous vein graft to the 1st diagonal branch" 2017 cardiac cath re-thrombosis to robinson and bypass, now recommending medical management Follows Dr. Helga Bowser Cardiology Chest pain Chronic pain (Chronic) Colorectal cancer (Chronic) 2006--sx Congenital hydrocephalus (Chronic) COPD (chronic obstructive pulmonary disease) (Chronic) Depression Dyslipidemia (Chronic) Essential tremor (Chronic) Hypertension (Chronic) Ischemic cardiomyopathy (Chronic) Meningioma (Chronic) Myocardial Infarction 1990 On home oxygen therapy O2 at 3L N/C prn Osteoarthritis Parkinson disease PUD (peptic ulcer disease) (Chronic) Systolic CHF, chronic EF 45% last echo 2017 Tremor of right hand Surgical History History of bilateral cataract extraction History of cardiac cath x2--1990, 2013? @ [facility] History of colon resection recto sigmoid resection Dr. Nair 2006 History of colonoscopy History of open reduction and internal fixation (ORIF) procedure arm, hardware removed History of right inguinal hernia repair x2 History of strabismus surgery one on each eye History of tooth extraction all teeth removed S/P CABG (coronary artery bypass graft) (Chronic) 2013 @ [facility] S/P coronary artery stent placement (Chronic) x2-(1)1990, (1) 2013 Family History Brother Colon cancer T2DM (type 2 diabetes mellitus) Mother T2DM (type 2 diabetes mellitus) Father No problems noted. Other No family history of adverse response to anesthesia Social History Preferred Language: Moroccan Communication Ability: Effective Javascript Programmer Required: No Beliefs That Will Affect Care: None marital status: Current Living Situation: Spouse Current Living Situation Comment: Walks with walker Feels Safe at Home: Yes Smoking Status: Never smoker Tobacco Type: cigarettes ; Cigarettes Per Day: 2 ppd x 40 years ; Second Hand Exposure: No ; Hx Alcohol Use: No Hx Substance Use: No Review of Systems See HPI for pertinent positives & negatives. and A total of 10 systems reviewed and were otherwise negative Physical Exam Vital Signs Vital Signs - 24 hr 06/23/19 07:02 06/23/19 07:10 06/23/19 09:00 Temperature 36.4 C L Temperature Source Oral Pulse Rate 82 Pulse Rate [Finger] 48 L 60 Pulse Rhythm [Finger] Regular Pulse Strength [Finger] Normal Respiratory Rate 18 15 Respiratory Effort / Characteristics Non-Labored Spontaneous Non-Labored Spontaneous Respiratory Depth Normal Normal Respiratory Pattern Regular Blood Pressure 115/90 Blood Pressure [Right Arm] 175/86 H Blood Pressure Mean 98 Blood Pressure Mean [Right Arm] 115 Blood Pressure Position [Right Arm] Lying Pulse Oximetry 96 100 Oxygen Delivery Method Room Air Room Air Sepsis Recent Fever Within 48 Hours No Sepsis Action Taken by Nursing No Action Required General: Somewhat disheveled appearing older male in no acute distress. HEENT: Normal cephalic atraumatic. Pupils are equal round and reactive to light. Extraocular movements are intact. Oropharynx is pink with moist mucous membranes. No swelling of the mouth lips or tongue. Neck: Supple with a midline trachea. No meningeal signs or stiffness, no JVD or bruits. No Stridor. Chest: Clear to auscultation bilaterally. No wheezes or rhonchi. No increased work of breathing. Heart: regular rate and rhythm. Abdomen: Soft nontender, nondistended without rebound guarding or rigidity. Extremities: No cyanosis clubbing or edema. No calf tenderness or asymmetry Spine/Back. Non tender to palpation. No CVA tenderness Skin: Good turgor without rashes. Neurologic exam: Cranial nerves two through 12 are intact. Motor and sensation are intact and symmetrical throughout. Course Course 0700: The patient was evaluated in room A2, and a complete history and physical examination were performed. 0815: I reevaluated the patient. He is comfortable. I talked to him about him not being able to care for himself because his is not at home/ 33: I discussed the patient's case with Dr. Lenora Bowser Hospitalist. He will evaluate the patient for further management Administered Medications Discontinued Medications Sodium Chloride (Nss 1000ml) 1,000 mls @ 999 mls/hr IV .Q1H1M NISHA Stop: 06/23/19 08:15 Last Infusion: 06/23/19 09:10 Dose: 0 mls/hr Documented by: [id number] Admin: 06/23/19 08:01 Dose: 999 mls/hr Documented by: [id number] Medical Decision Making Differential Diagnosis Differential Diagnosis includes but is not limited to trauma, dehydration, cardiac disease, and electrolyte or metabolic abnormality. Medical Records Attestation: I reviewed the patient's medical records. Home Medications Current Medication List: was personally reviewed by me Laboratory Data Attestation: I reviewed the patient's lab results. Result diagrams: 06/23/19 07:40 06/23/19 07:40 Lab Results 06/23/19 06/23/19 06/23/19 Range/Units 07:40 07:40 10:10 WBC 6.73 (4.8-10.8) K/uL RBC 5.22 (4.7-6.1) M/uL Hgb 15.5 (14.0-18.0) g/dL Hct 45.1 (42-52) % MCV 86.4 (80-100) fL MCH 29.7 (25-34) pg MCHC 34.4 (32-36) g/dL RDW Std Deviation 44.8 (36.4-46.3) fL RDW Coeff of Mine 14.2 (11.5-14.5) % Plt Count 182 (130-400) K/uL MPV 9.0 (7.4-10.4) fL Immature Gran % (Auto) 0.1 % Neut % (Auto) 62.4 % Lymph % (Auto) 25.6 % [place] % (Auto) 9.4 % Eos % (Auto) 2.1 % Baso % (Auto) 0.4 % Immature Gran # (Auto) 0.01 (0.00-0.02) K/uL Neut # (Auto) 4.20 (1.4-6.5) K/uL Lymph # (Auto) 1.72 (1.2-3.4) K/uL [place] # (Auto) 0.63 H (0.11-0.59) K/uL Eos # (Auto) 0.14 (0-0.5) K/uL Baso # (Auto) 0.03 (0-0.2) K/uL Sodium 140 (136-145) mmol/L Potassium 4.4 (3.5-5.1) mmol/L Chloride 108 H (98-107) mmol/L Carbon Dioxide 30 (21-32) mmol/L Anion Gap 2.0 L (3-11) BUN 17 (7-18) mg/dl Creatinine 0.98 (0.6-1.4) mg/dl Est Cr Clr Drug Dosing 81.4 ml/min Est GFR ( Amer) 88.9 Est GFR (Non-Af Amer) 76.7 BUN/Creatinine Ratio 17.7 (10-20) Glucose 108 H (70-99) mg/dl Calcium 8.9 (8.5-10.1) mg/dl Total Bilirubin 0.6 (0.2-1) mg/dl AST 21 (15-37) U/L ALT 23 (12-78) U/L Alkaline Phosphatase 97 (45-117) U/L Troponin I < 0.015 (0-0.045) ng/ml Total Protein 6.5 (6.4-8.2) gm/dl Albumin 3.4 (3.4-5.0) gm/dl Globulin 3.1 (2.5-4.0) gm/dl Albumin/Globulin Ratio 1.1 (0.9-2) TSH 1.630 (0.300-4.500) uIu/ml Urine Color Yellow Urine Appearance Clear (Clear) Urine pH 5.5 (4.5-7.5) Ur Specific [place] 1.008 (1.000-1.030) Urine Protein Negative (Negative) Urine Glucose (UA) Negative (Negative) Urine Ketones Negative (Negative) Urine Blood Negative (Negative) Urine Nitrite Negative (Negative) Urine Bilirubin Negative (Negative) Urine Urobilinogen Negative (Negative) Ur Leukocyte Esterase Negative (Negative) Imaging Data Radiologist's Impression: Radiology results as stated below per my review and the radiologist's interpretation: XR knee LT 1 or 2V routine, XR knee RT 1 or 2V routine CLINICAL HISTORY: fall. Bilateral knee pain. COMPARISON STUDY: Left knee 11/29/2018. FINDINGS: The bones are osteopenic. No fracture or dislocation. No significant knee effusion. Surgical clips within the medial left knee. Mild cartilage space narrowing within the medial compartments of the bilateral knees consistent with degenerative change. No significant soft tissue swelling. IMPRESSION: No fractures within the right or left knee. ACT 112: Negative or not required by law. Electronically signed by: Jose Armstrong M.D. 06/23/2019 8:24 AM XR chest 1V portable HISTORY: weakness COMPARISON: None. FINDINGS: The lungs are clear. Cardiac silhouette remains mildly enlarged.. No pleural effusions. No pneumothorax. Poststernotomy changes. IMPRESSION: No significant change compared to the prior study. No acute process. Stable mild cardiomegaly. ACT 112: Negative or not required by law. Electronically signed by: Jose Armstrong M.D. 06/23/2019 8:28 AM ECG Data Attestation: I personally reviewed and interpreted this ECG as follows: Indication: + weakness Rate (beats per minute): 50 Rhythm: + sinus bradycardia ECG Findings: + Other (Old inferior infarct, Non-specific lateral T waves) Comparison ECG Date: from (02/20/19) Change: no significant change Blood Pressure Blood Pressure Findings: Elevated blood pressure Blood Pressure Disposition: further management by hospitalist [facility] Narrative This patient comes in as described above. He was placed in room A2. He fell when getting off of the toilet today and landed on both of his knees. there is no syncope or any acute chest pain or other acute symptoms. He has no external signs of trauma his knees are nontender. I did order x-rays however. I think the bigger issue is more of a social issue his who he lives at home with has been hospitalized for advanced cancer. He has not eaten for a couple days. He was supposed to have Meals on Wheels. I think he he is weak because he is not been eating. He does have about several medical problems. In light of this, I did have IV access established and gave him a fluid bolus of IV normal saline. blood work, EKG, and x-rays were obtained. He was reassessed frequently. EKG shows sinus bradycardia without any acute changes compared to previous. He has no white count or fever to suggest infection. He is not anemic. Chest x-ray does not show any overt CHF or any other acute abnormalities. Knee x-rays do not reveal any fractures. We did attempt to place him in [facility] and they are unable to take him this weekend. At this point,I do not think he is safe to go home and cannot care for himself. For these reasons I do think he needs to be admitted/observe. I talked to Dr. Cooley, who will see him, but has also requested a CAT scan of his head which was ordered which shows some chronic hydrocephalus but nothing acutely different. He will be admitted/observed. Impression & Plan Weakness, Contusion of knee, right, Contusion of knee, left, Failure to thrive Discharge Plan Visit Data Chief Complaint: Fall Stated Complaint: FALL/ILL ED Provider: Germain Foster Discharge Problem: Weakness, Contusion of knee, right, Contusion of knee, left, Failure to thrive Patient Disposition: Being Evaluated by Hospitalist Forms Stand Alone Forms: My [facility] Prescriptions Prescriptions: No Action fluticasone propion-salmeterol [Advair Diskus] 250-50 mcg/dose Blister With Device 1 inh INHALATION BID RF: 0 lisinopril 20 mg Tablet 20 mg PO QAM RF: 0 isosorbide mononitrate 30 mg Tablet Extended Release 24 Hr 30 mg PO QAM RF: 0 gabapentin 400 mg Capsule 800 mg PO TID RF: 0 pravastatin 10 mg Tablet 10 mg PO DAILY RF: 0 docusate sodium 100 mg Capsule 100 mg PO QAM RF: 0 aspirin [Aspirin Childrens] 81 mg Tablet,Chewable 81 mg PO QAM RF: 0 metoprolol succinate 25 mg Tablet Extended Release 24 Hr 25 mg PO QAM RF: 0 albuterol sulfate [Ventolin HFA] 90 mcg/actuation Hfa Aerosol Inhaler 2 puff INHALATION Q6 PRN (Reason: Shortness Of Breath) RF: 0 cholecalciferol (vitamin D3) [Vitamin D3] 1,000 unit Capsule 1,000 unit PO QAM RF: 0 tiotropium bromide 18 mcg Capsule, W/Inhalation Device 1 cap INHALATION DAILY RF: 0 meloxicam 7.5 mg Tablet 7.5 mg PO BID PRN (Reason: Pain) RF: 0 B Complex Plus Vitamin C [id number] mg Capsule 1 cap PO DAILY RF: 0 nitroglycerin [Nitrostat] 0.4 mg Tablet, Sublingual 0.4 mg sublingual DIRECTED PRN (Reason: Chest Pain) RF: 0 diclofenac sodium 1 % Gel 2 g TOPICAL QID PRN (Reason: Arthritis) RF: 0 primidone [Mysoline] 50 mg tablet 100 mg PO BID RF: 0 omeprazole 20 mg capsule,delayed release(DR/EC) 20 mg PO DAILY RF: 0 Referrals Referrals: Aly Monzon [Primary Care Provider] - Discharge Problem: Contusion of knee, right Qualifiers: Encounter type: initial encounter Qualified Code(s): S80.01XA - Contusion of right knee, initial encounter Contusion of knee, left Qualifiers: Encounter type: initial encounter Qualified Code(s): S80.02XA - Contusion of left knee, initial encounter Failure to thrive Qualifiers: Failure to thrive age range: in adult Qualified Code(s): R62.7 - Adult failure to thrive The scribe's documentation has been prepared under my direction and personally reviewed by me in its entirety. I confirm that the note above accurately reflects all work, treatment, procedures, and medical decision making performed by me.
[2019-06-23 07:52] LABS: Basophils # (auto) 0.03 K/uL (0-0.2); Basophils % (auto) 0.4 %; Eosinophils # (auto) 0.14 K/uL (0-0.5); Eosinophils % (auto) 2.1 %; Hematocrit (blood only) 45.1 % (42-52); Hemoglobin 15.5 g/dL (14.0-18.0); Immature Granulocytes # (auto) 0.01 K/uL (0.00-0.02); Immature Granulocytes % (auto) 0.1 %; Lymphocytes # (auto) 1.72 K/uL (1.2-3.4); Lymphocytes % (auto) 25.6 %; Mean Corpuscular Hemoglobin 29.7 pg (25-34); Mean Corpuscular Hgb Conc 34.4 g/dL (32-36); Mean Corpuscular Volume 86.4 fL (80-100); Monocytes # (auto) 0.63 K/uL (0.11-0.59); Monocytes % (auto) 9.4 %; Neutrophils % (auto) 62.4 %; Platelet Count 182 K/uL (130-400); RDW Coefficient of Variation 14.2 % (11.5-14.5); RDW Standard Deviation 44.8 fL (36.4-46.3); Red Blood Count 5.22 M/uL (4.7-6.1); White Blood Count 6.73 K/uL (4.8-10.8)
[2019-06-23 08:08] LABS: Alanine Aminotransferase 23 U/L (12-78); Albumin Level 3.4 gm/dl (3.4-5.0); Aspartate Aminotransferase 21 U/L (15-37); BUN Creatinine Ratio 17.7 (10-20); Blood Urea Nitrogen 17 mg/dl (7-18); Calcium 8.9 mg/dl (8.5-10.1); Carbon Dioxide 30 mmol/L (21-32); Chloride 108 mmol/L (98-107); Creatinine Clr Calc Pharmacy 81.4 ml/min; Est GFR (African American) 88.9; Est GFR (Non-African American) 76.7; Glucose 108 mg/dl (70-99); Potassium 4.4 mmol/L (3.5-5.1); Sodium 140 mmol/L (136-145)
[2019-06-23 08:19] LABS: Albumin Globulin Ratio 1.1 (0.9-2); Alkaline Phosphatase 97 U/L (45-117); Bilirubin,Total 0.6 mg/dl (0.2-1); Globulin 3.1 gm/dl (2.5-4.0); Total Protein 6.5 gm/dl (6.4-8.2); Troponin I < 0.015 ng/ml (0-0.045)
--- NOTE | 2019-06-23 08:26 | XRay Report ---
XR knee LT 1 or 2V routine, XR knee RT 1 or 2V routine CLINICAL HISTORY: fall. Bilateral knee pain. COMPARISON STUDY: Left knee 11/29/2018. FINDINGS: The bones are osteopenic. No fracture or dislocation. No significant knee effusion. Surgica l clips within the medial left knee. Mild cartilage space narrowing within the medial compartments of the bilateral knees consistent with degenerative change. No significant soft tissue swelling. IMPRESSION: No fractures within the right or left knee. ACT 112: Negative or not required by law. Electronically signed by: Jose Armstrong M.D. 06/23/2019 8:24 AM
--- NOTE | 2019-06-23 08:29 | XRay Report ---
XR chest 1V portable HISTORY: weakness COMPARISON: None. FINDINGS: The lungs are clear. Cardiac silhouette remains mildly enlarged.. No pleural effusions. No pneumothorax. Poststernotomy changes. IMPRESSION: No significant change compared to the prior study. No acute process. Stable mild cardiomegaly. ACT 112: Negative or not required by law. Electronically signed by: Jose Armstrong M.D. 06/23/2019 8:28 AM
--- NOTE | 2019-06-23 10:05 | History & Physical Report ---
Date of Service June 23, 2019 Assessment & Plan (1) Weakness: (2) Ambulatory dysfunction: (3) Fall: This is a 73 year old male with significant PMH of CAD s/p BERNICE to Lcx 12/19 with stent thrombosis and eventual CABG x 2 2010, 100% reocclusion of [facility] and bypass graft now management medically, S-CHF EF 45%, HTN, HLD, T2DM, PUD, hx of congenital hydrocephalus, meningioma, hx of colon ca s/p rectosigmoid resection and other dx as noted below who presents to [facility] ED secondary to fall prior to arrival. Admit to med/surg consult PT/OT consult case management - pt likely to need acute rehab/skilled placement due to unable to care for self at home and in hospital repeat labs in a.m. (4) CAD (coronary artery disease): continue metoprolol, lisinopril, ASA, imdur, statin no active CP or SOB (5) Systolic CHF, chronic: euvolemic on exam continue BB, VALENTIN daily weights, strict I&O (6) DM type 2 (diabetes mellitus, type 2): Last A1C 6.0 07/2018 not on any oral diabetic medications repeat a1c in a.m. FBS 108 this a.m. (7) Hypertension: blood pressure elevated on lisinopril, metoprolol, imdur (8) Dyslipidemia: continue statin (9) AAA (abdominal aortic aneurysm): 3.8 x 4.0 cm infrarenal mural thrombus noted in aneursymal sac found on CT abd/pelvis 07/2018 follow up with PCP/Vascular (10) Essential tremor: continue primidone (11) Congenital hydrocephalus: per CT: table severe hydrocephalus with dilatation of the lateral and third ventricles. Pt also with stable meningioma follows with [facility] neurology and neurosurgery (12) DVT prophylaxis: lovenox Disposition: admit to med/surg, likely need rehab placement given ambulatory dysfunction and inability to care for self at home while in hospital Follow up: PCP Dr. Monzon upon discharge Patient was seen and examined in collaboration with Dr. Cooley, please see addendum History of Present Illness Chief Complaint: Fall prior to arrival. Primary Care Provider: Aly Monzon This is a 73 year old male with significant PMH of CAD s/p BERNICE to Lcx 12/19 with stent thrombosis and eventual CABG x 2 2010, 100% reocclusion of [facility] [place] and bypass graft now management medically, S-CHF EF 45%, HTN, HLD, T2DM, PUD, hx of congenital hydrocephalus, meningioma, hx of colon ca s/p rectosigmoid resection and other dx as noted below who presents to [facility] ED secondary to fall prior to arrival. Currently patient is living at home with in-director home support while is in the hospital battling cancer. He states when he went to go to the bathroom today he fell trying to get up off the toilet. He overall feels generally weak and is having difficulty caring for self at home while is in the hospital. He denies any recent illness, fever, chills, sweats, lightheadedness, dizziness, syncope, chest pain, shortness of breath, MCKOY, palpitations, cough, hemoptysis, nausea, vomiting, abdominal pain. He is usually more on the constipated side, but did have a normal bowel movement this morning. Denies melena or hematochezia. Denies dysuria or increased frequency urgency with urination. He states he has been taking his medications due to aid support. Denies any weight gain or weight loss. He overall feels he is eating and drinking okay. "I just feel rotten." Does have a history of CAD but this is otherwise stable without complaint of chest pain or shortness of breath. History of COPD controlled on Advair and Spiriva. History of type 2 diabetes with most recent A1c being 6.0 back in July 2018. He had lost approximately 80 pounds about 1 year ago intentionally which helped improve the multiple medical comorbidities. He does have history of essential tremor which he feels is worsening. He is taking primidone for this but does not feel it is helping. In ED patient CBC and CMP were relatively unremarkable, troponin WNL, TSH 1.63, urinalysis WNL. Bilateral knee x-ray without fracture. Chest x-ray revealed cardiomegaly but no acute cardiopulmonary abnormality. Head CT revealed no acute abnormality, stable severe hydrocephalus with notable meningioma. Allergies Allergy/AdvReac Type Severity Reaction Status Date / Time simvastatin Allergy Severe CHEST PAIN Verified 06/23/19 08:24 naproxen Allergy Intermediate RASH Verified 06/23/19 08:24 Sulfa (Sulfonamide Allergy Intermediate Rash Verified 06/23/19 08:24 Antibiotics) nifedipine Allergy Unknown UNKNOWN Verified 06/23/19 08:24 propoxyphene Allergy Unknown Unknown Verified 06/23/19 08:24 Home Medications Home Medications Medication Instructions Recorded Confirmed Type albuterol sulfate [Ventolin HFA] 2 puff INHALATION Q6 PRN 03/09/18 06/23/19 History aspirin [Aspirin Childrens] 81 mg PO QAM 03/09/18 06/23/19 History cholecalciferol (vitamin D3) 1,000 unit PO QAM 03/09/18 06/23/19 History [Vitamin D3] docusate sodium 100 mg PO QAM 03/09/18 06/23/19 History fluticasone propion-salmeterol 1 inh INHALATION BID 03/09/18 06/23/19 History [Advair Diskus] gabapentin 800 mg PO TID 03/09/18 06/23/19 History isosorbide mononitrate 30 mg PO QAM 03/09/18 06/23/19 History lisinopril 20 mg PO QAM 03/09/18 06/23/19 History metoprolol succinate 25 mg PO QAM 03/09/18 06/23/19 History pravastatin 10 mg PO DAILY 03/09/18 06/23/19 History tiotropium bromide 1 cap INHALATION DAILY 07/18/18 06/23/19 History omeprazole 20 mg PO DAILY 07/30/18 06/23/19 History primidone [Mysoline] 100 mg PO BID 07/30/18 06/23/19 History meloxicam 7.5 mg PO BID PRN 09/05/18 06/23/19 History B Complex Plus Vitamin C 1 cap PO DAILY 11/29/18 06/23/19 History nitroglycerin [Nitrostat] 0.4 mg SUBLINGUAL DIRECTED PRN 02/17/19 06/23/19 History diclofenac sodium 2 g TOPICAL QID PRN 06/23/19 06/23/19 History Past Med/Surg History Medical History Anxiety Borderline diabetes CAD (coronary artery disease) (Chronic) "2008- BERNICE left circumflex artery ; 2010- STEMI late in stent thrombosis of the left circumflex artery treated with angioplasty. He had an occluded right coronary artery at that time with [id number] collaterals. 2011- CABG shah to the LAD and a saphenous vein graft to the 1st diagonal branch" 2017 cardiac cath re-thrombosis to [facility] and bypass, now recommending medical management Follows Dr. Helga Bowser Cardiology Chest pain Chronic pain (Chronic) Colorectal cancer (Chronic) 2006--sx Congenital hydrocephalus (Chronic) COPD (chronic obstructive pulmonary disease) (Chronic) Depression Dyslipidemia (Chronic) Essential tremor (Chronic) Hypertension (Chronic) Ischemic cardiomyopathy (Chronic) Meningioma (Chronic) Myocardial Infarction 1990 On home oxygen therapy O2 at 3L N/C prn Osteoarthritis Parkinson disease PUD (peptic ulcer disease) (Chronic) Systolic CHF, chronic EF 45% last echo 2017 Tremor of right hand Surgical History History of bilateral cataract extraction History of cardiac cath x2--1990, 2013? @ [facility] [place] History of colon resection recto sigmoid resection Dr. Nair 2006 History of colonoscopy History of open reduction and internal fixation (ORIF) procedure arm, hardware removed History of right inguinal hernia repair x2 History of strabismus surgery one on each eye History of tooth extraction all teeth removed S/P CABG (coronary artery bypass graft) (Chronic) 2012 @ [facility] [place] S/P coronary artery stent placement (Chronic) x2-(1)1990, (1) 2013 Family History Brother Colon cancer T2DM (type 2 diabetes mellitus) Mother T2DM (type 2 diabetes mellitus) Father No problems noted. Other No family history of adverse response to anesthesia Social History (Updated 06/23/19 @ 10:49 by Ana Rosa Lobato PA-C) Preferred Language: Croatian Communication Ability: Effective [employer] Required: No Beliefs That Will Affect Care: None marital status: Current Living Situation: Spouse Current Living Situation Comment: Walks with walker, spouse currently in the hospital Feels Safe at Home: Yes Smoking Status: Former smoker Tobacco Type: cigarettes ; Second Hand Exposure: No ; Hx Alcohol Use: No Hx Substance Use: No Review of Systems Review of Systems: All systems reviewed & are unremarkable except as noted in HPI & below Physical Exam Physical Exam: Constitutional: WD/WN, unkempt, male, vitals as above, NAD, + essential tremor bilateral upper extremity, sitting up in bed, pleasant, conversing easily Head: Normocephalic, Atraumatic Eyes: PERRL, conjunctivae normal, anicteric sclerae ENMT: external ear and nose normal, oropharynx normal Neck: trachea midline, no thyromegaly normal visual inspection Respiratory: normal respiratory effort, lungs clear to auscultation, no wheeze, rales, rhonchi. Normal insp/exp effort, no accessory muscle use Cardiovascular: RRR, no murmur, no edema Vessels: no JVD or carotid bruit Chest: normal inspection of chest Abdomen: normal bowel sounds, soft, nontender, no hepatosplenomegaly Musculoskeletal: no cyanosis or clubbing, extremities motor strength 4/5, con tracture of b/l hand/fingers Skin: no rashes, warm and dry normal turgor Neurologic: PERRL, EOMI, accommodation nl, no face palsy, no dysarthria CN's II-XI intact bilaterally and moves all extremities , +tremor b/l upper extremities Psychiatric: A+Ox3, euthymic affect Lymphatic: no lymphadenopathy noted : deferred Results & Data Vital Signs (Past 12 Hours) Vital Signs Temp Pulse Pulse Resp BP BP Pulse Ox 06/23/19 09:00 60 15 175/86 H 100 06/23/19 07:10 48 L 96 06/23/19 07:02 36.4 C L 82 18 115/90 Laboratory Results Short CBC 06/23/19 Range/Units 07:40 WBC 6.73 (4.8-10.8) K/uL Hgb 15.5 (14.0-18.0) g/dL Hct 45.1 (42-52) % Plt Count 182 (130-400) K/uL BMP 06/23/19 07:40 Sodium 140 Potassium 4.4 Chloride 108 H Carbon Dioxide 30 BUN 17 Creatinine 0.98 Glucose 108 H Calcium 8.9 Cardiac Enzymes 06/23/19 Range/Units 07:40 Troponin I < 0.015 (0-0.045) ng/ml Liver Function 06/23/19 Range/Units 07:40 Total Bilirubin 0.6 (0.2-1) mg/dl AST 21 (15-37) U/L ALT 23 (12-78) U/L Alkaline Phosphatase 97 (45-117) U/L Albumin 3.4 (3.4-5.0) gm/dl Diagnostic Findings Knee Xray b/l: FINDINGS: The bones are osteopenic. No fracture or dislocation. No significant knee effusion. Surgical clips within the medial left knee. Mild cartilage space narrowing within the medial compartments of the bilateral knees consistent with degenerative change. No significant soft tissue swelling. IMPRESSION: No fractures within the right or left knee. Head CT: Findings: The paranasal sinuses and mastoid air cells are clear. The calvarium and skull base are intact. No acute infarct, intracranial hemorrhage, or midline shift. Stable severe hydrocephalus with dilatation of the lateral and third ventricles. This could be due to aqueduct stenosis. Stable densely calcified 3 mm right frontal lobe lesion likely representing a meningioma. Impression: No significant change compared to the prior study. No acute intracranial abnormality. Stable severe hydrocephalus. CXR: IMPRESSION: No significant change compared to the prior study. No acute process. Stable mild cardiomegaly. Medications Administered Discontinued Medications Sodium Chloride (Nss 1000ml) 1,000 mls @ 999 mls/hr IV .Q1H1M NISHA Stop: 06/23/19 08:15 Last Infusion: 06/23/19 09:10 Dose: 0 mls/hr Documented by: [id number] Admin: 06/23/19 08:01 Dose: 999 mls/hr Documented by: [id number] ECG Rate (beats per minute): 50 Rhythm: sinus bradycardia Additional Comments: QTC 457ms Code Status & VTE Plan Code Status Full Code VTE Prophylaxis Plan VTE Prophylaxis will be ordered: Yes Supervising Physician Co-Signing Physician Notes Attending addendum: The patient was seen and examined in medical floor He has Parkinson's disease complicated by essential tremor and flexural contractures deformities involving the hands was admitted with a fall secondary to ambulatory dysfunction Has been complaining of tremor throughout his whole life Has been difficult for him to live alone which he was doing up till now Has not been eating or drinking as he supposed to On examination Has bilateral resting tremor and also intention tremor which is worse with movement No acute distress Hemodynamically stable Chest-clear to auscultate bilaterally Heart-S1-S2 regular Abdomen-benign Extremities-no edema 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 Has essential tremor complicated by parkinsonian tremor Admission labs and imaging studies reviewed He has significant tremor worse with movement with ambulatory dysfunction Will get physical therapy and Occupational Therapy evaluation Likely to need rehab Agree with assessment and plan as outlined above by AUGUSTA Ch[address] Dr (1) DM type 2 (diabetes mellitus, type 2) Diabetes mellitus complication status: without complication Diabetes mellitus retirement insulin use: without intermodal truck driver use Qualified Code(s): E11.9 - Type 2 diabetes mellitus without complications (2) CAD (coronary artery disease) Associated angina: without angina Coronary Disease-Associated Artery/Lesion type: bypass graft [place] vs. transplanted heart: [place] heart Qualified Code(s): I25.810 - Atherosclerosis of coronary artery bypass graft(s) without angina pectoris (3) Hypertension Hypertension type: essential hypertension Qualified Code(s): I10 - Essential (primary) hypertension
--- NOTE | 2019-06-23 10:08 | CT Scan Report ---
HEAD CT NONCONTRAST CT DOSE: 926.01 mGy.cm HISTORY: Fall. weakness TECHNIQUE: Multiaxial CT images of the head were performed without the use of intravenous contrast. A utomated exposure control was utilized for this study. A dose lowering technique was utilized adheri ng to the principles of ALARA. Comparison: Head CT 11/29/2018. Findings: The paranasal sinuses and mastoid air cells are clear. The calvarium and skull base are int act. No acute infarct, intracranial hemorrhage, or midline shift. Stable severe hydrocephalus with di latation of the lateral and third ventricles. This could be due to aqueduct stenosis. Stable densely calcified 3 mm right frontal lobe lesion likely representing a meningioma. Impression: No significant change compared to the prior study. No acute intracranial abnormality. Stable severe h ydrocephalus. ACT 112: Negative or not required by law. Electronically signed by: Jose Armstrong M.D. 06/23/2019 10:07 AM
[2019-06-23 10:38] LABS: Appearance Urine Clear (Clear); Bilirubin Urine Negative (Negative); Blood Urine Negative (Negative); Color Urine Yellow; Glucose Urine UA Negative (Negative); Ketones Urine Negative (Negative); Leukocyte Esterase Urine Negative (Negative); Nitrite Urine Negative (Negative); Protein Urine Negative (Negative); Specific Gravity Urine 1.008 (1.000-1.030); Urobilinogen Urine Negative (Negative); pH Urine 5.5 (4.5-7.5)
[2019-06-23] MEDS ORDERED: POLYETHYLENE (MIRALAX) 17 GM PACK PO PRN (11:29)
[2019-06-23] MEDS ORDERED: MAGNESIUM HYDROXIDE SUSP 30 ML UDC PO PRN (11:29)
[2019-06-23] MEDS ORDERED: ALBUTEROL HFA 8 GM INHALER INH PRN (11:29)
[2019-06-23] MEDS ORDERED: ONDANSETRON INJ 2 MG/ML 2 ML VIAL IV PRN (11:29)
[2019-06-23] MEDS ORDERED: ACETAMINOPHEN 325 MG TAB PO PRN (11:29)
[2019-06-23] MEDS ORDERED: ALUMINUM/MAGNESIUM SUSP 30 ML UDC PO PRN (11:29)
[2019-06-23] MEDS: lisinopriL 20 MG TAB PO SCH (11:39)
[2019-06-23] MEDS: PRIMIDONE 50 MG TAB PO SCH ×2 (12:32→20:24)
[2019-06-23] MEDS: GABAPENTIN 400 MG CAP PO SCH ×2 (13:51→20:40)
[2019-06-23] MEDS ORDERED: PNEUMOCOCCAL Polysaccharide Vaccine 25mcg/0.5mL vial/Syr IM ONE (16:45)
[2019-06-23] MEDS ORDERED: INFLUENZA Vaccine HIGH DOSE 65+yrs 0.5 mL Syr IM ONE (16:45)
[2019-06-23] MEDS: TRAMADOL HCL 50 MG TABLET PO PRN ×2 (18:26→23:19)
[2019-06-23] MEDS: ENOXAPARIN INJ 40 MG/0.4 ML SYR SQ SCH (20:23)
[2019-06-23] MEDS: FLUTICASONE/SALMETEROL 250/50 (ADVAIR) 14 PUFF/1 INHALER INH SCH (20:23)
[2019-06-23] MEDS: DICLOFENAC SOD 1% GEL 100 GM TUBE EXT PRN (20:40)
[2019-06-24] MEDS: DICLOFENAC SOD 1% GEL 100 GM TUBE EXT PRN (03:24)
[2019-06-24] MEDS: TRAMADOL HCL 50 MG TABLET PO PRN ×2 (05:45→12:19)
--- NOTE | 2019-06-24 05:51 | Electrocardiogram Report ---
Test Reason : Blood Pressure : / mmHG Vent. Rate : 050 BPM Atrial Rate : 050 BPM P-R Int : 186 ms QRS Dur : 108 ms QT Int : 502 ms P-R-T Axes : 011 055 117 degrees QTc Int : 457 ms Sinus bradycardia Inferior infarct T wave abnormality, consider lateral ischemia Abnormal ECG When compared with ECG of 20-FEB-2019 08:31, No significant change was found Confirmed by Steve Zuñiga ([id number]) on 06/24/2019 5:51:03 AM Referred By: REFERRED SELF Confirmed By:Steve Zuñiga
[2019-06-24 06:01] LABS: Hematocrit (blood only) 40.2 % (42-52); Hemoglobin 13.9 g/dL (14.0-18.0); Mean Corpuscular Hemoglobin 29.6 pg (25-34); Mean Corpuscular Hgb Conc 34.6 g/dL (32-36); Mean Corpuscular Volume 85.5 fL (80-100); Mean Platelet Volume 9.2 fL (7.4-10.4); Platelet Count 171 K/uL (130-400); RDW Coefficient of Variation 13.9 % (11.5-14.5); RDW Standard Deviation 43.5 fL (36.4-46.3); White Blood Count 6.44 K/uL (4.8-10.8)
[2019-06-24 06:30] LABS: Calcium 8.8 mg/dl (8.5-10.1); Creatinine Clr Calc Pharmacy 96.2 ml/min; Est GFR (African American) 101.9; Est GFR (Non-African American) 87.9; Potassium 4.4 mmol/L (3.5-5.1)
[2019-06-24] MEDS: FLUTICASONE/SALMETEROL 250/50 (ADVAIR) 14 PUFF/1 INHALER INH SCH ×2 (08:10→20:02)
[2019-06-24] MEDS: TIOTROPIUM BROMIDE 5 PUFF/90 MCG INH INH SCH (08:11)
[2019-06-24] MEDS: GABAPENTIN 400 MG CAP PO SCH ×3 (08:11→20:03)
[2019-06-24] MEDS: PANTOprazole 40 MG TAB PO SCH (08:12)
[2019-06-24] MEDS: CHOLECALCIFEROL 1,000 UNITS TAB PO SCH (08:12)
[2019-06-24] MEDS: METOPROLOL SUCC 25MG EXT REL TAB PO SCH (08:12)
[2019-06-24] MEDS: VITAMIN B COMPLEX TAB PO SCH (08:12)
[2019-06-24] MEDS: PRAVASTATIN SOD 10 MG TAB PO SCH (08:12)
[2019-06-24] MEDS: lisinopriL 20 MG TAB PO SCH (08:13)
[2019-06-24] MEDS: DOCUSATE SODIUM 100 MG CAP PO SCH (08:13)
[2019-06-24] MEDS: ASPIRIN 81 MG ECTAB PO SCH (08:13)
[2019-06-24] MEDS: PRIMIDONE 50 MG TAB PO SCH ×2 (08:13→20:03)
[2019-06-24] MEDS: ISOSORBIDE MONO EXTENDED REL 30 MG TABCR PO SCH (08:49)
--- NOTE | 2019-06-24 14:44 | Hospitalist Progress Note ---
Date of Service June 24, 2019 Assessment & Plan (1) Weakness: (2) Ambulatory dysfunction: (3) Fall: This is a 73 year old male with significant PMH of CAD s/p BERNICE to Lcx 12/19 with stent thrombosis and eventual CABG x 2 2010, 100% reocclusion of [place] and bypass graft now management medically, S-CHF EF 45%, HTN, HLD, T2DM, PUD, hx of congenital hydrocephalus, meningioma, hx of colon ca s/p rectosigmoid resection and other dx as noted below who presents to [facility] ED secondary to fall prior to arrival. Remains stable in medical floor PT/OT has been requested Consult case management - pt likely to need acute rehab/skilled placement due to unable to care for self at home and in hospital Remains stable without any significant symptoms (4) CAD (coronary artery disease): continue metoprolol, lisinopril, ASA, imdur, statin no active CP or SOB No acute symptoms (5) Systolic CHF, chronic: euvolemic on exam continue BB, VALENTIN daily weights, strict I&O No signs and/or symptoms of fluid overload (6) DM type 2 (diabetes mellitus, type 2): Last A1C 6.0 07/2018 not on any oral diabetic medications repeat a1c in a.m. FBS 108 this a.m. (7) Hypertension: blood pressure elevated on lisinopril, metoprolol, imdur Remains on the upper side but not significantly high (8) Dyslipidemia: continue statin (9) AAA (abdominal aortic aneurysm): 3.8 x 4.0 cm infrarenal mural thrombus noted in aneursymal sac found on CT abd/pelvis 07/2018 follow up with PCP/Vascular (10) Essential tremor: continue primidone (11) Congenital hydrocephalus: per CT: table severe hydrocephalus with dilatation of the lateral and third ventricles. Pt also with stable meningioma follows with [facility] neurology and neurosurgery (12) DVT prophylaxis: lovenox Disposition: admit to med/surg, likely need rehab placement given ambulatory dysfunction and inability to care for self at home while in hospital Follow up: PCP Dr. Monzon upon discharge Medically stable PT and OT and awaiting placement Subjective 06/24/2019 The patient was seen and examined in medical floor He remains stable without any significant symptoms Denies any chest pain or palpitation, no abdominal pain nausea or vomiting and no increase in tremor or pain in hands Review of Systems Review of Systems: All systems reviewed and are unremarkable except as noted below Physical Exam Physical Exam: Lying in bed comfortably Constitutional: well developed and well nourished; no acute distress Eyes: PERRL, conjunctivae normal, anicteric sclerae ENMT: external ear and nose normal, oropharynx normal Neck: trachea midline, no thyromegaly Respiratory: normal respiratory effort; no respiratory distress Auscultation: lungs clear to auscultation bilaterally and + diminished lung sounds Cardiovascular: Rate/Rhythm: regular rate and regular rhythm Heart Sounds: no murmur Gastrointestinal (Abdomen): Inspection/Auscultation: abdomen normal to inspection and normal bowel sounds Percussion/Palpation: abdomen soft; abdomen nontender Musculoskeletal: No acute arthritis in any joints Neurologic: moves all extremities; no focal motor deficits Alert, awake and oriented Has essential tremor associated with trigger fingers Lymphatic: no cervical or axillary lymphadenopathy Results & Data Vital Signs (Past 12 Hours) Vital Signs Temp Pulse Resp BP Pulse Ox 06/24/19 07:24 36.6 C 56 L 18 159/86 H 97 Laboratory Results Short CBC 06/24/19 Range/Units 05:13 WBC 6.44 (4.8-10.8) K/uL Hgb 13.9 L (14.0-18.0) g/dL Hct 40.2 L (42-52) % Plt Count 171 (130-400) K/uL BMP 06/24/19 05:13 Sodium 136 Potassium 4.4 Chloride 104 Carbon Dioxide 30 BUN 20 H Creatinine 0.83 Glucose 91 Calcium 8.8 Medications Administered Current Inpatient Medications Acetaminophen (Tylenol) 650 mg PO Q4H PRN PRN Reason: pain/fever Stop: 07/23/19 11:28 Last Admin: 06/23/19 16:52 Dose: 650 mg Documented by: Al Hydrox/Mg Hydrox/Simethicone (Maalox) 30 ml PO Q6H PRN PRN Reason: Dyspepsia Stop: 07/23/19 11:28 Albuterol (Ventolin Hfa) 2 puffs INH Q6 PRN PRN Reason: Shortness Of Breath Stop: 07/23/19 11:28 Aspirin (Ecotrin Ectab) 81 mg PO [place] Stop: 07/24/19 08:59 Last Admin: 06/24/19 08:13 Dose: 81 mg Documented by: Diclofenac Sodium (Voltaren 1% Top) 2 gm EXT QID PRN PRN Reason: Arthritis Stop: 07/23/19 11:28 Last Admin: 06/24/19 03:24 Dose: 2 gm Documented by: Docusate Sodium (Colace) 100 mg PO [facility] Stop: 07/24/19 08:59 Last Admin: 06/24/19 08:13 Dose: Not Given Documented by: Enoxaparin Sodium (Lovenox) 40 mg SQ Q24H [facility] Stop: 07/23/19 20:59 Last Admin: 06/23/19 20:23 Dose: 40 mg Documented by: Gabapentin (Neurontin) 800 mg PO TID [facility] Stop: 07/23/19 13:59 Last Admin: 06/24/19 08:11 Dose: 800 mg Documented by: Isosorbide Mononitrate (Imdur Extended Rel) 30 mg PO [facility] Stop: 07/24/19 08:59 Last Admin: 06/24/19 08:49 Dose: 30 mg Documented by: Lisinopril (Zestril) 20 mg PO [facility] Stop: 07/23/19 10:44 Last Admin: 06/24/19 08:13 Dose: 20 mg Documented by: Magnesium Hydroxide (Milk Of Magnesia) 30 ml PO Q6H PRN PRN Reason: Constipation Stop: 07/23/19 11:28 Metoprolol Succinate (Toprol Xl) 25 mg PO [facility] Stop: 07/24/19 08:59 Last Admin: 06/24/19 08:12 Dose: 25 mg Documented by: Ondansetron HCl (Zofran) 4 mg IV Q6H PRN PRN Reason: Nausea Stop: 07/23/19 11:28 Pantoprazole Sodium (Protonix) 40 mg PO DAILY [facility]; Protocol Stop: 07/24/19 08:59 Last Admin: 06/24/19 08:12 Dose: 40 mg Documented by: Polyethylene Glycol (Miralax Powder Packet) 17 gm PO DAILY PRN PRN Reason: Constipation Stop: 07/23/19 11:28 Pravastatin Sodium (Pravachol) 10 mg PO DAILY [facility] Stop: 07/24/19 08:59 Last Admin: 06/24/19 08:12 Dose: 10 mg Documented by: Primidone (Primidone) 100 mg PO BID [facility] Stop: 07/23/19 10:44 Last Admin: 06/24/19 08:13 Dose: 100 mg Documented by: Fluticasone/Salmeterol (Advair Diskus 250/50) 1 puffs INH BID NISHA Stop: 07/23/19 20:59 Last Admin: 06/24/19 08:10 Dose: 1 puffs Documented by: Tiotropium [place] (Spiriva) 1 puffs INH DAILY NISHA Stop: 07/24/19 08:59 Last Admin: 06/24/19 08:11 Dose: 1 puffs Documented by: Tramadol HCl (Ultram) 50 mg PO Q4H PRN PRN Reason: Pain Stop: 07/23/19 18:02 Last Admin: 06/24/19 12:19 Dose: 50 mg Documented by: Vitamin B Complex (Vitamin B Complex) 1 tab PO DAILY NISHA Stop: 07/24/19 08:59 Last Admin: 06/24/19 08:12 Dose: 1 tab Documented by: Vitamin D (Vitamin D3) 1,000 units PO QAM NISHA Stop: 07/24/19 08:59 Last Admin: 06/24/19 08:12 Dose: 1,000 units Documented by: (1) CAD (coronary artery disease) Coronary Disease-Associated Artery/Lesion type: bypass graft [place] vs. 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
[2019-06-24] MEDS: ENOXAPARIN INJ 40 MG/0.4 ML SYR SQ SCH (20:03)
[2019-06-25] MEDS: DICLOFENAC SOD 1% GEL 100 GM TUBE EXT PRN ×2 (03:32→08:01)
[2019-06-25] MEDS: TRAMADOL HCL 50 MG TABLET PO PRN ×2 (03:37→14:03)
[2019-06-25 06:23] LABS: Estimated Average Glucose 117 mg/dl; Hemoglobin A1C 5.7 % (4.5-5.6)
[2019-06-25] MEDS: DOCUSATE SODIUM 100 MG CAP PO SCH (07:57)
[2019-06-25] MEDS: ASPIRIN 81 MG ECTAB PO SCH (07:57)
[2019-06-25] MEDS: FLUTICASONE/SALMETEROL 250/50 (ADVAIR) 14 PUFF/1 INHALER INH SCH (07:57)
[2019-06-25] MEDS: PRAVASTATIN SOD 10 MG TAB PO SCH (07:58)
[2019-06-25] MEDS: GABAPENTIN 400 MG CAP PO SCH ×2 (07:58→14:03)
[2019-06-25] MEDS: PANTOprazole 40 MG TAB PO SCH (07:58)
[2019-06-25] MEDS: ISOSORBIDE MONO EXTENDED REL 30 MG TABCR PO SCH (07:58)
[2019-06-25] MEDS: TIOTROPIUM BROMIDE 5 PUFF/90 MCG INH INH SCH (07:58)
[2019-06-25] MEDS: PRIMIDONE 50 MG TAB PO SCH (07:58)
[2019-06-25] MEDS: CHOLECALCIFEROL 1,000 UNITS TAB PO SCH (07:59)
[2019-06-25] MEDS: VITAMIN B COMPLEX TAB PO SCH (07:59)
[2019-06-25] MEDS: METOPROLOL SUCC 25MG EXT REL TAB PO SCH (07:59)
[2019-06-25] MEDS: lisinopriL 20 MG TAB PO SCH (08:00)
--- NOTE | 2019-06-25 09:25 | Hospitalist Progress Note ---
Date of Service June 25, 2019 Assessment & Plan (1) Weakness: (2) Ambulatory dysfunction: (3) Fall: This is a 73 year old male with significant PMH of CAD s/p BERNICE to Lcx 12/19 with stent thrombosis and eventual CABG x 2 2010, 100% reocclusion of [place] and bypass graft now management medically, S-CHF EF 45%, HTN, HLD, T2DM, PUD, hx of congenital hydrocephalus, meningioma, hx of colon ca s/p rectosigmoid resection and other dx as noted below who presents to [facility] ED secondary to fall prior to arrival. Remains stable in medical floor Continue PT/OT Case management on board - awaiting insurance auth to SNF [facility] Remains stable without any significant symptoms Will add stool softener (4) CAD (coronary artery disease): continue metoprolol, lisinopril, ASA, imdur, statin no active CP or SOB No acute symptoms (5) Systolic CHF, chronic: euvolemic on exam continue BB, VALENTIN weight stable, strict I&O No signs and/or symptoms of fluid overload (6) DM type 2 (diabetes mellitus, type 2): A1C 5.7 on 06/24/19 not on any oral diabetic medications no indication to check accu check unless symptomatic hypoglycemia, will d/c carb consistent diet (7) Hypertension: blood pressure elevated this am. prior to meds, 159/82 on lisinopril, metoprolol, imdur Remains on the upper side if continues consider increasing lisinopril (8) Dyslipidemia: continue statin (9) AAA (abdominal aortic aneurysm): 3.8 x 4.0 cm infrarenal mural thrombus noted in aneursymal sac found on CT abd/pelvis 07/2018 follow up with PCP/Vascular (10) Essential tremor: continue primidone (11) Congenital hydrocephalus: per CT: table severe hydrocephalus with dilatation of the lateral and third ventricles. Pt also with stable meningioma follows with [facility] neurology and neurosurgery (12) DVT prophylaxis: lovenox Disposition: Pt is medically stable and will discharge to SNF for subacute rehab once auth obtained Follow up: PCP Dr. Monzon upon discharge Supervising Physician Co-Signing Physician Notes Attending addendum: The patient was seen and examined in medical floor Denies any complaints and has been getting PT and OT Awaiting placement On examination Sitting on a chair without any symptoms except tremor which is worse with activity Hemodynamically stable Chest-clear Heart S1-S2 regular- Abdomen-benign Extremities-negative for any edema Admission labs reviewed Has ambulatory dysfunction and will need to have placement Likely to Agree with assessment and plan as outlined above by Ana Rosa Lobato PA-C go to rehab with approval DR Grover lawson Subjective Patient was seen and examined in room 453-2. Follow-up ambulatory dysfunction, fall and weakness. Shashank is sitting up in bed just finished breakfast. He overall offers no complaints. When asked how he was doing he states, "not well at all, I am worried about my ." He denies any fever, chills, sweats, lightheadedness, dizziness, chest pain, shortness breath, cough, nausea, vomiting, abdominal pain. He is urinating without difficulty, but has not passed his bowels or passing much flatus. We discussed starting stool softener and he was in agreement. He did participate in physical therapy over the weekend stating he, "walked the halls." Review of Systems Review of Systems: All systems reviewed & are unremarkable except as noted in HPI & below Physical Exam Physical Exam: Gen: WD/WN, male, NAD, A&O x3 HEENT: Normocephalic, atraumatic, conjunctivae moist, sclerae anicteric, mucous membranes moist. Lung: Clear to Auscultation bilaterally, no wheezes/rales/rhonchi Heart: Regular rate, regular rhythm, no murmurs, rubs, or gallops Abdomen: Soft, NT, ND +BS x 4 Extremities: No edema, bilateral upper extremity tremor, hand contractures Skin: Warm, no rash, negative turgor. Results & Data Vital Signs (Past 12 Hours) Vital Signs Temp Pulse Resp BP Pulse Ox 06/25/19 07:50 36.8 C 58 L 18 159/82 H 95 06/25/19 00:21 36.3 C L 63 18 171/87 H 96 Medications Administered Acetaminophen (Tylenol) 650 mg PO Q4H PRN PRN Reason: pain/fever Stop: 07/23/19 11:28 Last Admin: 06/23/19 16:52 Dose: 650 mg Documented by: [id number] Aspirin (Ecotrin Ectab) 81 mg PO QAM [facility] Stop: 07/24/19 08:59 Last Admin: 06/25/19 07:57 Dose: 81 mg Documented by: [id number] Admin: 06/24/19 08:13 Dose: 81 mg Documented by: [id number] Diclofenac Sodium (Voltaren 1% Top) 2 gm EXT QID PRN PRN Reason: Arthritis Stop: 07/23/19 11:28 Last Admin: 06/25/19 08:01 Dose: 2 gm Documented by: [id number] Admin: 06/25/19 03:32 Dose: 2 gm Documented by: [id number] Admin: 06/24/19 03:24 Dose: 2 gm Documented by: [id number] Admin: 06/23/19 20:40 Dose: 2 gm Documented by: [id number] Docusate Sodium (Colace) 100 mg PO [facility] Stop: 07/24/19 08:59 Last Admin: 06/25/19 07:57 Dose: 100 mg Documented by: [id number] Admin: 06/24/19 08:13 Dose: Not Given Documented by: [id number] Enoxaparin Sodium (Lovenox) 40 mg SQ Q24H [facility] Stop: 07/23/19 20:59 Last Admin: 06/24/19 20:03 Dose: 40 mg Documented by: [id number] Admin: 06/23/19 20:23 Dose: 40 mg Documented by: [id number] Gabapentin (Neurontin) 800 mg PO TID [facility] Stop: 07/23/19 13:59 Last Admin: 06/25/19 07:58 Dose: 800 mg Documented by: [id number] Admin: 06/24/19 20:03 Dose: 800 mg Documented by: [id number] Admin: 06/24/19 14:46 Dose: 400 mg Documented by: [id number] Admin: 06/24/19 08:11 Dose: 800 mg Documented by: [id number] Admin: 06/23/19 20:40 Dose: 800 mg Documented by: [id number] Admin: 06/23/19 13:51 Dose: 800 mg Documented by: [id number] Isosorbide Mononitrate (Imdur Extended Rel) 30 mg PO [facility] Stop: 07/24/19 08:59 Last Admin: 06/25/19 07:58 Dose: 30 mg Documented by: [id number] Admin: 06/24/19 08:49 Dose: 30 mg Documented by: [id number] Lisinopril (Zestril) 20 mg PO [facility] Stop: 07/23/19 10:44 Last Admin: 06/25/19 08:00 Dose: 20 mg Documented by: [id number] Admin: 06/24/19 08:13 Dose: 20 mg Documented by: [id number] Admin: 06/23/19 11:39 Dose: 20 mg Documented by: [id number] Metoprolol Succinate (Toprol Xl) 25 mg PO QAM [facility] Stop: 07/24/19 08:59 Last Admin: 06/25/19 07:59 Dose: Not Given Documented by: [id number] Admin: 06/24/19 08:12 Dose: 25 mg Documented by: [id number] Pantoprazole Sodium (Protonix) 40 mg PO DAILY [facility]; Protocol Stop: 07/24/19 08:59 Last Admin: 06/25/19 07:58 Dose: 40 mg Documented by: [id number] Admin: 06/24/19 08:12 Dose: 40 mg Documented by: [id number] Pravastatin Sodium (Pravachol) 10 mg PO DAILY [facility] Stop: 07/24/19 08:59 Last Admin: 06/25/19 07:58 Dose: 10 mg Documented by: [id number] Admin: 06/24/19 08:12 Dose: 10 mg Documented by: [id number] Primidone (Primidone) 100 mg PO BID [facility] Stop: 07/23/19 10:44 Last Admin: 06/25/19 07:58 Dose: 100 mg Documented by: [id number] Admin: 06/24/19 20:03 Dose: 100 mg Documented by: [id number] Admin: 06/24/19 08:13 Dose: 100 mg Documented by: [id number] Admin: 06/23/19 20:24 Dose: 100 mg Documented by: [id number] Admin: 06/23/19 12:32 Dose: 100 mg Documented by: [id number] Fluticasone/Salmeterol (Advair Diskus 250/50) 1 puffs INH BID [facility] Stop: 07/23/19 20:59 Last Admin: 06/25/19 07:57 Dose: 1 puffs Documented by: [id number] Admin: 06/24/19 20:02 Dose: 1 puffs Documented by: [id number] Admin: 06/24/19 08:10 Dose: 1 puffs Documented by: [id number] Admin: 06/23/19 20:23 Dose: 1 puffs Documented by: [id number] Tiotropium [place] (Spiriva) 1 puffs INH DAILY [facility] Stop: 07/24/19 08:59 Last Admin: 06/25/19 07:58 Dose: 1 puffs Documented by: [id number] Admin: 06/24/19 08:11 Dose: 1 puffs Documented by: [id number] Tramadol HCl (Ultram) 50 mg PO Q4H PRN PRN Reason: Pain Stop: 07/23/19 18:02 Last Admin: 06/25/19 03:37 Dose: 50 mg Documented by: [id number] Admin: 06/24/19 12:19 Dose: 50 mg Documented by: [id number] Admin: 06/24/19 05:45 Dose: 50 mg Documented by: [id number] Admin: 06/23/19 23:19 Dose: 50 mg Documented by: [id number] Admin: 06/23/19 18:26 Dose: 50 mg Documented by: [id number] Vitamin B Complex (Vitamin B Complex) 1 tab PO DAILY [facility] Stop: 07/24/19 08:59 Last Admin: 06/25/19 07:59 Dose: 1 tab Documented by: [id number] Admin: 06/24/19 08:12 Dose: 1 tab Documented by: [id number] Vitamin D (Vitamin D3) 1,000 units PO QAM [facility] Stop: 07/24/19 08:59 Last Admin: 06/25/19 07:59 Dose: 1,000 units Documented by: [id number] Admin: 06/24/19 08:12 Dose: 1,000 units Documented by: [id number] Discontinued Medications Sodium Chloride (Nss 1000ml) 1,000 mls @ 999 mls/hr IV .Q1H1M [facility] Stop: 06/23/19 08:15 Last Infusion: 06/23/19 09:10 Dose: 0 mls/hr Documented by: [id number] Admin: 06/23/19 08:01 Dose: 999 mls/hr Documented by: [id number] (1) DM type 2 (diabetes mellitus, type 2) Diabetes mellitus complication status: without complication Diabetes mellitus alf insulin use: without alf use Qualified Code(s): E11.9 - Type 2 diabetes mellitus without complications (2) CAD (coronary artery disease) Associated angina: without angina Coronary Disease-Associated Artery/Lesion type: bypass graft [place] vs. transplanted heart: [place] heart Qualified Code(s): I25.810 - Atherosclerosis of coronary artery bypass graft(s) without angina pectoris (3) Hypertension Hypertension type: essential hypertension Qualified Code(s): I10 - Essential (primary) hypertension
--- NOTE | 2019-06-25 16:11 | Discharge Summary ---
Date of Service June 25, 2019 Admission HPI Per Admitting Provider This is a 73 year old male with significant PMH of CAD s/p BERNICE to Lcx 12/19 with stent thrombosis and eventual CABG x 2 2010, 100% reocclusion of [place] and bypass graft now management medically, S-CHF EF 45%, HTN, HLD, T2DM, PUD, hx of congenital hydrocephalus, meningioma, hx of colon ca s/p rectosigmoid resection and other dx as noted below who presents to [facility] ED secondary to fall prior to arrival. Currently patient is living at home with in-nursing home aide support while is in the hospital battling cancer. He states when he went to go to the bathroom today he fell trying to get up off the toilet. He overall feels generally weak and is having difficulty caring for self at home while is in the hospital. He denies any recent illness, fever, chills, sweats, lightheadedness, dizziness, syncope, chest pain, shortness of breath, MCKOY, palpitations, cough, hemoptysis, nausea, vomiting, abdominal pain. He is usually more on the constipated side, but did have a normal bowel movement this morning. Denies melena or hematochezia. Denies dysuria or increased frequency urgency with urination. He states he has been taking his medications due to aid support. Denies any weight gain or weight loss. He overall feels he is eating and drinking okay. "I just feel rotten." Does have a history of CAD but this is otherwise stable without complaint of chest pain or shortness of breath. History of COPD controlled on Advair and Spiriva. History of type 2 diabetes with most recent A1c being 6.0 back in July 2018. He had lost approximately 80 pounds about 1 year ago intentionally which helped improve the multiple medical comorbidities. He does have history of essential tremor which he feels is worsening. He is taking primidone for this but does not feel it is helping. In ED patient CBC and CMP were relatively unremarkable, troponin WNL, TSH 1.63, urinalysis WNL. Bilateral knee x-ray without fracture. Chest x-ray revealed cardiomegaly but no acute cardiopulmonary abnormality. Head CT revealed no acute abnormality, stable severe hydrocephalus with notable meningioma. Admission Exam Per Admitting Provider Constitutional: WD/WN, unkempt, male, vitals as above, NAD, + essential tremor bilateral upper extremity, sitting up in bed, pleasant, conversing easily Head: Normocephalic, Atraumatic Eyes: PERRL, conjunctivae normal, anicteric sclerae ENMT: external ear and nose normal, oropharynx normal Neck: trachea midline, no thyromegaly normal visual inspection Respiratory: normal respiratory effort, lungs clear to auscultation, no wheeze, rales, rhonchi. Normal insp/exp effort, no accessory muscle use Cardiovascular: RRR, no murmur, no edema Vessels: no JVD or carotid bruit Chest: normal inspection of chest Abdomen: normal bowel sounds, soft, nontender, no hepatosplenomegaly Musculoskeletal: no cyanosis or clubbing, extremities motor strength 4/5, contracture of b/l hand/fingers Skin: no rashes, warm and dry normal turgor Neurologic: PERRL, EOMI, accommodation nl, no face palsy, no dysarthria CN's II-XI intact bilaterally and moves all extremities , +tremor b/l upper extremities Psychiatric: A+Ox3, euthymic affect Lymphatic: no lymphadenopathy noted : deferred Principal Diagnosis Ambulatory dysfunction Weakness Fall CAD Systolic CHF HTN COPD Hydrocephalus Discharge Exam Gen: WD/WN, male, NAD, A&O x3 HEENT: Normocephalic, atraumatic, conjunctivae moist, sclerae anicteric, mucous membranes moist. Lung: Clear to Auscultation bilaterally, no wheezes/rales/rhonchi Heart: Regular rate, regular rhythm, no murmurs, rubs, or gallops Abdomen: Soft, NT, ND +BS x 4 Extremities: No edema, bilateral upper extremity tremor, hand contractures Skin: Warm, no rash, negative turgor. Discharge Data Allergies Allergy/AdvReac Type Severity Reaction Status Date / Time simvastatin Allergy Severe CHEST PAIN Verified 06/23/19 08:24 naproxen Allergy Intermediate RASH Verified 06/23/19 08:24 Sulfa (Sulfonamide Allergy Intermediate Rash Verified 06/23/19 08:24 Antibiotics) nifedipine Allergy Unknown UNKNOWN Verified 06/23/19 08:24 propoxyphene Allergy Unknown Unknown Verified 06/23/19 08:24 Consultations 06/23/19 09:31 ED Decision to Admit Stat 01/11/20 11:29 Consult Case Management - Discharge Planning Routine Ordered Studies 06/25/19 06/25/19 06/25/19 Range/Units 11:34 07:41 07:41 POC Glucose 134 H 78 65 L* (70-99) Estimat Average Glucose mg/dl Hemoglobin A1c (4.5-5.6) % 06/25/19 06/24/19 06/24/19 Range/Units 00:31 20:14 18:02 POC Glucose 75 66 L* 74 (70-99) Estimat Average Glucose mg/dl Hemoglobin A1c (4.5-5.6) % 06/24/19 06/24/19 06/24/19 Range/Units 17:34 17:31 05:13 POC Glucose 65 L* 62 L* (70-99) Estimat Average Glucose 117 mg/dl Hemoglobin A1c 5.7 H (4.5-5.6) % Diagnostic Findings Knee Xray b/l: FINDINGS: The bones are osteopenic. No fracture or dislocation. No significant knee effusion. Surgical clips within the medial left knee. Mild cartilage space narrowing within the medial compartments of the bilateral knees consistent with degenerative change. No significant soft tissue swelling. IMPRESSION: No fractures within the right or left knee. Head CT: Findings: The paranasal sinuses and mastoid air cells are clear. The calvarium and skull base are intact. No acute infarct, intracranial hemorrhage, or midline shift. Stable severe hydrocephalus with dilatation of the lateral and third ventricles. This could be due to aqueduct stenosis. Stable densely calcified 3 mm right frontal lobe lesion likely representing a meningioma. Impression: No significant change compared to the prior study. No acute intracranial abnormality. Stable severe hydrocephalus. CXR: IMPRESSION: No significant change compared to the prior study. No acute process. Stable mild cardiomegaly. Hospital Course (1) Weakness: (2) Ambulatory dysfunction: (3) Fall: This is a 73 year old male with significant PMH of CAD s/p BERNICE to Lcx 12/19 with stent thrombosis and eventual CABG x 2 2010, 100% reocclusion of [place] and bypass graft now management medically, S-CHF EF 45%, HTN, HLD, T2DM, PUD, hx of congenital hydrocephalus, meningioma, hx of colon ca s/p rectosigmoid resection and other dx as noted below who presents to [facility] ED secondary to fall prior to arrival. Remains stable in medical floor Continue PT/OT Case management on board - awaiting insurance auth to SNF [facility] Remains stable without any significant symptoms (4) CAD (coronary artery disease): continue metoprolol, lisinopril, ASA, imdur, statin no active CP or SOB No acute symptoms (5) Systolic CHF, chronic: euvolemic on exam continue BB, VALENTIN weight stable, strict I&O No signs and/or symptoms of fluid overload (6) DM type 2 (diabetes mellitus, type 2): A1C 5.7 on 06/24/19 not on any oral diabetic medications no indication to check accu check unless symptomatic hypoglycemia, will d/c carb consistent diet (7) Hypertension: blood pressure elevated this am. prior to meds, 159/82 on lisinopril, metoprolol, imdur Remains on the upper side if continues consider increasing lisinopril (8) Dyslipidemia: continue statin (9) AAA (abdominal aortic aneurysm): 3.8 x 4.0 cm infrarenal mural thrombus noted in aneursymal sac found on CT abd/p ileana 07/2018 follow up with PCP/Vascular (10) Essential tremor: continue primidone (11) Congenital hydrocephalus: per CT: table severe hydrocephalus with dilatation of the lateral and third ventricles. Pt also with stable meningioma follows with [facility] neurology and neurosurgery (12) DVT prophylaxis: lovenox, will discontinue on discharge, to be resumed at discretion of SNF Disposition: Pt is medically stable and will discharge to SNF for subacute rehab once auth obtained Follow up: PCP Dr. Monzon upon discharge Total Time Total Time Spent Total Time Spent (In Minutes): 60 Total Time Includes: Examination of the Patient, Discharge Planning, Medication Reconciliation and Communication With Other Providers Discharge Plan Discharge Items Patient Disposition: Transfer [facility] Reason For Visit: FALL, AMBULATORY DYSFUNCTION Discharge Diagnosis: Ambulatory Dysfunction Fall Weakness Heart disease Chronic Systolic CHF - not in acute exacerbation HTN Essential Tremor Condition on Discharge: Fair Activity: Resume your previous activity Non-emergency contact: Primary Care Provider Call non-emergency contact if: you have any medication questions, your symptoms worsen, your pain is not controlled, your pain is worsening, your pain is unusual for you and your rectal temperature is above 100.4 Follow-up/Referrals: Aly Monzon [Primary Care Provider] - Diet: Heart Healthy and Low Sodium (2gm) Addtl Attending Provider Instructions: MEDICATION CHANGES: Continue your current medications as prescribed SUMMARY OF TEST RESULTS: You were admitted to hospital due to fall, inability to care of self and weakness Knee xrays did not reveal any acute abnormality Chest Xray was without acute abnormality Head CT was with out acute abnormality, showed stable hydrocephalus PENDING TEST RESULTS: None RECOMMENDATIONS FOR FOLLOW-UP: Follow up with PCP Dr. Monzon as scheduled OTHER INSTRUCTIONS: Seek medical attention if you have: * temperature above 101 * chest pain or trouble breathing * abdominal pain, nausea, vomiting * diarrhea, dark stools or bloody stools * any unanswered questions or concerns Call 911 if symptoms are severe. Please take good care of yourself. Call if you have any questions or problems. You can reach a [facility] hospitalist on duty at [facility] 24 hours a day by calling [phone]. My pager number # is [phone]. Pending Studies at Discharge: No Stand-Alone Forms: My [facility] Skilled Items Patient informed of condition?: Yes DNR: No Discharge Level of Care: Skilled Communicable Disease: No Discharge Prognosis: Stable Lines: None Urinary Catheter: No Medications and DC Order Prescriptions: New acetaminophen [Mapap (acetaminophen)] 325 mg Tablet 650 mg PO Q4H PRN (Reason: pain (scale score 1-3)) 7 Days Qty: 60 RF: 0 Continued fluticasone propion-salmeterol [Advair Diskus] 250-50 mcg/dose Blister With Device 1 inh INHALATION BID RF: 0 lisinopril 20 mg Tablet 20 mg PO QAM RF: 0 isosorbide mononitrate 30 mg Tablet Extended Release 24 Hr 30 mg PO QAM RF: 0 gabapentin 400 mg Capsule 800 mg PO TID RF: 0 pravastatin 10 mg Tablet 10 mg PO DAILY RF: 0 docusate sodium 100 mg Capsule 100 mg PO QAM RF: 0 aspirin [Aspirin Childrens] 81 mg Tablet,Chewable 81 mg PO QAM RF: 0 metoprolol succinate 25 mg Tablet Extended Release 24 Hr 25 mg PO QAM RF: 0 albuterol sulfate [Ventolin HFA] 90 mcg/actuation Hfa Aerosol Inhaler 2 puff INHALATION Q6 PRN (Reason: Shortness Of Breath) RF: 0 cholecalciferol (vitamin D3) [Vitamin D3] 1,000 unit Capsule 1,000 unit PO QAM RF: 0 tiotropium bromide 18 mcg Capsule, W/Inhalation Device 1 cap INHALATION DAILY RF: 0 meloxicam 7.5 mg Tablet 7.5 mg PO BID PRN (Reason: Pain) RF: 0 B Complex Plus Vitamin C [id number] mg Capsule 1 cap PO DAILY RF: 0 nitroglycerin [Nitrostat] 0.4 mg Tablet, Sublingual 0.4 mg sublingual DIRECTED PRN (Reason: Chest Pain) RF: 0 diclofenac sodium 1 % Gel 2 g TOPICAL QID PRN (Reason: Arthritis) RF: 0 primidone [Mysoline] 50 mg tablet 100 mg PO BID RF: 0 omeprazole 20 mg capsule,delayed release(DR/EC) 20 mg PO DAILY RF: 0 Discharge Orders: Discharge Order (Routine); Ordered 06/25/19 Ordered By: Ana Rosa Lobato Admission Data Admit Date/Time: 06/23/19 16:06 Attending Provider: Christos Cooley Admit Provider: Christos oColey Primary Care Provider: Aly Monzon Other Providers: [facility] ; Christos Cooley Other Interventions: Discharge Summary Assessment (RN) Last Done: 06/25/19 16:28 DC Date/Time DO NOT enter until pt leaves facility: 06/25/19 17:19 Supervising Physician Co-Signing Physician Notes Attending addendum: The patient was seen and examined by me prior to discharge. He remained medically stable without any significant symptoms He received adequate physical therapy and was sent to skilled care facility as per the recommendation His examination and labs are unremarkable prior to discharge. Agree with assessment and plan as outlined by AUGUSTA Chacon Dr
--- NOTE | 2019-06-27 11:28 | Coding Query ---
CODING QUERY To promote full compliance with coding requirements relating to patient care, provider participation is requested in all cases of death surveys coder uncertainty. Please assist us with the question(s) below: Coding Question(s): Patient admitted with weakness and ambulatory dysfunction. Please document, if known or suspected, the etiology for the weakness and ambulatory dysfunction. Thanks for your help! Dany Ballesteros [facility] Physician's Response(s): The patient was admitted with ambulatory dysfunction and that is due to multiple comorbid conditions as mentioned in H&P complicated by generalized tremor and osteoarthritis. Principal Diagnosis: "that condition established after study, to be chiefly responsible for occasioning the admission of the patient to the hospital for care." Co-Existing Principal Diagnosis: "when two or more diagnoses equally meet the criteria for principal diagnosis as determined by the circumstances of admission, diagnostic work up, and/or therapy provided, and the Alphabetic Index, Tabular List, or another coding guideline does not provide sequencing direction, any one of the diagnoses may be sequenced first." "When the physician has documented what appears to be a current diagnosis in the body of the record, but has not included the diagnosis in the final diagnostic statement, the physician should be asked whether the diagnosis should be added." (Source Coding Clinic 2 QTR90. p3-4) KIMO
== END 2019-06-25 17:19 | DRG 948 ==
LOC: ED 06:57 → 4W 06:57